=== PATIENT | female | born 1940 | race Caucasian/White ===

== ENCOUNTER 2017-03-11 16:06 | Inpatient (IN) | payer MEDICAID ==
[~2017-03-11] VITALS: Ht 165.1 cm; Wt 68.0 kg
[2017-03-11 16:33] VITALS: BP 96/55
[2017-03-11] MEDS ORDERED: POTASSIUM 25 M25 ME1 PO (16:59)
[2017-03-11] MEDS ORDERED: JANUVIA25 MG ORAL (16:59)
[2017-03-11] MEDS ORDERED: FUROSEMIDE40 MG ORAL (16:59)
[2017-03-11] MEDS ORDERED: COUMADIN4 MG ORAL (16:59)
[2017-03-11] MEDS ORDERED: METFORMIN HCL1000 M1 ORAL (16:59)
[2017-03-11] MEDS ORDERED: TYLENOL650 MG/20. ORAL (16:59)
[2017-03-11] MEDS ORDERED: DIGOXIN0.125 MG/2 ORAL (16:59)
[2017-03-11] MEDS ORDERED: ZYPREXA5 MG ORAL (16:59)
[2017-03-11] MEDS ORDERED: ARICEPT5 MG ORAL (16:59)
[2017-03-11] MEDS ORDERED: METOPROLOL SUCC50 MG ORAL (16:59)
[2017-03-11] MEDS ORDERED: ASPIR 8181 MG ORAL (16:59)
--- NOTE | 2017-03-11 17:09 | Emergency Room Report ---
History of Present Illness General Chief Complaint: Altered Level of Consciousness Source: Patient, Medical Record, PMD Present Illness HPI 76YOF BIBEMS for "AMS". "not eating last 3 [address] PM[address] Fuentes states history of incontinence, concern for UTI vs CVA Patient with MR, dementia, not providing additional HPI at this time Allergies: Coded Allergies: No Known Allergies (Unverified , 03/11/17) Patient History Past Medical History: see triage record, old chart reviewed, other - mentally delayed Past Surgical History: none Pertinent Family History: none Last Menstrual Period: post Now: No Immunizations: UTD Reviewed Nursing Documentation: PMH: Agreed, PSxH: Agreed Nursing Documentation-PMH Past Medical History: No History, Except For Hx Cardiac Problems: Yes - A fib, on [place], CHF EF 40% Hx Hypertension: Yes - Hypercholesterolemia Hx Diabetes: Yes - type II Review of Systems All Other Systems: negative except mentioned in HPI - dementia, aphasic Physical Exam Vital Signs Date Time Temp Pulse Resp B/P Pulse Ox O2 Delivery O2 Flow Rate FiO2 03/11/17 16:09 98.8 80 20 94/57 99 Room Air Sp02 EP Interpretation: reviewed, normal, other - BP is 101/54 General Appearance: normal inspection, well appearing, no apparent distress, alert, GCS 15, non-toxic Head: normocephalic, atraumatic Eyes: bilateral eye EOMI, bilateral eye PERRL ENT: normal ENT inspection, hearing grossly normal, normal voice Neck: normal inspection, full range of motion, supple, no bony tend Respiratory: normal inspection, lungs clear, normal breath sounds, no respiratory distress, no retraction, no wheezing Cardiovascular #1: regular rate, rhythm, no edema Gastrointestinal: normal inspection, normal bowel sounds, non tender, soft, no guarding, no hernia Medical Decision Making Medicare Attestation I Adwoa Dodson MD hereby attest that the medical record entry for date of service, 07/21/16 accurately reflects signatures/notations that I made in my capacity as MD when I treated/diagnosed the above listed Medicare beneficiary. I attest that this information is true, accurate and complete to the best of my knowledge. I understand that any falsification, omission, or concealment of material fact may subject me to administrative, civil, or criminal liability. This patient warrants hospital admission for extreme of age and has a condition that cannot be treated as outpatient. Diagnostic Impression: Primary Impression: Weakness Additional Impression: Failure to thrive Qualified Codes: R62.7 - Adult failure to thrive ER Course 76YOF with ?AMS - VSS. Afebrile - No leuks. H&h stable. - UA c/w UTI. Rocephin given - CT head negative for acute CVA Endorsed to Dr Fuentes for med/surg admit at 726pm EKG Diagnostic Results Rate: normal Rhythm: other - Atrial fib ST Segments: other - TWI in 1, 2, V2, v4-6 Other Impression No previous ECG Rhythm Strip Diag. Results EP Interpretation: yes Rate: 70 Rhythm: no PVC's, no ectopy Last Vital Signs Date Time Temp Pulse Resp B/P Pulse Ox O2 Delivery O2 Flow Rate FiO2 03/11/17 16:33 98.8 66 15 96/55 100 Room Air Status: improved Disposition: ADMITTED INPATIENT Condition: Serious ADWOA DODSON M.D. Mar 11, 2017 17:09
[2017-03-11 17:24] LABS: EOSINOPHILS % (AUTO) 1.1 % (0.0-3.0); LYMPHOCYTES % (AUTO) 34.2 % (20.0-45.0); MEAN CORPUSCULAR HEMOGLOBIN 26.6 PG (27.0-31.0); MEAN CORPUSCULAR VOLUME 83 FL (80-99); MEAN PLATELET VOLUME 7.4 FL (6.5-10.1); MONOCYTES % (AUTO) 5.1 % (1.0-10.0); NEUTROPHILS % (AUTO) 58.6 % (45.0-75.0); PLATELET COUNT 250 K/UL (150-450); RED BLOOD COUNT 4.93 M/UL (4.20-5.40); RED CELL DISTRIBUTION WIDTH 12.7 % (11.6-14.8); WHITE BLOOD COUNT 9.7 K/UL (4.8-10.8)
[2017-03-11 17:30] VITALS: BP 111/63
[2017-03-11 17:59] LABS: TROPONIN I < 0.30 ng/mL (<=0.30)
[2017-03-11 18:00] LABS: ALANINE AMINOTRANSFERASE 17 U/L (3-33); ANION GAP 13 (5-15); ASPARTATE AMINO TRANSFERASE 20 U/L (5-40); CARBON DIOXIDE 21 mEQ/L (20-30); CHLORIDE 100 mEQ/L (98-107); HEMOLYSIS 2; POTASSIUM 4.4 mEQ/L (3.4-4.9); SODIUM 134 mEQ/L (135-145); TOTAL PROTEIN 6.5 g/dL (6.6-8.7)
[2017-03-11 18:10] LABS: CKMB 1.6 ng/mL (< 3.8)
[2017-03-11 18:30] VITALS: BP 104/59
[2017-03-11 19:04] LABS: KETONES,URINE NEGATIVE (NEGATIVE); LEUKOCYTE ESTERASE ,URINE 3+ (NEGATIVE); NITRITE,URINE NEGATIVE (NEGATIVE); PH,URINE 6 (4.5-8.0); PROTEIN,URINE 1+ (NEGATIVE); UROBILINOGEN,URINE NORMAL MG/DL (0.0-1.0)
[2017-03-11 19:05] LABS: APPEARANCE,URINE SLIGHTLY CLOUDY
[2017-03-11 19:07] LABS: BACTERIA,URINE MODERATE /HPF; SQUAMOUS EPITHELIAL CELL,UR FEW /LPF (NONE/OCC)
[2017-03-11 20:08] VITALS: BP 105/55
[2017-03-11] MEDS ORDERED: cefTRIAXone 1 GM in NS 55 ML IVPB ONE (20:15)
[2017-03-11] MEDS ORDERED: Cefepime HCl 1 GM in D5W 55 ML IVPB SCH (23:00)
[2017-03-11] MEDS ORDERED: Cefepime 1gm vial ONE (23:02)
[2017-03-12 04:00] VITALS: BP 136/89
[2017-03-12 06:17] LABS: BASOPHILS % (AUTO) 0.9 % (0.0-2.0); EOSINOPHILS % (AUTO) 0.9 % (0.0-3.0); MEAN CORPUSCULAR HEMOGLOBIN 26.8 PG (27.0-31.0); MEAN CORPUSCULAR HGB CONC 31.7 G/DL (32.0-36.0); MEAN CORPUSCULAR VOLUME 84 FL (80-99); MEAN PLATELET VOLUME 7.9 FL (6.5-10.1); MONOCYTES % (AUTO) 7.1 % (1.0-10.0); PLATELET COUNT 240 K/UL (150-450); RED CELL DISTRIBUTION WIDTH 13.2 % (11.6-14.8); WHITE BLOOD COUNT 9.9 K/UL (4.8-10.8)
[2017-03-12 06:39] LABS: INR 1.5 (0.9-1.1); PROTHROMBIN TIME 15.3 SEC (9.30-11.50)
[2017-03-12 06:48] LABS: ALANINE AMINOTRANSFERASE 17 U/L (3-33); ALBUMIN/GLOBULIN RATIO 1.2 (1.0-2.7); ANION GAP 14 (5-15); ASPARTATE AMINO TRANSFERASE 25 U/L (5-40); CALCIUM 9.1 mg/dL (8.6-10.2); CARBON DIOXIDE 19 mEQ/L (20-30); CHLORIDE 105 mEQ/L (98-107); CREATININE 0.9 mg/dL (0.5-0.9); HEMOLYSIS 65; POTASSIUM 5.2 mEQ/L (3.4-4.9); SODIUM 138 mEQ/L (135-145); TOTAL PROTEIN 6.4 g/dL (6.6-8.7)
[2017-03-12 09:00] VITALS: BP 125/74
[2017-03-12] MEDS ORDERED: Aspirin EC 81mg tab ORAL SCH (09:00)
[2017-03-12] MEDS ORDERED: Furosemide 40mg tab ORAL SCH (09:00)
[2017-03-12] MEDS ORDERED: metFORMIN 500mg tab ORAL SCH (09:00)
[2017-03-12] MEDS ORDERED: Digoxin 0.125mg tab ORAL SCH (09:00)
[2017-03-12] MEDS ORDERED: sitaGLIPtin 25mg tab ORAL SCH (09:00)
[2017-03-12] MEDS ORDERED: Donepezil 5mg Tab ORAL SCH (09:00)
--- NOTE | 2017-03-12 11:21 | Diagnostic Imaging Report ---
Indications: Altered mental status Technique: Continuous helical CT imaging of the brain was performed with automatic exposure control on a Siemens sensation [address] scanner. Axial and coronal images were reconstructed at 5 mm slice thickness and interval. CTDI volume(s): 70 mGy Total DLP: 1323 mGy-cm Findings: Comparison: None Confluent low attenuation is present doubt the bilateral periventricular and deep cerebral white matter. Ventricles, cisterns, and sulci are diffusely prominent. No evidence of mass or hemorrhage, mass effect, midline shift, hydrocephalus, or increased intracranial pressure. Bone window images are unremarkable. Visualized paranasal sinuses and mastoid air cells are clear. IMPRESSION: No evidence of acute intracranial pathology . Bilateral cerebral periventricular and deepwhite matter low attenuation, nonspecific, likely chronic microvascular ischemic in nature. Atrophy The CT scanner at [facility] is accredited by the [employer] [employer] and the scans are performed using protocols designed to limit radiation exposure to as low as reasonably achievable to attain images of sufficient resolution adequate for diagnostic evaluation.
[2017-03-12 12:00] VITALS: BP 150/70
--- NOTE | 2017-03-12 14:24 | Diagnostic Imaging Report ---
Indication: Shortness of breath Technique: Single portable AP view of the chest. Findings: Comparison: None. Aortic arch calcified and mildly elongated. Osteophytes and mild scoliosis thoracic, lumbar spine. Extra pulmonary soft tissues, remainder of the cardiomediastinal silhouette, pulmonary vasculature and parenchyma, and pleural surfaces are unremarkable. IMPRESSION: No evidence of acute cardiopulmonary disease Degenerative spondylosis, scoliosis Aortosclerosis.
[2017-03-12 16:11] VITALS: BP 108/70
[2017-03-12] MEDS ORDERED: Warfarin Sodium 4mg ORAL SCH (17:00)
[2017-03-12] MEDS ORDERED: NS 275ml ONE (17:36)
[2017-03-12] MEDS ORDERED: Tubing IV Secondary IV ONE (17:36)
--- NOTE | 2017-03-12 20:16 | History and Physical Report ---
DATE OF ADMISSION: 03/11/2017 CHIEF COMPLAINT AND REASON FOR HOSPITALIZATION: The patient is admitted for evaluation of altered mental status and possible urinary tract infection. HISTORY OF PRESENT ILLNESS: The patient is a 76-year-old, lady resident of an [facility]. She has a history of atrial fibrillation, dementia, Coumadin management, incontinence, hepatitis C, and diabetes. She was apparently sent for altered mental status, but it is not clear what happened. She has generalized weakness and poor oral intake. The patient is a poor historian and likely has some component of mental illness and or mental retardation. SURGERIES: None. HABITS: She is a nondrinker and nonsmoker. No use of illicit drugs. ALLERGIES: None known. MEDICATIONS: Include Tylenol, Altace, Aricept, aspirin, Coumadin, digoxin, Januvia, Lasix, metformin and metoprolol. Doses are for the transfer I think she also takes potassium, Prostat and olanzapine. SYSTEM REVIEW: HEAD, EYES, EARS, NOSE, AND THROAT: She states her vision and hearing is good. ENDOCRINE: History of adult onset diabetes controlled. No thyroid problems. PULMONARY: No asthma, TB, or chronic cough. CARDIAC: History of atrial fibrillation and diastolic congestive heart failure manifested by leg edema. No history of tachyarrhythmias and atrial fibrillation is controlled. GASTROINTESTINAL: No gastrointestinal bleeding, ulcer, or abdominal pain. She has hepatitis C. GENITOURINARY: She is incontinent of urine. NEUROLOGIC: No CVA or seizures. She has a history of cognitive impairment either dementia possibly Alzheimer's type versus underlying mental retardation. PHYSICAL EXAMINATION: GENERAL: The patient is alert lady, in no acute distress. VITAL SIGNS: Temperature 97.7, pulse 97, respirations 20, and blood pressure 150/70. HEAD, EYES, EARS, NOSE, AND THROAT: Sclerae are nonicteric. Ocular motions intact in all directions. Oral mucosa moist. NECK: No adenopathy. LUNGS: Clear. HEART: Rhythm atrial fibrillation. No murmur. ABDOMEN: Soft. No organomegaly or masses. EXTREMITIES: No edema, cyanosis, or clubbing. There is arthritic changes in the knees. NEUROLOGIC: The patient is alert and responsive. She is unable to give the month and year. Ask where she lives she says here. Her recall is poor. She moves all extremities. PERTINENT LABORATORY AND DIAGNOSTIC DATA: The head CT shows no acute intracranial pathology and microvascular disease. White count 9.9, hemoglobin 13.9, electrolytes sodium 134, potassium 4.4, BUN 27, and creatinine 1. Urinalysis shows 5 to 10 white cells per high-power field, moderate bacteria and the urine culture shows greater than 100,000 E. coli. IMPRESSION: 1. Urinary tract infection. 2. Altered mental status likely progressive dementia. 3. Anorexia. 4. Hepatitis C. 5. Atrial fibrillation. 6. Chronic diastolic congestive heart failure. PLAN: The patient was given empiric antibiotics. Pending culture. If she remains stable on this regimen we will arrange outpatient care. Colten Fuentes M.D. DR: ABRAHAM JOB#: [id number] CC:
--- NOTE | 2017-03-13 02:02 | Discharge Summary ---
DATE OF ADMISSION: 03/11/2017 DATE OF DISCHARGE: 03/12/2017 PERTINENT HISTORY: See the History and Physical. The patient was brought into the hospital with altered mental status and eating poorly. PERTINENT PHYSICAL FINDINGS: LUNGS: Clear. HEART: Atrial fibrillation. ABDOMEN: Soft. EXTREMITIES: No edema. COURSE IN THE HOSPITAL: The patient was alert and responsive. Tolerated diet. She was started on empiric antibiotics. Urine culture had greater than 100,000 gram-negatives. Final sensitivity is pending. Laboratories remained stable. There is no leukocytosis, fever, or chills and she was discharged back to the [facility] in stable condition. FINAL DIAGNOSES: 1. 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 2. Urinary tract infection, Escherichia coli. 3. Atrial fibrillation, chronic. 4. Chronic diastolic congestive heart failure. 5. Adult onset diabetes. 6. Dementia likely Alzheimer's. 7. Possible mental retardation. DISCHARGE DISPOSITION: She is to return back to her half-way facility on her prior diet and medications and I will give her a short course of empiric antibiotics pending cultures. Colten Fuentes M.D. DR: JAIDEN JOB#: [id number] CC:
== END 2017-03-12 21:10 | DRG 463 ==
LOC: EDBD 16:06 → EMR 17:27 → EDBEDREQ 17:43 → 4E 17:44 → EDBEDREQ 19:59 → 4E 22:04
DX: N39.0 Urinary tract infection, site not specified (principal); I50.32 Chronic diastolic (congestive) heart failure; G30.9 Alzheimer's disease, unspecified; I48.2 Chronic atrial fibrillation; F02.80 Dementia in other diseases classified elsewhere, unspecified severity, without behavioral disturbance, psychotic disturbance, mood disturbance, and anxiety; B96.20 Unspecified Escherichia coli [E. coli] as the cause of diseases classified elsewhere; E11.9 Type 2 diabetes mellitus without complications; F79 Unspecified intellectual disabilities; B19.20 Unspecified viral hepatitis C without hepatic coma; R63.0 Anorexia; Z79.01 Long term (current) use of anticoagulants; F99 Mental disorder, not otherwise specified; R41.82 Altered mental status, unspecified
CPT/HCPCS: 36415; 70450; 71010; 80053; 81003; 82550; 82553; 82962; 84443; 84484; 85025; 85610; 87081; 87086; 87181; 93005

== ENCOUNTER 2017-03-17 13:03 | Inpatient (IN) | payer MEDICAID ==
[~2017-03-17] VITALS: Ht 160 cm; Wt 71.2 kg
[2017-03-17] VITALS (12 sets, daily range): BP systolic 104–158; BP diastolic 55–93
[~2017-03-17 13:03] MED LIST: ARICEPT5 MG ORAL; ASPIR 8181 MG ORAL; COUMADIN4 MG ORAL; DIGOXIN0.125 MG/2 ORAL; FUROSEMIDE40 MG ORAL; JANUVIA25 MG ORAL; METFORMIN HCL1000 M1 ORAL; METOPROLOL SUCC50 MG ORAL; POTASSIUM 25 M25 ME1 PO; TYLENOL650 MG/20. ORAL; ZYPREXA5 MG ORAL
[2017-03-17] MEDS ORDERED: NS 1000ml 1,900 ML IVLG ONE ×2 (13:30→14:15)
[2017-03-17 13:33] LABS: MEAN CORPUSCULAR HEMOGLOBIN 27.1 PG (27.0-31.0); MEAN CORPUSCULAR HGB CONC 31.6 G/DL (32.0-36.0); MEAN CORPUSCULAR VOLUME 86 FL (80-99); MEAN PLATELET VOLUME 7.9 FL (6.5-10.1); PLATELET COUNT 311 K/UL (150-450); RED BLOOD COUNT 5.78 M/UL (4.20-5.40); RED CELL DISTRIBUTION WIDTH 13.5 % (11.6-14.8)
[2017-03-17] MEDS ORDERED: Vancomycin 1gm inj IVPB ONE (13:45)
[2017-03-17] MEDS ORDERED: Vancomycin 1 GM in D5W 275 ML IVPB ONE (13:45)
[2017-03-17 13:48] LABS: WHITE BLOOD COUNT 29.8 K/UL (4.8-10.8)
[2017-03-17 13:49] LABS: TROPONIN I < 0.30 ng/mL (<=0.30)
[2017-03-17 13:51] LABS: ALANINE AMINOTRANSFERASE 20 U/L (3-33); ALBUMIN/GLOBULIN RATIO 0.9 (1.0-2.7); ANION GAP 17 (5-15); ASPARTATE AMINO TRANSFERASE 21 U/L (5-40); CALCIUM 9.8 mg/dL (8.6-10.2); CARBON DIOXIDE 22 mEQ/L (20-30); CHLORIDE 101 mEQ/L (98-107); CREATININE 1.2 mg/dL (0.5-0.9); HEMOLYSIS 4; POTASSIUM 4.8 mEQ/L (3.4-4.9); SODIUM 140 mEQ/L (135-145); TOTAL PROTEIN 8.1 g/dL (6.6-8.7)
[2017-03-17] MEDS ORDERED: COUMADIN3 MG ORAL (13:58)
[2017-03-17] MEDS ORDERED: ALTACE2.5 MG ORAL (13:58)
[2017-03-17] MEDS ORDERED: COUMADIN4 MG ORAL (13:58)
[2017-03-17] MEDS ORDERED: ARICEPT10 MG ORAL (13:58)
[2017-03-17 14:00] LABS: REFLEX LACTIC ACID YES OR NO YES
[2017-03-17] MEDS ORDERED: DOCUSATE SODIU100 MG ORAL (14:01)
[2017-03-17] MEDS ORDERED: dulcolax supp RC (14:01)
[2017-03-17 14:28] LABS: BAND NEUTROPHILS % (MANUAL) 0 % (0-8); BASOPHILS % (MANUAL) 0 % (0-2); EOSINOPHILS % (MANUAL) 0 % (0-3); LYMPHOCYTES % (MANUAL) 32 % (20-45); NEUTROPHILS % (MANUAL) 65 % (45-75); PLATELET ESTIMATE ADEQUATE; PLATELET MORPHOLOGY NORMAL; TOTAL CELLS COUNTED 100
[2017-03-17 14:32] LABS: REACTIVE LYMPHOCYTES 3+
[2017-03-17 14:34] LABS: HYPOCHROMASIA 1+
--- NOTE | 2017-03-17 14:37 | Emergency Room Report ---
History of Present Illness General Chief Complaint: Dyspnea/Respdistress Source: Medical Record Present Illness HPI [facility]. Patient is full code. At baseline patient's apparently is able to the as patient does not have a G-tube in place. History is fairly limited as patient is nonverbal. History was obtained from medical records and EMS. Patient is from [facility]. Patient's primary care physician is Dr. Danny Mayen. Patient was noted to have congestion increasing shortness of breath which is why patient's was sent here for further evaluation. Apparently patient does not have advanced directives in place at the penitentiary and patient was noted to be full code according to the penitentiary. No other history is available symptoms are noted to be highly severe to critical.No other modifying factors. No other associated signs and symptoms. No other complaints were noted. Allergies: Coded Allergies: No Known Allergies (Unverified , 03/11/17) Patient History Past Medical History: DM, HTN, AFib, dementia, other - hep c Past Surgical History: none Pertinent Family History: none Social History Narrative stays at a penitentiary Nursing Documentation-PMH Hx Cardiac Problems: Yes - A-fib; Hep C; High cholesterol Hx Hypertension: Yes - Hypercholesterolemia Hx Diabetes: Yes History Of Psychiatric Problem: Yes - Dementia; Schizophrenia Review of Systems All Other Systems: limited - poor mental status Physical Exam Vital Signs Date Time Temp Pulse Resp B/P Pulse Ox O2 Delivery O2 Flow Rate FiO2 03/17/17 13:02 144 28 158/90 88 Nasal Cannula 4.0 03/17/17 13:17 100 Sp02 EP Interpretation: reviewed, abnormal - noted to be low by me General Appearance: alert, severe distress, cachetic, lethargic, Chronically Ill Head: normocephalic, atraumatic ENT: dry mucus membranes Neck: normal inspection, no bony tend Respiratory: respiratory distress, decreased breath sounds, accessory muscle use, expiration - crackles Cardiovascular #1: no edema, tachycardia - irregularly irregular Gastrointestinal: normal inspection, normal bowel sounds, soft, no guarding, no hernia, other - G-tube in place Genitourinary: ext genitalia/vag normal Musculoskeletal: normal inspection, back normal Neurologic: other - unable to fully assess as patient is toxic. Psychiatric: other - unable to assess due to poor mental status Skin: warm/dry Procedures Critical Care Time Critical Care Time Patient had a critical medical condition which untreated could potentially result in life or limb threatening injury. Total critical care time excluding procedures was approximately 45 minutes. Central Line Central Line : Consent: Verbal Central Line Lumen: triple Maximal Sterile Barrier Tech: yes cap, yes mask, yes sterile gown, yes sterile gloves, yes large sterile sheet, yes hand hygiene, yes chlorhexidine prep Central Line Postion: femoral (R) Complications: none Central Line Post Position: sutured, good blood return Attempts: One Patient Tolerated: Well Complications: None Intubation Intubation : Consent: Emergent Time of Intubation: 14:30 Intubation Method: orotracheal Tube Size (cm): 7.5 Medications: Etomidate, Succinylcholine Breath Sounds after Intubation: equal Intubation Complications: no complications Post Intubation Xray: Yes Attempts: One Patient Tolerated: Well Complications: None Medical Decision Making Diagnostic Impression: Primary Impression: Altered level of consciousness Additional Impressions: Respiratory distress Sepsis Respiratory failure ER Course Patient presents emergency department today with acute shortness of breath. Differential diagnoses include pneumonia, CHF, sepsis, electrolyte abnormality just name a few.Given the severity of the patient's presentation I felt this is a highly complex patient. This patient required extensive workup. Patient laboratory workup shows severely elevated white blood cell count. Patient's chest x-ray however was clear per radiology. Patient presents in respiratory distress and require control the airway. Patient was intubated. Patient was also tachycardic with evidence atrial fibrillation. However patient appeared dehydrated. Central line was placed and patient was given 30 mL per kilogram fluid bolus. Patient also had elevated lactic acid level after receiving fluid bolus patient's lactic acid level still appear elevated. Case was discussed in detail with patient's hospitalist an advertising sales representative. Patient was reevaluated in her perfusion was improving with good cap refill and stable blood pressure. However given severe patient presentation patient was also started on IV antibiotics after blood culture was obtained. Patient will be admitted to intensive period of for further treatment.Patient's heart rate did improve with fluid boluses. Because patient's blood pressure is stable patient did not require pressors. Labs Test 03/17/17 13:19 03/17/17 14:30 03/17/17 15:00 03/17/17 15:15 White Blood Count 29.8 K/UL (4.8-10.8) Red Blood Count 5.78 M/UL (4.20-5.40) Hemoglobin 15.7 G/DL (12.0-16.0) Hematocrit 49.6 % (37.0-47.0) Mean Corpuscular Volume 86 FL (80-99) Mean Corpuscular Hemoglobin 27.1 PG (27.0-31.0) Mean Corpuscular Hemoglobin Concent 31.6 G/DL (32.0-36.0) Red Cell Distribution Width 13.5 % (11.6-14.8) Platelet Count 311 K/UL (150-450) Mean Platelet Volume 7.9 FL (6.5-10.1) Neutrophils (%) (Auto) % (45.0-75.0) Lymphocytes (%) (Auto) % (20.0-45.0) Monocytes (%) (Auto) % (1.0-10.0) Eosinophils (%) (Auto) % (0.0-3.0) Basophils (%) (Auto) % (0.0-2.0) Differential Total Cells Counted 100 Neutrophils % (Manual) 65 % (45-75) Lymphocytes % (Manual) 32 % (20-45) Monocytes % (Manual) 3 % (1-10) Eosinophils % (Manual) 0 % (0-3) Basophils % (Manual) 0 % (0-2) Band Neutrophils 0 % (0-8) Reactive Lymphocytes 3+ Other Cell Type Platelet Estimate Adequate Platelet Morphology Normal Red Blood Cell Morphology Hypochromasia 1+ Sodium Level 140 mEQ/L (135-145) Potassium Level 4.8 mEQ/L (3.4-4.9) Chloride Level 101 mEQ/L (98-107) Carbon Dioxide Level 22 mEQ/L (20-30) Anion Gap 17 (5-15) Blood Urea Nitrogen 34 mg/dL (7-23) Creatinine 1.2 mg/dL (0.5-0.9) Estimat Glomerular Filtration Rate mL/min (>60) Glucose Level 235 mg/dL (74-106) Lactic Acid Level 4.70 mmol/L (0.66-2.22) 4.20 mmol/L (0.66-2.22) Calcium Level 9.8 mg/dL (8.6-10.2) Total Bilirubin 0.9 mg/dL (0.0-1.2) Aspartate Amino Transf (AST/SGOT) 21 U/L (5-40) Alanine Aminotransferase (ALT/SGPT) 20 U/L (3-33) Alkaline Phosphatase 73 U/L (35-104) Total Creatine Kinase 23 U/L (26-140) Creatine Kinase MB 2.0 ng/mL (< 3.8) Creatine Kinase MB Relative Index 8.6 Troponin I < 0.30 ng/mL (<=0.30) Total Protein 8.1 g/dL (6.6-8.7) Albumin 4.0 g/dL (3.5-5.2) Globulin 4.1 g/dL Albumin/Globulin Ratio 0.9 (1.0-2.7) Urine Color Yellow Urine Appearance Clear Urine pH 5 (4.5-8.0) Urine Specific [place] 1.020 (1.005-1.035) Urine Protein 3+ (NEGATIVE) Urine Glucose (UA) Negative (NEGATIVE) Urine Ketones 1+ (NEGATIVE) Urine Occult Blood Negative (NEGATIVE) Urine Nitrite Negative (NEGATIVE) Urine Bilirubin Negative (NEGATIVE) Urine Urobilinogen 1 MG/DL (0.0-1.0) Urine Leukocyte Esterase 1+ (NEGATIVE) Urine RBC 0-2 /HPF (0 - 2) Urine WBC 2-4 /HPF (0 - 2) Urine Squamous Epithelial Cells Few /LPF (NONE/OCC) Urine Amorphous Sediment Few /LPF (NONE) Urine Bacteria Few /HPF (NONE) Arterial Blood pH 7.340 (7.350-7.450) Arterial Blood Partial Pressure CO2 30.7 mmHg (35.0-45.0) Arterial Blood Partial Pressure O2 93.5 mmHg (75.0-100.0) Arterial Blood HCO3 16.2 mmol/L (22.0-26.0) Arterial Blood Oxygen Saturation 96.8 % (92.0-98.0) Arterial Blood Base Excess -8.2 Sander Test Positive EKG Diagnostic Results Rate: tachycardiac Rhythm: other - atrial fibrillation ST Segments: no acute changes Rhythm Strip Diag. Results EP Interpretation: yes Rate: 140 Rhythm: no PVC's, no ectopy, other - atrial fibrillation Chest X-Ray Diagnostic Results Chest X-Ray Diagnostic Results #1: Chest X-Ray Ordered: Yes # of Views/Limited/Complete: 1 View Indication: Shortness of Breath EP Interpretation: No Interpretation: no acute cardiopulmonary disease Impression: No acute disease Chest X-Ray Diagnostic Results #2: Chest X-Ray Ordered: Yes # of Views/Limited/Complete: 1 View Indication: Shortness of Breath EP Interpretation: Yes Interpretation: no consolidation, no effusion, no pneumothorax Impression: Other - intubationET tube near the rogerio Interpreting ER Provider: Electronically signed by Angélica Judge MD Last Vital Signs Date Time Temp Pulse Resp B/P Pulse Ox O2 Delivery O2 Flow Rate FiO2 03/17/17 13:17 144 28 158/90 92 Non-Rebreather 15.0 100 Status: improved Disposition: ADMITTED INPATIENT Condition: Critical Referrals: DANNY MAYEN (PCP) ANGÉLICA JUDGE M.D. Mar 17, 2017 14:37
[2017-03-17] MEDS: Cefepime HCl 1 GM in NS 55 ML IV SCH ×2 (14:48→16:42)
--- NOTE | 2017-03-17 14:48 | Diagnostic Imaging Report ---
Indications: Cough, intubation Technique: Portable AP chest at 1418 Findings: Comparison: 1327 Endotracheal tube has been placed, tip within 1 cm of the origin of the right mainstem bronchus. Cardio mediastinal silhouette stable. Lungs and pleura remain clear. Mild gaseous distention of stomach as well. IMPRESSION: Endotracheal tube placed, somewhat deep in position, recommend withdrawal 1-2 cm Interval gaseous distention of stomach, mild No evidence of acute cardiopulmonary disease, unchanged
[2017-03-17] MEDS ORDERED: JANUVIA25 MG ORAL (15:10)
[2017-03-17] MEDS ORDERED: CEPHALEXIN500 MG ORAL (15:10)
[2017-03-17] MEDS ORDERED: METFORMIN HCL1000 M1 ORAL (15:10)
[2017-03-17 15:23] LABS: ABG BASE EXCESS -8.2; ABG PCO2 30.7 mmHg (35.0-45.0)
[2017-03-17 15:24] LABS: ABG ALLEN TEST POSITIVE
[2017-03-17 15:35] LABS: APPEARANCE,URINE CLEAR; KETONES,URINE 1+ (NEGATIVE); LEUKOCYTE ESTERASE ,URINE 1+ (NEGATIVE); NITRITE,URINE NEGATIVE (NEGATIVE); PH,URINE 5 (4.5-8.0); PROTEIN,URINE 3+ (NEGATIVE); UROBILINOGEN,URINE 1 MG/DL (0.0-1.0)
[2017-03-17 15:48] LABS: REFLEX LACTIC ACID YES OR NO YES
[2017-03-17 15:58] LABS: BACTERIA,URINE FEW /HPF; RBC,URINE 0-2 /HPF (0 - 2); SQUAMOUS EPITHELIAL CELL,UR FEW /LPF (NONE/OCC)
[2017-03-17 15:59] LABS: AMORPHOUS SEDIMENT,UR FEW /LPF
--- NOTE | 2017-03-17 16:21 | Consultation ---
Consult Note Assessment/Plan dict resp failure sepsis possible early pneumonia dehydration rapid AF DM lactic acidosis IVF Abx vent ADWOA GARCIA Mar 17, 2017 16:21
[2017-03-17] MEDS: DuoNeb 0.5-3(2.5)mg/3ml neb IN-LINE SCH ×2 (16:30→23:47)
[2017-03-17] MEDS ORDERED: Piperacillin/Tazobactam 3.375 GM in NS 110 ML IVPB ONE (17:30)
[2017-03-17] MEDS: Zoysn 3.37gm in D5W 110ml IVPB SCH (18:00)
[2017-03-17] MEDS ORDERED: Morphine Sulfate 2mg/ml Inj IVP PRN (18:00)
[2017-03-17] MEDS: LORazepam Inj 2mg/ml 1ml IV PRN ×2 (18:59→23:17)
[2017-03-17] MEDS ORDERED: Diltiazem 25mg/5ml IV ONE (19:00)
[2017-03-17] MEDS: Pantoprazole Inj IVP SCH (20:58)
[2017-03-17] MEDS: Heparin 5000 units/ml inj SUBQ SCH (21:00)
[2017-03-18] VITALS (33 sets, daily range): BP systolic 90–120; BP diastolic 44–67
--- NOTE | 2017-03-18 02:01 | Consultation ---
DATE OF CONSULTATION: 03/17/2017 PULMONARY CONSULTATION ATTENDING PHYSICIAN: Colten Fuentes M.D. CHIEF COMPLAINT: Respiratory failure. HISTORY OF PRESENT ILLNESS: This elderly woman came from custodial with shortness of breath. She was evaluated and found to have respiratory failure and was intubated in the emergency department. She had a high temperature up to 101 degrees and had a heart rate of 144 in atrial fibrillation. I was called to see her for consultation. I saw her in the emergency department before she was taken to the intensive care. PAST MEDICAL HISTORY: Information is limited. She came from a custodial. There is a history of atrial fibrillation, hypertension, diabetes, dementia, hepatitis C, as well as hypercholesterolemia, and schizophrenia. ALLERGIES: None. MEDICATIONS: The list of medications from the nursing facility was reviewed. Of note, she is on Lasix, digoxin, metformin, Zyprexa, and Coumadin among other medications. REVIEW OF SYSTEMS: Cannot be obtained. PHYSICAL EXAMINATION: GENERAL: The patient is awake and makes eye contact. She is intubated with an orotracheal tube. VITAL SIGNS: Show heart rate is 126 in atrial fibrillation, respirations 20, blood pressure 158/90, and saturation is 100%. The temperature is down, but earlier was 101 degrees. She appears chronically ill. There is a tremor of the hands. HEENT: The head is normocephalic. NECK: No jugular venous distention. CHEST: Has rhonchi. CARDIAC: Rhythm is irregular and rapid. ABDOMEN: Soft and nontender. No feeding tube is in place. EXTREMITIES: No clubbing, cyanosis, or edema. LABORATORY AND DIAGNOSTIC STUDIES: The chest x-ray shows the tube is in good position. There are no infiltrates seen. The white blood count is markedly elevated at 29,800 and hemoglobin is 15.7, reflecting dehydration. Blood gas shows metabolic acidosis with a base excess of -8, pH 7.34, pCO2 31, and pO2 93. Chemistry shows BUN 34 and creatinine 1.2. Lactic acid is elevated at 4.7, repeat was 4.2. Blood sugar is 235. The urine appears fairly clear and shows a few white cells. There is some protein noted. IMPRESSIONS: 1. Acute respiratory failure. 2. Sepsis. 3. Possible early pneumonia with negative x-ray at this time, but purulent sputum is noted. Aspiration is considered. 4. Diabetes. 5. Lactic acidosis. 6. Dementia and schizophrenia. 7. Hyperlipidemia. 8. Rapid atrial fibrillation. PLAN: The patient will be sent to the intensive care. Ventilator support will be continued. We will give fluids and antibiotics. Cardiology consultation will be requested. Followup x-rays will be obtained. Her prognosis is guarded. Shai Lott M.D. DR: Liza JOB#: [id number] CC: Colten Fuentes M.D.; Fax#: [phone] Lott M.D. ; Fax#: [phone]
[2017-03-18] MEDS: DuoNeb 0.5-3(2.5)mg/3ml neb IN-LINE SCH ×4 (04:30→19:00)
[2017-03-18 05:32] LABS: MEAN CORPUSCULAR HGB CONC 32.8 G/DL (32.0-36.0); MEAN CORPUSCULAR VOLUME 85 FL (80-99); MEAN PLATELET VOLUME 7.9 FL (6.5-10.1); PLATELET COUNT 211 K/UL (150-450); RED CELL DISTRIBUTION WIDTH 13.7 % (11.6-14.8)
[2017-03-18 05:42] LABS: WHITE BLOOD COUNT 25.3 K/UL (4.8-10.8)
[2017-03-18] MEDS: Vancomycin 1250mg/D5W 250ml IVPB SCH (05:46)
[2017-03-18 06:42] LABS: HEMOGLOBIN A1C 6.7 % (< 6.0)
[2017-03-18 07:29] LABS: BAND NEUTROPHILS % (MANUAL) 0 % (0-8); BASOPHILS % (MANUAL) 0 % (0-2); EOSINOPHILS % (MANUAL) 0 % (0-3); LYMPHOCYTES % (MANUAL) 16 % (20-45); NEUTROPHILS % (MANUAL) 79 % (45-75); PLATELET ESTIMATE ADEQUATE; PLATELET MORPHOLOGY NORMAL; TOTAL CELLS COUNTED 100
[2017-03-18 07:33] LABS: MAGNESIUM 1.6 mg/dL (1.7-2.5); PHOSPHORUS 1.8 mg/dL (2.5-4.8)
[2017-03-18 07:39] LABS: ALANINE AMINOTRANSFERASE 11 U/L (3-33); ALBUMIN/GLOBULIN RATIO 0.9 (1.0-2.7); ANION GAP 11 (5-15); ASPARTATE AMINO TRANSFERASE 15 U/L (5-40); CALCIUM 7.8 mg/dL (8.6-10.2); CARBON DIOXIDE 19 mEQ/L (20-30); CHLORIDE 109 mEQ/L (98-107); CREATININE 0.8 mg/dL (0.5-0.9); HEMOLYSIS 3; SODIUM 139 mEQ/L (135-145); TOTAL PROTEIN 5.6 g/dL (6.6-8.7)
[2017-03-18 07:45] LABS: THYROID STIMULATING HORMONE 0.873 uIU/mL (0.300-4.500)
--- NOTE | 2017-03-18 08:42 | Diagnostic Imaging Report ---
Indications: Shortness of breath Technique: Portable AP chest Findings: Comparison: 03/11/17 Cardiac silhouette remains normal in size. Pulmonary vasculature remains within normal limits. Inspiratory effort has improved. Lungs and pleura remain clear. Mild calcification of the aortic arch, thoracolumbar vertebral osteophytes again noted. IMPRESSION: No evidence of acute disease, unchanged Stable chronic changes as described
[2017-03-18] MEDS ORDERED: Morphine Sulfate 2mg/ml Inj IVP PRN (09:15)
[2017-03-18] MEDS ORDERED: LORazepam Inj 2mg/ml 1ml IV PRN (09:15)
[2017-03-18] MEDS: Pantoprazole Inj IVP SCH ×2 (09:21→21:22)
[2017-03-18] MEDS: Acetaminophen 650mg/20.3ml NG PRN ×2 (09:21→18:50)
[2017-03-18] MEDS: Zoysn 3.37gm in D5W 110ml IVPB SCH ×2 (09:22→18:17)
[2017-03-18] MEDS: Heparin 5000 units/ml inj SUBQ SCH ×2 (09:22→21:23)
--- NOTE | 2017-03-18 11:11 | Diagnostic Imaging Report ---
Indication: TUBE PLCMT Technique: Supine view of the abdomen Comparison: none Findings: There is a nasogastric tube in place, tip which projects at the level of the gastric body, proximal port beyond the gastroesophageal junction. Bowel gas pattern is unremarkable. There are degenerative changes of the lumbar spine Impression: Satisfactory nasogastric tube position No acute process
[2017-03-18] MEDS ORDERED: NS 275ml ONE (11:29)
[2017-03-18] MEDS ORDERED: Tubing IV Secondary IV ONE (11:29)
--- NOTE | 2017-03-18 12:53 | Critical Care Progress Note ---
Assessment/Plan Assessment/Plan 1. Acute respiratory failure. 2. Sepsis. 3. Possible early pneumonia. 4. Diabetes. 5. Lactic acidosis, improved 6. Dementia and schizophrenia. 7. Hyperlipidemia. 8. Rapid atrial fibrillation, controlled sedated good weaning parameters temps lower BP ok WBC still high cont IVF, abx ? heparin Critical Care - Subjective ROS Limited/Unobtainable: Yes Condition: critical IV Access: central EKG Rhythm: Atrial Fibrillation I&O: Intake and Output 03/17/17 03/18/17 19:00 07:00 Intake Total 4532.5 ml 1758.2 ml Output Total 340 ml 1085 ml Balance 4192.5 ml 673.2 ml Intake Oral 0 ml IV Total 4532.5 ml 1758.2 ml Output Urine Total 340 ml 1085 ml # Bowel Movements 2 Critical Care - Objective ET-Tube: 8.0 ET Position: 20 Last 24 Hour Vital Signs Date Time Temp Pulse Resp B/P Pulse Ox O2 Delivery O2 Flow Rate FiO2 03/18/17 12:35 93 20 100 Mechanical Ventilator 40 03/18/17 12:32 92 20 40 03/18/17 12:30 84 26 100 Mechanical Ventilator 40 03/18/17 12:00 87 03/18/17 12:00 40 03/18/17 12:00 99.5 93 19 112/67 100 Mechanical Ventilator 40.0 03/18/17 11:00 87 19 110/59 100 Mechanical Ventilator 40.0 03/18/17 10:33 86 22 40 03/18/17 10:30 85 22 101/50 100 Mechanical Ventilator 40.0 03/18/17 10:29 86 22 40 03/18/17 10:21 93 90/50 03/18/17 10:00 89 20 90/50 100 Mechanical Ventilator 40.0 03/18/17 09:51 99.9 03/18/17 09:30 96 22 108/56 100 Mechanical Ventilator 40.0 03/18/17 09:00 99.9 96 21 107/54 100 Mechanical Ventilator 40.0 03/18/17 08:33 98 23 40 03/18/17 08:30 96 21 109/55 100 Mechanical Ventilator 40.0 03/18/17 08:00 100.5 98 21 107/51 100 Mechanical Ventilator 40.0 03/18/17 08:00 40 03/18/17 08:00 81 03/18/17 07:40 98 20 100 Mechanical Ventilator 40 03/18/17 07:37 93 20 100 Mechanical Ventilator 40 03/18/17 07:30 99 21 113/50 100 Mechanical Ventilator 40.0 03/18/17 07:00 101 25 118/55 100 Mechanical Ventilator 40.0 03/18/17 06:39 104 22 40 03/18/17 06:00 94 17 105/63 100 Mechanical Ventilator 40.0 03/18/17 05:34 90 22 40 03/18/17 05:30 94 17 102/62 100 Mechanical Ventilator 40.0 03/18/17 05:00 92 17 102/62 100 Mechanical Ventilator 40.0 03/18/17 04:30 94 17 104/62 100 Mechanical Ventilator 40.0 03/18/17 04:00 96 03/18/17 04:00 99.8 96 17 105/62 100 Mechanical Ventilator 40.0 03/18/17 04:00 40 03/18/17 03:00 97 17 100/63 100 Mechanical Ventilator 40.0 03/18/17 02:40 99 21 40 03/18/17 02:30 98 18 100/61 99 Mechanical Ventilator 40.0 03/18/17 02:00 98 17 100/63 99 Mechanical Ventilator 40.0 03/18/17 02:00 40 03/18/17 01:30 98 17 100/63 99 Mechanical Ventilator 40.0 03/18/17 01:30 99 18 104/61 99 Mechanical Ventilator 40.0 03/18/17 01:00 98 17 100/63 99 Mechanical Ventilator 40.0 03/18/17 00:48 97 21 40 03/18/17 00:30 97.5 98 18 103/64 98 Mechanical Ventilator 40.0 03/18/17 00:00 99 17 114/63 99 Mechanical Ventilator 40.0 03/18/17 00:00 99 03/17/17 23:48 104 20 100 Mechanical Ventilator 40 03/17/17 23:45 100 20 40 03/17/17 23:30 94 20 100 Mechanical Ventilator 40 03/17/17 23:00 100 22 104/55 99 Mechanical Ventilator 40.0 03/17/17 22:30 100 21 114/62 99 Mechanical Ventilator 40.0 03/17/17 22:00 100 21 116/65 99 Mechanical Ventilator 40.0 03/17/17 21:00 106 20 40 03/17/17 21:00 124 20 112/65 99 Mechanical Ventilator 40.0 03/17/17 20:30 117 21 109/93 99 Mechanical Ventilator 40.0 03/17/17 20:21 120 108/47 03/17/17 20:00 99.2 124 22 142/65 99 Mechanical Ventilator 40.0 03/17/17 20:00 116 03/17/17 19:39 116 12 40 03/17/17 19:30 132 21 132/93 99 Mechanical Ventilator 40.0 03/17/17 19:00 117 21 131/61 99 Mechanical Ventilator 40.0 03/17/17 18:59 145 132/93 03/17/17 18:00 132 21 132/93 99 Mechanical Ventilator 40.0 03/17/17 17:00 99.3 120 20 118/74 88 Mechanical Ventilator 40.0 03/17/17 17:00 120 03/17/17 17:00 40 03/17/17 16:33 118 18 40 03/17/17 15:02 127 18 40 03/17/17 14:36 101.0 131 144/67 03/17/17 13:55 133 18 40 03/17/17 13:17 144 28 158/90 92 Non-Rebreather 15.0 100 03/17/17 13:17 144 28 Non-Rebreather 15.0 100 03/17/17 13:02 144 28 158/90 88 Nasal Cannula 4.0 Status: sedated Condition: critical Lungs: clear Heart: normal rate, irregularly irregular Abdomen: soft, non-tender Extremities: no C/C/E Micro: Microbiology Date/Time Source Procedure Growth Status 03/17/17 14:15 Sputum Gram Stain - Final Resulted 03/17/17 14:15 Sputum Sputum Culture Pending Resulted ADWOA GARCIA Mar 18, 2017 12:53
--- NOTE | 2017-03-18 16:10 | Diagnostic Imaging Report ---
Indication: SOB Technique: One view of the chest Comparison: 03/17/2017 Findings: Interim improvement of position of endotracheal tube, tip now approximately 3 cm above the rogerio. Interim placement of a nasogastric tube, tip projecting at the level gastric body, in good position. Mild airspace opacity is now present in the left perihilar and infrahilar region. Linear opacities are present at the right lung base, probably due to less optimal inspiration on the current exam. Impression: Endotracheal tube position, now satisfactory Satisfactory nasogastric intubation Developing left perihilar infiltrate
--- NOTE | 2017-03-18 21:18 | History & Physical ---
History and Physical History & Physicial Full H&P dictated #[id number] JB SONG Mar 18, 2017 21:18
[2017-03-18] MEDS: Digoxin 0.125mg tab ORAL SCH (21:29)
[2017-03-18] MEDS: Metoprolol Succinate XL 50mg tab ORAL SCH (21:46)
[2017-03-18] MEDS: NovoLOG Insulin Flexpen SUBQ SCH (22:36)
--- NOTE | 2017-03-18 23:00 | History and Physical Report ---
DATE OF ADMISSION: 03/17/2017 REASON FOR ADMISSION: Shortness of breath. HISTORY OF PRESENT ILLNESS: This is a very pleasant 76-year-old white female, a patient of Dr. Colten Fuentes, who is the resident of a shelter has underlying schizophrenia and dementia, was found to have some increasing shortness of breath at the shelter. She had a high temperature of 101 degree Fahrenheit and heart rate in the range of 144, was brought to the emergency room of [facility]. She has been in respiratory distress, had to be intubated and has been sent to the intensive care unit. Her white count was in the range of 29,000, received some intravenous antibiotics and has been decided to be admitted in the intensive care unit. She is not able to give much history at this point, she is lethargic. PAST MEDICAL HISTORY: Significant for chronic atrial fibrillation for which she is on Coumadin, hypertension, type 2 diabetes mellitus, dementia, hepatitis C, and hypercholesterolemia as well as schizophrenia. ALLERGIES: NKDA. MEDICATIONS: At the shelter includes Lasix, digoxin, metformin, Zyprexa, Coumadin, and Januvia. REVIEW OF SYSTEMS: Impossible since she is not able to give much history. PHYSICAL EXAMINATION: GENERAL: This is an obese lady, lying in the bed of the intensive care unit. VITAL SIGNS: Blood pressure in the range of 120/56, pulse 104, respiration 19, and temperature 100.5. HEENT: Head is atraumatic. Eyes, pupils are reactive to light. No evidence of papilledema. Ears canals are clear. Tympanic membranes are intact. She has an ET tube in place. NECK: Supple. Jugular venous distention is mildly increased. No cervical adenopathy. No thyromegaly. HEART: Irregularly irregular. LUNGS: Very few rhonchi in both bases. ABDOMEN: Supple. Bowel sounds positive. No hepatosplenomegaly. EXTREMITIES: Lower extremity shows no cyanosis or clubbing. 1+ pedal edema. NEUROLOGICAL: Difficult to answer. Moving all four extremities. LABORATORY DATA: WBC 25.3, hemoglobin 12, hematocrit 36.6, and platelets 211,000. Sodium 139, potassium 4.0, chloride 109, carbon dioxide 19, BUN 18, and creatinine 0.8. Hemoglobin A1c 6.7. Glucose 221. Calcium 7.8. Albumin 2.7. Urinalysis showed 2 to 4 wbc's, 1+ ketones, and 3+ protein. Chest x-ray is showing some early perihilar left-sided infiltrate. IMPRESSION: 1. Respiratory failure, most likely due to pneumonia. I am suspecting possibility of aspiration pneumonia. 2. Schizophrenia. 3. Type 2 diabetes mellitus. 4. Atrial fibrillation with rapid ventricular response. PLAN: She is admitted to the intensive care unit. Broad spectrum intravenous antibiotics with vancomycin and Zosyn has been ordered. We will get a pulmonary consult for vent management. We are going to check pro time and INR. Possibly will need to be on heparin drip, as INR is not therapeutic. To control her atrial fibrillation, she was started on the Cardizem drip, which has been stopped now and we are going to start back on her metoprolol and digoxin at this point. Dr. Colten Fuentes is going to take over the case on 03/19/2017. Armando Keen M.D. DR: BRYAN JOB#: [id number] CC:
[2017-03-19] VITALS (24 sets, daily range): BP systolic 93–125; BP diastolic 49–69
[2017-03-19] MEDS: DuoNeb 0.5-3(2.5)mg/3ml neb IN-LINE SCH ×4 (00:49→19:19)
[2017-03-19] MEDS: Zoysn 3.37gm in D5W 110ml IVPB SCH ×3 (02:22→17:50)
[2017-03-19 05:24] LABS: MEAN CORPUSCULAR HEMOGLOBIN 28.6 PG (27.0-31.0); MEAN CORPUSCULAR HGB CONC 33.5 G/DL (32.0-36.0); MEAN CORPUSCULAR VOLUME 85 FL (80-99); MEAN PLATELET VOLUME 8.2 FL (6.5-10.1); PLATELET COUNT 168 K/UL (150-450); RED BLOOD COUNT 3.76 M/UL (4.20-5.40); RED CELL DISTRIBUTION WIDTH 13.7 % (11.6-14.8); WHITE BLOOD COUNT 19.5 K/UL (4.8-10.8)
[2017-03-19] MEDS: Vancomycin 1250mg/D5W 250ml IVPB SCH (05:39)
[2017-03-19 05:55] LABS: ALANINE AMINOTRANSFERASE 8 U/L (3-33); ALBUMIN/GLOBULIN RATIO 0.7 (1.0-2.7); ANION GAP 14 (5-15); ASPARTATE AMINO TRANSFERASE 17 U/L (5-40); CALCIUM 7.8 mg/dL (8.6-10.2); CARBON DIOXIDE 18 mEQ/L (20-30); CHLORIDE 107 mEQ/L (98-107); CREATININE 0.5 mg/dL (0.5-0.9); HEMOLYSIS 31; POTASSIUM 3.4 mEQ/L (3.4-4.9); SODIUM 139 mEQ/L (135-145); TOTAL PROTEIN 5.4 g/dL (6.6-8.7)
[2017-03-19] MEDS: NovoLOG Insulin Flexpen SUBQ SCH ×4 (06:22→23:43)
[2017-03-19 07:37] LABS: BAND NEUTROPHILS % (MANUAL) 0 % (0-8); BASOPHILS % (MANUAL) 0 % (0-2); EOSINOPHILS % (MANUAL) 0 % (0-3); HYPOCHROMASIA 1+; LYMPHOCYTES % (MANUAL) 12 % (20-45); NEUTROPHILS % (MANUAL) 83 % (45-75); PLATELET ESTIMATE ADEQUATE; PLATELET MORPHOLOGY NORMAL; TOTAL CELLS COUNTED 100
[2017-03-19] MEDS: Metoprolol Succinate XL 50mg tab ORAL SCH (09:12)
[2017-03-19] MEDS: Pantoprazole Inj IVP SCH ×2 (09:12→20:45)
[2017-03-19] MEDS: Digoxin 0.125mg tab ORAL SCH (09:13)
[2017-03-19 09:14] LABS: INR 3.5 (0.9-1.1); PROTHROMBIN TIME 36.7 SEC (9.30-11.50)
[2017-03-19] MEDS: Heparin 5000 units/ml inj SUBQ SCH ×2 (09:15→20:45)
--- NOTE | 2017-03-19 14:46 | Diagnostic Imaging Report ---
Indication: Dyspnea Comparison: 03/18/2017 A single view chest radiograph was obtained. Findings: Acute infiltrate versus atelectasis in the perihilar regions noted bilaterally. Endotracheal tube position is stable and unchanged as is nasogastric tube position. Impression: Involvement of atelectasis versus pneumonia involving the perihilar regions bilaterally. Followup recommended.
--- NOTE | 2017-03-19 17:03 | Critical Care Progress Note ---
Assessment/Plan Assessment/Plan 1. Acute respiratory failure. 2. Sepsis. 3. Pneumonia, perihilar 4. Diabetes. 5. Lactic acidosis, improved 6. Dementia and schizophrenia. 7. Hyperlipidemia. 8. Rapid atrial fibrillation, controlled sedation slowly resolving; superimposed toxic encephalopathy good weaning parameters temps 100 BP ok WBC still high cont IVF, abx, NGT feeds heparin try to wean tomorrow dc sedation PICC line needed; no family to consent Critical Care - Subjective ROS Limited/Unobtainable: Yes IV Access: central EKG Rhythm: Atrial Fibrillation Tube Feeding Tolerated: yes I&O: Intake and Output 03/18/17 03/19/17 19:00 07:00 Intake Total 1736.8 ml 2235 ml Output Total 660 ml 480 ml Balance 1076.8 ml 1755 ml Free Water 60 ml IV Total 1736.8 ml 1875 ml Tube Feeding 300 ml Output Urine Total 660 ml 480 ml # Bowel Movements 1 Critical Care - Objective ET-Tube: 8.0 ET Position: 21 Last 24 Hour Vital Signs Date Time Temp Pulse Resp B/P Pulse Ox O2 Delivery O2 Flow Rate FiO2 03/19/17 16:00 40 03/19/17 16:00 99.2 94 25 122/66 100 Mechanical Ventilator 40 03/19/17 16:00 107 03/19/17 15:00 107 20 110/59 100 Mechanical Ventilator 40 03/19/17 14:45 97 22 40 03/19/17 14:00 106 25 121/62 100 Mechanical Ventilator 40 03/19/17 13:15 98 22 100 Mechanical Ventilator 40 03/19/17 13:05 98 21 100 Mechanical Ventilator 40 03/19/17 13:03 99 24 40 03/19/17 13:00 102 22 116/61 100 Mechanical Ventilator 40 03/19/17 12:00 93 03/19/17 12:00 98.6 93 23 116/63 100 Mechanical Ventilator 40 03/19/17 12:00 40 03/19/17 11:12 90 23 40 03/19/17 11:00 96 24 125/60 100 Mechanical Ventilator 40 03/19/17 10:00 91 20 109/52 100 Mechanical Ventilator 40 03/19/17 09:13 103 03/19/17 09:12 104 112/58 03/19/17 09:00 100 21 103/49 100 Mechanical Ventilator 40 03/19/17 08:43 96 22 40 03/19/17 08:00 101 03/19/17 08:00 99.1 104 24 120/58 100 Mechanical Ventilator 40 03/19/17 08:00 40 03/19/17 07:25 103 24 100 Mechanical Ventilator 40 03/19/17 07:18 107 26 100 Mechanical Ventilator 40 03/19/17 07:15 107 26 40 03/19/17 07:00 105 20 114/54 100 Mechanical Ventilator 40.0 03/19/17 06:00 100 20 118/63 100 Mechanical Ventilator 40.0 03/19/17 05:17 118 23 40 03/19/17 05:00 112 20 124/63 100 Mechanical Ventilator 40.0 03/19/17 04:00 101 03/19/17 04:00 40 03/19/17 04:00 99.2 101 20 114/62 100 Mechanical Ventilator 40.0 03/19/17 03:28 99 22 40 03/19/17 03:00 101 20 117/60 100 Mechanical Ventilator 40.0 03/19/17 02:00 104 21 114/60 100 Mechanical Ventilator 40.0 03/19/17 01:00 104 23 120/60 100 Mechanical Ventilator 40.0 03/19/17 01:00 92 22 100 Mechanical Ventilator 40 03/19/17 00:49 97 24 100 Mechanical Ventilator 40 03/19/17 00:48 97 24 40 03/19/17 00:00 99.0 97 21 93/49 100 Mechanical Ventilator 40.0 03/19/17 00:00 97 03/19/17 00:00 40 03/18/17 23:00 85 18 106/55 100 Mechanical Ventilator 40.0 03/18/17 22:54 81 19 40 03/18/17 22:00 88 18 113/61 100 Mechanical Ventilator 40.0 03/18/17 21:46 94 110/44 03/18/17 21:29 101 03/18/17 21:00 105 20 95/44 100 Mechanical Ventilator 40.0 03/18/17 20:35 121 26 40 03/18/17 20:00 99.1 112 22 111/52 100 Mechanical Ventilator 40.0 03/18/17 20:00 40 03/18/17 20:00 112 03/18/17 19:30 99.1 03/18/17 19:11 126 25 100 Mechanical Ventilator 40 03/18/17 19:11 Mechanical Ventilator 03/18/17 19:08 126 25 40 03/18/17 19:00 104 19 120/56 100 Mechanical Ventilator 40.0 03/18/17 18:00 112 19 110/51 100 Mechanical Ventilator 40.0 03/18/17 17:00 111 19 120/52 100 Mechanical Ventilator 40.0 Status: sedated, somnolent Condition: critical Lungs: rhonchi Heart: tachycardia, irregularly irregular Abdomen: soft, non-tender Micro: Microbiology Date/Time Source Procedure Growth Status 03/17/17 14:25 Blood Blood Culture - Preliminary NO GROWTH AFTER 24 HOURS Resulted 03/17/17 14:15 Blood Blood Culture - Preliminary NO GROWTH AFTER 24 HOURS Resulted 03/17/17 14:15 Sputum Gram Stain - Final Resulted 03/17/17 14:15 Sputum Culture - Preliminary Staphylococcus Aureus Resulted 03/17/17 14:00 Nasal Nares MRSA Culture - Final Staphylococcus Aureus - Mrsa Complete 03/17/17 17:10 Rectum VRE Culture - Final Enterococcus Faecium - Vre Complete Accucheck: 134 ADWOA GARCIA Mar 19, 2017 17:03
--- NOTE | 2017-03-19 19:31 | General Progress Note ---
Assessment/Plan Problem List: (1) Hepatitis C ICD Codes: B19.20 - Unspecified viral hepatitis C without hepatic coma SNOMED: 92138935 (2) CHF (congestive heart failure), NYHA class II ICD Codes: I50.9 - Heart failure, unspecified SNOMED: 859852007, 754698324 (3) Atrial fibrillation with rapid ventricular response ICD Codes: I48.91 - Unspecified atrial fibrillation SNOMED: 506895423768889 (4) Healthcare-associated pneumonia ICD Codes: J18.9 - Pneumonia, unspecified organism SNOMED: 547164994 (5) Respiratory failure ICD Codes: J96.90 - Respiratory failure, unspecified, unspecified whether with hypoxia or hypercapnia SNOMED: 399041753 (6) Altered level of consciousness ICD Codes: R40.4 - Transient alteration of awareness SNOMED: 1360417 Assessment/Plan holding sedatives, hope to wean, iv adjusted, all orders reviewed, icu time 35 min Subjective ROS Limited/Unobtainable: Yes Allergies: Coded Allergies: No Known Allergies (Unverified , 03/11/17) Objective Last 24 Hour Vital Signs Date Time Temp Pulse Resp B/P Pulse Ox O2 Delivery O2 Flow Rate FiO2 03/19/17 19:19 91 25 100 Mechanical Ventilator 40 03/19/17 19:19 91 25 40 03/19/17 19:00 95 20 108/57 100 Mechanical Ventilator 40 03/19/17 18:00 100 26 102/60 100 Mechanical Ventilator 40 03/19/17 17:16 97 25 40 03/19/17 17:00 92 24 123/67 100 Mechanical Ventilator 40 03/19/17 16:00 40 03/19/17 16:00 99.2 94 25 122/66 100 Mechanical Ventilator 40 03/19/17 16:00 107 03/19/17 15:00 107 20 110/59 100 Mechanical Ventilator 40 03/19/17 14:45 97 22 40 03/19/17 14:00 106 25 121/62 100 Mechanical Ventilator 40 03/19/17 13:15 98 22 100 Mechanical Ventilator 40 03/19/17 13:05 98 21 100 Mechanical Ventilator 40 03/19/17 13:03 99 24 40 03/19/17 13:00 102 22 116/61 100 Mechanical Ventilator 40 03/19/17 12:00 93 03/19/17 12:00 98.6 93 23 116/63 100 Mechanical Ventilator 40 03/19/17 12:00 40 03/19/17 11:12 90 23 40 03/19/17 11:00 96 24 125/60 100 Mechanical Ventilator 40 03/19/17 10:00 91 20 109/52 100 Mechanical Ventilator 40 03/19/17 09:13 103 03/19/17 09:12 104 112/58 03/19/17 09:00 100 21 103/49 100 Mechanical Ventilator 40 03/19/17 08:43 96 22 40 03/19/17 08:00 101 03/19/17 08:00 99.1 104 24 120/58 100 Mechanical Ventilator 40 03/19/17 08:00 40 03/19/17 07:25 103 24 100 Mechanical Ventilator 40 03/19/17 07:18 107 26 100 Mechanical Ventilator 40 03/19/17 07:15 107 26 40 03/19/17 07:00 105 20 114/54 100 Mechanical Ventilator 40.0 03/19/17 06:00 100 20 118/63 100 Mechanical Ventilator 40.0 03/19/17 05:17 118 23 40 03/19/17 05:00 112 20 124/63 100 Mechanical Ventilator 40.0 03/19/17 04:00 101 03/19/17 04:00 40 03/19/17 04:00 99.2 101 20 114/62 100 Mechanical Ventilator 40.0 03/19/17 03:28 99 22 40 03/19/17 03:00 101 20 117/60 100 Mechanical Ventilator 40.0 03/19/17 02:00 104 21 114/60 100 Mechanical Ventilator 40.0 03/19/17 01:00 104 23 120/60 100 Mechanical Ventilator 40.0 03/19/17 01:00 92 22 100 Mechanical Ventilator 40 03/19/17 00:49 97 24 100 Mechanical Ventilator 40 03/19/17 00:48 97 24 40 03/19/17 00:00 99.0 97 21 93/49 100 Mechanical Ventilator 40.0 03/19/17 00:00 97 03/19/17 00:00 40 03/18/17 23:00 85 18 106/55 100 Mechanical Ventilator 40.0 03/18/17 22:54 81 19 40 03/18/17 22:00 88 18 113/61 100 Mechanical Ventilator 40.0 03/18/17 21:46 94 110/44 03/18/17 21:29 101 03/18/17 21:00 105 20 95/44 100 Mechanical Ventilator 40.0 03/18/17 20:35 121 26 40 03/18/17 20:00 99.1 112 22 111/52 100 Mechanical Ventilator 40.0 03/18/17 20:00 40 03/18/17 20:00 112 03/18/17 19:30 99.1 Intake and Output 03/18/17 03/19/17 19:00 07:00 Intake Total 1736.8 ml 2235 ml Output Total 660 ml 480 ml Balance 1076.8 ml 1755 ml Free Water 60 ml IV Total 1736.8 ml 1875 ml Tube Feeding 300 ml Output Urine Total 660 ml 480 ml # Bowel Movements 1 Laboratory Tests 03/19/17 04:30: White Blood Count 19.5H, Red Blood Count 3.76L, Hemoglobin 10.8L, Hematocrit 32.2L, Mean Corpuscular Volume 85, Mean Corpuscular Hemoglobin 28.6, Mean Corpuscular Hemoglobin Concent 33.5, Red Cell Distribution Width 13.7, Platelet Count 168, Mean Platelet Volume 8.2, Neutrophils (%) (Auto) , Lymphocytes (%) ( Auto) , Monocytes (%) (Auto) , Eosinophils (%) (Auto) , Basophils (%) (Auto) , Differential Total Cells Counted 100, Neutrophils % (Manual) 83H, Lymphocytes % (Manual) 12L, Monocytes % (Manual) 5, Eosinophils % (Manual) 0, Basophils % ( Manual) 0, Band Neutrophils 0, Platelet Estimate Adequate, Platelet Morphology Normal, Hypochromasia 1+, Sodium Level 139, Potassium Level 3.4, Chloride Level 107, Carbon Dioxide Level 18L, Anion Gap 14, Blood Urea Nitrogen 10, Creatinine 0.5, Estimat Glomerular Filtration Rate , Glucose Level 193H, Calcium Level 7.8L , Total Bilirubin 0.5, Aspartate Amino Transf (AST/SGOT) 17, Alanine Aminotransferase (ALT/SGPT) 8, Alkaline Phosphatase 101, Total Protein 5.4L, Albumin 2.3L, Globulin 3.1, Albumin/Globulin Ratio 0.7L 03/19/17 08:15: Prothrombin Time 36.7H, Prothromb Time International Ratio 3.5H, Hemoglobin A1c 6.7H Height (Feet): 5 Height (Inches): 3.00 Weight (Pounds): 140 General Appearance: no apparent distress, lethargic EENT: other - intubated Neck: normal alignment Cardiovascular: regularly irregular Respiratory/Chest: rhonchi - bilaterally Abdomen: non tender, soft Edema: no edema noted Arm (L), no edema noted Arm (R), no edema noted Leg (L), no edema noted Leg (R), no edema noted Pedal (L), no edema noted Pedal (R), no edema noted Generalized Neurologic: no motor/sensory deficits, disoriented Skin: warm/dry DANNY MAYEN Mar 19, 2017 19:31
[2017-03-19] MEDS ORDERED: Potassium Chloride 40 MEQ in 1/2 NS 1000ml 1,000 ML IV SCH (20:30)
[2017-03-20] VITALS (24 sets, daily range): BP systolic 93–133; BP diastolic 47–75
[2017-03-20] MEDS: DuoNeb 0.5-3(2.5)mg/3ml neb IN-LINE SCH ×4 (01:06→19:21)
[2017-03-20] MEDS: Zoysn 3.37gm in D5W 110ml IVPB SCH ×3 (01:32→18:24)
[2017-03-20] MEDS: Dyna-Hex 2% Top Sol 8oz TOPIC SCH (04:27)
[2017-03-20 05:25] LABS: BASOPHILS % (AUTO) 0.4 % (0.0-2.0); EOSINOPHILS % (AUTO) 0.9 % (0.0-3.0); LYMPHOCYTES % (AUTO) 15.8 % (20.0-45.0); MEAN CORPUSCULAR HEMOGLOBIN 26.9 PG (27.0-31.0); MEAN CORPUSCULAR HGB CONC 31.7 G/DL (32.0-36.0); MEAN CORPUSCULAR VOLUME 85 FL (80-99); MONOCYTES % (AUTO) 6.9 % (1.0-10.0); PLATELET COUNT 217 K/UL (150-450); RED BLOOD COUNT 4.15 M/UL (4.20-5.40); RED CELL DISTRIBUTION WIDTH 13.9 % (11.6-14.8); WHITE BLOOD COUNT 16.1 K/UL (4.8-10.8)
[2017-03-20] MEDS: NovoLOG Insulin Flexpen SUBQ SCH ×3 (05:49→18:24)
[2017-03-20 06:01] LABS: ANION GAP 10 (5-15); CARBON DIOXIDE 21 mEQ/L (20-30); CHLORIDE 110 mEQ/L (98-107); CREATININE 0.6 mg/dL (0.5-0.9); HEMOLYSIS 0; POTASSIUM 3.5 mEQ/L (3.4-4.9); SODIUM 141 mEQ/L (135-145)
[2017-03-20] MEDS: Vancomycin 1250mg/D5W 250ml IVPB SCH (06:18)
[2017-03-20] MEDS ORDERED: Heparin 2000 units/Ns 1000ml INJ ONE (09:00)
[2017-03-20] MEDS ORDERED: Lidocaine 1% Plain 30 ml INJ ONE (09:00)
[2017-03-20] MEDS: Heparin 5000 units/ml inj SUBQ SCH ×2 (09:00→20:45)
[2017-03-20] MEDS: Metoprolol Succinate XL 50mg tab ORAL SCH (09:14)
[2017-03-20] MEDS: Pantoprazole Inj IVP SCH ×2 (09:15→20:44)
[2017-03-20] MEDS: Digoxin 0.125mg tab ORAL SCH (09:15)
--- NOTE | 2017-03-20 13:21 | Critical Care Progress Note ---
Assessment/Plan Assessment/Plan 1. Acute respiratory failure. 2. Sepsis. 3. Pneumonia, perihilar 4. Diabetes. 5. Lactic acidosis, improved 6. Dementia and schizophrenia. 7. Hyperlipidemia. 8. Rapid atrial fibrillation, controlled sedation slowly resolving; superimposed toxic encephalopathy good weaning parameters but excess secretions and too lethargic to extubate WBC still high, slowly improving cont IVF, abx, NGT feeds heparin try to wean as tolerated no sedation Critical Care - Subjective ROS Limited/Unobtainable: Yes Condition: improving EKG Rhythm: Atrial Fibrillation Tube Feeding Tolerated: yes I&O: Intake and Output 03/19/17 03/20/17 19:00 07:00 Intake Total 1847.5 ml 1032.5 ml Output Total 855 ml 605 ml Balance 992.5 ml 427.5 ml Free Water 50 ml 30 ml IV Total 1387.5 ml 642.5 ml Tube Feeding 360 ml 360 ml Other 50 ml Output Urine Total 855 ml 605 ml # Bowel Movements 2 Critical Care - Objective ET-Tube: 8.0 ET Position: 20 Last 24 Hour Vital Signs Date Time Temp Pulse Resp B/P Pulse Ox O2 Delivery O2 Flow Rate FiO2 03/20/17 13:14 89 16 100 Mechanical Ventilator 40 03/20/17 13:05 91 21 40 03/20/17 13:03 84 18 100 Mechanical Ventilator 40 03/20/17 12:00 99.0 98 15 112/54 100 Mechanical Ventilator 40 03/20/17 12:00 92 03/20/17 11:00 86 23 110/48 100 Mechanical Ventilator 40 03/20/17 10:49 40 03/20/17 10:44 86 21 40 03/20/17 10:00 86 18 119/59 100 Mechanical Ventilator 40 03/20/17 09:39 40 03/20/17 09:20 100 03/20/17 09:19 100 20 40 03/20/17 09:15 105 03/20/17 09:14 105 108/63 03/20/17 09:00 99.0 105 16 108/63 100 Mechanical Ventilator 40 03/20/17 08:00 99 03/20/17 08:00 40 03/20/17 08:00 99 20 93/52 100 Mechanical Ventilator 40 03/20/17 07:30 92 12 100 Mechanical Ventilator 40 03/20/17 07:20 99 20 100 Mechanical Ventilator 40 03/20/17 07:11 94 23 40 8 07:00 93 22 118/64 100 Mechanical Ventilator 40 03/20/17 06:00 98.9 94 22 108/55 100 Mechanical Ventilator 40 03/20/17 05:10 93 23 40 03/20/17 05:00 90 22 115/58 100 Mechanical Ventilator 40 03/20/17 04:00 40 03/20/17 04:00 99.5 100 22 101/49 100 Mechanical Ventilator 40 03/20/17 04:00 95 03/20/17 03:13 95 23 40 03/20/17 03:00 100 22 100/54 100 Mechanical Ventilator 40 03/20/17 02:00 101 22 98/51 100 Mechanical Ventilator 40 03/20/17 01:16 95 23 100 Mechanical Ventilator 40 03/20/17 01:06 104 26 100 Mechanical Ventilator 40 03/20/17 01:06 104 26 40 03/20/17 01:00 100 22 133/75 100 Mechanical Ventilator 40 03/20/17 00:00 99.6 24 112/65 100 Mechanical Ventilator 40 03/20/17 00:00 40 03/20/17 00:00 92 03/19/17 23:22 101 20 40 03/19/17 23:00 106 22 112/69 100 Mechanical Ventilator 40 03/19/17 22:00 94 22 115/63 100 Mechanical Ventilator 40 03/19/17 21:00 102 22 113/56 100 Mechanical Ventilator 40 03/19/17 20:57 94 25 40 03/19/17 20:00 93 03/19/17 20:00 40 03/19/17 20:00 99.5 101 22 106/49 100 Mechanical Ventilator 40 03/19/17 19:29 103 24 100 Mechanical Ventilator 40 03/19/17 19:19 91 25 100 Mechanical Ventilator 40 03/19/17 19:19 91 25 40 03/19/17 19:00 95 20 108/57 100 Mechanical Ventilator 40 03/19/17 18:00 100 26 102/60 100 Mechanical Ventilator 40 03/19/17 17:16 97 25 40 03/19/17 17:00 92 24 123/67 100 Mechanical Ventilator 40 03/19/17 16:00 40 03/19/17 16:00 99.2 94 25 122/66 100 Mechanical Ventilator 40 03/19/17 16:00 107 03/19/17 15:00 107 20 110/59 100 Mechanical Ventilator 40 03/19/17 14:45 97 22 40 03/19/17 14:00 106 25 121/62 100 Mechanical Ventilator 40 Status: awake, somnolent HEENT: atraumatic Neck: no JVD Lungs: rhonchi Heart: normal rate, irregularly irregular Abdomen: soft, non-tender Extremities: no C/C/E Objective: oral ETT Micro: Microbiology Date/Time Source Procedure Growth Status 03/17/17 14:25 Blood Blood Culture - Preliminary NO GROWTH AFTER 48 HOURS Resulted 03/17/17 14:15 Blood Blood Culture - Preliminary NO GROWTH AFTER 48 HOURS Resulted 03/17/17 14:15 Sputum Gram Stain - Final Complete 03/17/17 14:15 Sputum Culture - Final Staphylococcus Aureus - Mrsa Saige Albicans Complete 03/17/17 14:00 Nasal Nares MRSA Culture - Final Staphylococcus Aureus - Mrsa Complete 03/17/17 17:10 Rectum VRE Culture - Final Enterococcus Faecium - Vre Complete Accucheck: 138 ADWOA GARCIA Mar 20, 2017 13:21
--- NOTE | 2017-03-20 13:36 | General Progress Note ---
Assessment/Plan Problem List: (1) Hepatitis C ICD Codes: B19.20 - Unspecified viral hepatitis C without hepatic coma SNOMED: 73481251 (2) CHF (congestive heart failure), NYHA class II ICD Codes: I50.9 - Heart failure, unspecified SNOMED: 829089344, 097161716 (3) Atrial fibrillation with rapid ventricular response ICD Codes: I48.91 - Unspecified atrial fibrillation SNOMED: 973020494527831 (4) Healthcare-associated pneumonia ICD Codes: J18.9 - Pneumonia, unspecified organism SNOMED: 322541741 (5) Respiratory failure ICD Codes: J96.90 - Respiratory failure, unspecified, unspecified whether with hypoxia or hypercapnia SNOMED: 886394613 (6) Altered level of consciousness ICD Codes: R40.4 - Transient alteration of awareness SNOMED: 6295295 (7) MRSA (methicillin resistant staph aureus) culture positive ICD Codes: Z22.322 - Carrier or suspected carrier of Methicillin resistant Staphylococcus aureus SNOMED: 965420154 Assessment/Plan holding sedatives, hope to wean, on simbv4 but no extubation today iv adjusted, all orders reviewed, icu time 35 min Subjective ROS Limited/Unobtainable: Yes Allergies: Coded Allergies: No Known Allergies (Unverified , 03/11/17) Objective Last 24 Hour Vital Signs Date Time Temp Pulse Resp B/P Pulse Ox O2 Delivery O2 Flow Rate FiO2 03/20/17 13:14 89 16 100 Mechanical Ventilator 40 03/20/17 13:05 91 21 40 03/20/17 13:03 84 18 100 Mechanical Ventilator 40 03/20/17 13:00 95 16 93/47 100 Mechanical Ventilator 40 03/20/17 12:00 99.0 98 15 112/54 100 Mechanical Ventilator 40 03/20/17 12:00 92 03/20/17 11:00 86 23 110/48 100 Mechanical Ventilator 40 03/20/17 10:49 40 03/20/17 10:44 86 21 40 03/20/17 10:00 86 18 119/59 100 Mechanical Ventilator 40 03/20/17 09:39 40 03/20/17 09:20 100 03/20/17 09:19 100 20 40 03/20/17 09:15 105 03/20/17 09:14 105 108/63 03/20/17 09:00 99.0 105 16 108/63 100 Mechanical Ventilator 40 03/20/17 08:00 99 03/20/17 08:00 40 03/20/17 08:00 99 20 93/52 100 Mechanical Ventilator 40 03/20/17 07:30 92 12 100 Mechanical Ventilator 40 03/20/17 07:20 99 20 100 Mechanical Ventilator 40 03/20/17 07:11 94 23 40 03/20/17 07:00 93 22 118/64 100 Mechanical Ventilator 40 03/20/17 06:00 98.9 94 22 108/55 100 Mechanical Ventilator 40 03/20/17 05:10 93 23 40 03/20/17 05:00 90 22 115/58 100 Mechanical Ventilator 40 03/20/17 04:00 40 03/20/17 04:00 99.5 100 22 101/49 100 Mechanical Ventilator 40 03/20/17 04:00 95 03/20/17 03:13 95 23 40 03/20/17 03:00 100 22 100/54 100 Mechanical Ventilator 40 03/20/17 02:00 101 22 98/51 100 Mechanical Ventilator 40 03/20/17 01:16 95 23 100 Mechanical Ventilator 40 03/20/17 01:06 104 26 100 Mechanical Ventilator 40 03/20/17 01:06 104 26 40 03/20/17 01:00 100 22 133/75 100 Mechanical Ventilator 40 03/20/17 00:00 99.6 24 112/65 100 Mechanical Ventilator 40 03/20/17 00:00 40 03/20/17 00:00 92 03/19/17 23:22 101 20 40 03/19/17 23:00 106 22 112/69 100 Mechanical Ventilator 40 03/19/17 22:00 94 22 115/63 100 Mechanical Ventilator 40 03/19/17 21:00 102 22 113/56 100 Mechanical Ventilator 40 03/19/17 20:57 94 25 40 03/19/17 20:00 93 03/19/17 20:00 40 03/19/17 20:00 99.5 101 22 106/49 100 Mechanical Ventilator 40 03/19/17 19:29 103 24 100 Mechanical Ventilator 40 03/19/17 19:19 91 25 100 Mechanical Ventilator 40 03/19/17 19:19 91 25 40 03/19/17 19:00 95 20 108/57 100 Mechanical Ventilator 40 8/3/17 18:00 100 26 102/60 100 Mechanical Ventilator 40 03/19/17 17:16 97 25 40 03/19/17 17:00 92 24 123/67 100 Mechanical Ventilator 40 03/19/17 16:00 40 03/19/17 16:00 99.2 94 25 122/66 100 Mechanical Ventilator 40 03/19/17 16:00 107 03/19/17 15:00 107 20 110/59 100 Mechanical Ventilator 40 03/19/17 14:45 97 22 40 03/19/17 14:00 106 25 121/62 100 Mechanical Ventilator 40 Intake and Output 03/19/17 03/20/17 19:00 07:00 Intake Total 1847.5 ml 1032.5 ml Output Total 855 ml 605 ml Balance 992.5 ml 427.5 ml Free Water 50 ml 30 ml IV Total 1387.5 ml 642.5 ml Tube Feeding 360 ml 360 ml Other 50 ml Output Urine Total 855 ml 605 ml # Bowel Movements 2 Laboratory Tests 03/20/17 05:00: White Blood Count 16.1H, Red Blood Count 4.15L, Hemoglobin 11.2L, Hematocrit 35.3L, Mean Corpuscular Volume 85, Mean Corpuscular Hemoglobin 26.9L, Mean Corpuscular Hemoglobin Concent 31.7L, Red Cell Distribution Width 13.9, Platelet Count 217, Mean Platelet Volume 8.0, Neutrophils (%) (Auto) 76.0H, Lymphocytes (%) (Auto) 15.8L, Monocytes (%) (Auto) 6.9, Eosinophils (%) (Auto) 0.9, Basophils (%) (Auto) 0.4, Sodium Level 141, Potassium Level 3.5, Chloride Level 110H, Carbon Dioxide Level 21, Anion Gap 10, Blood Urea Nitrogen 7, Creatinine 0.6, Estimat Glomerular Filtration Rate , Glucose Level 150H, Calcium Level 8.0L, Vancomycin Level Trough 5.4 Height (Feet): 5 Height (Inches): 3.00 Weight (Pounds): 158 General Appearance: no apparent distress, obese EENT: normal ENT inspection, other - intubated Neck: normal alignment Cardiovascular: regularly irregular Respiratory/Chest: lungs clear Abdomen: non tender, soft Edema: 2+ Leg (L), 2+ Leg (R) 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
--- NOTE | 2017-03-20 13:38 | General Progress Note ---
Assessment/Plan Problem List: (1) Hepatitis C ICD Codes: B19.20 - Unspecified viral hepatitis C without hepatic coma SNOMED: 85536936 (2) CHF (congestive heart failure), NYHA class II ICD Codes: I50.9 - Heart failure, unspecified SNOMED: 378009914, 574735379 (3) Atrial fibrillation with rapid ventricular response ICD Codes: I48.91 - Unspecified atrial fibrillation SNOMED: 278481481753414 (4) Healthcare-associated pneumonia ICD Codes: J18.9 - Pneumonia, unspecified organism SNOMED: 335928650 (5) Respiratory failure ICD Codes: J96.90 - Respiratory failure, unspecified, unspecified whether with hypoxia or hypercapnia SNOMED: 087585618 (6) Altered level of consciousness ICD Codes: R40.4 - Transient alteration of awareness SNOMED: 7403404 (7) MRSA (methicillin resistant staph aureus) culture positive ICD Codes: Z22.322 - Carrier or suspected carrier of Methicillin resistant Staphylococcus aureus SNOMED: 802619003 Assessment/Plan holding sedatives, hope to wean, on simbv4 but no extubation today iv adjusted, all orders reviewed, icu time 35 min patient has poor iv access, needs piccf, confused and unable to sign consent Subjective Allergies: Coded Allergies: No Known Allergies (Unverified , 03/11/17) Objective Last 24 Hour Vital Signs Date Time Temp Pulse Resp B/P Pulse Ox O2 Delivery O2 Flow Rate FiO2 03/20/17 13:14 89 16 100 Mechanical Ventilator 40 03/20/17 13:05 91 21 40 03/20/17 13:03 84 18 100 Mechanical Ventilator 40 03/20/17 13:00 95 16 93/47 100 Mechanical Ventilator 40 03/20/17 12:00 99.0 98 15 112/54 100 Mechanical Ventilator 40 03/20/17 12:00 92 03/20/17 11:00 86 23 110/48 100 Mechanical Ventilator 40 03/20/17 10:49 40 03/20/17 10:44 86 21 40 03/20/17 10:00 86 18 119/59 100 Mechanical Ventilator 40 03/20/17 09:39 40 03/20/17 09:20 100 03/20/17 09:19 100 20 40 03/20/17 09:15 105 03/20/17 09:14 105 108/63 03/20/17 09:00 99.0 105 16 108/63 100 Mechanical Ventilator 40 03/20/17 08:00 99 03/20/17 08:00 40 03/20/17 08:00 99 20 93/52 100 Mechanical Ventilator 40 03/20/17 07:30 92 12 100 Mechanical Ventilator 40 03/20/17 07:20 99 20 100 Mechanical Ventilator 40 03/20/17 07:11 94 23 40 03/20/17 07:00 93 22 118/64 100 Mechanical Ventilator 40 03/20/17 06:00 98.9 94 22 108/55 100 Mechanical Ventilator 40 03/20/17 05:10 93 23 40 03/20/17 05:00 90 22 115/58 100 Mechanical Ventilator 40 03/20/17 04:00 40 03/20/17 04:00 99.5 100 22 101/49 100 Mechanical Ventilator 40 03/20/17 04:00 95 03/20/17 03:13 95 23 40 03/20/17 03:00 100 22 100/54 100 Mechanical Ventilator 40 03/20/17 02:00 101 22 98/51 100 Mechanical Ventilator 40 03/20/17 01:16 95 23 100 Mechanical Ventilator 40 03/20/17 01:06 104 26 100 Mechanical Ventilator 40 03/20/17 01:06 104 26 40 03/20/17 01:00 100 22 133/75 100 Mechanical Ventilator 40 03/20/17 00:00 99.6 24 112/65 100 Mechanical Ventilator 40 03/20/17 00:00 40 03/20/17 00:00 92 03/19/17 23:22 101 20 40 03/19/17 23:00 106 22 112/69 100 Mechanical Ventilator 40 03/19/17 22:00 94 22 115/63 100 Mechanical Ventilator 40 03/19/17 21:00 102 22 113/56 100 Mechanical Ventilator 40 03/19/17 20:57 94 25 40 03/19/17 20:00 93 03/19/17 20:00 40 03/19/17 20:00 99.5 101 22 106/49 100 Mechanical Ventilator 40 03/19/17 19:29 103 24 100 Mechanical Ventilator 40 03/19/17 19:19 91 25 100 Mechanical Ventilator 40 03/19/17 19:19 91 25 40 03/19/17 19:00 95 20 108/57 100 Mechanical Ventilator 40 03/19/17 18:00 100 26 102/60 100 Mechanical Ventilator 40 03/19/17 17:16 97 25 40 03/19/17 17:00 92 24 123/67 100 Mechanical Ventilator 40 03/19/17 16:00 40 03/19/17 16:00 99.2 94 25 122/66 100 Mechanical Ventilator 40 03/19/17 16:00 107 03/19/17 15:00 107 20 110/59 100 Mechanical Ventilator 40 03/19/17 14:45 97 22 40 03/19/17 14:00 106 25 121/62 100 Mechanical Ventilator 40 Intake and Output 03/19/17 03/20/17 19:00 07:00 Intake Total 1847.5 ml 1032.5 ml Output Total 855 ml 605 ml Balance 992.5 ml 427.5 ml Free Water 50 ml 30 ml IV Total 1387.5 ml 642.5 ml Tube Feeding 360 ml 360 ml Other 50 ml Output Urine Total 855 ml 605 ml # Bowel Movements 2 Laboratory Tests 03/20/17 05:00: White Blood Count 16.1H, Red Blood Count 4.15L, Hemoglobin 11.2L, Hematocrit 35.3L, Mean Corpuscular Volume 85, Mean Corpuscular Hemoglobin 26.9L, Mean Corpuscular Hemoglobin Concent 31.7L, Red Cell Distribution Width 13.9, Platelet Count 217, Mean Platelet Volume 8.0, Neutrophils (%) (Auto) 76.0H, Lymphocytes (%) (Auto) 15.8L, Monocytes (%) (Auto) 6.9, Eosinophils (%) (Auto) 0.9, Basophils (%) (Auto) 0.4, Sodium Level 141, Potassium Level 3.5, Chloride Level 110H, Carbon Dioxide Level 21, Anion Gap 10, Blood Urea Nitrogen 7, Creatinine 0.6, Estimat Glomerular Filtration Rate , Glucose Level 150H, Calcium Level 8.0L, Vancomycin Level Trough 5.4 Height (Feet): 5 Height (Inches): 3.00 Weight (Pounds): 158 DANNY MAYEN Mar 20, 2017 13:38
--- NOTE | 2017-03-20 15:24 | Diagnostic Imaging Report ---
Indications: Needs long-term IV access Technique: Procedure performed at bedside. Procedural timeout performed. Ultrasound confirms patent compressible left basilic vein. Total sterile technique, including sterile probe cover and sterile gel, sterile gloves, hand hygiene, hat, mask,, sterile gown, large sterile drape, and preparation with 2% chlorhexidine utilized. Local anesthesia with 1% lidocaine. Under real-time ultrasound guidance, puncture basilic vein using 21-gauge needle, passage 0.018 guidewire, exchange for 5 Persian peel-away sheath. 5 Persian Bard dual-lumen power PICC cut to 45 cm. It was inserted through the peel-away sheath. Peel-away sheath and guidewire removed. Catheter fixed to the skin. Both catheter ports aspirated and flushed. Patient tolerated procedure well, without immediate complication. Followup chest x-ray obtained, documents catheter tip position at the deep right atrium Impression: Successful bedside placement of of the PICC under sonographic guidance, as described above Note catheter is positioned somewhat deep, will be adjusted
[2017-03-20] MEDS: Potassium Chloride 40 MEQ in 1/2 NS 1000ml 1,000 ML IV SCH (15:30)
[2017-03-20] MEDS ORDERED: NS 275ml ONE (15:31)
[2017-03-20] MEDS ORDERED: D5W 275ml ONE (15:40)
--- NOTE | 2017-03-20 16:03 | Diagnostic Imaging Report ---
Indication: Status post line repositioning Technique: One view of the chest Comparison: One hour earlier Findings: Interim repositioning of left arm PICC, tip now at the cavoatrial junction, in good position. Right pleural effusion persists. There is decreased right perihilar infiltrate Other tube positions are stable Impression: Improved and now satisfactory position of left arm PICC Improved but persistent right perihilar infiltrate. Stable right pleural effusion
[2017-03-20] MEDS ORDERED: Vancomycin 1250mg/D5W 250ml IVPB SCH (18:00)
[2017-03-20] MEDS: Vancomycin 750mg/D5W 275ml IVPB SCH ×2 (18:23)
[2017-03-21] VITALS (24 sets, daily range): BP systolic 100–137; BP diastolic 47–86
[2017-03-21] MEDS: NovoLOG Insulin Flexpen SUBQ SCH ×5 (00:19→23:57)
[2017-03-21] MEDS: DuoNeb 0.5-3(2.5)mg/3ml neb IN-LINE SCH ×4 (00:42→19:23)
[2017-03-21] MEDS: Zoysn 3.37gm in D5W 110ml IVPB SCH ×3 (02:08→18:08)
[2017-03-21] MEDS: Vancomycin 750mg/D5W 275ml IVPB SCH ×4 (05:38→18:08)
[2017-03-21] MEDS: Dyna-Hex 2% Top Sol 8oz TOPIC SCH (09:00)
[2017-03-21] MEDS: Digoxin 0.125mg tab ORAL SCH (09:39)
[2017-03-21] MEDS: Heparin 5000 units/ml inj SUBQ SCH ×2 (09:40→21:00)
[2017-03-21] MEDS: Pantoprazole Inj IVP SCH ×2 (09:40→20:57)
[2017-03-21] MEDS: Metoprolol Succinate XL 50mg tab ORAL SCH (09:40)
--- NOTE | 2017-03-21 11:02 | Pulmonolgy Critical Care Note ---
Critical Care - Asmt/Plan Assessment/Plan: 1. Acute respiratory failure. 2. Sepsis. 3. Pneumonia, perihilar 4. Diabetes. 5. Lactic acidosis, improved 6. Dementia and schizophrenia. 7. Hyperlipidemia. 8. 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 Discussed with: nurses Critical Care - Objective Last 24 Hour Vital Signs Date Time Temp Pulse Resp B/P Pulse Ox O2 Delivery O2 Flow Rate FiO2 03/21/17 10:00 102 18 120/53 100 Mechanical Ventilator 30 03/21/17 09:40 102 130/67 03/21/17 09:39 103 03/21/17 09:33 30 03/21/17 09:26 100 03/21/17 09:18 100 21 30 03/21/17 09:00 104 19 130/67 100 Mechanical Ventilator 30 03/21/17 09:00 104 03/21/17 08:00 99.6 104 20 123/61 100 Mechanical Ventilator 35 03/21/17 08:00 30 03/21/17 07:27 101 16 100 Mechanical Ventilator 30 03/21/17 07:19 99 13 30 03/21/17 07:17 98 13 100 Mechanical Ventilator 30 03/21/17 07:00 115 20 120/66 100 Mechanical Ventilator 30 03/21/17 06:00 94 21 111/58 100 Mechanical Ventilator 30 03/21/17 05:00 100 20 119/58 100 Mechanical Ventilator 30 03/21/17 04:54 97 22 30 03/21/17 04:00 30 03/21/17 04:00 103 20 124/50 100 Mechanical Ventilator 30 03/21/17 04:00 103 03/21/17 03:27 109 20 35 03/21/17 03:00 99 23 116/59 100 Mechanical Ventilator 35 03/21/17 02:00 99 16 115/58 100 Mechanical Ventilator 35 03/21/17 01:00 108 17 124/69 100 Mechanical Ventilator 35 03/21/17 00:43 101 23 100 Mechanical Ventilator 35 03/21/17 00:43 103 22 35 03/21/17 00:31 97 21 100 Mechanical Ventilator 35 03/21/17 00:00 99.3 110 21 124/72 100 Mechanical Ventilator 35 03/21/17 00:00 110 03/21/17 00:00 35 03/20/17 23:00 104 21 111/60 99 Mechanical Ventilator 40 03/20/17 22:51 108 22 40 03/20/17 22:00 109 23 117/69 100 Mechanical Ventilator 40 03/20/17 21:00 108 23 117/61 99 Mechanical Ventilator 40 03/20/17 20:38 108 20 40 03/20/17 20:00 100 03/20/17 20:00 99.2 100 20 125/72 100 Mechanical Ventilator 40 03/20/17 20:00 40 03/20/17 19:00 95 21 129/64 100 Mechanical Ventilator 40 03/20/17 18:51 100 26 100 Mechanical Ventilator 40 03/20/17 18:51 105 24 40 03/20/17 18:41 106 24 100 Mechanical Ventilator 40 03/20/17 18:00 99 20 113/63 100 Mechanical Ventilator 40 03/20/17 17:00 102 16 118/51 18 Mechanical Ventilator 40 03/20/17 16:53 98 23 40 03/20/17 16:50 40 03/20/17 16:00 98.6 98 20 116/58 100 Mechanical Ventilator 40 03/20/17 16:00 94 03/20/17 15:00 100 16 133/62 100 Mechanical Ventilator 40 03/20/17 15:00 40 03/20/17 14:53 100 21 03/20/17 14:00 99 16 120/60 100 Mechanical Ventilator 40 03/20/17 13:14 89 16 100 Mechanical Ventilator 40 03/20/17 13:05 91 21 40 03/20/17 13:03 84 18 100 Mechanical Ventilator 40 03/20/17 13:00 95 16 93/47 100 Mechanical Ventilator 40 03/20/17 12:00 99.0 98 15 112/54 100 Mechanical Ventilator 40 03/20/17 12:00 92 Status: obtunded Condition: critical Heart: HR/BP stable Abdomen: soft, non-tender Extremities: edema Decubiti: location Accucheck: 133 Blood Sugars: BS controlled Critical Care - Subjective ROS Limited/Unobtainable: Yes Condition: critical FI02: 30 Vent Support Breath Rate: 8 Vent Support Mode: IMV/SIMV Vent Tidal Volume: 400 Sputum Amount: Small PEEP: 0.0 PIP: 14 Tube Feeding Amount: 30 I&O: Intake and Output 03/20/17 03/21/17 19:00 07:00 Intake Total 827.5 ml 1352.5 ml Output Total 1010 ml 650 ml Balance -182.5 ml 702.5 ml Free Water 30 ml IV Total 467.5 ml 962.5 ml Tube Feeding 360 ml 360 ml Output Urine Total 1010 ml 650 ml # Bowel Movements 1 Subjective: on the vent no distress npo tf bp stable this am no reprots of cp nv or bleeding positive uop ET-Tube: 8.0 ET Position: 21 KEVINDRAKE LANGE Mar 21, 2017 11:02
--- NOTE | 2017-03-21 12:37 | General Progress Note ---
Assessment/Plan Problem List: (1) Hepatitis C ICD Codes: B19.20 - Unspecified viral hepatitis C without hepatic coma SNOMED: 66114695 (2) CHF (congestive heart failure), NYHA class II ICD Codes: I50.9 - Heart failure, unspecified SNOMED: 663162949, 189217195 (3) Atrial fibrillation with rapid ventricular response ICD Codes: I48.91 - Unspecified atrial fibrillation SNOMED: 375629027414048 (4) Healthcare-associated pneumonia ICD Codes: J18.9 - Pneumonia, unspecified organism SNOMED: 783828358 (5) Respiratory failure ICD Codes: J96.90 - Respiratory failure, unspecified, unspecified whether with hypoxia or hypercapnia SNOMED: 133026665 (6) Altered level of consciousness ICD Codes: R40.4 - Transient alteration of awareness SNOMED: 7460843 (7) MRSA (methicillin resistant staph aureus) culture positive ICD Codes: Z22.322 - Carrier or suspected carrier of Methicillin resistant Staphylococcus aureus SNOMED: 119420753 Assessment/Plan holding sedatives, hope to wean, on simbv4 but no extubation so far today iv adjusted, all orders reviewed, icu time 40 min Subjective ROS Limited/Unobtainable: Yes Allergies: Coded Allergies: No Known Allergies (Unverified , 03/11/17) Objective Last 24 Hour Vital Signs Date Time Temp Pulse Resp B/P Pulse Ox O2 Delivery O2 Flow Rate FiO2 03/21/17 12:00 99.0 92 15 117/64 100 Mechanical Ventilator 30 03/21/17 12:00 92 03/21/17 11:30 30 03/21/17 11:14 94 28 30 03/21/17 11:00 92 21 111/49 100 Mechanical Ventilator 30 03/21/17 10:00 102 18 120/53 100 Mechanical Ventilator 30 03/21/17 09:40 102 130/67 03/21/17 09:39 103 03/21/17 09:33 30 03/21/17 09:26 100 03/21/17 09:18 100 21 30 03/21/17 09:00 104 19 130/67 100 Mechanical Ventilator 30 03/21/17 09:00 104 03/21/17 08:00 99.6 104 20 123/61 100 Mechanical Ventilator 35 03/21/17 08:00 30 03/21/17 07:27 101 16 100 Mechanical Ventilator 30 8// 07:19 99 13 30 8/5/17 07:17 98 13 100 Mechanical Ventilator 30 8/17 07:00 115 20 120/66 100 Mechanical Ventilator 30 817 06:00 94 21 111/58 100 Mechanical Ventilator 30 8/5/17 05:00 100 20 119/58 100 Mechanical Ventilator 30 8/5/ 04:54 97 22 30 8 04:00 30 8 04:00 103 20 124/50 100 Mechanical Ventilator 30 8 04:00 103 8// 03:27 109 20 35 8// 03:00 99 23 116/59 100 Mechanical Ventilator 35 8/12/31 02:00 99 16 115/58 100 Mechanical Ventilator 35 8 01:00 108 17 124/69 100 Mechanical Ventilator 35 8/ 00:43 101 23 100 Mechanical Ventilator 35 8/ 00:43 103 22 35 8 00:31 97 21 100 Mechanical Ventilator 35 03/21/17 00:00 99.3 110 21 124/72 100 Mechanical Ventilator 35 03/21/17 00:00 110 /5 00:00 35 8 23:00 104 21 111/60 99 Mechanical Ventilator 40 03/20/17 22:51 108 22 40 8// 22:00 109 23 117/69 100 Mechanical Ventilator 40 03/20/ 21:00 108 23 117/61 99 Mechanical Ventilator 40 03/20/ 20:38 108 20 40 8// 20:00 100 8/17 20:00 99.2 100 20 125/72 100 Mechanical Ventilator 40 8/4/17 20:00 40 8/4/17 19:00 95 21 129/64 100 Mechanical Ventilator 40 8/4/17 18:51 100 26 100 Mechanical Ventilator 40 8/4/17 18:51 105 24 40 8/4/17 18:41 106 24 100 Mechanical Ventilator 40 8/4/17 18:00 99 20 113/63 100 Mechanical Ventilator 40 8/4/17 17:00 102 16 118/51 18 Mechanical Ventilator 40 8/4/17 16:53 98 23 40 8/4/17 16:50 40 8/4/17 16:00 98.6 98 20 116/58 100 Mechanical Ventilator 40 03/20/17 16:00 94 03/20/17 15:00 100 16 133/62 100 Mechanical Ventilator 40 03/20/17 15:00 40 03/20/17 14:53 100 21 03/20/17 14:00 99 16 120/60 100 Mechanical Ventilator 40 03/20/17 13:14 89 16 100 Mechanical Ventilator 40 03/20/17 13:05 91 21 40 03/20/17 13:03 84 18 100 Mechanical Ventilator 40 03/20/17 13:00 95 16 93/47 100 Mechanical Ventilator 40 Intake and Output 03/20/17 03/21/17 19:00 07:00 Intake Total 827.5 ml 1352.5 ml Output Total 1010 ml 650 ml Balance -182.5 ml 702.5 ml Free Water 30 ml IV Total 467.5 ml 962.5 ml Tube Feeding 360 ml 360 ml Output Urine Total 1010 ml 650 ml # Bowel Movements 1 Height (Feet): 5 Height (Inches): 3.00 Weight (Pounds): 157 General Appearance: other - sleepy, arousable on vent EENT: normal ENT inspection Neck: normal alignment Cardiovascular: regularly irregular Respiratory/Chest: rhonchi - bilaterally Abdomen: non tender, soft Edema: 1+ Leg (L), 1+ Leg (R) 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
[2017-03-21] MEDS: Potassium Chloride 40 MEQ in 1/2 NS 1000ml 1,000 ML IV SCH (14:44)
[2017-03-21] MEDS ORDERED: Tubing IV Secondary IV ONE (21:05)
[2017-03-21] MEDS ORDERED: NS 275ml ONE (21:05)
[2017-03-22] VITALS (24 sets, daily range): BP systolic 96–137; BP diastolic 54–78
[2017-03-22] MEDS: Zoysn 3.37gm in D5W 110ml IVPB SCH ×3 (01:41→18:11)
[2017-03-22] MEDS: DuoNeb 0.5-3(2.5)mg/3ml neb IN-LINE SCH ×3 (01:47→12:41)
[2017-03-22] MEDS: Potassium Chloride 40 MEQ in 1/2 NS 1000ml 1,000 ML IV SCH (05:09)
[2017-03-22] MEDS: NovoLOG Insulin Flexpen SUBQ SCH ×4 (05:48→23:16)
[2017-03-22] MEDS: Vancomycin 750mg/D5W 275ml IVPB SCH ×4 (06:00→18:12)
[2017-03-22] MEDS: Dyna-Hex 2% Top Sol 8oz TOPIC SCH (09:00)
[2017-03-22] MEDS: Pantoprazole Inj IVP SCH ×2 (09:32→20:33)
[2017-03-22] MEDS: Heparin 5000 units/ml inj SUBQ SCH ×2 (09:33→20:35)
[2017-03-22] MEDS: Metoprolol Succinate XL 50mg tab ORAL SCH (09:34)
[2017-03-22] MEDS: Digoxin 0.125mg tab ORAL SCH (09:34)
[2017-03-22] MEDS ORDERED: NS 275ml ONE (09:59)
--- NOTE | 2017-03-22 10:18 | Pulmonolgy Critical Care Note ---
Critical Care - Asmt/Plan Assessment/Plan: 1. Acute respiratory failure. 2. Sepsis. 3. Pneumonia, perihilar 4. Diabetes. 5. Lactic acidosis, improved 6. Dementia and schizophrenia. 7. Hyperlipidemia. 8. 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 Discussed with: nurses Critical Care - Objective Last 24 Hour Vital Signs Date Time Temp Pulse Resp B/P Pulse Ox O2 Delivery O2 Flow Rate FiO2 03/22/17 09:34 108 03/22/17 09:34 101 125/61 03/22/17 09:18 30 03/22/17 09:00 99.0 106 23 125/61 100 Mechanical Ventilator 30 03/22/17 08:54 100 03/22/17 08:51 100 22 30 03/22/17 08:00 102 03/22/17 08:00 30 03/22/17 08:00 99 15 131/70 100 Mechanical Ventilator 30 03/22/17 07:00 102 22 128/73 99 Mechanical Ventilator 30 03/22/17 06:55 100 25 30 03/22/17 06:55 101 20 100 Mechanical Ventilator 30 03/22/17 06:45 105 24 100 Mechanical Ventilator 30 03/22/17 06:00 99 22 126/59 99 Mechanical Ventilator 30 03/22/17 05:20 96 26 30 03/22/17 05:00 105 21 124/65 100 Mechanical Ventilator 30 03/22/17 04:00 30 03/22/17 04:00 124 03/22/17 04:00 98.8 121 22 116/66 100 Mechanical Ventilator 30 03/22/17 03:06 109 25 30 03/22/17 03:00 113 27 118/67 100 Mechanical Ventilator 30 03/22/17 02:00 109 14 122/70 100 Mechanical Ventilator 30 03/22/17 01:57 104 16 100 Mechanical Ventilator 30 03/22/17 01:47 108 25 99 Mechanical Ventilator 30 03/22/17 01:30 101 26 30 03/22/17 01:00 105 16 101/63 99 Mechanical Ventilator 30 03/22/17 00:00 98.9 109 26 102/72 99 Mechanical Ventilator 30 03/22/17 00:00 109 03/22/17 00:00 30 03/21/17 23:13 116 26 30 03/21/17 23:00 111 23 107/59 100 Mechanical Ventilator 30 03/21/17 22:00 111 27 108/68 99 Mechanical Ventilator 30 03/21/17 21:15 109 27 30 03/21/17 21:00 111 24 117/68 100 Mechanical Ventilator 30 03/21/17 20:00 107 16 137/63 100 Mechanical Ventilator 30 03/21/17 20:00 107 03/21/17 20:00 30 03/21/17 19:34 106 17 100 Mechanical Ventilator 30 03/21/17 19:23 102 20 99 Mechanical Ventilator 30 03/21/17 19:16 100 27 30 03/21/17 19:00 102 18 100/86 100 Mechanical Ventilator 30 03/21/17 18:00 107 20 122/68 100 Mechanical Ventilator 30 03/21/17 17:19 30 03/21/17 17:07 115 26 30 03/21/17 17:00 120 26 116/47 100 Mechanical Ventilator 30 03/21/17 16:00 30 03/21/17 16:00 98.8 97 20 117/67 100 Mechanical Ventilator 30 03/21/17 16:00 98 03/21/17 15:25 106 26 30 03/21/17 15:00 97 22 123/65 100 Mechanical Ventilator 30 03/21/17 14:00 96 20 133/63 100 Mechanical Ventilator 30 03/21/17 13:13 93 18 100 Mechanical Ventilator 30 03/21/17 13:05 91 15 30 03/21/17 13:04 93 16 100 Mechanical Ventilator 30 03/21/17 13:00 92 18 126/62 100 Mechanical Ventilator 30 03/21/17 12:00 30 03/21/17 12:00 99.0 92 15 117/64 100 Mechanical Ventilator 30 03/21/17 12:00 92 03/21/17 11:30 30 03/21/17 11:14 94 28 30 03/21/17 11:00 92 21 111/49 100 Mechanical Ventilator 30 Status: obtunded Condition: critical Lungs: rhonchi Heart: HR/BP stable Abdomen: soft, non-tender Extremities: edema Decubiti: location Accucheck: 156 Blood Sugars: BS controlled Critical Care - Subjective Condition: critical FI02: 30 Vent Support Breath Rate: 10 Vent Support Mode: IMV/SIMV Vent Tidal Volume: 400 Sputum Amount: Small PEEP: 0.0 PIP: 11 Tube Feeding Amount: 50 I&O: Intake and Output 03/21/17 03/22/17 19:00 07:00 Intake Total 889.5 ml 1521.208 ml Output Total 1695 ml 920 ml Balance -805.5 ml 601.208 ml Free Water 30 ml IV Total 359.5 ml 891.208 ml Tube Feeding 470 ml 600 ml Other 60 ml Output Urine Total 1695 ml 920 ml # Bowel Movements 1 Subjective: on the vent remains obtunded miimal secretions no distress npo tf bp stable this am no reprots of cp nv or bleeding positive uop ET-Tube: 8.0 ET Position: 21 Labs: Current Medications Medications (Trade) Dose Ordered Sig/Carol Route PRN Reason Start Time Stop Time Status Last Admin Dose Admin Acetaminophen (Tylenol) 650 mg Q4H PRN NG Mild Pain/Temp > 100.5 03/18/17 08:30 04/17/17 08:29 03/18/17 18:50 Albuterol/ Ipratropium (DuoNeb 0.5-3(2.5)mg/3ml) 3 ml Q6HRT IN-LINE 03/18/17 07:30 03/22/17 16:29 03/22/17 07:20 Chlorhexidine Gluconate 1 applic 1 applic DAILY TOPIC 03/20/17 09:00 04/19/17 08:59 03/20/17 04:27 Dextrose (Dextrose 50%) STAT PRN IV Hypoglycemia 03/18/17 21:00 04/17/17 20:59 Digoxin (Lanoxin) 0.125 mg DAILY ORAL 03/18/17 21:30 04/17/17 21:29 03/22/17 09:34 Heparin Sodium (Porcine) (Heparin 5000 units/ml) 5,000 units EVERY 12 HOURS SUBQ 03/17/17 21:00 04/16/17 20:59 03/22/17 09:33 Insulin Aspart (NovoLOG) EVERY 6 HOURS SUBQ 03/19/17 18:00 04/18/17 17:59 03/22/17 05:48 Metoprolol Succinate (Toprol XL) 50 mg DAILY ORAL 03/18/17 21:30 04/17/17 21:29 03/22/17 09:34 Pantoprazole (Protonix) 40 mg EVERY 12 HOURS IVP 03/17/17 21:00 04/16/17 20:59 03/22/17 09:32 Piperacillin Sod/ Tazobactam Sod/ Dextrose (Zosyn/D5W) 110 ml @ 27.5 mls/hr Q8H IVPB 03/18/17 02:00 03/25/17 01:59 03/22/17 09:32 Potassium Chloride 40 meq/ Sodium Chloride 1,020 ml @ 20 mls/hr Q24H IV 03/20/17 15:00 04/19/17 14:59 03/22/17 05:09 Vancomycin HCl 1 ea 1 ea DAILY PRN MISC Per rx protocol 03/17/17 16:30 04/16/17 16:29 Vancomycin HCl/ Dextrose (Vancomycin/D5W) 275 ml @ 183.708 mls/hr Q12H IVPB 03/20/17 18:00 03/25/17 17:59 03/22/17 06:00 Laboratory Tests Test 03/22/17 05:30 Vancomycin Level Trough 14.9 ug/mL (5.0-12.0) DRAKE LUX DO Mar 22, 2017 10:18
--- NOTE | 2017-03-22 12:20 | General Progress Note ---
Assessment/Plan Problem List: (1) Hepatitis C ICD Codes: B19.20 - Unspecified viral hepatitis C without hepatic coma SNOMED: 96929900 (2) CHF (congestive heart failure), NYHA class II ICD Codes: I50.9 - Heart failure, unspecified SNOMED: 222265763, 590518645 (3) Atrial fibrillation with rapid ventricular response ICD Codes: I48.91 - Unspecified atrial fibrillation SNOMED: 541720461551818 (4) Healthcare-associated pneumonia ICD Codes: J18.9 - Pneumonia, unspecified organism SNOMED: 365038157 (5) Respiratory failure ICD Codes: J96.90 - Respiratory failure, unspecified, unspecified whether with hypoxia or hypercapnia SNOMED: 265481097 (6) Altered level of consciousness ICD Codes: R40.4 - Transient alteration of awareness SNOMED: 7357326 (7) MRSA (methicillin resistant staph aureus) culture positive ICD Codes: Z22.322 - Carrier or suspected carrier of Methicillin resistant Staphylococcus aureus SNOMED: 293262610 Assessment/Plan holding sedatives, hope to wean, on simbv4 but no extubation so far today iv adjusted, all orders reviewed,ammonia ordered, lactulose ordered icu time 40 min Subjective ROS Limited/Unobtainable: Yes Allergies: Coded Allergies: No Known Allergies (Unverified , 03/11/17) Objective Last 24 Hour Vital Signs Date Time Temp Pulse Resp B/P Pulse Ox O2 Delivery O2 Flow Rate FiO2 03/22/17 12:00 75 03/22/17 12:00 98.8 97 24 126/64 100 Mechanical Ventilator 30 03/22/17 11:00 96 23 121/65 100 Mechanical Ventilator 30 03/22/17 10:43 100 22 30 03/22/17 10:00 93 18 129/78 100 Mechanical Ventilator 30 03/22/17 09:34 108 03/22/17 09:34 101 125/61 03/22/17 09:18 30 03/22/17 09:00 99.0 106 23 125/61 100 Mechanical Ventilator 30 03/22/17 08:54 100 03/22/17 08:51 100 22 30 03/22/17 08:00 102 03/22/17 08:00 30 03/22/17 08:00 99 15 131/70 100 Mechanical Ventilator 30 03/22/17 07:00 102 22 128/73 99 Mechanical Ventilator 30 03/22/17 06:55 100 25 30 03/22/17 06:55 101 20 100 Mechanical Ventilator 30 03/22/17 06:45 105 24 100 Mechanical Ventilator 30 03/22/17 06:00 99 22 126/59 99 Mechanical Ventilator 30 03/22/17 05:20 96 26 30 03/22/17 05:00 105 21 124/65 100 Mechanical Ventilator 30 03/22/17 04:00 30 03/22/17 04:00 124 03/22/17 04:00 98.8 121 22 116/66 100 Mechanical Ventilator 30 03/22/17 03:06 109 25 30 03/22/17 03:00 113 27 118/67 100 Mechanical Ventilator 30 03/22/17 02:00 109 14 122/70 100 Mechanical Ventilator 30 03/22/17 01:57 104 16 100 Mechanical Ventilator 30 03/22/17 01:47 108 25 99 Mechanical Ventilator 30 03/22/17 01:30 101 26 30 03/22/17 01:00 105 16 101/63 99 Mechanical Ventilator 30 03/22/17 00:00 98.9 109 26 102/72 99 Mechanical Ventilator 30 03/22/17 00:00 109 03/22/17 00:00 30 03/21/17 23:13 116 26 30 03/21/17 23:00 111 23 107/59 100 Mechanical Ventilator 30 03/21/17 22:00 111 27 108/68 99 Mechanical Ventilator 30 03/21/17 21:15 109 27 30 03/21/17 21:00 111 24 117/68 100 Mechanical Ventilator 30 03/21/17 20:00 107 16 137/63 100 Mechanical Ventilator 30 03/21/17 20:00 107 03/21/17 20:00 30 03/21/17 19:34 106 17 100 Mechanical Ventilator 30 03/21/17 19:23 102 20 99 Mechanical Ventilator 30 03/21/17 19:16 100 27 30 03/21/17 19:00 102 18 100/86 100 Mechanical Ventilator 30 03/21/17 18:00 107 20 122/68 100 Mechanical Ventilator 30 03/21/17 17:19 30 03/21/17 17:07 115 26 30 03/21/17 17:00 120 26 116/47 100 Mechanical Ventilator 30 03/21/17 16:00 30 03/21/17 16:00 98.8 97 20 117/67 100 Mechanical Ventilator 30 03/21/17 16:00 98 03/21/17 15:25 106 26 30 03/21/17 15:00 97 22 123/65 100 Mechanical Ventilator 30 03/21/17 14:00 96 20 133/63 100 Mechanical Ventilator 30 03/21/17 13:13 93 18 100 Mechanical Ventilator 30 03/21/17 13:05 91 15 30 03/21/17 13:04 93 16 100 Mechanical Ventilator 30 03/21/17 13:00 92 18 126/62 100 Mechanical Ventilator 30 Intake and Output 03/21/17 03/22/17 19:00 07:00 Intake Total 889.5 ml 1521.208 ml Output Total 1695 ml 920 ml Balance -805.5 ml 601.208 ml Free Water 30 ml IV Total 359.5 ml 891.208 ml Tube Feeding 470 ml 600 ml Other 60 ml Output Urine Total 1695 ml 920 ml # Bowel Movements 1 Laboratory Tests 03/22/17 05:30: Vancomycin Level Trough 14.9H Height (Feet): 5 Height (Inches): 3.00 Weight (Pounds): 158 General Appearance: no apparent distress, lethargic EENT: normal ENT inspection Neck: normal alignment Cardiovascular: regularly irregular Respiratory/Chest: rhonchi - bilaterally Abdomen: non tender, soft Edema: 1+ Leg (L), 1+ Leg (R) Neurologic: monitoring manager II-XII grossly normal DANNY MAYEN Mar 22, 2017 12:20
[2017-03-22] MEDS: Lactulose 20gm/30ml UDC ORAL SCH ×2 (13:16→18:00)
[2017-03-22 13:35] LABS: BASOPHILS % (AUTO) 0.7 % (0.0-2.0); EOSINOPHILS % (AUTO) 2.2 % (0.0-3.0); LYMPHOCYTES % (AUTO) 20.2 % (20.0-45.0); MEAN CORPUSCULAR HEMOGLOBIN 27.4 PG (27.0-31.0); MEAN CORPUSCULAR HGB CONC 32.2 G/DL (32.0-36.0); MEAN CORPUSCULAR VOLUME 85 FL (80-99); MEAN PLATELET VOLUME 7.5 FL (6.5-10.1); MONOCYTES % (AUTO) 8.5 % (1.0-10.0); NEUTROPHILS % (AUTO) 68.5 % (45.0-75.0); PLATELET COUNT 228 K/UL (150-450); RED BLOOD COUNT 3.88 M/UL (4.20-5.40); RED CELL DISTRIBUTION WIDTH 13.9 % (11.6-14.8); WHITE BLOOD COUNT 11.2 K/UL (4.8-10.8)
[2017-03-22 13:41] LABS: AMMONIA 29 umol/L (11-51)
[2017-03-22 13:42] LABS: CALCIUM 7.7 mg/dL (8.6-10.2); CARBON DIOXIDE 28 mEQ/L (20-30); CREATININE 0.7 mg/dL (0.5-0.9); HEMOLYSIS 1
[2017-03-22 13:54] LABS: CHLORIDE 99 mEQ/L (98-107); POTASSIUM 3.5 mEQ/L (3.4-4.9); SODIUM 139 mEQ/L (135-145)
[2017-03-23] VITALS (24 sets, daily range): BP systolic 13–144; BP diastolic 40–102
[2017-03-23] MEDS: Zoysn 3.37gm in D5W 110ml IVPB SCH ×3 (02:22→18:26)
[2017-03-23] MEDS: Vancomycin 750mg/D5W 275ml IVPB SCH ×4 (05:37→18:26)
[2017-03-23] MEDS: NovoLOG Insulin Flexpen SUBQ SCH ×3 (05:38→18:25)
[2017-03-23] MEDS ORDERED: NS 275ml ONE (08:34)
[2017-03-23] MEDS: Heparin 5000 units/ml inj SUBQ SCH ×2 (09:00→21:02)
[2017-03-23] MEDS: Dyna-Hex 2% Top Sol 8oz TOPIC SCH (09:00)
[2017-03-23] MEDS: Lactulose 20gm/30ml UDC ORAL SCH ×3 (09:00→18:26)
[2017-03-23] MEDS: Pantoprazole Inj IVP SCH ×2 (09:52→21:01)
[2017-03-23] MEDS: Metoprolol Succinate XL 50mg tab ORAL SCH (09:53)
[2017-03-23] MEDS: Digoxin 0.125mg tab ORAL SCH (09:53)
[2017-03-23 11:08] LABS: ABG BASE EXCESS 4.5; ABG PCO2 37.1 mmHg (35.0-45.0)
--- NOTE | 2017-03-23 11:48 | Pulmonolgy Critical Care Note ---
Critical Care - Asmt/Plan Assessment/Plan: 1. Acute respiratory failure, improving 2. Sepsis. 3. Pneumonia, perihilar 4. Diabetes. 5. Lactic acidosis, improved 6. Dementia and schizophrenia. 7. Hyperlipidemia. 8. Rapid atrial fibrillation, controlled good weaning parameters by me at bedside hope to extubate this AM cont IVF, abx, NGT feeds heparin no sedation Respiratory: weaning trial - extubate if does well Infectious Disease: continue antibiotics Critical Care - Objective Last 24 Hour Vital Signs Date Time Temp Pulse Resp B/P Pulse Ox O2 Delivery O2 Flow Rate FiO2 03/23/17 11:39 100 03/23/17 11:38 100 25 30 03/23/17 11:00 97 22 131/64 100 Mechanical Ventilator 30 03/23/17 10:20 102 25 30 03/23/17 10:00 109 25 134/74 100 Mechanical Ventilator 03/23/17 09:53 115 03/23/17 09:53 122 129/89 03/23/17 09:12 30 03/23/17 09:00 109 22 141/79 100 Mechanical Ventilator 03/23/17 08:00 107 03/23/17 08:00 30 03/23/17 08:00 99.1 107 23 136/82 100 Mechanical Ventilator 03/23/17 07:09 98 25 30 03/23/17 07:00 97 24 125/62 100 Mechanical Ventilator 03/23/17 06:00 96 18 135/65 100 Mechanical Ventilator 03/23/17 05:08 98 25 30 03/23/17 05:00 102 24 123/40 100 Mechanical Ventilator 03/23/17 04:00 82 03/23/17 04:00 30 03/23/17 04:00 98.8 83 23 105/51 100 Mechanical Ventilator 30 03/23/17 03:00 95 23 102/55 100 Mechanical Ventilator 30 03/23/17 02:29 94 27 30 03/23/17 02:00 97 26 130/66 100 Mechanical Ventilator 03/23/17 01:15 93 23 30 03/23/17 01:00 94 22 97/55 100 Mechanical Ventilator 03/23/17 00:00 30 03/23/17 00:00 97 03/23/17 00:00 98.5 97 19 101/57 100 Mechanical Ventilator 03/22/17 23:08 96 20 30 03/22/17 23:00 97 23 104/61 100 Mechanical Ventilator 30 03/22/17 22:00 103 23 112/62 100 Mechanical Ventilator 30 03/22/17 21:00 99 21 96/55 100 Mechanical Ventilator 30 03/22/17 20:42 106 25 30 03/22/17 20:00 30 03/22/17 20:00 107 03/22/17 20:00 107 26 112/54 100 Mechanical Ventilator 30 03/22/17 19:05 104 28 100 Mechanical Ventilator 30 03/22/17 19:03 104 28 30 03/22/17 19:00 114 21 121/68 100 Mechanical Ventilator 30 03/22/17 18:00 92 23 100/65 100 Mechanical Ventilator 30 03/22/17 17:11 107 27 30 03/22/17 17:00 108 25 104/68 100 Mechanical Ventilator 30 03/22/17 16:00 98 03/22/17 16:00 98.8 93 25 123/63 100 Mechanical Ventilator 30 03/22/17 16:00 30 03/22/17 15:16 94 24 30 03/22/17 15:00 103 22 131/62 100 Mechanical Ventilator 30 03/22/17 14:00 97 14 128/66 100 Mechanical Ventilator 30 03/22/17 13:00 110 15 137/64 100 Mechanical Ventilator 30 03/22/17 12:52 30 03/22/17 12:42 114 18 30 03/22/17 12:41 112 20 100 Mechanical Ventilator 30 03/22/17 12:30 113 21 100 Mechanical Ventilator 30 03/22/17 12:00 75 03/22/17 12:00 98.8 97 24 126/64 100 Mechanical Ventilator 30 Status: awake Condition: improving Lungs: clear Heart: irregular Abdomen: soft, non-tender Accucheck: 169 Critical Care - Subjective ROS Limited/Unobtainable: Yes Condition: improving EKG Rhythm: Atrial Fibrillation FI02: 30 Vent Support Breath Rate: 10 Vent Support Mode: AC Vent Tidal Volume: 400 Sputum Amount: Moderate PEEP: 0.0 PIP: 11 Tube Feeding Amount: 50 I&O: Intake and Output 03/22/17 03/23/17 19:00 07:00 Intake Total 1303.8 ml 1307.5 ml Output Total 545 ml 515 ml Balance 758.8 ml 792.5 ml IV Total 703.8 ml 707.5 ml Tube Feeding 600 ml 600 ml Output Urine Total 545 ml 515 ml # Bowel Movements 1 ET-Tube: 8.0 ET Position: 21 ADWOA GARCIA Mar 23, 2017 11:48
--- NOTE | 2017-03-23 12:24 | Diagnostic Imaging Report ---
Indication: Dyspnea Comparison: 03/20/17 A single view chest radiograph was obtained. Findings: Hazy right basilar opacity is present consistent with pleural effusion. Heart size is relatively normal and appears stable. Tubes and lines stable. Impression: No change. Right pleural effusion
[2017-03-23] MEDS: DuoNeb 0.5-3(2.5)mg/3ml neb HHN SCH ×3 (13:20→23:19)
--- NOTE | 2017-03-23 14:21 | General Progress Note ---
Assessment/Plan Problem List: (1) Hepatitis C ICD Codes: B19.20 - Unspecified viral hepatitis C without hepatic coma SNOMED: 95480281 (2) CHF (congestive heart failure), NYHA class II ICD Codes: I50.9 - Heart failure, unspecified SNOMED: 316520117, 947326037 (3) Atrial fibrillation with rapid ventricular response ICD Codes: I48.91 - Unspecified atrial fibrillation SNOMED: 583795357716553 (4) Healthcare-associated pneumonia ICD Codes: J18.9 - Pneumonia, unspecified organism SNOMED: 046616272 (5) Respiratory failure ICD Codes: J96.90 - Respiratory failure, unspecified, unspecified whether with hypoxia or hypercapnia SNOMED: 737492956 (6) Altered level of consciousness ICD Codes: R40.4 - Transient alteration of awareness SNOMED: 2108506 (7) MRSA (methicillin resistant staph aureus) culture positive ICD Codes: Z22.322 - Carrier or suspected carrier of Methicillin resistant Staphylococcus aureus SNOMED: 476455490 Assessment/Plan holding sedatives, s/p extubation all orders reviewed,ammonia ordered, lactulose ordered icu time 40 min Subjective ROS Limited/Unobtainable: Yes Allergies: Coded Allergies: No Known Allergies (Unverified , 03/11/17) Objective Last 24 Hour Vital Signs Date Time Temp Pulse Resp B/P Pulse Ox O2 Delivery O2 Flow Rate FiO2 03/23/17 13:00 108 25 138/102 100 Mechanical Ventilator 30 03/23/17 12:20 Nasal Cannula 4.0 36 03/23/17 12:00 110 03/23/17 12:00 99.9 100 22 13/74 100 Mechanical Ventilator 30 03/23/17 11:39 100 03/23/17 11:38 100 25 30 03/23/17 11:00 97 22 131/64 100 Mechanical Ventilator 30 03/23/17 10:20 102 25 30 03/23/17 10:00 109 25 134/74 100 Mechanical Ventilator 30 03/23/17 09:53 115 03/23/17 09:53 122 129/89 03/23/17 09:12 30 03/23/17 09:00 109 22 141/79 100 Mechanical Ventilator 30 03/23/17 08:00 107 03/23/17 08:00 30 03/23/17 08:00 99.1 107 23 136/82 100 Mechanical Ventilator 30 03/23/17 07:09 98 25 30 03/23/17 07:00 97 24 125/62 100 Mechanical Ventilator 30 03/23/17 06:00 96 18 135/65 100 Mechanical Ventilator 30 03/23/17 05:08 98 25 30 03/23/17 05:00 102 24 123/40 100 Mechanical Ventilator 30 03/23/17 04:00 82 03/23/17 04:00 30 03/23/17 04:00 98.8 83 23 105/51 100 Mechanical Ventilator 30 03/23/17 03:00 95 23 102/55 100 Mechanical Ventilator 30 03/23/17 02:29 94 27 30 03/23/17 02:00 97 26 130/66 100 Mechanical Ventilator 30 03/23/17 01:15 93 23 30 03/23/17 01:00 94 22 97/55 100 Mechanical Ventilator 30 03/23/17 00:00 30 03/23/17 00:00 97 03/23/17 00:00 98.5 97 19 101/57 100 Mechanical Ventilator 30 03/22/17 23:08 96 20 30 03/22/17 23:00 97 23 104/61 100 Mechanical Ventilator 30 03/22/17 22:00 103 23 112/62 100 Mechanical Ventilator 30 03/22/17 21:00 99 21 96/55 100 Mechanical Ventilator 30 03/22/17 20:42 106 25 30 03/22/17 20:00 30 03/22/17 20:00 107 03/22/17 20:00 107 26 112/54 100 Mechanical Ventilator 30 03/22/17 19:05 104 28 100 Mechanical Ventilator 30 03/22/17 19:03 104 28 30 03/22/17 19:00 114 21 121/68 100 Mechanical Ventilator 30 03/22/17 18:00 92 23 100/65 100 Mechanical Ventilator 30 03/22/17 17:11 107 27 30 03/22/17 17:00 108 25 104/68 100 Mechanical Ventilator 30 03/22/17 16:00 98 03/22/17 16:00 98.8 93 25 123/63 100 Mechanical Ventilator 30 03/22/17 16:00 30 03/22/17 15:16 94 24 30 03/22/17 15:00 103 22 131/62 100 Mechanical Ventilator 30 Intake and Output 03/22/17 03/23/17 19:00 07:00 Intake Total 1303.8 ml 1307.5 ml Output Total 545 ml 515 ml Balance 758.8 ml 792.5 ml IV Total 703.8 ml 707.5 ml Tube Feeding 600 ml 600 ml Output Urine Total 545 ml 515 ml # Bowel Movements 1 Laboratory Tests 03/23/17 10:15: Arterial Blood pH 7.490H, Arterial Blood Partial Pressure CO2 37.1, Arterial Blood Partial Pressure O2 97.6, Arterial Blood HCO3 27.9H, Arterial Blood Oxygen Saturation 97.7, Arterial Blood Base Excess 4.5, Sander Test N/a Height (Feet): 5 Height (Inches): 3.00 Weight (Pounds): 161 General Appearance: lethargic, overweight EENT: normal ENT inspection Neck: normal alignment Cardiovascular: regularly irregular Respiratory/Chest: rhonchi - bilaterally Abdomen: non tender, soft Edema: mild edema Neurologic: production zone leader II-XII grossly normal, disoriented DANNY MAYEN Mar 23, 2017 14:21
[2017-03-23] MEDS: Potassium Chloride 40 MEQ in 1/2 NS 1000ml 1,000 ML IV SCH (15:12)
[2017-03-24] VITALS (24 sets, daily range): BP systolic 120–148; BP diastolic 50–94
[2017-03-24] MEDS: NovoLOG Insulin Flexpen SUBQ SCH ×5 (00:08→23:47)
[2017-03-24] MEDS: Zoysn 3.37gm in D5W 110ml IVPB SCH ×2 (02:55→08:56)
[2017-03-24] MEDS: DuoNeb 0.5-3(2.5)mg/3ml neb HHN SCH ×6 (04:38→22:55)
[2017-03-24] MEDS: Vancomycin 750mg/D5W 275ml IVPB SCH ×4 (05:55→17:47)
[2017-03-24 06:00] LABS: BASOPHILS % (AUTO) 0.6 % (0.0-2.0); EOSINOPHILS % (AUTO) 1.6 % (0.0-3.0); LYMPHOCYTES % (AUTO) 15.8 % (20.0-45.0); MEAN CORPUSCULAR HEMOGLOBIN 28.2 PG (27.0-31.0); MEAN CORPUSCULAR HGB CONC 33.2 G/DL (32.0-36.0); MEAN CORPUSCULAR VOLUME 85 FL (80-99); MEAN PLATELET VOLUME 7.1 FL (6.5-10.1); MONOCYTES % (AUTO) 7.3 % (1.0-10.0); NEUTROPHILS % (AUTO) 74.7 % (45.0-75.0); PLATELET COUNT 255 K/UL (150-450); RED BLOOD COUNT 3.86 M/UL (4.20-5.40); RED CELL DISTRIBUTION WIDTH 13.9 % (11.6-14.8)
[2017-03-24 06:13] LABS: ALANINE AMINOTRANSFERASE 7 U/L (3-33); ALBUMIN/GLOBULIN RATIO 0.8 (1.0-2.7); ANION GAP 7 (5-15); ASPARTATE AMINO TRANSFERASE 14 U/L (5-40); CALCIUM 8.4 mg/dL (8.6-10.2); CARBON DIOXIDE 30 mEQ/L (20-30); CHLORIDE 100 mEQ/L (98-107); CREATININE 0.8 mg/dL (0.5-0.9); HEMOLYSIS 5; PHOSPHORUS 2.9 mg/dL (2.5-4.8); POTASSIUM 3.9 mEQ/L (3.4-4.9); SODIUM 137 mEQ/L (135-145); TOTAL PROTEIN 5.6 g/dL (6.6-8.7)
[2017-03-24 06:16] LABS: AMMONIA 19 umol/L (11-51)
[2017-03-24] MEDS: Pantoprazole Inj IVP SCH ×2 (08:53→20:37)
[2017-03-24] MEDS: Dyna-Hex 2% Top Sol 8oz TOPIC SCH (08:53)
[2017-03-24] MEDS: Lactulose 20gm/30ml UDC ORAL SCH ×3 (08:53→17:47)
[2017-03-24] MEDS: Metoprolol Succinate XL 50mg tab ORAL SCH (08:54)
[2017-03-24] MEDS: Digoxin 0.125mg tab ORAL SCH (08:55)
[2017-03-24] MEDS: Heparin 5000 units/ml inj SUBQ SCH ×2 (08:56→20:38)
--- NOTE | 2017-03-24 13:41 | Pulmonolgy Critical Care Note ---
Critical Care - Asmt/Plan Assessment/Plan: 1. Acute respiratory failure, improving 2. Sepsis. 3. Pneumonia, perihilar 4. Diabetes. 5. Lactic acidosis, improved 6. Dementia and schizophrenia. 7. Hyperlipidemia. 8. Rapid atrial fibrillation, controlled tolerated extubation lots of secretions frequent suctioning cont IVF, abx, NGT feeds heparin no sedation keep in ICU Critical Care - Objective Last 24 Hour Vital Signs Date Time Temp Pulse Resp B/P Pulse Ox O2 Delivery O2 Flow Rate FiO2 03/24/17 13:00 96 19 136/69 96 Nasal Cannula 2.0 03/24/17 12:00 98.0 104 18 133/69 95 Nasal Cannula 2.0 03/24/17 12:00 97 03/24/17 11:00 94 20 140/71 96 Nasal Cannula 2.0 03/24/17 10:59 97 21 98 Nasal Cannula 2.0 28 03/24/17 10:49 95 20 97 Nasal Cannula 2.0 28 03/24/17 10:00 92 20 121/71 94 Nasal Cannula 2.0 03/24/17 09:00 102 21 138/69 94 Nasal Cannula 2.0 03/24/17 08:55 103 03/24/17 08:54 108 127/69 03/24/17 08:00 97.8 94 17 127/69 94 Nasal Cannula 2.0 03/24/17 08:00 99 03/24/17 07:14 108 20 100 Nasal Cannula 2.0 03/24/17 07:10 99 Nasal Cannula 2.0 28 03/24/17 07:10 Nasal Cannula 2.0 28 03/24/17 07:09 107 18 99 Nasal Cannula 2.0 03/24/17 07:00 98 21 138/67 95 Nasal Cannula 2.0 03/24/17 06:00 90 21 120/65 94 Nasal Cannula 2.0 03/24/17 05:00 99 22 127/71 94 Nasal Cannula 2.0 03/24/17 04:00 110 03/24/17 04:00 98.7 100 22 126/50 94 Nasal Cannula 2.0 03/24/17 03:45 116 20 100 Nasal Cannula 2.0 28 03/24/17 03:30 107 20 100 Nasal Cannula 2.0 28 03/24/17 03:00 98 22 130/69 94 Nasal Cannula 2.0 03/24/17 02:00 100 20 133/68 100 Nasal Cannula 2.0 03/24/17 01:00 101 25 137/58 99 Nasal Cannula 2.0 03/24/17 00:00 100 03/24/17 00:00 98.2 111 20 127/58 98 Nasal Cannula 2.0 03/23/17 23:19 104 20 100 Nasal Cannula 2.0 28 03/23/17 23:19 108 20 100 Nasal Cannula 2.0 03/23/17 23:00 104 21 138/69 99 Nasal Cannula 2.0 03/23/17 22:00 96 25 130/69 98 Nasal Cannula 2.0 03/23/17 21:00 98 22 132/69 96 Nasal Cannula 2.0 03/23/17 20:00 95 03/23/17 20:00 98.8 97 19 137/76 99 Nasal Cannula 2.0 03/23/17 19:45 104 20 100 Nasal Cannula 2.0 03/23/17 19:30 98 Nasal Cannula 2.0 03/23/17 19:30 Nasal Cannula 2.0 03/23/17 19:30 99 20 100 Nasal Cannula 2.0 03/23/17 19:00 97 22 139/72 99 Nasal Cannula 2.0 03/23/17 18:00 93 25 144/91 100 Nasal Cannula 2.0 03/23/17 17:00 99.0 105 18 139/74 100 Nasal Cannula 2.0 03/23/17 16:00 106 22 136/80 99 Nasal Cannula 2.0 03/23/17 16:00 102 03/23/17 15:30 Nasal Cannula 3.0 32 03/23/17 15:00 114 23 136/73 96 Nasal Cannula 2.0 03/23/17 14:00 107 23 130/65 96 Nasal Cannula 2.0 Status: awake Condition: improving Lungs: rhonchi Heart: HR/BP stable Accucheck: 184 Critical Care - Subjective ROS Limited/Unobtainable: Yes Condition: improving EKG Rhythm: Atrial Fibrillation FI02: 28 Vent Support Breath Rate: 10 Vent Tidal Volume: 400 Sputum Amount: Moderate PEEP: 0.0 PIP: 11 Tube Feeding Amount: 50 I&O: Intake and Output 03/23/17 03/24/17 19:00 07:00 Intake Total 870.0 ml 920 ml Output Total 470 ml 435 ml Balance 400.0 ml 485 ml Free Water 80 ml IV Total 270.0 ml 240 ml Tube Feeding 600 ml 600 ml Output Urine Total 470 ml 435 ml ET-Tube: 8.0 ET Position: 21 ADWOA GARCIA Mar 24, 2017 13:41
[2017-03-24] MEDS: Potassium Chloride 40 MEQ in 1/2 NS 1000ml 1,000 ML IV SCH (15:36)
--- NOTE | 2017-03-24 18:25 | General Progress Note ---
Assessment/Plan Problem List: (1) Hepatitis C ICD Codes: B19.20 - Unspecified viral hepatitis C without hepatic coma SNOMED: 49242986 (2) CHF (congestive heart failure), NYHA class II ICD Codes: I50.9 - Heart failure, unspecified SNOMED: 073100753, 474066361 (3) Atrial fibrillation with rapid ventricular response ICD Codes: I48.91 - Unspecified atrial fibrillation SNOMED: 225958022908562 (4) Healthcare-associated pneumonia ICD Codes: J18.9 - Pneumonia, unspecified organism SNOMED: 847363898 (5) Respiratory failure ICD Codes: J96.90 - Respiratory failure, unspecified, unspecified whether with hypoxia or hypercapnia SNOMED: 194879881 (6) Altered level of consciousness ICD Codes: R40.4 - Transient alteration of awareness SNOMED: 3311747 (7) MRSA (methicillin resistant staph aureus) culture positive ICD Codes: Z22.322 - Carrier or suspected carrier of Methicillin resistant Staphylococcus aureus SNOMED: 731191357 Assessment/Plan holding sedatives, s/p extubation all orders reviewed,ammonia ordered, lactulose dc as nh3 normal, needs frequent suctioning, failed swallow eval, ngt feed ongoing icu time 40 min Subjective ROS Limited/Unobtainable: Yes Allergies: Coded Allergies: No Known Allergies (Unverified , 03/11/17) Objective Last 24 Hour Vital Signs Date Time Temp Pulse Resp B/P Pulse Ox O2 Delivery O2 Flow Rate FiO2 03/24/17 17:00 103 20 148/70 96 Nasal Cannula 2.0 03/24/17 16:00 94 03/24/17 16:00 98.0 109 18 145/92 95 Nasal Cannula 2.0 03/24/17 15:33 95 16 100 Nasal Cannula 2.0 28 03/24/17 15:23 106 22 97 Nasal Cannula 2.0 28 03/24/17 15:00 94 20 139/79 96 Nasal Cannula 2.0 03/24/17 14:00 90 19 134/77 96 Nasal Cannula 2.0 03/24/17 13:00 96 19 136/69 96 Nasal Cannula 2.0 03/24/17 12:00 98.0 104 18 133/69 95 Nasal Cannula 2.0 03/24/17 12:00 97 03/24/17 11:00 94 20 140/71 96 Nasal Cannula 2.0 03/24/17 10:59 97 21 98 Nasal Cannula 2.0 28 03/24/17 10:49 95 20 97 Nasal Cannula 2.0 03/24/17 10:00 92 20 121/71 94 Nasal Cannula 2.0 03/24/17 09:00 102 21 138/69 94 Nasal Cannula 2.0 03/24/17 08:55 103 03/24/17 08:54 108 127/69 03/24/17 08:00 97.8 94 17 127/69 94 Nasal Cannula 2.0 03/24/17 08:00 99 03/24/17 07:14 108 20 100 Nasal Cannula 2.0 28 03/24/17 07:10 99 Nasal Cannula 2.0 28 03/24/17 07:10 Nasal Cannula 2.0 03/24/17 07:09 107 18 99 Nasal Cannula 2.0 28 03/24/17 07:00 98 21 138/67 95 Nasal Cannula 2.0 03/24/17 06:00 90 21 120/65 94 Nasal Cannula 2.0 03/24/17 05:00 99 22 127/71 94 Nasal Cannula 2.0 03/24/17 04:00 110 03/24/17 04:00 98.7 100 22 126/50 94 Nasal Cannula 2.0 03/24/17 03:45 116 20 100 Nasal Cannula 2.0 03/24/17 03:30 107 20 100 Nasal Cannula 2.0 03/24/17 03:00 98 22 130/69 94 Nasal Cannula 2.0 03/24/17 02:00 100 20 133/68 100 Nasal Cannula 2.0 03/24/17 01:00 101 25 137/58 99 Nasal Cannula 2.0 03/24/17 00:00 100 03/24/17 00:00 98.2 111 20 127/58 98 Nasal Cannula 2.0 03/23/17 23:19 104 20 100 Nasal Cannula 2.0 03/23/17 23:19 108 20 100 Nasal Cannula 2.0 03/23/17 23:00 104 21 138/69 99 Nasal Cannula 2.0 03/23/17 22:00 96 25 130/69 98 Nasal Cannula 2.0 03/23/17 21:00 98 22 132/69 96 Nasal Cannula 2.0 03/23/17 20:00 95 03/23/17 20:00 98.8 97 19 137/76 99 Nasal Cannula 2.0 03/23/17 19:45 104 20 100 Nasal Cannula 2.0 28 03/23/17 19:30 98 Nasal Cannula 2.0 28 03/23/17 19:30 Nasal Cannula 2.0 28 03/23/17 19:30 99 20 100 Nasal Cannula 2.0 28 03/23/17 19:00 97 22 139/72 99 Nasal Cannula 2.0 Intake and Output 03/23/17 03/24/17 19:00 07:00 Intake Total 870.0 ml 920 ml Output Total 470 ml 435 ml Balance 400.0 ml 485 ml Free Water 80 ml IV Total 270.0 ml 240 ml Tube Feeding 600 ml 600 ml Output Urine Total 470 ml 435 ml Laboratory Tests 03/24/17 05:00: White Blood Count 13.0H, Red Blood Count 3.86L, Hemoglobin 10.9L, Hematocrit 32.8L, Mean Corpuscular Volume 85, Mean Corpuscular Hemoglobin 28.2, Mean Corpuscular Hemoglobin Concent 33.2, Red Cell Distribution Width 13.9, Platelet Count 255, Mean Platelet Volume 7.1, Neutrophils (%) (Auto) 74.7, Lymphocytes (% ) (Auto) 15.8L, Monocytes (%) (Auto) 7.3, Eosinophils (%) (Auto) 1.6, Basophils (%) (Auto) 0.6, Sodium Level 137, Potassium Level 3.9, Chloride Level 100, Carbon Dioxide Level 30, Anion Gap 7, Blood Urea Nitrogen 13, Creatinine 0.8, Estimat Glomerular Filtration Rate , Glucose Level 163H, Calcium Level 8.4L, Phosphorus Level 2.9, Total Bilirubin 0.3, Aspartate Amino Transf (AST/SGOT) 14 , Alanine Aminotransferase (ALT/SGPT) 7, Alkaline Phosphatase 48, Ammonia 19, Total Protein 5.6L, Albumin 2.6L, Globulin 3.0, Albumin/Globulin Ratio 0.8L Height (Feet): 5 Height (Inches): 3.00 Weight (Pounds): 162 General Appearance: no apparent distress, lethargic EENT: PERRL/EOMI Neck: normal alignment Cardiovascular: regularly irregular Respiratory/Chest: decreased breath sounds, rhonchi - bilaterally Abdomen: soft Edema: mild edema 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
[2017-03-24] MEDS: Acetaminophen 650mg/20.3ml NG PRN (19:57)
[2017-03-25] VITALS (11 sets, daily range): BP systolic 101–140; BP diastolic 51–72
[2017-03-25] MEDS: DuoNeb 0.5-3(2.5)mg/3ml neb HHN SCH ×6 (04:14→23:44)
[2017-03-25] MEDS: Vancomycin 750mg/D5W 275ml IVPB SCH ×2 (05:31)
[2017-03-25] MEDS: NovoLOG Insulin Flexpen SUBQ SCH ×3 (05:33→17:33)
[2017-03-25 05:40] LABS: BASOPHILS % (AUTO) 0.9 % (0.0-2.0); EOSINOPHILS % (AUTO) 3.1 % (0.0-3.0); MEAN CORPUSCULAR HEMOGLOBIN 28.2 PG (27.0-31.0); MEAN CORPUSCULAR HGB CONC 33.1 G/DL (32.0-36.0); MEAN CORPUSCULAR VOLUME 85 FL (80-99); MEAN PLATELET VOLUME 6.6 FL (6.5-10.1); MONOCYTES % (AUTO) 9.1 % (1.0-10.0); NEUTROPHILS % (AUTO) 66.9 % (45.0-75.0); PLATELET COUNT 247 K/UL (150-450); RED BLOOD COUNT 3.81 M/UL (4.20-5.40); RED CELL DISTRIBUTION WIDTH 13.6 % (11.6-14.8); WHITE BLOOD COUNT 10.4 K/UL (4.8-10.8)
[2017-03-25 05:59] LABS: ALANINE AMINOTRANSFERASE 7 U/L (3-33); ALBUMIN/GLOBULIN RATIO 0.7 (1.0-2.7); ANION GAP 8 (5-15); ASPARTATE AMINO TRANSFERASE 15 U/L (5-40); CALCIUM 8.5 mg/dL (8.6-10.2); CARBON DIOXIDE 29 mEQ/L (20-30); CHLORIDE 102 mEQ/L (98-107); CREATININE 0.6 mg/dL (0.5-0.9); HEMOLYSIS 2; POTASSIUM 4.1 mEQ/L (3.4-4.9); SODIUM 139 mEQ/L (135-145); TOTAL PROTEIN 5.6 g/dL (6.6-8.7)
[2017-03-25] MEDS: Potassium Chloride 40 MEQ in 1/2 NS 1000ml 1,000 ML IV SCH ×2 (08:00→09:50)
[2017-03-25] MEDS ORDERED: Acetaminophen 650mg/20.3ml NG PRN (08:00)
[2017-03-25] MEDS: Digoxin 0.125mg tab ORAL SCH (08:42)
[2017-03-25] MEDS: Metoprolol Succinate XL 50mg tab ORAL SCH (08:42)
[2017-03-25] MEDS: Pantoprazole Inj IVP SCH ×2 (08:43→21:33)
[2017-03-25] MEDS: Heparin 5000 units/ml inj SUBQ SCH ×2 (08:44→21:32)
--- NOTE | 2017-03-25 08:51 | Pulmonology Progress Note ---
Assessment/Plan Assessment/Plan 1. Acute respiratory failure, resolved 2. Sepsis. 3. Pneumonia, perihilar 4. Diabetes. 5. Lactic acidosis, improved 6. Dementia and schizophrenia. 7. Hyperlipidemia. 8. Rapid atrial fibrillation, controlled out of ICU mod secretions frequent suctioning cont IVF, abx, NGT feeds heparin no sedation failed swallow eval; may need PEG Subjective Allergies: Coded Allergies: No Known Allergies (Unverified , 03/11/17) Objective Last 24 Hour Vital Signs Date Time Temp Pulse Resp B/P Pulse Ox O2 Delivery O2 Flow Rate FiO2 03/25/17 08:42 108 125/58 03/25/17 08:42 108 03/25/17 08:00 99.5 108 19 125/58 99 Nasal Cannula 2.0 03/25/17 07:43 100 20 100 Nasal Cannula 2.0 03/25/17 07:42 Nasal Cannula 2.0 03/25/17 07:32 94 20 100 Nasal Cannula 2.0 03/25/17 07:30 100 Nasal Cannula 2.0 03/25/17 06:00 99 19 119/59 100 Nasal Cannula 2.0 03/25/17 05:00 97 16 140/58 100 Nasal Cannula 2.0 03/25/17 04:00 98.9 87 20 107/54 100 Nasal Cannula 2.0 03/25/17 04:00 98 03/25/17 03:45 102 20 100 Nasal Cannula 2.0 03/25/17 03:30 98 20 100 Nasal Cannula 2.0 03/25/17 03:00 90 18 101/58 99 Nasal Cannula 2.0 03/25/17 02:00 92 16 119/61 99 Nasal Cannula 2.0 03/25/17 01:00 93 17 128/64 99 Nasal Cannula 2.0 03/25/17 00:00 99.0 96 19 114/51 99 Nasal Cannula 2.0 03/25/17 00:00 97 03/24/17 23:00 98 18 133/53 98 Nasal Cannula 2.0 03/24/17 22:59 110 20 100 Nasal Cannula 2.0 03/24/17 22:58 102 20 100 Nasal Cannula 2.0 03/24/17 22:00 95 20 122/94 99 Nasal Cannula 2.0 03/24/17 21:00 98.7 91 19 130/67 100 Nasal Cannula 2.0 03/24/17 20:27 98.7 03/24/17 20:00 99.8 99 13 145/73 100 Nasal Cannula 2.0 03/24/17 20:00 93 03/24/17 19:45 112 20 100 Nasal Cannula 2.0 28 03/24/17 19:30 100 Nasal Cannula 2.0 28 03/24/17 19:30 106 20 100 Nasal Cannula 2.0 28 03/24/17 19:30 Nasal Cannula 2.0 28 03/24/17 19:00 95 20 147/64 99 Nasal Cannula 2.0 03/24/17 18:00 98 19 143/77 96 Nasal Cannula 2.0 03/24/17 17:00 103 20 148/70 96 Nasal Cannula 2.0 03/24/17 16:00 94 03/24/17 16:00 98.0 109 18 145/92 95 Nasal Cannula 2.0 03/24/17 15:33 95 16 100 Nasal Cannula 2.0 28 03/24/17 15:23 106 22 97 Nasal Cannula 2.0 03/24/17 15:00 94 20 139/79 96 Nasal Cannula 2.0 03/24/17 14:00 90 19 134/77 96 Nasal Cannula 2.0 03/24/17 13:00 96 19 136/69 96 Nasal Cannula 2.0 03/24/17 12:00 98.0 104 18 133/69 95 Nasal Cannula 2.0 03/24/17 12:00 97 03/24/17 11:00 94 20 140/71 96 Nasal Cannula 2.0 03/24/17 10:59 97 21 98 Nasal Cannula 2.0 03/24/17 10:49 95 20 97 Nasal Cannula 2.0 03/24/17 10:00 92 20 121/71 94 Nasal Cannula 2.0 03/24/17 09:00 102 21 138/69 94 Nasal Cannula 2.0 03/24/17 08:55 103 03/24/17 08:54 108 127/69 Intake and Output 03/24/17 03/25/17 19:00 07:00 Intake Total 1740.0 ml 961.854 ml Output Total 745 ml 870 ml Balance 995.0 ml 91.854 ml IV Total 900.0 ml 311.854 ml Tube Feeding 600 ml 550 ml Other 240 ml 100 ml Output Urine Total 745 ml 870 ml Laboratory Tests 03/25/17 04:00: White Blood Count 10.4, Red Blood Count 3.81L, Hemoglobin 10.7L, Hematocrit 32.4L, Mean Corpuscular Volume 85, Mean Corpuscular Hemoglobin 28.2, Mean Corpuscular Hemoglobin Concent 33.1, Red Cell Distribution Width 13.6, Platelet Count 247, Mean Platelet Volume 6.6, Neutrophils (%) (Auto) 66.9, Lymphocytes (% ) (Auto) 20.0, Monocytes (%) (Auto) 9.1, Eosinophils (%) (Auto) 3.1H, Basophils (%) (Auto) 0.9, Sodium Level 139, Potassium Level 4.1, Chloride Level 102, Carbon Dioxide Level 29, Anion Gap 8, Blood Urea Nitrogen 12, Creatinine 0.6, Estimat Glomerular Filtration Rate , Glucose Level 160H, Calcium Level 8.5L, Total Bilirubin 0.3, Aspartate Amino Transf (AST/SGOT) 15, Alanine Aminotransferase (ALT/SGPT) 7, Alkaline Phosphatase 53, Total Protein 5.6L, Albumin 2.4L, Globulin 3.2, Albumin/Globulin Ratio 0.7L Current Medications Medications (Trade) Dose Ordered Sig/Carol Route PRN Reason Start Time Stop Time Status Last Admin Dose Admin Acetaminophen (Tylenol) 650 mg Q4H PRN NG Mild Pain/Temp > 100.5 03/25/17 08:00 04/24/17 07:59 Albuterol/ Ipratropium (DuoNeb 0.5-3(2.5)mg/3ml) 3 ml Q4HRT HHN 03/25/17 08:45 03/30/17 08:44 03/25/17 07:44 Chlorhexidine Gluconate (Erin-Hex 2%) 1 applic BEDTIME TOPIC 03/25/17 21:00 04/24/17 20:59 Dextrose (Dextrose 50%) STAT PRN IV Hypoglycemia 03/25/17 08:00 04/24/17 07:59 Digoxin (Lanoxin) 0.125 mg DAILY ORAL 03/25/17 09:00 04/24/17 08:59 03/25/17 08:42 Heparin Sodium (Porcine) (Heparin 5000 units/ml) 5,000 units EVERY 12 HOURS SUBQ 03/25/17 09:00 04/24/17 08:59 03/25/17 08:44 Insulin Aspart (NovoLOG) EVERY 6 HOURS SUBQ 03/25/17 12:00 04/24/17 11:59 Metoprolol Succinate (Toprol XL) 50 mg DAILY ORAL 03/25/17 09:00 04/24/17 08:59 03/25/17 08:42 Pantoprazole (Protonix) 40 mg EVERY 12 HOURS IVP 03/25/17 09:00 04/24/17 08:59 03/25/17 08:43 Potassium Chloride 40 meq/ Sodium Chloride 1,020 ml @ 20 mls/hr Q24H IV 03/25/17 08:00 04/24/17 07:59 Vancomycin HCl (Vanco rx to dose) 1 ea DAILY PRN MISC Per rx protocol 03/25/17 09:00 04/24/17 08:59 Vancomycin HCl/ Dextrose (Vancomycin/D5W) 275 ml @ 183.708 mls/hr Q12H IVPB 03/25/17 18:00 03/30/17 17:59 ADWOA GARCIA Mar 25, 2017 08:51
[2017-03-25] MEDS ORDERED: Dyna-Hex 2% Top Sol 8oz TOPIC SCH (09:00)
--- NOTE | 2017-03-25 14:41 | General Progress Note ---
Assessment/Plan Problem List: (1) Hepatitis C ICD Codes: B19.20 - Unspecified viral hepatitis C without hepatic coma SNOMED: 74430835 (2) CHF (congestive heart failure), NYHA class II ICD Codes: I50.9 - Heart failure, unspecified SNOMED: 715525531, 246696300 (3) Atrial fibrillation with rapid ventricular response ICD Codes: I48.91 - Unspecified atrial fibrillation SNOMED: 599511804509583 (4) Healthcare-associated pneumonia ICD Codes: J18.9 - Pneumonia, unspecified organism SNOMED: 960815857 (5) Respiratory failure ICD Codes: J96.90 - Respiratory failure, unspecified, unspecified whether with hypoxia or hypercapnia SNOMED: 750024633 (6) Altered level of consciousness ICD Codes: R40.4 - Transient alteration of awareness SNOMED: 3929563 (7) MRSA (methicillin resistant staph aureus) culture positive ICD Codes: Z22.322 - Carrier or suspected carrier of Methicillin resistant Staphylococcus aureus SNOMED: 480798706 Assessment/Plan holding sedatives, s/p extubation all orders reviewed,ammonia ordered, lactulose dc as nh3 normal, needs frequent suctioning, failed swallow eval, ngt feed ongoing , remains high risk Subjective ROS Limited/Unobtainable: Yes Allergies: Coded Allergies: No Known Allergies (Unverified , 03/11/17) Objective Last 24 Hour Vital Signs Date Time Temp Pulse Resp B/P Pulse Ox O2 Delivery O2 Flow Rate FiO2 03/25/17 12:00 106 03/25/17 12:00 99.6 104 20 127/69 96 Nasal Cannula 2.0 03/25/17 11:31 98 20 100 Nasal Cannula 2.0 03/25/17 11:15 90 20 100 Nasal Cannula 2.0 03/25/17 08:42 108 125/58 03/25/17 08:42 108 03/25/17 08:00 99.5 108 19 125/58 99 Nasal Cannula 2.0 03/25/17 08:00 104 03/25/17 07:43 100 20 100 Nasal Cannula 2.0 03/25/17 07:42 Nasal Cannula 2.0 03/25/17 07:32 94 20 100 Nasal Cannula 2.0 03/25/17 07:30 100 Nasal Cannula 2.0 03/25/17 06:00 99 19 119/59 100 Nasal Cannula 2.0 03/25/17 05:00 97 16 140/58 100 Nasal Cannula 2.0 03/25/17 04:00 98.9 87 20 107/54 100 Nasal Cannula 2.0 03/25/17 04:00 98 03/25/17 03:45 102 20 100 Nasal Cannula 2.0 03/25/17 03:30 98 20 100 Nasal Cannula 2.0 28 03/25/17 03:00 90 18 101/58 99 Nasal Cannula 2.0 03/25/17 02:00 92 16 119/61 99 Nasal Cannula 2.0 03/25/17 01:00 93 17 128/64 99 Nasal Cannula 2.0 03/25/17 00:00 99.0 96 19 114/51 99 Nasal Cannula 2.0 03/25/17 00:00 97 03/24/17 23:00 98 18 133/53 98 Nasal Cannula 2.0 03/24/17 22:59 110 20 100 Nasal Cannula 2.0 03/24/17 22:58 102 20 100 Nasal Cannula 2.0 03/24/17 22:00 95 20 122/94 99 Nasal Cannula 2.0 03/24/17 21:00 98.7 91 19 130/67 100 Nasal Cannula 2.0 03/24/17 20:27 98.7 03/24/17 20:00 99.8 99 13 145/73 100 Nasal Cannula 2.0 03/24/17 20:00 93 03/24/17 19:45 112 20 100 Nasal Cannula 2.0 03/24/17 19:30 100 Nasal Cannula 2.0 03/24/17 19:30 106 20 100 Nasal Cannula 2.0 03/24/17 19:30 Nasal Cannula 2.0 28 03/24/17 19:00 95 20 147/64 99 Nasal Cannula 2.0 03/24/17 18:00 98 19 143/77 96 Nasal Cannula 2.0 03/24/17 17:00 103 20 148/70 96 Nasal Cannula 2.0 03/24/17 16:00 94 03/24/17 16:00 98.0 109 18 145/92 95 Nasal Cannula 2.0 03/24/17 15:33 95 16 100 Nasal Cannula 2.0 28 03/24/17 15:23 106 22 97 Nasal Cannula 2.0 03/24/17 15:00 94 20 139/79 96 Nasal Cannula 2.0 Intake and Output 03/24/17 03/25/17 19:00 07:00 Intake Total 1740.0 ml 1011.854 ml Output Total 745 ml 870 ml Balance 995.0 ml 141.854 ml IV Total 900.0 ml 311.854 ml Tube Feeding 600 ml 600 ml Other 240 ml 100 ml Output Urine Total 745 ml 870 ml Laboratory Tests 03/25/17 04:00: White Blood Count 10.4, Red Blood Count 3.81L, Hemoglobin 10.7L, Hematocrit 32.4L, Mean Corpuscular Volume 85, Mean Corpuscular Hemoglobin 28.2, Mean Corpuscular Hemoglobin Concent 33.1, Red Cell Distribution Width 13.6, Platelet Count 247, Mean Platelet Volume 6.6, Neutrophils (%) (Auto) 66.9, Lymphocytes (% ) (Auto) 20.0, Monocytes (%) (Auto) 9.1, Eosinophils (%) (Auto) 3.1H, Basophils (%) (Auto) 0.9, Sodium Level 139, Potassium Level 4.1, Chloride Level 102, Carbon Dioxide Level 29, Anion Gap 8, Blood Urea Nitrogen 12, Creatinine 0.6, Estimat Glomerular Filtration Rate , Glucose Level 160H, Calcium Level 8.5L, Total Bilirubin 0.3, Aspartate Amino Transf (AST/SGOT) 15, Alanine Aminotransferase (ALT/SGPT) 7, Alkaline Phosphatase 53, Total Protein 5.6L, Albumin 2.4L, Globulin 3.2, Albumin/Globulin Ratio 0.7L Height (Feet): 5 Height (Inches): 3.00 Weight (Pounds): 158 General Appearance: lethargic EENT: normal ENT inspection Neck: normal alignment Cardiovascular: regularly irregular Respiratory/Chest: rhonchi - bilaterally Abdomen: non tender, soft Edema: 1+ Arm (L), 1+ Arm (R), 1+ Leg (L), 1+ Leg (R), 1+ Pedal (L), 1+ Pedal ( R), 1+ 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
[2017-03-25 16:32] LABS: APPEARANCE,URINE CLEAR; KETONES,URINE NEGATIVE (NEGATIVE); LEUKOCYTE ESTERASE ,URINE NEGATIVE (NEGATIVE); NITRITE,URINE NEGATIVE (NEGATIVE); PH,URINE 8 (4.5-8.0); PROTEIN,URINE 2+ (NEGATIVE); UROBILINOGEN,URINE NORMAL MG/DL (0.0-1.0)
[2017-03-25 17:08] LABS: BACTERIA,URINE FEW /HPF; RBC,URINE 0-2 /HPF (0 - 2); SQUAMOUS EPITHELIAL CELL,UR FEW /LPF (NONE/OCC); WBC,URINE 0-2 /HPF (0 - 2)
[2017-03-25] MEDS: Vancomycin 750 MG in D5W 275 ML IVPB SCH (17:32)
[2017-03-25] MEDS: Dyna-Hex 2% Top Sol 8oz TOPIC SCH (21:32)
[2017-03-26] VITALS: BP 141/80
[2017-03-26] MEDS: NovoLOG Insulin Flexpen SUBQ SCH ×5 (00:18→23:42)
[2017-03-26] MEDS: DuoNeb 0.5-3(2.5)mg/3ml neb HHN SCH ×6 (03:12→23:34)
[2017-03-26 04:00] VITALS: BP 135/79
[2017-03-26] MEDS: Vancomycin 750 MG in D5W 275 ML IVPB SCH ×2 (05:35→17:36)
[2017-03-26 08:00] VITALS: BP 142/99
[2017-03-26] MEDS: Digoxin 0.125mg tab ORAL SCH (08:45)
[2017-03-26] MEDS: Pantoprazole Inj IVP SCH (08:45)
[2017-03-26] MEDS: Metoprolol Succinate XL 50mg tab ORAL SCH (08:45)
[2017-03-26] MEDS: Heparin 5000 units/ml inj SUBQ SCH ×2 (08:50→20:22)
[2017-03-26 12:00] VITALS: BP 156/89
[2017-03-26] MEDS: Potassium Chloride 40 MEQ in 1/2 NS 1000ml 1,000 ML IV SCH (12:36)
[2017-03-26 16:00] VITALS: BP 143/79
--- NOTE | 2017-03-26 18:15 | Pulmonology Progress Note ---
Assessment/Plan Assessment/Plan 1. Acute respiratory failure, resolved 2. Sepsis. 3. Pneumonia, perihilar 4. Diabetes. 5. Lactic acidosis, improved 6. Dementia and schizophrenia. 7. Hyperlipidemia. 8. Rapid atrial fibrillation, controlled excess secretions frequent suctioning cont IVF, abx, NGT feeds heparin HHN failed swallow eval; may need PEG Subjective ROS Limited/Unobtainable: Yes Allergies: Coded Allergies: No Known Allergies (Unverified , 03/11/17) Objective Last 24 Hour Vital Signs Date Time Temp Pulse Resp B/P Pulse Ox O2 Delivery O2 Flow Rate FiO2 03/26/17 16:00 97.9 113 21 143/79 95 Nasal Cannula 2.0 03/26/17 16:00 109 03/26/17 15:12 91 20 99 Nasal Cannula 2.0 28 03/26/17 15:10 84 20 96 Nasal Cannula 2.0 28 03/26/17 12:00 98.6 106 18 156/89 97 Nasal Cannula 2.0 03/26/17 12:00 115 03/26/17 11:10 88 20 99 Nasal Cannula 2.0 28 03/26/17 11:06 80 20 97 Nasal Cannula 2.0 28 03/26/17 08:45 85 142/99 03/26/17 08:45 85 03/26/17 08:09 85 20 99 Nasal Cannula 2.0 28 03/26/17 08:05 Nasal Cannula 2.0 28 03/26/17 08:05 78 20 97 Nasal Cannula 2.0 28 03/26/17 08:05 78 20 97 Nasal Cannula 2.0 28 03/26/17 08:05 100 Nasal Cannula 2.0 28 03/26/17 08:00 106 03/26/17 08:00 98.4 114 18 142/99 99 Nasal Cannula 2.0 03/26/17 04:00 118 03/26/17 04:00 99.0 99 24 135/79 100 Nasal Cannula 2.0 03/26/17 03:29 87 20 99 Nasal Cannula 2.0 28 03/26/17 03:13 84 22 97 Nasal Cannula 2.0 28 03/26/17 00:00 99.3 97 24 141/80 99 Mechanical Ventilator 03/26/17 00:00 97 03/25/17 23:51 105 18 100 Nasal Cannula 2.0 28 03/25/17 23:44 95 21 98 Nasal Cannula 2.0 28 03/25/17 20:29 99.8 98 20 137/72 98 Nasal Cannula 2.0 03/25/17 20:00 96 03/25/17 19:28 102 20 100 Nasal Cannula 2.0 28 03/25/17 19:23 Nasal Cannula 2.0 28 03/25/17 19:23 100 Nasal Cannula 2.0 28 03/25/17 19:22 100 20 100 Nasal Cannula 2.0 28 Intake and Output 03/25/17 03/26/17 19:00 07:00 Intake Total 1155.000 ml 1073.708 ml Output Total 945 ml 790 ml Balance 210.000 ml 283.708 ml Free Water 150 ml IV Total 455.000 ml 423.708 ml Tube Feeding 550 ml 600 ml Other 50 ml Output Urine Total 945 ml 790 ml # Voids 2 # Bowel Movements 2 Objective lethargic General Appearance: no acute distress HEENT: atraumatic Respiratory/Chest: rhonchi Cardiovascular: normal rate Microbiology Date/Time Source Procedure Growth Status 03/25/17 15:40 Indwelling Cath Urine Culture - Preliminary NO GROWTH Resulted Current Medications Medications (Trade) Dose Ordered Sig/Carol Route PRN Reason Start Time Stop Time Status Last Admin Dose Admin Acetaminophen (Tylenol) 650 mg Q4H PRN NG Mild Pain/Temp > 100.5 03/25/17 08:00 04/24/17 07:59 Albuterol/ Ipratropium (DuoNeb 0.5-3(2.5)mg/3ml) 3 ml Q4HRT HHN 03/25/17 08:45 03/30/17 08:44 03/26/17 15:10 Chlorhexidine Gluconate (Erin-Hex 2%) 1 applic BEDTIME TOPIC 03/25/17 21:00 04/24/17 20:59 03/25/17 21:32 Dextrose (Dextrose 50%) STAT PRN IV Hypoglycemia 03/25/17 08:00 04/24/17 07:59 Digoxin (Lanoxin) 0.125 mg DAILY ORAL 03/25/17 09:00 04/24/17 08:59 03/26/17 08:45 Heparin Sodium (Porcine) (Heparin 5000 units/ml) 5,000 units EVERY 12 HOURS SUBQ 03/25/17 09:00 04/24/17 08:59 03/26/17 08:50 Insulin Aspart (NovoLOG) EVERY 6 HOURS SUBQ 03/25/17 12:00 04/24/17 11:59 03/26/17 17:37 Lansoprazole (Prevacid) 30 mg QHS NG 03/26/17 21:00 04/25/17 20:59 Metoprolol Succinate (Toprol XL) 50 mg DAILY ORAL 03/25/17 09:00 04/24/17 08:59 03/26/17 08:45 Potassium Chloride 40 meq/ Sodium Chloride 1,020 ml @ 20 mls/hr Q24H IV 03/25/17 08:00 04/24/17 07:59 03/26/17 12:36 Vancomycin HCl (Vanco rx to dose) 1 ea DAILY PRN MISC Per rx protocol 03/25/17 09:00 04/24/17 08:59 Vancomycin HCl/ Dextrose (Vancomycin/D5W) 275 ml @ 183.708 mls/hr Q12H IVPB 03/25/17 18:00 03/30/17 17:59 03/26/17 17:36 ADWOA GARCIA Mar 26, 2017 18:15
[2017-03-26 19:51] VITALS: BP 136/90
[2017-03-26] MEDS: Dyna-Hex 2% Top Sol 8oz TOPIC SCH (20:20)
--- NOTE | 2017-03-26 21:00 | General Progress Note ---
Assessment/Plan Problem List: (1) Hepatitis C ICD Codes: B19.20 - Unspecified viral hepatitis C without hepatic coma SNOMED: 55998526 (2) CHF (congestive heart failure), NYHA class II ICD Codes: I50.9 - Heart failure, unspecified SNOMED: 237439382, 207501112 (3) Atrial fibrillation with rapid ventricular response ICD Codes: I48.91 - Unspecified atrial fibrillation SNOMED: 268246872166726 (4) Healthcare-associated pneumonia ICD Codes: J18.9 - Pneumonia, unspecified organism SNOMED: 115457398 (5) Respiratory failure ICD Codes: J96.90 - Respiratory failure, unspecified, unspecified whether with hypoxia or hypercapnia SNOMED: 173236201 (6) Altered level of consciousness ICD Codes: R40.4 - Transient alteration of awareness SNOMED: 0366528 (7) MRSA (methicillin resistant staph aureus) culture positive ICD Codes: Z22.322 - Carrier or suspected carrier of Methicillin resistant Staphylococcus aureus SNOMED: 200913660 Assessment/Plan holding sedatives, s/p extubation all orders reviewed,ammonia ordered, lactulose dc as nh3 normal, needs frequent suctioning, failed swallow eval, ngt feed ongoing , remains high risk Subjective ROS Limited/Unobtainable: Yes Allergies: Coded Allergies: No Known Allergies (Unverified , 03/11/17) Objective Last 24 Hour Vital Signs Date Time Temp Pulse Resp B/P Pulse Ox O2 Delivery O2 Flow Rate FiO2 03/26/17 19:51 98.2 115 20 136/90 100 Nasal Cannula 2.0 03/26/17 19:32 99 20 99 Nasal Cannula 2.0 03/26/17 19:23 94 Nasal Cannula 2.0 28 03/26/17 19:23 Nasal Cannula 2.0 28 03/26/17 19:23 87 20 94 Nasal Cannula 2.0 28 03/26/17 16:00 97.9 113 21 143/79 95 Nasal Cannula 2.0 03/26/17 16:00 109 03/26/17 15:12 91 20 99 Nasal Cannula 2.0 28 03/26/17 15:10 84 20 96 Nasal Cannula 2.0 28 03/26/17 12:00 98.6 106 18 156/89 97 Nasal Cannula 2.0 03/26/17 12:00 115 03/26/17 11:10 88 20 99 Nasal Cannula 2.0 28 03/26/17 11:06 80 20 97 Nasal Cannula 2.0 28 03/26/17 08:45 85 142/99 03/26/17 08:45 85 03/26/17 08:09 85 20 99 Nasal Cannula 2.0 28 03/26/17 08:05 Nasal Cannula 2.0 28 03/26/17 08:05 78 20 97 Nasal Cannula 2.0 28 03/26/17 08:05 78 20 97 Nasal Cannula 2.0 28 03/26/17 08:05 100 Nasal Cannula 2.0 28 03/26/17 08:00 106 03/26/17 08:00 98.4 114 18 142/99 99 Nasal Cannula 2.0 03/26/17 04:00 118 03/26/17 04:00 99.0 99 24 135/79 100 Nasal Cannula 2.0 03/26/17 03:29 87 20 99 Nasal Cannula 2.0 28 03/26/17 03:13 84 22 97 Nasal Cannula 2.0 28 03/26/17 00:00 99.3 97 24 141/80 99 Mechanical Ventilator 03/26/17 00:00 97 03/25/17 23:51 105 18 100 Nasal Cannula 2.0 28 03/25/17 23:44 95 21 98 Nasal Cannula 2.0 28 Intake and Output 03/25/17 03/26/17 19:00 07:00 Intake Total 1155.000 ml 1073.708 ml Output Total 945 ml 790 ml Balance 210.000 ml 283.708 ml Free Water 150 ml IV Total 455.000 ml 423.708 ml Tube Feeding 550 ml 600 ml Other 50 ml Output Urine Total 945 ml 790 ml # Voids 2 # Bowel Movements 2 Height (Feet): 5 Height (Inches): 3.00 Weight (Pounds): 158 General Appearance: lethargic EENT: normal ENT inspection Neck: normal alignment Cardiovascular: regularly irregular Respiratory/Chest: rhonchi - bilaterally Abdomen: non tender, soft Edema: 1+ Arm (L), 1+ Arm (R), 1+ Leg (L), 1+ Leg (R), 1+ Pedal (L), 1+ Pedal ( R), 1+ Generalized Neurologic: motor weakness DANNY MAYEN Mar 26, 2017 21:00
[2017-03-27] VITALS: BP 140/90
[2017-03-27] MEDS: DuoNeb 0.5-3(2.5)mg/3ml neb HHN SCH ×6 (03:29→23:40)
[2017-03-27 04:00] VITALS: BP 120/62
[2017-03-27] MEDS: Potassium Chloride 40 MEQ in 1/2 NS 1000ml 1,000 ML IV SCH (05:03)
[2017-03-27] MEDS: Vancomycin 750 MG in D5W 275 ML IVPB SCH ×2 (05:03→17:47)
[2017-03-27 05:44] LABS: BASOPHILS % (AUTO) 0.6 % (0.0-2.0); EOSINOPHILS % (AUTO) 1.1 % (0.0-3.0); LYMPHOCYTES % (AUTO) 10.2 % (20.0-45.0); MEAN CORPUSCULAR HEMOGLOBIN 27.6 PG (27.0-31.0); MEAN CORPUSCULAR HGB CONC 31.9 G/DL (32.0-36.0); MEAN CORPUSCULAR VOLUME 87 FL (80-99); MEAN PLATELET VOLUME 6.6 FL (6.5-10.1); MONOCYTES % (AUTO) 7.2 % (1.0-10.0); NEUTROPHILS % (AUTO) 80.9 % (45.0-75.0); PLATELET COUNT 191 K/UL (150-450); RED BLOOD COUNT 3.89 M/UL (4.20-5.40); RED CELL DISTRIBUTION WIDTH 13.7 % (11.6-14.8); WHITE BLOOD COUNT 13.6 K/UL (4.8-10.8)
[2017-03-27 05:53] LABS: ALANINE AMINOTRANSFERASE 8 U/L (3-33); ANION GAP 9 (5-15); ASPARTATE AMINO TRANSFERASE 15 U/L (5-40); CALCIUM 8.5 mg/dL (8.6-10.2); CARBON DIOXIDE 27 mEQ/L (20-30); CHLORIDE 99 mEQ/L (98-107); CREATININE 0.7 mg/dL (0.5-0.9); HEMOLYSIS 8; POTASSIUM 4.7 mEQ/L (3.4-4.9); SODIUM 135 mEQ/L (135-145); TOTAL PROTEIN 5.7 g/dL (6.6-8.7)
[2017-03-27] MEDS: NovoLOG Insulin Flexpen SUBQ SCH ×3 (06:10→16:57)
[2017-03-27 07:31] VITALS: BP 125/62
[2017-03-27] MEDS: Metoprolol Succinate XL 50mg tab ORAL SCH (08:26)
[2017-03-27] MEDS: Digoxin 0.125mg tab ORAL SCH (08:26)
[2017-03-27] MEDS: Heparin 5000 units/ml inj SUBQ SCH ×2 (08:33→20:48)
--- NOTE | 2017-03-27 09:36 | Pulmonology Progress Note ---
Assessment/Plan Assessment/Plan 1. Acute respiratory failure, resolved 2. Sepsis. 3. Pneumonia, perihilar 4. Diabetes. 5. Lactic acidosis, improved 6. Dementia and schizophrenia. 7. Hyperlipidemia. 8. Rapid atrial fibrillation, controlled excess secretions frequent suctioning cont IVF, abx, NGT feeds heparin HHN Recommend PEG Subjective ROS Limited/Unobtainable: Yes Constitutional: Denies: fever Allergies: Coded Allergies: No Known Allergies (Unverified , 03/11/17) Objective Last 24 Hour Vital Signs Date Time Temp Pulse Resp B/P Pulse Ox O2 Delivery O2 Flow Rate FiO2 03/27/17 08:26 118 125/62 03/27/17 08:26 118 03/27/17 08:00 122 03/27/17 07:31 98.3 118 20 125/62 97 Nasal Cannula 2.0 03/27/17 07:10 97 20 98 Nasal Cannula 2.0 03/27/17 07:00 102 20 96 Nasal Cannula 2.0 03/27/17 06:59 Nasal Cannula 2.0 03/27/17 06:58 96 Nasal Cannula 2.0 03/27/17 04:00 93 03/27/17 04:00 97.2 100 18 120/62 99 Nasal Cannula 2.0 03/27/17 03:36 99 20 100 Nasal Cannula 2.0 03/27/17 03:28 101 22 98 Nasal Cannula 2.0 03/27/17 00:11 95 20 95 Nasal Cannula 2.0 03/27/17 00:00 99.9 130 20 140/90 98 Nasal Cannula 2.0 03/27/17 00:00 114 03/26/17 23:43 97 20 100 Nasal Cannula 2.0 03/26/17 23:34 81 20 94 Nasal Cannula 2.0 03/26/17 20:00 107 03/26/17 19:51 98.2 115 20 136/90 100 Nasal Cannula 2.0 03/26/17 19:32 99 20 99 Nasal Cannula 2.0 03/26/17 19:23 94 Nasal Cannula 2.0 03/26/17 19:23 Nasal Cannula 2.0 03/26/17 19:23 87 20 94 Nasal Cannula 2.0 03/26/17 16:00 97.9 113 21 143/79 95 Nasal Cannula 2.0 03/26/17 16:00 109 03/26/17 15:12 91 20 99 Nasal Cannula 2.0 28 03/26/17 15:10 84 20 96 Nasal Cannula 2.0 28 03/26/17 12:00 98.6 106 18 156/89 97 Nasal Cannula 2.0 03/26/17 12:00 115 03/26/17 11:10 88 20 99 Nasal Cannula 2.0 28 03/26/17 11:06 80 20 97 Nasal Cannula 2.0 28 Intake and Output 03/26/17 03/27/17 19:00 07:00 Intake Total 1295.000 ml 1187.208 ml Output Total 1730 ml 1149 ml Balance -435.000 ml 38.208 ml Free Water 180 ml IV Total 515.000 ml 577.208 ml Tube Feeding 600 ml 550 ml Other 60 ml Output Urine Total 1730 ml 1149 ml # Bowel Movements 2 Objective lethargic, NGT HEENT: atraumatic Respiratory/Chest: rhonchi Cardiovascular: normal rate Microbiology Date/Time Source Procedure Growth Status 03/25/17 15:40 Indwelling Cath Urine Culture - Preliminary NO GROWTH AFTER 24 HOURS Resulted Laboratory Tests 03/27/17 03:40: White Blood Count 13.6H, Red Blood Count 3.89L, Hemoglobin 10.7L, Hematocrit 33.7L, Mean Corpuscular Volume 87, Mean Corpuscular Hemoglobin 27.6, Mean Corpuscular Hemoglobin Concent 31.9L, Red Cell Distribution Width 13.7, Platelet Count 191, Mean Platelet Volume 6.6, Neutrophils (%) (Auto) 80.9H, Lymphocytes (%) (Auto) 10.2L, Monocytes (%) (Auto) 7.2, Eosinophils (%) (Auto) 1.1, Basophils (%) (Auto) 0.6, Sodium Level 135, Potassium Level 4.7, Chloride Level 99, Carbon Dioxide Level 27, Anion Gap 9, Blood Urea Nitrogen 11, Creatinine 0.7, Estimat Glomerular Filtration Rate , Glucose Level 194H, Calcium Level 8.5L, Total Bilirubin 0.3, Aspartate Amino Transf (AST/SGOT) 15, Alanine Aminotransferase (ALT/SGPT) 8, Alkaline Phosphatase 50, Pro-B-Type Natriuretic Peptide 5055H, Total Protein 5.7L, Albumin 2.9L, Globulin 2.8, Albumin/Globulin Ratio 1.0 Current Medications Medications (Trade) Dose Ordered Sig/Carol Route PRN Reason Start Time Stop Time Status Last Admin Dose Admin Acetaminophen (Tylenol) 650 mg Q4H PRN NG Mild Pain/Temp > 100.5 03/25/17 08:00 04/24/17 07:59 03/27/17 00:34 Albuterol/ Ipratropium (DuoNeb 0.5-3(2.5)mg/3ml) 3 ml Q4HRT HHN 03/25/17 08:45 03/30/17 08:44 03/27/17 07:06 Chlorhexidine Gluconate (Erin-Hex 2%) 1 applic BEDTIME TOPIC 03/25/17 21:00 04/24/17 20:59 03/26/17 20:20 Dextrose (Dextrose 50%) STAT PRN IV Hypoglycemia 03/25/17 08:00 04/24/17 07:59 Digoxin (Lanoxin) 0.125 mg DAILY ORAL 03/25/17 09:00 04/24/17 08:59 03/27/17 08:26 Heparin Sodium (Porcine) (Heparin 5000 units/ml) 5,000 units EVERY 12 HOURS SUBQ 03/25/17 09:00 04/24/17 08:59 03/27/17 08:33 Insulin Aspart (NovoLOG) EVERY 6 HOURS SUBQ 03/25/17 12:00 04/24/17 11:59 03/27/17 06:10 Lansoprazole (Prevacid) 30 mg QHS NG 03/26/17 21:00 04/25/17 20:59 03/26/17 20:20 Metoprolol Succinate (Toprol XL) 50 mg DAILY ORAL 03/25/17 09:00 04/24/17 08:59 03/27/17 08:26 Potassium Chloride 40 meq/ Sodium Chloride 1,020 ml @ 20 mls/hr Q24H IV 03/25/17 08:00 04/24/17 07:59 03/27/17 05:03 Vancomycin HCl (Vanco rx to dose) 1 ea DAILY PRN MISC Per rx protocol 03/25/17 09:00 04/24/17 08:59 Vancomycin HCl/ Dextrose (Vancomycin/D5W) 275 ml @ 183.708 mls/hr Q12H IVPB 03/25/17 18:00 03/30/17 17:59 03/27/17 05:03 ADWOA GARCIA Mar 27, 2017 09:36
[2017-03-27] MEDS ORDERED: NS 275ml ONE (10:44)
[2017-03-27] MEDS ORDERED: NS Irrig 2000ml IRRIG ONE (10:44)
[2017-03-27] MEDS ORDERED: Tubing IV Secondary IV ONE (10:48)
--- NOTE | 2017-03-27 11:44 | Diagnostic Imaging Report ---
Indication: Dyspnea Comparison: 03/23/17 A single view chest radiograph was obtained. Findings: There is evidence of mild interstitial edema. There maybe a small right pleural effusion. Heart size is stable. Tubes and lines are stable. Patient has been extubated. Impression: Extubation. Evidence of mild interstitial edema. Suspected right pleural effusion
[2017-03-27 12:00] VITALS: BP 107/53
[2017-03-27 16:58] VITALS: BP 121/75
--- NOTE | 2017-03-27 17:04 | General Progress Note ---
Assessment/Plan Problem List: (1) Hepatitis C ICD Codes: B19.20 - Unspecified viral hepatitis C without hepatic coma SNOMED: 46664562 (2) CHF (congestive heart failure), NYHA class II ICD Codes: I50.9 - Heart failure, unspecified SNOMED: 655506464, 683764126 (3) Atrial fibrillation with rapid ventricular response ICD Codes: I48.91 - Unspecified atrial fibrillation SNOMED: 788156827363326 (4) Healthcare-associated pneumonia ICD Codes: J18.9 - Pneumonia, unspecified organism SNOMED: 486368798 (5) Respiratory failure ICD Codes: J96.90 - Respiratory failure, unspecified, unspecified whether with hypoxia or hypercapnia SNOMED: 877814889 (6) Altered level of consciousness ICD Codes: R40.4 - Transient alteration of awareness SNOMED: 8538769 (7) MRSA (methicillin resistant staph aureus) culture positive ICD Codes: Z22.322 - Carrier or suspected carrier of Methicillin resistant Staphylococcus aureus SNOMED: 817161085 Assessment/Plan holding sedatives, s/p extubation all orders reviewed,ammonia ordered, lactulose dc as nh3 normal, needs frequent suctioning, failed swallow eval, ngt feed ongoing , remains high risk lasix on 03/27 Subjective ROS Limited/Unobtainable: Yes Allergies: Coded Allergies: No Known Allergies (Unverified , 03/11/17) Objective Last 24 Hour Vital Signs Date Time Temp Pulse Resp B/P Pulse Ox O2 Delivery O2 Flow Rate FiO2 03/27/17 16:58 98.8 101 20 121/75 97 Nasal Cannula 2.0 03/27/17 16:04 108 22 98 Nasal Cannula 2.0 03/27/17 16:00 110 03/27/17 15:48 102 20 99 Nasal Cannula 2.0 03/27/17 12:00 99.3 99 20 107/53 96 Nasal Cannula 2.0 03/27/17 11:05 98 20 99 Nasal Cannula 2.0 28 03/27/17 10:55 101 20 98 Nasal Cannula 2.0 28 03/27/17 08:26 118 125/62 03/27/17 08:26 118 03/27/17 08:00 122 03/27/17 07:31 98.3 118 20 125/62 97 Nasal Cannula 2.0 03/27/17 07:10 97 20 98 Nasal Cannula 2.0 03/27/17 07:00 102 20 96 Nasal Cannula 2.0 03/27/17 06:59 Nasal Cannula 2.0 03/27/17 06:58 96 Nasal Cannula 2.0 03/27/17 04:00 93 03/27/17 04:00 97.2 100 18 120/62 99 Nasal Cannula 2.0 03/27/17 03:36 99 20 100 Nasal Cannula 2.0 03/27/17 03:28 101 22 98 Nasal Cannula 2.0 03/27/17 00:11 95 20 95 Nasal Cannula 2.0 28 03/27/17 00:00 99.9 130 20 140/90 98 Nasal Cannula 2.0 03/27/17 00:00 114 03/26/17 23:43 97 20 100 Nasal Cannula 2.0 03/26/17 23:34 81 20 94 Nasal Cannula 2.0 03/26/17 20:00 107 03/26/17 19:51 98.2 115 20 136/90 100 Nasal Cannula 2.0 03/26/17 19:32 99 20 99 Nasal Cannula 2.0 28 03/26/17 19:23 94 Nasal Cannula 2.0 28 03/26/17 19:23 Nasal Cannula 2.0 03/26/17 19:23 87 20 94 Nasal Cannula 2.0 28 Intake and Output 03/26/17 03/27/17 19:00 07:00 Intake Total 1295.000 ml 1237.208 ml Output Total 1730 ml 1149 ml Balance -435.000 ml 88.208 ml Free Water 180 ml IV Total 515.000 ml 577.208 ml Tube Feeding 600 ml 600 ml Other 60 ml Output Urine Total 1730 ml 1149 ml # Bowel Movements 2 Laboratory Tests 03/27/17 03:40: White Blood Count 13.6H, Red Blood Count 3.89L, Hemoglobin 10.7L, Hematocrit 33.7L, Mean Corpuscular Volume 87, Mean Corpuscular Hemoglobin 27.6, Mean Corpuscular Hemoglobin Concent 31.9L, Red Cell Distribution Width 13.7, Platelet Count 191, Mean Platelet Volume 6.6, Neutrophils (%) (Auto) 80.9H, Lymphocytes (%) (Auto) 10.2L, Monocytes (%) (Auto) 7.2, Eosinophils (%) (Auto) 1.1, Basophils (%) (Auto) 0.6, Sodium Level 135, Potassium Level 4.7, Chloride Level 99, Carbon Dioxide Level 27, Anion Gap 9, Blood Urea Nitrogen 11, Creatinine 0.7, Estimat Glomerular Filtration Rate , Glucose Level 194H, Calcium Level 8.5L, Total Bilirubin 0.3, Aspartate Amino Transf (AST/SGOT) 15, Alanine Aminotransferase (ALT/SGPT) 8, Alkaline Phosphatase 50, Pro-B-Type Natriuretic Peptide 5055H, Total Protein 5.7L, Albumin 2.9L, Globulin 2.8, Albumin/Globulin Ratio 1.0 03/27/17 16:52: Vancomycin Level Trough [Pending] Height (Feet): 5 Height (Inches): 3.00 Weight (Pounds): 157 General Appearance: lethargic, mild distress EENT: PERRL/EOMI Neck: normal alignment Cardiovascular: regularly irregular Respiratory/Chest: decreased breath sounds, accessory muscle use Abdomen: soft, no organomegaly Edema: 1+ Arm (L), 1+ Arm (R), 1+ Leg (L), 1+ Leg (R), 1+ Pedal (L), 1+ Pedal ( R), 1+ Generalized Neurologic: disoriented DANNY MAYEN Mar 27, 2017 17:04
[2017-03-27 20:00] VITALS: BP 121/64
[2017-03-27] MEDS: Dyna-Hex 2% Top Sol 8oz TOPIC SCH (21:00)
[2017-03-28] VITALS: BP 145/69
[2017-03-28] MEDS: NovoLOG Insulin Flexpen SUBQ SCH ×5 (00:18→23:53)
[2017-03-28] MEDS: DuoNeb 0.5-3(2.5)mg/3ml neb HHN SCH ×6 (03:01→22:42)
[2017-03-28 04:00] VITALS: BP 136/79
[2017-03-28] MEDS: Vancomycin 750 MG in D5W 275 ML IVPB SCH ×2 (05:53→17:29)
[2017-03-28 08:00] VITALS: BP 138/74
[2017-03-28] MEDS: Digoxin 0.125mg tab ORAL SCH (09:27)
[2017-03-28] MEDS: Metoprolol Succinate XL 50mg tab ORAL SCH (09:28)
[2017-03-28] MEDS: Heparin 5000 units/ml inj SUBQ SCH ×2 (09:33→20:26)
[2017-03-28] MEDS ORDERED: NS 275ml ONE (10:46)
[2017-03-28] MEDS ORDERED: Tubing IV Secondary IV ONE (10:46)
[2017-03-28 12:06] VITALS: BP 126/69
--- NOTE | 2017-03-28 12:22 | General Progress Note ---
Assessment/Plan Problem List: (1) Hepatitis C ICD Codes: B19.20 - Unspecified viral hepatitis C without hepatic coma SNOMED: 87507538 (2) CHF (congestive heart failure), NYHA class II ICD Codes: I50.9 - Heart failure, unspecified SNOMED: 602316227, 661931290 (3) Atrial fibrillation with rapid ventricular response ICD Codes: I48.91 - Unspecified atrial fibrillation SNOMED: 428744926873784 (4) Healthcare-associated pneumonia ICD Codes: J18.9 - Pneumonia, unspecified organism SNOMED: 700576793 (5) Respiratory failure ICD Codes: J96.90 - Respiratory failure, unspecified, unspecified whether with hypoxia or hypercapnia SNOMED: 062934193 (6) Altered level of consciousness ICD Codes: R40.4 - Transient alteration of awareness SNOMED: 4841109 (7) MRSA (methicillin resistant staph aureus) culture positive ICD Codes: Z22.322 - Carrier or suspected carrier of Methicillin resistant Staphylococcus aureus SNOMED: 821915567 Assessment/Plan holding sedatives, s/p extubation all orders reviewed,ammonia ordered, lactulose dc as nh3 normal, needs frequent suctioning, failed swallow eval, ngt feed ongoing , remains high risk lasix on 03/27+03/28 Subjective ROS Limited/Unobtainable: Yes Allergies: Coded Allergies: No Known Allergies (Unverified , 03/11/17) Objective Last 24 Hour Vital Signs Date Time Temp Pulse Resp B/P Pulse Ox O2 Delivery O2 Flow Rate FiO2 03/28/17 12:06 98.1 103 18 126/69 96 Nasal Cannula 2.0 03/28/17 10:54 95 20 96 Nasal Cannula 2.0 03/28/17 10:04 110 20 96 Nasal Cannula 2.0 03/28/17 09:28 97 138/74 03/28/17 09:27 97 03/28/17 08:00 103 03/28/17 08:00 97.9 103 18 138/74 95 Nasal Cannula 2.0 03/28/17 07:23 115 18 97 Nasal Cannula 2.0 03/28/17 07:13 74 20 96 Nasal Cannula 2.0 03/28/17 07:11 Nasal Cannula 2.0 28 03/28/17 07:10 96 Nasal Cannula 2.0 28 03/28/17 04:15 114 03/28/17 04:00 98.2 113 20 136/79 99 Nasal Cannula 2.0 03/28/17 03:07 91 20 99 Nasal Cannula 2.0 03/28/17 03:01 88 20 99 Nasal Cannula 2.0 03/28/17 00:00 97.0 95 20 145/69 97 Nasal Cannula 2.0 03/27/17 23:48 101 21 99 Nasal Cannula 2.0 03/27/17 23:40 90 20 98 Nasal Cannula 2.0 03/27/17 23:36 102 03/27/17 20:00 98.8 97 20 121/64 95 Nasal Cannula 2.0 03/27/17 20:00 104 03/27/17 19:24 94 20 98 Nasal Cannula 2.0 03/27/17 19:17 Nasal Cannula 2.0 28 03/27/17 19:17 97 Nasal Cannula 2.0 28 03/27/17 19:15 89 20 97 Nasal Cannula 2.0 03/27/17 16:58 98.8 101 20 121/75 97 Nasal Cannula 2.0 03/27/17 16:04 108 22 98 Nasal Cannula 2.0 03/27/17 16:00 110 03/27/17 15:48 102 20 99 Nasal Cannula 2.0 Intake and Output 03/27/17 03/28/17 19:00 07:00 Intake Total 1063.708 ml 975.000 ml Output Total 625 ml 800 ml Balance 438.708 ml 175.000 ml Free Water 100 ml 100 ml IV Total 363.708 ml 275.000 ml Tube Feeding 600 ml 600 ml Output Urine Total 625 ml 800 ml # Voids 3 # Bowel Movements 2 3 Laboratory Tests 03/27/17 16:52: Vancomycin Level Trough 17.2H Height (Feet): 5 Height (Inches): 3.00 Weight (Pounds): 159 General Appearance: mild distress EENT: PERRL/EOMI Neck: normal alignment Cardiovascular: regularly irregular Respiratory/Chest: decreased breath sounds, rhonchi - bilaterally Abdomen: non tender, soft Edema: 1+ Arm (L), 1+ Arm (R), 1+ Leg (L), 1+ Leg (R), 1+ Pedal (L), 1+ Pedal ( R), 1+ Generalized Neurologic: disoriented DANNY MAYEN Mar 28, 2017 12:22
--- NOTE | 2017-03-28 12:34 | Pulmonology Progress Note ---
Assessment/Plan Assessment/Plan Assessment/Plan 1. Acute respiratory failure, resolved 2. Sepsis. 3. Pneumonia, perihilar 4. Diabetes. 5. Lactic acidosis, improved 6. Dementia and schizophrenia. 7. Hyperlipidemia. 8. Rapid atrial fibrillation, controlled excess secretions frequent suctioning cont IVF, abx, NGT feeds heparin HHN Recommend PEG, GI consult will be needed Subjective ROS Limited/Unobtainable: Yes Allergies: Coded Allergies: No Known Allergies (Unverified , 03/11/17) Subjective lethargic no distress tolerating tf on fm ow no fever noted no bleeding does not communicate Objective Last 24 Hour Vital Signs Date Time Temp Pulse Resp B/P Pulse Ox O2 Delivery O2 Flow Rate FiO2 03/28/17 12:06 98.1 103 18 126/69 96 Nasal Cannula 2.0 03/28/17 10:54 95 20 96 Nasal Cannula 2.0 03/28/17 10:04 110 20 96 Nasal Cannula 2.0 03/28/17 09:28 97 138/74 03/28/17 09:27 97 03/28/17 08:00 103 03/28/17 08:00 97.9 103 18 138/74 95 Nasal Cannula 2.0 03/28/17 07:23 115 18 97 Nasal Cannula 2.0 03/28/17 07:13 74 20 96 Nasal Cannula 2.0 03/28/17 07:11 Nasal Cannula 2.0 28 03/28/17 07:10 96 Nasal Cannula 2.0 28 03/28/17 04:15 114 03/28/17 04:00 98.2 113 20 136/79 99 Nasal Cannula 2.0 03/28/17 03:07 91 20 99 Nasal Cannula 2.0 03/28/17 03:01 88 20 99 Nasal Cannula 2.0 03/28/17 00:00 97.0 95 20 145/69 97 Nasal Cannula 2.0 03/27/17 23:48 101 21 99 Nasal Cannula 2.0 03/27/17 23:40 90 20 98 Nasal Cannula 2.0 03/27/17 23:36 102 03/27/17 20:00 98.8 97 20 121/64 95 Nasal Cannula 2.0 03/27/17 20:00 104 03/27/17 19:24 94 20 98 Nasal Cannula 2.0 03/27/17 19:17 Nasal Cannula 2.0 28 03/27/17 19:17 97 Nasal Cannula 2.0 28 03/27/17 19:15 89 20 97 Nasal Cannula 2.0 03/27/17 16:58 98.8 101 20 121/75 97 Nasal Cannula 2.0 03/27/17 16:04 108 22 98 Nasal Cannula 2.0 03/27/17 16:00 110 03/27/17 15:48 102 20 99 Nasal Cannula 2.0 Intake and Output 03/27/17 03/28/17 19:00 07:00 Intake Total 1063.708 ml 975.000 ml Output Total 625 ml 800 ml Balance 438.708 ml 175.000 ml Free Water 100 ml 100 ml IV Total 363.708 ml 275.000 ml Tube Feeding 600 ml 600 ml Output Urine Total 625 ml 800 ml # Voids 3 # Bowel Movements 2 3 General Appearance: cachetic HEENT: atraumatic Respiratory/Chest: crackles/rales, rhonchi Cardiovascular: normal rate, murmur diastolic Abdomen: no organomegaly, non distended Neurologic/Psychiatric: disoriented, unresponsiveness Lymphatic: no neck adenopathy Musculoskeletal: normal muscle bulk Microbiology Date/Time Source Procedure Growth Status 03/25/17 15:40 Indwelling Cath Urine Culture - Final NO GROWTH AFTER 48 HOURS Complete Laboratory Tests 03/27/17 16:52: Vancomycin Level Trough 17.2H Current Medications Medications (Trade) Dose Ordered Sig/Carol Route PRN Reason Start Time Stop Time Status Last Admin Dose Admin Acetaminophen (Tylenol) 650 mg Q4H PRN NG Mild Pain/Temp > 100.5 03/25/17 08:00 04/24/17 07:59 03/27/17 00:34 Albuterol/ Ipratropium (DuoNeb 0.5-3(2.5)mg/3ml) 3 ml Q4HRT HHN 03/25/17 08:45 03/30/17 08:44 03/28/17 10:52 Chlorhexidine Gluconate (Erin-Hex 2%) 1 applic BEDTIME TOPIC 03/25/17 21:00 04/24/17 20:59 03/27/17 21:00 Dextrose (Dextrose 50%) STAT PRN IV Hypoglycemia 03/25/17 08:00 04/24/17 07:59 Digoxin (Lanoxin) 0.125 mg DAILY ORAL 03/25/17 09:00 04/24/17 08:59 03/28/17 09:27 Furosemide (Lasix) 40 mg ONCE ONCE IV 03/28/17 13:00 03/28/17 13:01 Heparin Sodium (Porcine) (Heparin 5000 units/ml) 5,000 units EVERY 12 HOURS SUBQ 03/25/17 09:00 04/24/17 08:59 03/28/17 09:33 Insulin Aspart (NovoLOG) EVERY 6 HOURS SUBQ 03/25/17 12:00 04/24/17 11:59 03/28/17 12:04 Lansoprazole (Prevacid) 30 mg QHS NG 03/26/17 21:00 04/25/17 20:59 03/27/17 20:47 Metoprolol Succinate (Toprol XL) 50 mg DAILY ORAL 03/25/17 09:00 04/24/17 08:59 03/28/17 09:28 Potassium Chloride (KCl 10% 40mEq Oral solution) 40 meq ONCE ONCE NG 03/28/17 13:00 03/28/17 13:01 Vancomycin HCl (Vanco rx to dose) 1 ea DAILY PRN MISC Per rx protocol 03/25/17 09:00 04/24/17 08:59 Vancomycin HCl/ Dextrose (Vancomycin/D5W) 275 ml @ 183.708 mls/hr Q12H IVPB 03/25/17 18:00 03/30/17 17:59 03/28/17 05:53 DRAKE NEELY DO Mar 28, 2017 12:34
[2017-03-28] MEDS ORDERED: KCl 10% 40mEq/30ml liquid NG ONE (13:00)
[2017-03-28 15:37] VITALS: BP 131/78
[2017-03-28 20:00] VITALS: BP 132/80
[2017-03-28] MEDS: Dyna-Hex 2% Top Sol 8oz TOPIC SCH (20:26)
[2017-03-29] VITALS: BP 138/78
[2017-03-29] MEDS: DuoNeb 0.5-3(2.5)mg/3ml neb HHN SCH ×6 (03:28→23:21)
[2017-03-29 04:00] VITALS: BP 125/63
[2017-03-29] MEDS: Vancomycin 750 MG in D5W 275 ML IVPB SCH ×2 (05:15→17:40)
[2017-03-29] MEDS: NovoLOG Insulin Flexpen SUBQ SCH ×4 (06:16→23:24)
[2017-03-29 08:00] VITALS: BP 143/75
[2017-03-29 08:12] LABS: BASOPHILS % (AUTO) 0.9 % (0.0-2.0); EOSINOPHILS % (AUTO) 3.1 % (0.0-3.0); LYMPHOCYTES % (AUTO) 18.2 % (20.0-45.0); MEAN CORPUSCULAR HEMOGLOBIN 26.8 PG (27.0-31.0); MEAN CORPUSCULAR HGB CONC 31.7 G/DL (32.0-36.0); MEAN CORPUSCULAR VOLUME 85 FL (80-99); MEAN PLATELET VOLUME 6.4 FL (6.5-10.1); MONOCYTES % (AUTO) 8.8 % (1.0-10.0); PLATELET COUNT 324 K/UL (150-450); RED BLOOD COUNT 4.34 M/UL (4.20-5.40); RED CELL DISTRIBUTION WIDTH 13.6 % (11.6-14.8); WHITE BLOOD COUNT 11.1 K/UL (4.8-10.8)
[2017-03-29] MEDS: Heparin 5000 units/ml inj SUBQ SCH ×2 (08:39→20:08)
[2017-03-29] MEDS: Digoxin 0.125mg tab ORAL SCH (08:41)
[2017-03-29] MEDS: Metoprolol Succinate XL 50mg tab ORAL SCH (08:41)
[2017-03-29 08:53] LABS: ANION GAP 10 (5-15); CARBON DIOXIDE 27 mEQ/L (20-30); CHLORIDE 97 mEQ/L (98-107); CREATININE 0.7 mg/dL (0.5-0.9); HEMOLYSIS 2; POTASSIUM 4.5 mEQ/L (3.4-4.9); SODIUM 134 mEQ/L (135-145)
--- NOTE | 2017-03-29 10:27 | Nephrology Progress Note ---
Assessment/Plan Problem List: (1) Hepatitis C (2) CHF (congestive heart failure), NYHA class II (3) Atrial fibrillation with rapid ventricular response (4) Healthcare-associated pneumonia (5) Respiratory failure (6) Altered level of consciousness (7) MRSA (methicillin resistant staph aureus) culture positive Plan lasix, suctioning, continue antibiotics Subjective ROS Limited/Unobtainable: Yes Objective Objective Last 24 Hour Vital Signs Date Time Temp Pulse Resp B/P Pulse Ox O2 Delivery O2 Flow Rate FiO2 03/29/17 08:50 109 03/29/17 08:41 87 143/75 03/29/17 08:41 87 03/29/17 08:00 97.2 87 18 143/75 97 Nasal Cannula 2.0 03/29/17 07:14 64 23 100 Nasal Cannula 2.0 28 03/29/17 07:09 Nasal Cannula 2.0 28 03/29/17 07:03 91 20 98 Nasal Cannula 2.0 28 03/29/17 07:02 98 Nasal Cannula 2.0 28 03/29/17 04:00 109 03/29/17 04:00 98.2 99 18 125/63 98 Nasal Cannula 2.0 03/29/17 03:29 99 20 100 Nasal Cannula 2.0 03/29/17 03:28 97 20 97 Nasal Cannula 2.0 03/29/17 00:00 107 03/29/17 00:00 97.8 100 20 138/78 99 Nasal Cannula 2.0 03/28/17 22:48 74 18 100 Nasal Cannula 2.0 03/28/17 22:42 68 20 100 Nasal Cannula 2.0 03/28/17 20:00 112 03/28/17 20:00 98.2 101 18 132/80 99 Nasal Cannula 2.0 03/28/17 18:57 107 20 98 Nasal Cannula 2.0 03/28/17 18:50 92 20 99 Nasal Cannula 2.0 03/28/17 18:49 Nasal Cannula 2.0 28 03/28/17 18:49 99 Nasal Cannula 2.0 28 03/28/17 15:37 97.8 108 18 131/78 99 Nasal Cannula 2.0 03/28/17 15:29 93 20 96 Nasal Cannula 2.0 03/28/17 15:19 93 20 96 Nasal Cannula 2.0 03/28/17 15:12 91 03/28/17 12:06 98.1 103 18 126/69 96 Nasal Cannula 2.0 03/28/17 12:00 123 03/28/17 10:54 95 20 96 Nasal Cannula 2.0 Intake and Output 03/28/17 03/29/17 19:00 07:00 Intake Total 783.708 ml 1025.000 ml Output Total 2473 ml 858 ml Balance -1689.292 ml 167.000 ml Free Water 100 ml 150 ml IV Total 183.708 ml 275.000 ml Tube Feeding 500 ml 600 ml Output Urine Total 2473 ml 858 ml # Bowel Movements 3 Laboratory Tests 03/29/17 07:45: White Blood Count 11.1H, Red Blood Count 4.34, Hemoglobin 11.6L, Hematocrit 36.7L, Mean Corpuscular Volume 85, Mean Corpuscular Hemoglobin 26.8L, Mean Corpuscular Hemoglobin Concent 31.7L, Red Cell Distribution Width 13.6, Platelet Count 324, Mean Platelet Volume 6.4L, Neutrophils (%) (Auto) 69.0, Lymphocytes (%) (Auto) 18.2L, Monocytes (%) (Auto) 8.8, Eosinophils (%) (Auto) 3.1H, Basophils (%) (Auto) 0.9, Sodium Level 134L, Potassium Level 4.5, Chloride Level 97L, Carbon Dioxide Level 27, Anion Gap 10, Blood Urea Nitrogen 12, Creatinine 0.7, Estimat Glomerular Filtration Rate , Glucose Level 137H, Calcium Level 9.0 Height (Feet): 5 Height (Inches): 3.00 Weight (Pounds): 158 General Appearance: lethargic EENT: normal ENT inspection Neck: normal alignment Cardiovascular: regularly irregular Respiratory/Chest: decreased breath sounds, rhonchi - bilaterally Abdomen: non tender Extremities: moderate edema Neurologic: soda jerker II-XII grossly normal DANNY MAYEN Mar 29, 2017 10:27
[2017-03-29] MEDS: KCl 10% 40mEq/30ml liquid NG SCH (10:52)
[2017-03-29] MEDS: Furosemide 40mg tab NG SCH (10:52)
[2017-03-29 12:00] VITALS: BP 102/51
[2017-03-29 16:00] VITALS: BP 135/87
[2017-03-29] MEDS ORDERED: NS 275ml ONE (16:43)
--- NOTE | 2017-03-29 19:14 | Pulmonology Progress Note ---
Assessment/Plan Assessment/Plan Assessment/Plan 1. Acute respiratory failure, resolved 2. Sepsis. 3. Pneumonia, perihilar 4. Diabetes. 5. Lactic acidosis, improved 6. Dementia and schizophrenia. 7. Hyperlipidemia. 8. Rapid atrial fibrillation, controlled excess secretions and needs frequent suctioning cont IVF, abx, NGT feeds replace lytes heparin CXCR in am HHN Recommend PEG, GI consult will be needed Subjective ROS Limited/Unobtainable: Yes Allergies: Coded Allergies: No Known Allergies (Unverified , 03/11/17) Subjective a little more awake, does not communciate of follow commands tolerating tf on fm ow no fever noted no bleeding does not communicate Objective Last 24 Hour Vital Signs Date Time Temp Pulse Resp B/P Pulse Ox O2 Delivery O2 Flow Rate FiO2 03/29/17 16:09 101 03/29/17 16:00 97.9 107 18 135/87 98 Nasal Cannula 2.0 03/29/17 15:36 91 20 100 Nasal Cannula 2.0 03/29/17 15:22 86 20 98 Nasal Cannula 2.0 28 03/29/17 12:00 99 03/29/17 12:00 97.9 103 20 102/51 97 Nasal Cannula 2.0 03/29/17 11:26 94 20 100 Nasal Cannula 2.0 03/29/17 11:12 88 20 98 Nasal Cannula 2.0 03/29/17 08:50 109 03/29/17 08:41 87 143/75 03/29/17 08:41 87 03/29/17 08:00 97.2 87 18 143/75 97 Nasal Cannula 2.0 03/29/17 07:14 64 23 100 Nasal Cannula 2.0 03/29/17 07:09 Nasal Cannula 2.0 28 03/29/17 07:03 91 20 98 Nasal Cannula 2.0 28 03/29/17 07:02 98 Nasal Cannula 2.0 28 03/29/17 04:00 109 03/29/17 04:00 98.2 99 18 125/63 98 Nasal Cannula 2.0 03/29/17 03:29 99 20 100 Nasal Cannula 2.0 28 03/29/17 03:28 97 20 97 Nasal Cannula 2.0 28 03/29/17 00:00 107 03/29/17 00:00 97.8 100 20 138/78 99 Nasal Cannula 2.0 8/12/17 22:48 74 18 100 Nasal Cannula 2.0 03/28/17 22:42 68 20 100 Nasal Cannula 2.0 03/28/17 20:00 112 03/28/17 20:00 98.2 101 18 132/80 99 Nasal Cannula 2.0 Intake and Output 03/28/17 03/29/17 19:00 07:00 Intake Total 783.708 ml 1025.000 ml Output Total 2473 ml 858 ml Balance -1689.292 ml 167.000 ml Free Water 100 ml 150 ml IV Total 183.708 ml 275.000 ml Tube Feeding 500 ml 600 ml Output Urine Total 2473 ml 858 ml # Bowel Movements 3 General Appearance: cachetic Respiratory/Chest: crackles/rales, rhonchi Cardiovascular: normal rate, regular rhythm, murmur systolic Abdomen: soft, non tender, no organomegaly Extremities: no cyanosis, no clubbing Neurologic/Psychiatric: disoriented Musculoskeletal: normal muscle bulk Laboratory Tests 03/29/17 07:45: White Blood Count 11.1H, Red Blood Count 4.34, Hemoglobin 11.6L, Hematocrit 36.7L, Mean Corpuscular Volume 85, Mean Corpuscular Hemoglobin 26.8L, Mean Corpuscular Hemoglobin Concent 31.7L, Red Cell Distribution Width 13.6, Platelet Count 324, Mean Platelet Volume 6.4L, Neutrophils (%) (Auto) 69.0, Lymphocytes (%) (Auto) 18.2L, Monocytes (%) (Auto) 8.8, Eosinophils (%) (Auto) 3.1H, Basophils (%) (Auto) 0.9, Sodium Level 134L, Potassium Level 4.5, Chloride Level 97L, Carbon Dioxide Level 27, Anion Gap 10, Blood Urea Nitrogen 12, Creatinine 0.7, Estimat Glomerular Filtration Rate , Glucose Level 137H, Calcium Level 9.0 Current Medications Medications (Trade) Dose Ordered Sig/Carol Route PRN Reason Start Time Stop Time Status Last Admin Dose Admin Acetaminophen (Tylenol) 650 mg Q4H PRN NG Mild Pain/Temp > 100.5 03/25/17 08:00 04/24/17 07:59 03/27/17 00:34 Albuterol/ Ipratropium (DuoNeb 0.5-3(2.5)mg/3ml) 3 ml Q4HRT HHN 03/25/17 08:45 03/30/17 08:44 03/29/17 15:27 Chlorhexidine Gluconate (Erin-Hex 2%) 1 applic BEDTIME TOPIC 03/25/17 21:00 04/24/17 20:59 03/28/17 20:26 Dextrose (Dextrose 50%) STAT PRN IV Hypoglycemia 03/25/17 08:00 04/24/17 07:59 Digoxin (Lanoxin) 0.125 mg DAILY ORAL 03/25/17 09:00 04/24/17 08:59 03/29/17 08:41 Furosemide (Lasix) 40 mg DAILY NG 03/29/17 11:00 04/28/17 10:59 03/29/17 10:52 Heparin Sodium (Porcine) (Heparin 5000 units/ml) 5,000 units EVERY 12 HOURS SUBQ 03/25/17 09:00 04/24/17 08:59 03/29/17 08:39 Insulin Aspart (NovoLOG) EVERY 6 HOURS SUBQ 03/25/17 12:00 04/24/17 11:59 03/29/17 17:41 Lansoprazole (Prevacid) 30 mg QHS NG 03/26/17 21:00 04/25/17 20:59 03/28/17 20:26 Metoprolol Succinate (Toprol XL) 50 mg DAILY ORAL 03/25/17 09:00 04/24/17 08:59 03/29/17 08:41 Potassium Chloride (KCl 10% 40mEq Oral solution) 40 meq DAILY NG 03/29/17 11:00 04/28/17 10:59 03/29/17 10:52 Vancomycin HCl (Vanco rx to dose) 1 ea DAILY PRN MISC Per rx protocol 03/25/17 09:00 04/24/17 08:59 Vancomycin HCl/ Dextrose (Vancomycin/D5W) 275 ml @ 183.708 mls/hr Q12H IVPB 03/25/17 18:00 03/30/17 17:59 03/29/17 17:40 DRAKE NEELY DO Mar 29, 2017 19:14
[2017-03-29 20:00] VITALS: BP 137/88
[2017-03-29] MEDS: Dyna-Hex 2% Top Sol 8oz TOPIC SCH (20:00)
[2017-03-30] VITALS: BP 126/86
[2017-03-30] MEDS: DuoNeb 0.5-3(2.5)mg/3ml neb HHN SCH ×2 (03:00→06:40)
[2017-03-30 04:00] VITALS: BP 122/88
[2017-03-30] MEDS: Vancomycin 750 MG in D5W 275 ML IVPB SCH ×2 (05:25→18:03)
[2017-03-30] MEDS: NovoLOG Insulin Flexpen SUBQ SCH ×3 (05:27→18:05)
[2017-03-30 05:48] LABS: ANION GAP 11 (5-15); CALCIUM 9.1 mg/dL (8.6-10.2); CARBON DIOXIDE 27 mEQ/L (20-30); CHLORIDE 98 mEQ/L (98-107); CREATININE 0.7 mg/dL (0.5-0.9); HEMOLYSIS 3; POTASSIUM 4.6 mEQ/L (3.4-4.9); SODIUM 136 mEQ/L (135-145)
[2017-03-30 08:00] VITALS: BP 126/68
[2017-03-30] MEDS: Digoxin 0.125mg tab ORAL SCH (09:33)
[2017-03-30] MEDS: Metoprolol Succinate XL 50mg tab ORAL SCH (09:33)
[2017-03-30] MEDS: Furosemide 40mg tab NG SCH (09:33)
[2017-03-30] MEDS: KCl 10% 40mEq/30ml liquid NG SCH (09:33)
[2017-03-30] MEDS: Heparin 5000 units/ml inj SUBQ SCH ×2 (09:35→20:43)
[2017-03-30 11:31] VITALS: BP 128/77
--- NOTE | 2017-03-30 12:17 | Diagnostic Imaging Report ---
Indication: COPD shortness of breath Technique: One view of the chest Comparison: March 27, 2017 Findings: Interstitial and alveolar infiltrates in the right lung and left perihilar region persists, may be minimally improved. Previously demonstrated left infrahilar disease appears improved. Pleural spaces remain clear. Stable satisfactory positions of nasogastric tube and PICC Impression: Slightly improved but persistent infiltrates versus edema, over 3 days, as described Other stable findings as noted
--- NOTE | 2017-03-30 12:29 | Pulmonology Progress Note ---
Assessment/Plan Assessment/Plan 1. Acute respiratory failure, resolved 2. Sepsis. 3. Pneumonia, perihilar 4. Diabetes. 5. Lactic acidosis, improved 6. Dementia and schizophrenia. 7. Hyperlipidemia. 8. Rapid atrial fibrillation, controlled secretions, needs frequent suctioning cont IVF, abx, NGT feeds heparin HHN Recommend PEG vs comfort care disc w Dr Fuentes, Bioethics consult arranged no family Subjective ROS Limited/Unobtainable: Yes Constitutional: Denies: fever Allergies: Coded Allergies: No Known Allergies (Unverified , 03/11/17) Objective Last 24 Hour Vital Signs Date Time Temp Pulse Resp B/P Pulse Ox O2 Delivery O2 Flow Rate FiO2 03/30/17 12:00 87 03/30/17 11:31 98.1 89 18 128/77 95 Nasal Cannula 2.0 03/30/17 09:33 105 126/68 03/30/17 09:33 105 03/30/17 08:10 98 Nasal Cannula 2.0 28 03/30/17 08:10 Nasal Cannula 2.0 28 03/30/17 08:00 109 03/30/17 08:00 98.1 105 18 126/68 96 Nasal Cannula 2.0 03/30/17 06:30 78 20 100 Nasal Cannula 2.0 28 03/30/17 06:25 75 20 98 Nasal Cannula 2.0 28 03/30/17 04:11 Nasal Cannula 03/30/17 04:10 121 Nasal Cannula 03/30/17 04:00 109 03/30/17 04:00 97.8 114 18 122/88 99 Nasal Cannula 2.0 03/30/17 00:00 97.6 110 18 126/86 99 Nasal Cannula 2.0 03/30/17 00:00 119 03/29/17 23:31 101 20 100 Nasal Cannula 2.0 28 03/29/17 23:21 116 20 98 Nasal Cannula 2.0 28 03/29/17 20:00 107 03/29/17 20:00 88 20 100 Nasal Cannula 2.0 28 03/29/17 20:00 97.2 116 20 137/88 99 Nasal Cannula 2.0 03/29/17 19:54 98 Nasal Cannula 2.0 28 03/29/17 19:54 Nasal Cannula 2.0 28 03/29/17 19:54 106 20 98 Nasal Cannula 2.0 28 03/29/17 16:09 101 03/29/17 16:00 97.9 107 18 135/87 98 Nasal Cannula 2.0 03/29/17 15:36 91 20 100 Nasal Cannula 2.0 28 03/29/17 15:22 86 20 98 Nasal Cannula 2.0 28 Intake and Output 03/29/17 03/30/17 19:00 07:00 Intake Total 983.708 ml 650 ml Output Total 1681 ml 985 ml Balance -697.292 ml -335 ml Free Water 150 ml 50 ml IV Total 183.708 ml Tube Feeding 600 ml 600 ml Other 50 ml Output Urine Total 1681 ml 985 ml # Bowel Movements 2 Objective lethargic, NGT General Appearance: no acute distress Respiratory/Chest: rhonchi Laboratory Tests 03/30/17 03:45: Sodium Level 136, Potassium Level 4.6, Chloride Level 98, Carbon Dioxide Level 27, Anion Gap 11, Blood Urea Nitrogen 15, Creatinine 0.7, Estimat Glomerular Filtration Rate , Glucose Level 176H, Calcium Level 9.1 Current Medications Medications (Trade) Dose Ordered Sig/Carol Route PRN Reason Start Time Stop Time Status Last Admin Dose Admin Acetaminophen (Tylenol) 650 mg Q4H PRN NG Mild Pain/Temp > 100.5 03/25/17 08:00 04/24/17 07:59 03/27/17 00:34 Chlorhexidine Gluconate (Erin-Hex 2%) 1 applic BEDTIME TOPIC 03/25/17 21:00 04/24/17 20:59 03/29/17 20:00 Dextrose (Dextrose 50%) STAT PRN IV Hypoglycemia 03/25/17 08:00 04/24/17 07:59 Digoxin (Lanoxin) 0.125 mg DAILY ORAL 03/25/17 09:00 04/24/17 08:59 03/30/17 09:33 Furosemide (Lasix) 40 mg DAILY NG 03/29/17 11:00 04/28/17 10:59 03/30/17 09:33 Heparin Sodium (Porcine) (Heparin 5000 units/ml) 5,000 units EVERY 12 HOURS SUBQ 03/25/17 09:00 04/24/17 08:59 03/30/17 09:35 Insulin Aspart (NovoLOG) EVERY 6 HOURS SUBQ 03/25/17 12:00 04/24/17 11:59 03/30/17 11:30 Lansoprazole (Prevacid) 30 mg QHS NG 03/26/17 21:00 04/25/17 20:59 03/30/17 09:33 Metoprolol Succinate (Toprol XL) 50 mg DAILY ORAL 03/25/17 09:00 04/24/17 08:59 03/30/17 09:33 Potassium Chloride (KCl 10% 40mEq Oral solution) 40 meq DAILY NG 03/29/17 11:00 04/28/17 10:59 03/30/17 09:33 Vancomycin HCl (Vanco rx to dose) 1 ea DAILY PRN MISC Per rx protocol 03/25/17 09:00 04/24/17 08:59 Vancomycin HCl/ Dextrose (Vancomycin/D5W) 275 ml @ 183.708 mls/hr Q12H IVPB 03/25/17 18:00 03/30/17 17:59 03/30/17 05:25 ADWOA GARCIA Mar 30, 2017 12:29
--- NOTE | 2017-03-30 14:21 | General Progress Note ---
Assessment/Plan Problem List: (1) Hepatitis C ICD Codes: B19.20 - Unspecified viral hepatitis C without hepatic coma SNOMED: 90070886 (2) CHF (congestive heart failure), NYHA class II ICD Codes: I50.9 - Heart failure, unspecified SNOMED: 642632720, 901372724 (3) Atrial fibrillation with rapid ventricular response ICD Codes: I48.91 - Unspecified atrial fibrillation SNOMED: 368579658705609 (4) Healthcare-associated pneumonia ICD Codes: J18.9 - Pneumonia, unspecified organism SNOMED: 888820512 (5) Respiratory failure ICD Codes: J96.90 - Respiratory failure, unspecified, unspecified whether with hypoxia or hypercapnia SNOMED: 350092907 (6) Altered level of consciousness ICD Codes: R40.4 - Transient alteration of awareness SNOMED: 4525648 (7) MRSA (methicillin resistant staph aureus) culture positive ICD Codes: Z22.322 - Carrier or suspected carrier of Methicillin resistant Staphylococcus aureus SNOMED: 594342499 Assessment/Plan holding sedatives, s/p extubation all orders reviewed,ammonia ordered, lactulose dc as nh3 normal, needs frequent suctioning, failed swallow eval, ngt feed ongoing , remains high risk lasix on 03/27+03/28 to continue via ngt Subjective ROS Limited/Unobtainable: Yes Allergies: Coded Allergies: No Known Allergies (Unverified , 03/11/17) Objective Last 24 Hour Vital Signs Date Time Temp Pulse Resp B/P Pulse Ox O2 Delivery O2 Flow Rate FiO2 03/30/17 12:00 87 03/30/17 11:31 98.1 89 18 128/77 95 Nasal Cannula 2.0 03/30/17 09:33 105 126/68 03/30/17 09:33 105 03/30/17 08:10 98 Nasal Cannula 2.0 28 03/30/17 08:10 Nasal Cannula 2.0 28 03/30/17 08:00 109 03/30/17 08:00 98.1 105 18 126/68 96 Nasal Cannula 2.0 03/30/17 06:30 78 20 100 Nasal Cannula 2.0 28 03/30/17 06:25 75 20 98 Nasal Cannula 2.0 28 03/30/17 04:11 Nasal Cannula 03/30/17 04:10 121 Nasal Cannula 03/30/17 04:00 109 03/30/17 04:00 97.8 114 18 122/88 99 Nasal Cannula 2.0 03/30/17 00:00 97.6 110 18 126/86 99 Nasal Cannula 2.0 03/30/17 00:00 119 03/29/17 23:31 101 20 100 Nasal Cannula 2.0 28 03/29/17 23:21 116 20 98 Nasal Cannula 2.0 28 03/29/17 20:00 107 03/29/17 20:00 88 20 100 Nasal Cannula 2.0 28 03/29/17 20:00 97.2 116 20 137/88 99 Nasal Cannula 2.0 03/29/17 19:54 98 Nasal Cannula 2.0 28 03/29/17 19:54 Nasal Cannula 2.0 28 03/29/17 19:54 106 20 98 Nasal Cannula 2.0 28 03/29/17 16:09 101 03/29/17 16:00 97.9 107 18 135/87 98 Nasal Cannula 2.0 03/29/17 15:36 91 20 100 Nasal Cannula 2.0 28 03/29/17 15:22 86 20 98 Nasal Cannula 2.0 28 Intake and Output 03/29/17 03/30/17 19:00 07:00 Intake Total 983.708 ml 650 ml Output Total 1681 ml 985 ml Balance -697.292 ml -335 ml Free Water 150 ml 50 ml IV Total 183.708 ml Tube Feeding 600 ml 600 ml Other 50 ml Output Urine Total 1681 ml 985 ml # Bowel Movements 2 Laboratory Tests 03/30/17 03:45: Sodium Level 136, Potassium Level 4.6, Chloride Level 98, Carbon Dioxide Level 27, Anion Gap 11, Blood Urea Nitrogen 15, Creatinine 0.7, Estimat Glomerular Filtration Rate , Glucose Level 176H, Calcium Level 9.1 Height (Feet): 5 Height (Inches): 3.00 Weight (Pounds): 149 General Appearance: lethargic, mild distress EENT: normal ENT inspection Neck: non-tender Cardiovascular: regularly irregular Respiratory/Chest: rhonchi - bilaterally Abdomen: no organomegaly Edema: 1+ Arm (L), 1+ Arm (R), 1+ Leg (L), 1+ Leg (R), 1+ Pedal (L), 1+ Pedal ( R), 1+ 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
[2017-03-30 16:00] VITALS: BP 155/65
[2017-03-30] MEDS ORDERED: NS 275ml ONE (16:23)
[2017-03-30 19:54] VITALS: BP 125/71
[2017-03-30] MEDS: Dyna-Hex 2% Top Sol 8oz TOPIC SCH (20:46)
[2017-03-31] VITALS (12 sets, daily range): BP systolic 69–161; BP diastolic 43–91
[2017-03-31 04:48] LABS: MEAN CORPUSCULAR HEMOGLOBIN 27.3 PG (27.0-31.0); MEAN CORPUSCULAR HGB CONC 32.2 G/DL (32.0-36.0); MEAN CORPUSCULAR VOLUME 85 FL (80-99); MEAN PLATELET VOLUME 6.4 FL (6.5-10.1); PLATELET COUNT 407 K/UL (150-450); RED BLOOD COUNT 4.74 M/UL (4.20-5.40); RED CELL DISTRIBUTION WIDTH 13.5 % (11.6-14.8); WHITE BLOOD COUNT 19.9 K/UL (4.8-10.8)
[2017-03-31 04:55] LABS: PROTHROMBIN TIME 10.2 SEC (9.30-11.50)
[2017-03-31 05:14] LABS: ANION GAP 14 (5-15); CALCIUM 9.6 mg/dL (8.6-10.2); CARBON DIOXIDE 25 mEQ/L (20-30); CHLORIDE 96 mEQ/L (98-107); CREATININE 0.6 mg/dL (0.5-0.9); HEMOLYSIS 1; POTASSIUM 4.6 mEQ/L (3.4-4.9); SODIUM 135 mEQ/L (135-145)
[2017-03-31] MEDS: NovoLOG Insulin Flexpen SUBQ SCH ×4 (06:00→18:08)
[2017-03-31] MEDS ORDERED: Vancomycin 750mg Inj IVPB ONE (06:28)
[2017-03-31] MEDS: Vancomycin 750 MG in D5W 275 ML IVPB SCH (06:59)
[2017-03-31 07:35] LABS: BAND NEUTROPHILS % (MANUAL) 0 % (0-8); BASOPHILS % (MANUAL) 0 % (0-2); EOSINOPHILS % (MANUAL) 2 % (0-3); LYMPHOCYTES % (MANUAL) 14 % (20-45); NEUTROPHILS % (MANUAL) 79 % (45-75); PLATELET ESTIMATE ADEQUATE; PLATELET MORPHOLOGY NORMAL; TOTAL CELLS COUNTED 100
[2017-03-31] MEDS ORDERED: Digoxin 0.125mg tab GT SCH (09:00)
[2017-03-31] MEDS: Heparin 5000 units/ml inj SUBQ SCH ×2 (09:05→20:55)
[2017-03-31] MEDS: KCl 10% 40mEq/30ml liquid NG SCH (09:06)
[2017-03-31] MEDS: Furosemide 40mg tab NG SCH (09:07)
[2017-03-31] MEDS: Metoprolol Succinate XL 50mg tab ORAL SCH (09:07)
--- NOTE | 2017-03-31 11:28 | General Progress Note ---
Progress Note Progress Note Bioethics Asked to evaluate this 76 year old with multiple medical problems now weaning off ventilator s/p pneumonia and chf with AF. [facility] and has no representation however had signed a POLST indicating that she wanted full treatment and full code. Attending is requesting do not resusscitate do not inubate. In my opinion we need to respect her POLST directive despite the fact that resuscitation and intubation would likely lead to futile medical care and an unfavorable outcome. Will present to the full committe at out next meeting. ADWOA HINKLE Mar 31, 2017 11:27
--- NOTE | 2017-03-31 11:31 | General Progress Note ---
Progress Note Progress Note This 76 year old has multple medical problems and is unrepresented however has signed a POLST indicating full care and code. Attendings is asking for dni/dnr. I feel that we need to honor her POLST despite the likdely unsuccessfull outcomes of these measures. Will present to [email or web address] at next meeting. Adwoa Burleson MD Bioethics Chair ADWOA BURLESON Mar 31, 2017 11:31
--- NOTE | 2017-03-31 12:57 | Pulmonology Progress Note ---
Assessment/Plan Assessment/Plan 1. Acute respiratory failure, resolved 2. Sepsis. 3. Pneumonia, perihilar 4. Diabetes. 5. Lactic acidosis, improved 6. Dementia and schizophrenia. 7. Hyperlipidemia. 8. Rapid atrial fibrillation, controlled secretions, needs frequent suctioning cont abx, NGT feeds renew HHN Recommend PEG vs comfort care disc w Dr Fuentes, Bioethics rec full code WBC up to 19k repeat CXR UA c/s Subjective ROS Limited/Unobtainable: Yes Constitutional: Denies: fever Respiratory: Reports: productive cough, Denies: shortness of breath Allergies: Coded Allergies: No Known Allergies (Unverified , 03/11/17) Objective Last 24 Hour Vital Signs Date Time Temp Pulse Resp B/P Pulse Ox O2 Delivery O2 Flow Rate FiO2 03/31/17 12:00 98 03/31/17 09:07 105 03/31/17 09:07 105 117/67 03/31/17 08:00 98 03/31/17 08:00 98.4 105 19 117/67 98 Nasal Cannula 4.0 03/31/17 04:00 110 03/31/17 04:00 98.5 107 18 135/78 98 Nasal Cannula 2.0 03/31/17 00:00 107 03/31/17 00:00 98.0 107 18 130/71 93 Nasal Cannula 2.0 03/30/17 20:00 107 03/30/17 19:54 98.6 110 18 125/71 93 Nasal Cannula 2.0 03/30/17 19:20 Nasal Cannula 2.0 28 03/30/17 19:20 98 Nasal Cannula 2.0 28 03/30/17 16:00 99.0 116 21 155/65 94 Nasal Cannula 2.0 03/30/17 16:00 120 Intake and Output 03/30/17 03/31/17 19:00 07:00 Intake Total 1101.124 ml 841.3 ml Output Total 1 ml 1000 ml Balance 1100.124 ml -158.7 ml Free Water 150 ml 150 ml IV Total 551.124 ml 91.3 ml Tube Feeding 400 ml 600 ml Output Urine Total 1000 ml Stool Total 1 ml # Voids 3 # Bowel Movements 3 Objective lethargic, NGT General Appearance: no acute distress Respiratory/Chest: rhonchi Cardiovascular: normal rate Laboratory Tests 03/31/17 03:00: White Blood Count 19.9H, Red Blood Count 4.74, Hemoglobin 13.0, Hematocrit 40.3 , Mean Corpuscular Volume 85, Mean Corpuscular Hemoglobin 27.3, Mean Corpuscular Hemoglobin Concent 32.2, Red Cell Distribution Width 13.5, Platelet Count 407, Mean Platelet Volume 6.4L, Neutrophils (%) (Auto) , Lymphocytes (%) ( Auto) , Monocytes (%) (Auto) , Eosinophils (%) (Auto) , Basophils (%) (Auto) , Differential Total Cells Counted 100, Neutrophils % (Manual) 79H, Lymphocytes % (Manual) 14L, Monocytes % (Manual) 5, Eosinophils % (Manual) 2, Basophils % ( Manual) 0, Band Neutrophils 0, Platelet Estimate Adequate, Platelet Morphology Normal, Red Blood Cell Morphology Normal, Prothrombin Time 10.2, Prothromb Time International Ratio 1.0, Sodium Level 135, Potassium Level 4.6, Chloride Level 96L, Carbon Dioxide Level 25, Anion Gap 14, Blood Urea Nitrogen 15, Creatinine 0.6, Estimat Glomerular Filtration Rate , Glucose Level 181H, Calcium Level 9.6 Current Medications Medications (Trade) Dose Ordered Sig/Carol Route PRN Reason Start Time Stop Time Status Last Admin Dose Admin Acetaminophen (Tylenol) 650 mg Q4H PRN NG Mild Pain/Temp > 100.5 03/25/17 08:00 04/24/17 07:59 03/27/17 00:34 Chlorhexidine Gluconate (Erin-Hex 2%) 1 applic BEDTIME TOPIC 03/25/17 21:00 04/24/17 20:59 03/30/17 20:46 Dextrose (Dextrose 50%) STAT PRN IV Hypoglycemia 03/25/17 08:00 04/24/17 07:59 Digoxin (Lanoxin) 0.125 mg DAILY GT 03/31/17 09:00 04/24/17 08:59 03/31/17 09:07 Furosemide (Lasix) 40 mg DAILY NG 03/29/17 11:00 04/28/17 10:59 03/31/17 09:07 Heparin Sodium (Porcine) (Heparin 5000 units/ml) 5,000 units EVERY 12 HOURS SUBQ 03/25/17 09:00 04/24/17 08:59 03/31/17 09:05 Insulin Aspart (NovoLOG) EVERY 6 HOURS SUBQ 03/25/17 12:00 04/24/17 11:59 03/31/17 12:14 Lansoprazole (Prevacid) 30 mg QHS NG 03/26/17 21:00 04/25/17 20:59 03/30/17 09:33 Metoprolol Succinate (Toprol XL) 50 mg DAILY ORAL 03/25/17 09:00 04/24/17 08:59 03/31/17 09:07 Potassium Chloride (KCl 10% 40mEq Oral solution) 40 meq DAILY NG 03/29/17 11:00 04/28/17 10:59 03/31/17 09:06 Vancomycin HCl (Vanco rx to dose) 1 ea DAILY PRN MISC Per rx protocol 03/25/17 09:00 04/24/17 08:59 Vancomycin HCl/ Dextrose (Vancomycin/D5W) 275 ml @ 183.708 mls/hr Q12H IVPB 03/25/17 18:00 04/06/17 17:59 03/31/17 06:59 ADWOA GARCIA Mar 31, 2017 12:57
[2017-03-31] MEDS: DuoNeb 0.5-3(2.5)mg/3ml neb HHN SCH ×2 (13:15→19:00)
[2017-03-31 16:41] LABS: APPEARANCE,URINE CLEAR; KETONES,URINE NEGATIVE (NEGATIVE); LEUKOCYTE ESTERASE ,URINE NEGATIVE (NEGATIVE); NITRITE,URINE NEGATIVE (NEGATIVE); PH,URINE 7 (4.5-8.0); PROTEIN,URINE NEGATIVE (NEGATIVE); UROBILINOGEN,URINE NORMAL MG/DL (0.0-1.0)
[2017-03-31 17:00] LABS: RBC,URINE 0-2 /HPF (0 - 2); SQUAMOUS EPITHELIAL CELL,UR MODERATE /LPF (NONE/OCC); WBC,URINE 0-2 /HPF (0 - 2)
[2017-03-31] MEDS ORDERED: Levophed 4mg/4mL Inj IV ONE (19:27)
[2017-03-31] MEDS ORDERED: D5NS 1,000 ML IV SCH (20:00)
[2017-03-31 20:34] LABS: MEAN CORPUSCULAR HEMOGLOBIN 28.4 PG (27.0-31.0); MEAN CORPUSCULAR VOLUME 86 FL (80-99); MEAN PLATELET VOLUME 6.2 FL (6.5-10.1); PLATELET COUNT 377 K/UL (150-450); RED BLOOD COUNT 4.22 M/UL (4.20-5.40); RED CELL DISTRIBUTION WIDTH 13.7 % (11.6-14.8)
[2017-03-31 20:37] LABS: WHITE BLOOD COUNT 22.1 K/UL (4.8-10.8)
[2017-03-31 20:50] LABS: ANION GAP 17 (5-15); CALCIUM 9.1 mg/dL (8.6-10.2); CARBON DIOXIDE 25 mEQ/L (20-30); CHLORIDE 97 mEQ/L (98-107); CREATININE 0.9 mg/dL (0.5-0.9); HEMOLYSIS 1; POTASSIUM 4.6 mEQ/L (3.4-4.9); SODIUM 139 mEQ/L (135-145)
[2017-03-31] MEDS: Dyna-Hex 2% Top Sol 8oz TOPIC SCH (20:52)
--- NOTE | 2017-03-31 20:57 | General Progress Note ---
Assessment/Plan Problem List: (1) Hepatitis C ICD Codes: B19.20 - Unspecified viral hepatitis C without hepatic coma SNOMED: 21427404 (2) CHF (congestive heart failure), NYHA class II ICD Codes: I50.9 - Heart failure, unspecified SNOMED: 870876664, 374952008 (3) Atrial fibrillation with rapid ventricular response ICD Codes: I48.91 - Unspecified atrial fibrillation SNOMED: 773801525380863 (4) Healthcare-associated pneumonia ICD Codes: J18.9 - Pneumonia, unspecified organism SNOMED: 805319811 (5) Respiratory failure ICD Codes: J96.90 - Respiratory failure, unspecified, unspecified whether with hypoxia or hypercapnia SNOMED: 088315927 (6) Altered level of consciousness ICD Codes: R40.4 - Transient alteration of awareness SNOMED: 5954529 (7) MRSA (methicillin resistant staph aureus) culture positive ICD Codes: Z22.322 - Carrier or suspected carrier of Methicillin resistant Staphylococcus aureus SNOMED: 170863221 Assessment/Plan holding sedatives, s/p re intubation all orders reviewed,, needs frequent suctioning, failed swallow eval, ngt feed ongoing , remains high risk lasix reculture sputum, add zosynt Subjective ROS Limited/Unobtainable: Yes Allergies: Coded Allergies: No Known Allergies (Unverified , 03/11/17) Objective Last 24 Hour Vital Signs Date Time Temp Pulse Resp B/P Pulse Ox O2 Delivery O2 Flow Rate FiO2 03/31/17 20:35 98 16 100 03/31/17 19:29 Mechanical Ventilator 100 03/31/17 19:28 Mechanical Ventilator 100 03/31/17 19:25 124 16 100 03/31/17 16:00 100 03/31/17 16:00 99.1 100 24 124/76 96 Nasal Cannula 2.0 03/31/17 13:23 82 18 99 Nasal Cannula 2.0 28 03/31/17 13:15 97 Nasal Cannula 2.0 28 03/31/17 13:15 85 16 Nasal Cannula 2.0 28 03/31/17 13:15 85 16 98 Nasal Cannula 2.0 28 03/31/17 13:15 28 03/31/17 13:15 Nasal Cannula 2.0 28 03/31/17 12:00 98 03/31/17 12:00 99.8 107 18 132/69 98 Nasal Cannula 2.0 03/31/17 09:07 105 03/31/17 09:07 105 117/67 03/31/17 08:00 98 03/31/17 08:00 98.4 105 19 117/67 98 Nasal Cannula 4.0 03/31/17 04:00 110 03/31/17 04:00 98.5 107 18 135/78 98 Nasal Cannula 2.0 03/31/17 00:00 107 03/31/17 00:00 98.0 107 18 130/71 93 Nasal Cannula 2.0 Intake and Output 03/30/17 03/31/17 19:00 07:00 Intake Total 1101.124 ml 841.3 ml Output Total 1 ml 1000 ml Balance 1100.124 ml -158.7 ml Free Water 150 ml 150 ml IV Total 551.124 ml 91.3 ml Tube Feeding 400 ml 600 ml Output Urine Total 1000 ml Stool Total 1 ml # Voids 3 # Bowel Movements 3 Laboratory Tests 03/31/17 03:00: White Blood Count 19.9H, Red Blood Count 4.74, Hemoglobin 13.0, Hematocrit 40.3 , Mean Corpuscular Volume 85, Mean Corpuscular Hemoglobin 27.3, Mean Corpuscular Hemoglobin Concent 32.2, Red Cell Distribution Width 13.5, Platelet Count 407, Mean Platelet Volume 6.4L, Neutrophils (%) (Auto) , Lymphocytes (%) ( Auto) , Monocytes (%) (Auto) , Eosinophils (%) (Auto) , Basophils (%) (Auto) , Differential Total Cells Counted 100, Neutrophils % (Manual) 79H, Lymphocytes % (Manual) 14L, Monocytes % (Manual) 5, Eosinophils % (Manual) 2, Basophils % ( Manual) 0, Band Neutrophils 0, Platelet Estimate Adequate, Platelet Morphology Normal, Red Blood Cell Morphology Normal, Prothrombin Time 10.2, Prothromb Time International Ratio 1.0, Sodium Level 135, Potassium Level 4.6, Chloride Level 96L, Carbon Dioxide Level 25, Anion Gap 14, Blood Urea Nitrogen 15, Creatinine 0.6, Estimat Glomerular Filtration Rate , Glucose Level 181H, Calcium Level 9.6 03/31/17 15:20: Urine Color Pale yellow, Urine Appearance Clear, Urine pH 7, Urine Specific [place] 1.005, Urine Protein Negative, Urine Glucose (UA) Negative, Urine Ketones Negative, Urine Occult Blood Negative, Urine Nitrite Negative, Urine Bilirubin Negative, Urine Urobilinogen Normal, Urine Leukocyte Esterase Negative , Urine RBC 0-2, Urine WBC 0-2, Urine Squamous Epithelial Cells ModerateH, Urine Bacteria None 03/31/17 17:30: Vancomycin Level Trough 22.0H 03/31/17 20:17: White Blood Count 22.1*H, Red Blood Count 4.22, Hemoglobin 12.0, Hematocrit 36.2L, Mean Corpuscular Volume 86, Mean Corpuscular Hemoglobin 28.4, Mean Corpuscular Hemoglobin Concent 33.0, Red Cell Distribution Width 13.7, Platelet Count 377, Mean Platelet Volume 6.2L, Neutrophils (%) (Auto) , Lymphocytes (%) ( Auto) , Monocytes (%) (Auto) , Eosinophils (%) (Auto) , Basophils (%) (Auto) , Neutrophils % (Manual) [Pending], Lymphocytes % (Manual) [Pending], Platelet Estimate [Pending], Platelet Morphology [Pending], Sodium Level 139, Potassium Level 4.6, Chloride Level 97L, Carbon Dioxide Level 25, Anion Gap 17H, Blood Urea Nitrogen 19, Creatinine 0.9, Estimat Glomerular Filtration Rate , Glucose Level 255H, Calcium Level 9.1 Height (Feet): 5 Height (Inches): 3.00 Weight (Pounds): 152 General Appearance: lethargic, mild distress EENT: PERRL/EOMI Neck: normal alignment Cardiovascular: regular rhythm Respiratory/Chest: decreased breath sounds, rhonchi - bilaterally Abdomen: non tender, soft Edema: trace edema, mild edema 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
[2017-03-31] MEDS: D5NS 1,000 ML IV SCH (21:00)
[2017-03-31 21:15] LABS: ABG PCO2 44.5 mmHg (35.0-45.0)
[2017-03-31 21:16] LABS: ABG ALLEN TEST POSITIVE; ABG BASE EXCESS 2.5
--- NOTE | 2017-03-31 21:24 | Emergency Room Report ---
History of Present Illness General Chief Complaint: Dyspnea/Respdistress Source: Medical Record Present Illness Allergies: Coded Allergies: No Known Allergies (Unverified , 03/11/17) Nursing Documentation-[facility] Past Medical History Deferred: Patient Unconscious Past Medical History: Deferred Hx Cardiac Problems: Yes Hx Hypertension: Yes - Hypercholesterolemia Hx Diabetes: Yes Hx Cancer: No Hx Gastrointestinal Problems: Yes History Of Psychiatric Problem: Yes - Dementia; Schizophrenia Hx Neurological Problems: Yes Hx Dementia: Yes Physical Exam Vital Signs Date Time Temp Pulse Resp B/P Pulse Ox O2 Delivery O2 Flow Rate FiO2 03/17/17 13:02 144 28 158/90 88 Nasal Cannula 4.0 03/17/17 13:17 100 03/17/17 14:36 101.0 Procedures CPR/Code Blue CPR/Code Blue Narrative The patient was noted to have asystolic. The patient was noted to have. Recently been extubated. See code sheet for full medication list.Patient given epi with a return spontaneous circulation. Intubation Intubation : Consent: Emergent Intubation Method: orotracheal Tube Size (cm): 6.0 Medications: Etomidate Breath Sounds after Intubation: equal Intubation Complications: no complications Post Intubation Xray: Yes Attempts: Other - two, bagged between attempts Patient Tolerated: Well Complications: None Medical Decision Making Diagnostic Impression: Primary Impression: Altered level of consciousness Additional Impressions: Respiratory distress Respiratory failure Sepsis Last Vital Signs Date Time Temp Pulse Resp B/P Pulse Ox O2 Delivery O2 Flow Rate FiO2 03/31/17 20:35 98 16 100 03/31/17 19:29 Mechanical Ventilator 03/31/17 16:00 99.1 124/76 96 2.0 Disposition: ADMITTED INPATIENT Condition: Critical Referrals: DANNY MAYEN (PCP) Raghav Adair Mar 31, 2017 21:24
[2017-03-31 22:07] LABS: BAND NEUTROPHILS % (MANUAL) 7 % (0-8); BASOPHILS % (MANUAL) 1 % (0-2); EOSINOPHILS % (MANUAL) 1 % (0-3); LYMPHOCYTES % (MANUAL) 17 % (20-45); NEUTROPHILS % (MANUAL) 73 % (45-75); TOTAL CELLS COUNTED 100
[2017-03-31 22:08] LABS: PLATELET ESTIMATE ADEQUATE; PLATELET MORPHOLOGY NORMAL
[2017-03-31] MEDS: Piperacillin/Tazobactam 3.375 GM in D5W 110 ML IVPB SCH (22:43)
[2017-03-31] MEDS ORDERED: Albuterol ud Inhalation HHN SCH (23:00)
[2017-03-31] MEDS ORDERED: Phenytoin 250mg/5ml vial ONE (23:38)
[2017-03-31] MEDS ORDERED: PHENYTOIN IVPB ONE (23:45)
[2017-03-31] MEDS ORDERED: NS IVPB ONE (23:45)
[2017-04-01] VITALS (25 sets, daily range): BP systolic 99–145; BP diastolic 38–75
[2017-04-01] MEDS ORDERED: Vancomycin 500mg/D5W 110ml IVPB SCH ×2
[2017-04-01] MEDS: NovoLOG Insulin Flexpen SUBQ SCH ×4 (00:07→18:09)
[2017-04-01] MEDS: LORazepam Inj 2mg/ml 1ml IV PRN ×2 (00:20→08:50)
[2017-04-01] MEDS: Vancomycin 500 MG in D5W 110 ML IVPB SCH ×2 (00:24→11:24)
[2017-04-01] MEDS ORDERED: DuoNeb 0.5-3(2.5)mg/3ml neb HHN SCH (01:00)
[2017-04-01] MEDS: DuoNeb 0.5-3(2.5)mg/3ml neb HHN SCH ×6 (03:16→23:13)
[2017-04-01 05:36] LABS: ANION GAP 13 (5-15); CALCIUM 8.8 mg/dL (8.6-10.2); CARBON DIOXIDE 27 mEQ/L (20-30); CHLORIDE 100 mEQ/L (98-107); CREATININE 0.9 mg/dL (0.5-0.9); HEMOLYSIS 2; POTASSIUM 4.2 mEQ/L (3.4-4.9); SODIUM 140 mEQ/L (135-145)
[2017-04-01 05:49] LABS: MEAN CORPUSCULAR HEMOGLOBIN 27.9 PG (27.0-31.0); MEAN CORPUSCULAR HGB CONC 32.7 G/DL (32.0-36.0); MEAN CORPUSCULAR VOLUME 85 FL (80-99); MEAN PLATELET VOLUME 6.2 FL (6.5-10.1); PLATELET COUNT 383 K/UL (150-450); RED BLOOD COUNT 4.05 M/UL (4.20-5.40); RED CELL DISTRIBUTION WIDTH 13.4 % (11.6-14.8)
[2017-04-01] MEDS: Piperacillin/Tazobactam 3.375 GM in D5W 110 ML IVPB SCH ×3 (05:50→23:00)
[2017-04-01 06:15] LABS: WHITE BLOOD COUNT 24.6 K/UL (4.8-10.8)
[2017-04-01] MEDS: Digoxin 0.125mg tab GT SCH (08:50)
[2017-04-01] MEDS: Metoprolol Succinate XL 50mg tab ORAL SCH (08:51)
[2017-04-01] MEDS: Heparin 5000 units/ml inj SUBQ SCH ×2 (08:56→22:00)
[2017-04-01] MEDS ORDERED: KCl 10% 40mEq/30ml liquid NG SCH (09:00)
[2017-04-01] MEDS ORDERED: Furosemide 40mg tab NG SCH (09:00)
[2017-04-01 09:43] LABS: BAND NEUTROPHILS % (MANUAL) 2 % (0-8); BASOPHILS % (MANUAL) 0 % (0-2); EOSINOPHILS % (MANUAL) 0 % (0-3); LYMPHOCYTES % (MANUAL) 3 % (20-45); NEUTROPHILS % (MANUAL) 92 % (45-75); PLATELET ESTIMATE ADEQUATE; PLATELET MORPHOLOGY NORMAL; TOTAL CELLS COUNTED 100
--- NOTE | 2017-04-01 09:51 | Diagnostic Imaging Report ---
Indication: Post intubation Technique: One view of the chest Comparison: 03/30/2017 Findings: There is an endotracheal tube in place, tip projecting just above the rogerio. Nasogastric tube is in good position, tip projecting at the level gastric antrum. Left arm PICC is again demonstrated. There is increasing retrocardiac opacification and left basilar atelectasis Impression: Satisfactory position of endotracheal tube, just above rogerio Satisfactory position of nasogastric tube Increasing retrocardiac consolidation and left basilar atelectasis, over one day Other stable findings as described This agrees with the preliminary interpretation provided overnight by Dr. Tidwell
[2017-04-01] MEDS ORDERED: Tubing IV Secondary IV ONE (10:02)
[2017-04-01] MEDS ORDERED: NS 275ml ONE (10:02)
--- NOTE | 2017-04-01 17:04 | Pulmonology Progress Note ---
Assessment/Plan Assessment/Plan 1. Acute respiratory failure, resolved 2. Sepsis. 3. Pneumonia, perihilar 4. Diabetes. 5. Lactic acidosis, improved 6. Dementia and schizophrenia. 7. Hyperlipidemia. 8. Rapid atrial fibrillation, controlled s/p arrest, intubated seizures, started dilantin cont abx, NGT feeds renew HHN repeat CXR UA c/s prognosis very poor Subjective ROS Limited/Unobtainable: Yes Allergies: Coded Allergies: No Known Allergies (Unverified , 03/11/17) Objective Last 24 Hour Vital Signs Date Time Temp Pulse Resp B/P Pulse Ox O2 Delivery O2 Flow Rate FiO2 04/01/17 16:00 103 04/01/17 16:00 98.9 112 19 110/50 98 Mechanical Ventilator 40 04/01/17 16:00 40 04/01/17 15:46 103 16 100 Mechanical Ventilator 40 04/01/17 15:33 109 16 99 Mechanical Ventilator 40 04/01/17 15:33 40 04/01/17 15:28 108 16 40 04/01/17 15:00 103 17 106/52 96 Mechanical Ventilator 40 04/01/17 14:00 106 17 114/61 100 Mechanical Ventilator 40 04/01/17 13:00 101 17 116/46 100 Mechanical Ventilator 40 04/01/17 12:47 106 18 40 04/01/17 12:00 99.0 108 18 114/58 100 Mechanical Ventilator 40 04/01/17 12:00 40 04/01/17 12:00 113 04/01/17 11:52 107 21 100 Mechanical Ventilator 40 04/01/17 11:40 108 22 99 Mechanical Ventilator 40 04/01/17 11:40 40 04/01/17 11:25 119 23 40 04/01/17 11:00 107 17 117/57 100 Mechanical Ventilator 40 04/01/17 10:00 102 16 109/57 100 Mechanical Ventilator 40 04/01/17 09:05 115 16 40 04/01/17 09:00 105 16 115/55 100 Mechanical Ventilator 40 04/01/17 08:51 107 124/55 04/01/17 08:50 119 04/01/17 08:00 108 04/01/17 08:00 40 04/01/17 08:00 98.8 111 18 120/75 95 Mechanical Ventilator 40 04/01/17 07:38 104 16 100 Mechanical Ventilator 40 8/16/17 07:28 108 16 40 16/17 07:25 110 16 99 Mechanical Ventilator 40 16/17 07:25 40 16/17 07:00 101 17 124/54 100 Mechanical Ventilator 40 16/17 06:00 99.8 105 22 123/62 100 Mechanical Ventilator 40 16/17 05:20 109 16 40 16/17 05:00 105 17 122/53 100 Mechanical Ventilator 40 16/17 04:00 107 1617 04:00 99.2 95 22 102/54 100 Mechanical Ventilator 40 16/17 04:00 40 16/17 03:35 99 16 99 Mechanical Ventilator 40 16/17 03:15 40 16/17 03:15 97 16 99 Mechanical Ventilator 40 16/17 03:13 104 16 40 16/17 03:00 98 16 110/54 100 Mechanical Ventilator 50 04/01/17 02:00 86 16 110/60 100 Mechanical Ventilator 50 04/01/17 01:24 103 17 99 Mechanical Ventilator 50 04/01/ 01:13 50 16/17 01:12 100 16 97 Mechanical Ventilator 50 16/17 01:06 100 16 50 04/01/ 01:00 98 16 110/38 100 Mechanical Ventilator 50 04/01/17 00:00 98.6 103 16 128/58 97 Mechanical Ventilator 50 17 00:00 100 04/01/17 00:00 50 03/31/17 23:10 111 16 50 03/31/17 21:28 50 03/31/17 21:00 101 16 129/63 100 Mechanical Ventilator 50 03/31/17 20:35 98 16 100 03/31/17 20:30 101 16 134/62 100 Mechanical Ventilator 100 03/31/17 20:15 104 17 123/71 100 Mechanical Ventilator 100 03/31/17 20:00 50 03/31/17 20:00 104 03/31/17 20:00 98.6 104 16 106/65 100 Mechanical Ventilator 100 03/31/17 19:45 110 18 137/62 100 Mechanical Ventilator 100 03/31/17 19:30 123 16 161/91 100 Mechanical Ventilator 100 03/31/17 19:29 Mechanical Ventilator 100 03/31/17 19:28 Mechanical Ventilator 100 03/31/17 19:25 124 16 100 03/31/17 19:15 98.6 124 24 69/43 96 Mechanical Ventilator 100 Intake and Output 03/31/17 04/01/17 19:00 07:00 Intake Total 700 ml 527.5 ml Output Total 500 ml 930 ml Balance 200 ml -402.5 ml Free Water 150 ml IV Total 527.5 ml Tube Feeding 550 ml Output Urine Total 500 ml 930 ml # Bowel Movements 2 2 Objective lethargic, NGT, intubated, seizures General Appearance: no acute distress HEENT: normocephalic Respiratory/Chest: lungs clear Cardiovascular: normal rate Microbiology Date/Time Source Procedure Growth Status 03/31/17 20:00 Sputum Gram Stain - Final Resulted 03/31/17 20:00 Sputum Sputum Culture Pending Resulted 03/31/17 16:30 Indwelling Cath Urine Culture - Preliminary NO GROWTH Resulted Laboratory Tests 03/31/17 17:30: Vancomycin Level Trough 22.0H 03/31/17 20:17: White Blood Count 22.1*H, Red Blood Count 4.22, Hemoglobin 12.0, Hematocrit 36.2L, Mean Corpuscular Volume 86, Mean Corpuscular Hemoglobin 28.4, Mean Corpuscular Hemoglobin Concent 33.0, Red Cell Distribution Width 13.7, Platelet Count 377, Mean Platelet Volume 6.2L, Neutrophils (%) (Auto) , Lymphocytes (%) ( Auto) , Monocytes (%) (Auto) , Eosinophils (%) (Auto) , Basophils (%) (Auto) , Differential Total Cells Counted 100, Neutrophils % (Manual) 73, Lymphocytes % ( Manual) 17L, Monocytes % (Manual) 1, Eosinophils % (Manual) 1, Basophils % ( Manual) 1, Band Neutrophils 7, Platelet Estimate Adequate, Platelet Morphology Normal, Red Blood Cell Morphology Normal, Sodium Level 139, Potassium Level 4.6 , Chloride Level 97L, Carbon Dioxide Level 25, Anion Gap 17H, Blood Urea Nitrogen 19, Creatinine 0.9, Estimat Glomerular Filtration Rate , Glucose Level 255H, Calcium Level 9.1 03/31/17 21:05: Arterial Blood pH 7.410, Arterial Blood Partial Pressure CO2 44.5, Arterial Blood Partial Pressure O2 393.8H, Arterial Blood HCO3 27.6H, Arterial Blood Oxygen Saturation 99.5H, Arterial Blood Base Excess 2.5, Sander Test Positive 8/16/17 04:05: White Blood Count 24.6*H, Red Blood Count 4.05L, Hemoglobin 11.3L, Hematocrit 34.5L, Mean Corpuscular Volume 85, Mean Corpuscular Hemoglobin 27.9, Mean Corpuscular Hemoglobin Concent 32.7, Red Cell Distribution Width 13.4, Platelet Count 383, Mean Platelet Volume 6.2L, Neutrophils (%) (Auto) , Lymphocytes (%) ( Auto) , Monocytes (%) (Auto) , Eosinophils (%) (Auto) , Basophils (%) (Auto) , Differential Total Cells Counted 100, Neutrophils % (Manual) 92H, Lymphocytes % (Manual) 3L, Monocytes % (Manual) 3, Eosinophils % (Manual) 0, Basophils % ( Manual) 0, Band Neutrophils 2, Platelet Estimate Adequate, Platelet Morphology Normal, Sodium Level 140, Potassium Level 4.2, Chloride Level 100, Carbon Dioxide Level 27, Anion Gap 13, Blood Urea Nitrogen 22, Creatinine 0.9, Estimat Glomerular Filtration Rate , Glucose Level 303H, Calcium Level 8.8 Current Medications Medications (Trade) Dose Ordered Sig/Carol Route PRN Reason Start Time Stop Time Status Last Admin Dose Admin Acetaminophen (Tylenol) 650 mg Q4H PRN NG Mild Pain/Temp > 100.5 03/31/17 20:00 04/30/17 19:59 Albuterol/ Ipratropium 3 ml 3 ml Q4HRT HHN 04/01/17 03:00 04/06/17 02:59 04/01/17 15:43 Chlorhexidine Gluconate (Erin-Hex 2%) 1 applic BEDTIME TOPIC 03/31/17 21:00 04/30/17 20:59 03/31/17 20:52 Dextrose (Dextrose 50%) STAT PRN IV Hypoglycemia 04/01/17 08:00 05/01/17 07:59 Dextrose/Sodium Chloride 1,000 ml @ 35 mls/hr Q24H IV 04/01/17 20:00 05/01/17 19:59 03/31/17 21:00 Digoxin (Lanoxin) 0.125 mg DAILY GT 04/01/17 09:00 05/01/17 08:59 04/01/17 08:50 Heparin Sodium (Porcine) (Heparin 5000 units/ml) 5,000 units EVERY 12 HOURS SUBQ 03/31/17 21:00 04/30/17 20:59 04/01/17 08:56 Insulin Aspart (NovoLOG) EVERY 6 HOURS SUBQ 04/01/17 00:00 05/01/17 00:00 04/01/17 11:58 Lansoprazole (Prevacid) 30 mg QHS NG 03/31/17 21:00 04/30/17 20:59 03/31/17 20:52 Lorazepam (Ativan 2mg/ml 1ml) 0.5 mg Q3H PRN IV For Anxiety 03/31/17 23:15 04/07/17 23:14 04/01/17 08:50 Metoprolol Succinate (Toprol XL) 50 mg DAILY ORAL 04/01/17 09:00 05/01/17 08:59 04/01/17 08:51 Norepinephrine Bitartrate 4 mg/ Dextrose 250 ml @ 0 mls/hr Q24H PRN IV For hypotension 03/31/17 20:45 04/30/17 20:44 Phenytoin (Dilantin) 300 mg DAILY NG 04/02/17 09:00 05/02/17 08:59 UNV Phenytoin/Sodium Chloride (Dilantin/Sodium Chloride) 120 ml @ 240 mls/hr ONCE ONCE IVPB 04/01/17 17:00 04/01/17 17:29 UNV Piperacillin Sod/ Tazobactam Sod/ Dextrose (Zosyn/D5W) 110 ml @ 27.5 mls/hr EVERY 8 HOURS IVPB 03/31/17 22:00 04/05/17 21:59 04/01/17 13:15 Vancomycin HCl 1 ea 1 ea DAILY PRN MISC Per rx protocol 04/01/17 09:00 05/01/17 08:59 Vancomycin HCl/ Dextrose (Vancomycin/D5W) 110 ml @ 110 mls/hr Q12HR@0000,1200 IVPB 04/01/17 00:00 04/06/17 00:00 04/01/17 11:24 ADWOA GARCIA Apr 01, 2017 17:04
[2017-04-01] MEDS: D5NS 1,000 ML IV SCH (17:54)
--- NOTE | 2017-04-01 17:54 | General Progress Note ---
Assessment/Plan Problem List: (1) Hepatitis C ICD Codes: B19.20 - Unspecified viral hepatitis C without hepatic coma SNOMED: 78785100 (2) CHF (congestive heart failure), NYHA class II ICD Codes: I50.9 - Heart failure, unspecified SNOMED: 869012451, 255336589 (3) Atrial fibrillation with rapid ventricular response ICD Codes: I48.91 - Unspecified atrial fibrillation SNOMED: 961835052874198 (4) Healthcare-associated pneumonia ICD Codes: J18.9 - Pneumonia, unspecified organism SNOMED: 611684471 (5) Respiratory failure ICD Codes: J96.90 - Respiratory failure, unspecified, unspecified whether with hypoxia or hypercapnia SNOMED: 090142548 (6) Altered level of consciousness ICD Codes: R40.4 - Transient alteration of awareness SNOMED: 8783412 (7) MRSA (methicillin resistant staph aureus) culture positive ICD Codes: Z22.322 - Carrier or suspected carrier of Methicillin resistant Staphylococcus aureus SNOMED: 428239811 (8) Anoxic brain damage ICD Codes: G93.1 - Anoxic brain damage, not elsewhere classified SNOMED: 779728764 (9) Seizure disorder ICD Codes: G40.909 - Epilepsy, unspecified, not intractable, without status epilepticus SNOMED: 375916357 Assessment/Plan s/p re intubation all orders reviewed,, needs frequent suctioning, failed swallow eval, ngt feed ongoing , remains high risk lasix reculture sputum, add zosyn, dilantin for seizures, gravely ill with poor prognosis, icu time 35 min Subjective ROS Limited/Unobtainable: Yes Allergies: Coded Allergies: No Known Allergies (Unverified , 03/11/17) Subjective unresponsive post arrest, had seizures Objective Last 24 Hour Vital Signs Date Time Temp Pulse Resp B/P Pulse Ox O2 Delivery O2 Flow Rate FiO2 04/01/17 17:27 116 17 40 04/01/17 17:00 110 18 101/53 99 Mechanical Ventilator 40 04/01/17 16:00 103 04/01/17 16:00 98.9 112 19 110/50 98 Mechanical Ventilator 40 04/01/17 16:00 40 04/01/17 15:46 103 16 100 Mechanical Ventilator 40 04/01/17 15:33 109 16 99 Mechanical Ventilator 40 8/16/17 15:33 40 04/01/17 15:28 108 16 40 04/01/17 15:00 103 17 106/52 96 Mechanical Ventilator 40 04/01/17 14:00 106 17 114/61 100 Mechanical Ventilator 40 04/01/17 13:00 101 17 116/46 100 Mechanical Ventilator 40 04/01/17 12:47 106 18 40 04/01/17 12:00 99.0 108 18 114/58 100 Mechanical Ventilator 40 04/01/17 12:00 40 04/01/17 12:00 113 04/01/17 11:52 107 21 100 Mechanical Ventilator 40 04/01/17 11:40 108 22 99 Mechanical Ventilator 40 04/01/17 11:40 40 04/01/17 11:25 119 23 40 04/01/17 11:00 107 17 117/57 100 Mechanical Ventilator 40 04/01/17 10:00 102 16 109/57 100 Mechanical Ventilator 40 04/01/17 09:05 115 16 40 04/01/17 09:00 105 16 115/55 100 Mechanical Ventilator 40 04/01/17 08:51 107 124/55 04/01/17 08:50 119 04/01/17 08:00 108 04/01/17 08:00 40 04/01/17 08:00 98.8 111 18 120/75 95 Mechanical Ventilator 40 04/01/17 07:38 104 16 100 Mechanical Ventilator 40 04/01/17 07:28 108 16 40 04/01/17 07:25 110 16 99 Mechanical Ventilator 40 04/01/17 07:25 40 04/01/17 07:00 101 17 124/54 100 Mechanical Ventilator 40 04/01/17 06:00 99.8 105 22 123/62 100 Mechanical Ventilator 40 04/01/17 05:20 109 16 40 04/01/17 05:00 105 17 122/53 100 Mechanical Ventilator 40 04/01/17 04:00 107 04/01/17 04:00 99.2 95 22 102/54 100 Mechanical Ventilator 40 04/01/17 04:00 40 04/01/17 03:35 99 16 99 Mechanical Ventilator 40 04/01/17 03:15 40 04/01/17 03:15 97 16 99 Mechanical Ventilator 40 04/01/17 03:13 104 16 40 04/01/17 03:00 98 16 110/54 100 Mechanical Ventilator 50 04/01/17 02:00 86 16 110/60 100 Mechanical Ventilator 50 04/01/17 01:24 103 17 99 Mechanical Ventilator 50 04/01/17 01:13 50 04/01/17 01:12 100 16 97 Mechanical Ventilator 50 04/01/17 01:06 100 16 50 04/01/17 01:00 98 16 110/38 100 Mechanical Ventilator 50 04/01/17 00:00 98.6 103 16 128/58 97 Mechanical Ventilator 50 04/01/17 00:00 100 04/01/17 00:00 50 03/31/17 23:10 111 16 50 03/31/17 21:28 50 03/31/17 21:00 101 16 129/63 100 Mechanical Ventilator 50 03/31/17 20:35 98 16 100 03/31/17 20:30 101 16 134/62 100 Mechanical Ventilator 100 03/31/17 20:15 104 17 123/71 100 Mechanical Ventilator 100 03/31/17 20:00 50 03/31/17 20:00 104 03/31/17 20:00 98.6 104 16 106/65 100 Mechanical Ventilator 100 03/31/17 19:45 110 18 137/62 100 Mechanical Ventilator 100 03/31/17 19:30 123 16 161/91 100 Mechanical Ventilator 100 03/31/17 19:29 Mechanical Ventilator 100 03/31/17 19:28 Mechanical Ventilator 100 03/31/17 19:25 124 16 100 03/31/17 19:15 98.6 124 24 69/43 96 Mechanical Ventilator 100 Intake and Output 03/31/17 04/01/17 19:00 07:00 Intake Total 700 ml 527.5 ml Output Total 500 ml 930 ml Balance 200 ml -402.5 ml Free Water 150 ml IV Total 527.5 ml Tube Feeding 550 ml Output Urine Total 500 ml 930 ml # Bowel Movements 2 2 Laboratory Tests 03/31/17 20:17: White Blood Count 22.1*H, Red Blood Count 4.22, Hemoglobin 12.0, Hematocrit 36.2L, Mean Corpuscular Volume 86, Mean Corpuscular Hemoglobin 28.4, Mean Corpuscular Hemoglobin Concent 33.0, Red Cell Distribution Width 13.7, Platelet Count 377, Mean Platelet Volume 6.2L, Neutrophils (%) (Auto) , Lymphocytes (%) ( Auto) , Monocytes (%) (Auto) , Eosinophils (%) (Auto) , Basophils (%) (Auto) , Differential Total Cells Counted 100, Neutrophils % (Manual) 73, Lymphocytes % ( Manual) 17L, Monocytes % (Manual) 1, Eosinophils % (Manual) 1, Basophils % ( Manual) 1, Band Neutrophils 7, Platelet Estimate Adequate, Platelet Morphology Normal, Red Blood Cell Morphology Normal, Sodium Level 139, Potassium Level 4.6 , Chloride Level 97L, Carbon Dioxide Level 25, Anion Gap 17H, Blood Urea Nitrogen 19, Creatinine 0.9, Estimat Glomerular Filtration Rate , Glucose Level 255H, Calcium Level 9.1 03/31/17 21:05: Arterial Blood pH 7.410, Arterial Blood Partial Pressure CO2 44.5, Arterial Blood Partial Pressure O2 393.8H, Arterial Blood HCO3 27.6H, Arterial Blood Oxygen Saturation 99.5H, Arterial Blood Base Excess 2.5, Sander Test Positive 04/01/17 04:05: White Blood Count 24.6*H, Red Blood Count 4.05L, Hemoglobin 11.3L, Hematocrit 34.5L, Mean Corpuscular Volume 85, Mean Corpuscular Hemoglobin 27.9, Mean Corpuscular Hemoglobin Concent 32.7, Red Cell Distribution Width 13.4, Platelet Count 383, Mean Platelet Volume 6.2L, Neutrophils (%) (Auto) , Lymphocytes (%) ( Auto) , Monocytes (%) (Auto) , Eosinophils (%) (Auto) , Basophils (%) (Auto) , Differential Total Cells Counted 100, Neutrophils % (Manual) 92H, Lymphocytes % (Manual) 3L, Monocytes % (Manual) 3, Eosinophils % (Manual) 0, Basophils % ( Manual) 0, Band Neutrophils 2, Platelet Estimate Adequate, Platelet Morphology Normal, Sodium Level 140, Potassium Level 4.2, Chloride Level 100, Carbon Dioxide Level 27, Anion Gap 13, Blood Urea Nitrogen 22, Creatinine 0.9, Estimat Glomerular Filtration Rate , Glucose Level 303H, Calcium Level 8.8 Height (Feet): 5 Height (Inches): 3.00 Weight (Pounds): 144 EENT: other - intubated Neck: normal alignment Cardiovascular: regularly irregular Respiratory/Chest: decreased breath sounds, rhonchi - bilaterally Abdomen: non tender, soft, no organomegaly Extremities: no calf tenderness Edema: trace edema Neurologic: other - comatose, eyes deviate to left, flaccid x4 ext DANNY MAYEN Apr 01, 2017 17:54
[2017-04-01] MEDS ORDERED: Phenytoin 500 MG in NS 110 ML IVPB ONE (18:30)
[2017-04-01] MEDS: Dyna-Hex 2% Top Sol 8oz TOPIC SCH (22:00)
[2017-04-02] VITALS (24 sets, daily range): BP systolic 72–156; BP diastolic 48–81
[2017-04-02] MEDS: NovoLOG Insulin Flexpen SUBQ SCH ×4 (01:23→17:47)
[2017-04-02] MEDS: DuoNeb 0.5-3(2.5)mg/3ml neb HHN SCH ×6 (03:03→23:25)
[2017-04-02] MEDS: Piperacillin/Tazobactam 3.375 GM in D5W 110 ML IVPB SCH ×3 (06:00→21:49)
[2017-04-02] MEDS: Digoxin 0.125mg tab GT SCH (08:45)
[2017-04-02] MEDS: Metoprolol Succinate XL 50mg tab ORAL SCH (08:45)
[2017-04-02] MEDS: Phenytoin Susp 100mg/4ml NG SCH (08:46)
[2017-04-02] MEDS: Heparin 5000 units/ml inj SUBQ SCH ×2 (08:47→20:47)
[2017-04-02 10:43] LABS: EOSINOPHILS % (AUTO) 0.6 % (0.0-3.0); LYMPHOCYTES % (AUTO) 12.9 % (20.0-45.0); MEAN CORPUSCULAR HEMOGLOBIN 27.1 PG (27.0-31.0); MEAN CORPUSCULAR VOLUME 85 FL (80-99); MEAN PLATELET VOLUME 6.3 FL (6.5-10.1); MONOCYTES % (AUTO) 9.7 % (1.0-10.0); NEUTROPHILS % (AUTO) 75.9 % (45.0-75.0); PLATELET COUNT 388 K/UL (150-450); RED BLOOD COUNT 4.41 M/UL (4.20-5.40); RED CELL DISTRIBUTION WIDTH 13.3 % (11.6-14.8); WHITE BLOOD COUNT 15.6 K/UL (4.8-10.8)
[2017-04-02 11:06] LABS: ANION GAP 15 (5-15); CALCIUM 8.6 mg/dL (8.6-10.2); CARBON DIOXIDE 26 mEQ/L (20-30); CHLORIDE 98 mEQ/L (98-107); CREATININE 1.1 mg/dL (0.5-0.9); HEMOLYSIS 9; POTASSIUM 3.7 mEQ/L (3.4-4.9); SODIUM 139 mEQ/L (135-145)
[2017-04-02] MEDS: Vancomycin 500 MG in D5W 110 ML IVPB SCH ×3 (11:32)
[2017-04-02] MEDS: Acetaminophen 650mg/20.3ml NG PRN (11:36)
--- NOTE | 2017-04-02 15:03 | General Progress Note ---
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 3) Aspiration PNA 4) Sepsis 5) A.Fib with RVR Plan: Will continue IV ATB's Digoxin 0.5 mg IV x1 Continue IV fluid Subjective Allergies: Coded Allergies: No Known Allergies (Unverified , 03/11/17) Subjective She is s/p cardiac arrest, also spiking 102 fever, tachycardic with HR at 112 Objective Last 24 Hour Vital Signs Date Time Temp Pulse Resp B/P Pulse Ox O2 Delivery O2 Flow Rate FiO2 04/02/17 14:00 113 16 134/58 100 Mechanical Ventilator 40 04/02/17 13:00 120 16 135/60 99 Mechanical Ventilator 40 04/02/17 12:57 133 22 40 04/02/17 12:06 101.0 04/02/17 12:00 40 04/02/17 12:00 129 04/02/17 12:00 101.0 126 17 142/58 99 Mechanical Ventilator 40 04/02/17 11:35 134 16 99 Mechanical Ventilator 40 04/02/17 11:12 120 16 100 Mechanical Ventilator 60 04/02/17 11:12 40 04/02/17 11:10 119 19 40 04/02/17 11:00 115 16 146/67 100 Mechanical Ventilator 40 04/02/17 10:00 116 16 156/76 99 Mechanical Ventilator 40 04/02/17 09:25 113 17 40 04/02/17 09:20 95 21 40 04/02/17 09:20 100 04/02/17 09:00 100.9 119 16 133/55 99 Mechanical Ventilator 40 04/02/17 08:45 118 140/52 04/02/17 08:45 118 04/02/17 08:00 110 04/02/17 08:00 60 04/02/17 08:00 101.0 113 16 145/63 97 Mechanical Ventilator 60 04/02/17 07:15 114 16 100 Mechanical Ventilator 40 04/02/17 07:02 60 04/02/17 07:02 113 23 97 Mechanical Ventilator 60 04/02/17 07:00 113 16 120/48 97 Mechanical Ventilator 40 04/02/17 07:00 112 21 40 04/02/17 06:00 99.5 112 16 129/53 98 04/02/17 05:20 115 16 40 04/02/17 05:00 99.5 112 16 124/74 99 04/02/17 04:00 99.5 108 16 114/62 98 04/02/17 04:00 40 04/02/17 03:15 40 04/02/17 03:15 119 16 100 Mechanical Ventilator 40 04/02/17 03:05 115 18 99 Mechanical Ventilator 40 04/02/17 03:01 101 18 40 04/02/17 03:00 99.0 16 102/48 98 Mechanical Ventilator 04/02/17 02:20 102/58 04/02/17 02:00 98.8 16 72/54 98 Mechanical Ventilator 04/02/17 01:11 98 17 40 04/02/17 01:00 98.4 04/02/17 00:00 98.4 108 16 97/52 99 Mechanical Ventilator 40 04/02/17 00:00 40 04/01/17 23:32 102 16 100 Mechanical Ventilator 40 04/01/17 23:32 40 04/01/17 23:13 106 16 99 Mechanical Ventilator 40 04/01/17 23:05 99 16 40 04/01/17 23:00 98.6 110 16 104/58 100 Mechanical Ventilator 40 04/01/17 22:00 98.4 113 16 114/56 100 Mechanical Ventilator 40 04/01/17 21:10 98 17 40 04/01/17 21:00 99.0 105 16 113/58 100 Mechanical Ventilator 40 04/01/17 20:30 103 04/01/17 20:30 40 04/01/17 20:30 99.0 16 99/51 100 Mechanical Ventilator 40 04/01/17 20:00 99.0 16 99/51 100 Mechanical Ventilator 40 04/01/17 19:19 109 16 100 Mechanical Ventilator 40 04/01/17 19:19 40 04/01/17 19:13 108 17 99 Mechanical Ventilator 40 04/01/17 19:13 108 18 40 04/01/17 19:00 104 16 108/59 100 Mechanical Ventilator 40 04/01/17 18:00 116 16 123/75 99 Mechanical Ventilator 40 04/01/17 17:27 116 17 40 04/01/17 17:00 110 18 101/53 99 Mechanical Ventilator 40 04/01/17 16:00 103 04/01/17 16:00 98.9 112 19 110/50 98 Mechanical Ventilator 40 04/01/17 16:00 40 04/01/17 15:46 103 16 100 Mechanical Ventilator 40 04/01/17 15:33 109 16 99 Mechanical Ventilator 40 04/01/17 15:33 40 04/01/17 15:28 108 16 40 04/01/17 15:00 103 17 106/52 96 Mechanical Ventilator 40 Intake and Output 04/01/17 04/02/17 19:00 07:00 Intake Total 885.0 ml 972.5 ml Output Total 430 ml 400 ml Balance 455.0 ml 572.5 ml Free Water 50 ml IV Total 695.0 ml 752.5 ml Tube Feeding 140 ml 220 ml Output Urine Total 430 ml 400 ml Laboratory Tests 04/02/17 10:00: White Blood Count 15.6H, Red Blood Count 4.41, Hemoglobin 12.0, Hematocrit 37.4 , Mean Corpuscular Volume 85, Mean Corpuscular Hemoglobin 27.1, Mean Corpuscular Hemoglobin Concent 32.0, Red Cell Distribution Width 13.3, Platelet Count 388, Mean Platelet Volume 6.3L, Neutrophils (%) (Auto) 75.9H, Lymphocytes (%) (Auto) 12.9L, Monocytes (%) (Auto) 9.7, Eosinophils (%) (Auto) 0.6, Basophils (%) (Auto) 1.0, Sodium Level 139, Potassium Level 3.7, Chloride Level 98, Carbon Dioxide Level 26, Anion Gap 15, Blood Urea Nitrogen 20, Creatinine 1.1H, Estimat Glomerular Filtration Rate , Glucose Level 180#H, Calcium Level 8.6, Phenytoin (Dilantin) Level 5.1L Height (Feet): 5 Height (Inches): 3.00 Weight (Pounds): 151 General Appearance: WD/WN, other - on the vent EENT: PERRL/EOMI Neck: non-tender, normal alignment, supple Cardiovascular: no JVD, tachycardia, irregularly irregular Respiratory/Chest: rhonchi - bilaterally Abdomen: non tender, soft Neurologic: unresponsive Skin: normal pigmentation JB SONG Apr 02, 2017 15:03
[2017-04-02] MEDS ORDERED: Digoxin 0.5mg/2ml Inj IVP ONE (15:15)
[2017-04-02] MEDS ORDERED: D5 1/2NS 1000ml IV ONE (16:10)
[2017-04-02] MEDS ORDERED: NS 275ml ONE (16:10)
[2017-04-02] MEDS ORDERED: Tubing IV Secondary IV ONE (16:10)
--- NOTE | 2017-04-02 17:24 | Critical Care Progress Note ---
Assessment/Plan Assessment/Plan 1. Acute respiratory failure, recurrent 2. Sepsis. 3. Pneumonia, perihilar 4. Diabetes. 5. Lactic acidosis, improved 6. Dementia and schizophrenia. 7. Hyperlipidemia. 8. Rapid atrial fibrillation 9. S/P arrest doing poorly MS not recovering cont IVF, abx, NGT feeds cannot wean Critical Care - Subjective ROS Limited/Unobtainable: Yes Condition: critical EKG Rhythm: Atrial Fibrillation I&O: Intake and Output 04/01/17 04/02/17 19:00 07:00 Intake Total 885.0 ml 972.5 ml Output Total 430 ml 400 ml Balance 455.0 ml 572.5 ml Free Water 50 ml IV Total 695.0 ml 752.5 ml Tube Feeding 140 ml 220 ml Output Urine Total 430 ml 400 ml Critical Care - Objective ET-Tube: 6.0 ET Position: 22 Last 24 Hour Vital Signs Date Time Temp Pulse Resp B/P Pulse Ox O2 Delivery O2 Flow Rate FiO2 04/02/17 16:57 106 25 40 04/02/17 16:00 100.5 115 22 142/51 98 Mechanical Ventilator 30 04/02/17 16:00 30 04/02/17 16:00 102 04/02/17 15:18 108 16 100 Mechanical Ventilator 40 04/02/17 15:10 124 04/02/17 15:04 129 20 40 04/02/17 15:04 113 22 100 Mechanical Ventilator 60 04/02/17 15:04 40 04/02/17 15:00 117 16 143/77 100 Mechanical Ventilator 30 04/02/17 14:00 113 16 134/58 100 Mechanical Ventilator 40 04/02/17 13:00 120 16 135/60 99 Mechanical Ventilator 40 04/02/17 12:57 133 22 40 04/02/17 12:06 101.0 04/02/17 12:00 40 04/02/17 12:00 129 04/02/17 12:00 101.0 126 17 142/58 99 Mechanical Ventilator 40 04/02/17 11:35 134 16 99 Mechanical Ventilator 40 04/02/17 11:12 120 16 100 Mechanical Ventilator 60 04/02/17 11:12 40 04/02/17 11:10 119 19 40 04/02/17 11:00 115 16 146/67 100 Mechanical Ventilator 40 04/02/17 10:00 116 16 156/76 99 Mechanical Ventilator 40 04/02/17 09:25 113 17 40 04/02/17 09:20 95 21 40 04/02/17 09:20 100 04/02/17 09:00 100.9 119 16 133/55 99 Mechanical Ventilator 40 04/02/17 08:45 118 140/52 04/02/17 08:45 118 04/02/17 08:00 110 04/02/17 08:00 60 04/02/17 08:00 101.0 113 16 145/63 97 Mechanical Ventilator 60 04/02/17 07:15 114 16 100 Mechanical Ventilator 40 04/02/17 07:02 60 04/02/17 07:02 113 23 97 Mechanical Ventilator 60 04/02/17 07:00 113 16 120/48 97 Mechanical Ventilator 40 04/02/17 07:00 112 21 40 04/02/17 06:00 99.5 112 16 129/53 98 04/02/17 05:20 115 16 40 04/02/17 05:00 99.5 112 16 124/74 99 04/02/17 04:00 99.5 108 16 114/62 98 04/02/17 04:00 40 04/02/17 03:15 40 04/02/17 03:15 119 16 100 Mechanical Ventilator 40 04/02/17 03:05 115 18 99 Mechanical Ventilator 40 04/02/17 03:01 101 18 40 04/02/17 03:00 99.0 16 102/48 98 Mechanical Ventilator 04/02/17 02:20 102/58 04/02/17 02:00 98.8 16 72/54 98 Mechanical Ventilator 04/02/17 01:11 98 17 40 04/02/17 01:00 98.4 04/02/17 00:00 98.4 108 16 97/52 99 Mechanical Ventilator 40 04/02/17 00:00 40 04/01/17 23:32 102 16 100 Mechanical Ventilator 40 04/01/17 23:32 40 04/01/17 23:13 106 16 99 Mechanical Ventilator 40 04/01/17 23:05 99 16 40 04/01/17 23:00 98.6 110 16 104/58 100 Mechanical Ventilator 40 04/01/17 22:00 98.4 113 16 114/56 100 Mechanical Ventilator 40 04/01/17 21:10 98 17 40 04/01/17 21:00 99.0 105 16 113/58 100 Mechanical Ventilator 40 04/01/17 20:30 103 04/01/17 20:30 40 04/01/17 20:30 99.0 16 99/51 100 Mechanical Ventilator 40 04/01/17 20:00 99.0 16 99/51 100 Mechanical Ventilator 40 04/01/17 19:19 109 16 100 Mechanical Ventilator 40 04/01/17 19:19 40 04/01/17 19:13 108 17 99 Mechanical Ventilator 40 04/01/17 19:13 108 18 40 04/01/17 19:00 104 16 108/59 100 Mechanical Ventilator 40 04/01/17 18:00 116 16 123/75 99 Mechanical Ventilator 40 04/01/17 17:27 116 17 40 Status: obtunded Condition: critical Lungs: rhonchi Heart: tachycardia, irregularly irregular Abdomen: soft, non-tender Objective: oral ETT flaccid unresponsive Micro: Microbiology Date/Time Source Procedure Growth Status 03/31/17 20:00 Sputum Gram Stain - Final Resulted 03/31/17 20:00 Sputum Culture - Preliminary Gram Negative Bacillus 1 Resulted 03/31/17 16:30 Indwelling Cath Urine Culture - Preliminary NO GROWTH AFTER 24 HOURS Resulted Accucheck: ADWOA HENSON Apr 02, 2017 17:24
[2017-04-02] MEDS: Dyna-Hex 2% Top Sol 8oz TOPIC SCH (20:36)
[2017-04-02] MEDS: D5NS 1,000 ML IV SCH (21:50)
[2017-04-03] VITALS (24 sets, daily range): BP systolic 115–169; BP diastolic 54–94
[2017-04-03] MEDS: NovoLOG Insulin Flexpen SUBQ SCH ×4 (00:03→17:57)
[2017-04-03] MEDS: DuoNeb 0.5-3(2.5)mg/3ml neb HHN SCH ×6 (03:19→23:06)
[2017-04-03] MEDS: Acetaminophen 650mg/20.3ml NG PRN ×2 (04:53→12:17)
[2017-04-03] MEDS: Piperacillin/Tazobactam 3.375 GM in D5W 110 ML IVPB SCH ×3 (05:56→21:48)
[2017-04-03] MEDS: Digoxin 0.125mg tab GT SCH (08:38)
[2017-04-03] MEDS: Metoprolol Succinate XL 50mg tab ORAL SCH (08:39)
[2017-04-03] MEDS: Phenytoin Susp 100mg/4ml NG SCH (08:39)
[2017-04-03] MEDS: Heparin 5000 units/ml inj SUBQ SCH ×2 (08:40→21:49)
--- NOTE | 2017-04-03 09:04 | Pulmonology Progress Note ---
Assessment/Plan Assessment/Plan 1. Acute respiratory failure, resolved 2. Sepsis. 3. Pneumonia, perihilar 4. Diabetes. 5. Lactic acidosis, improved 6. Dementia and schizophrenia. 7. Hyperlipidemia. 8. Rapid atrial fibrillation, controlled s/p arrest, intubated no more seizures on dilantin T 101 cont abx, NGT feeds cont HHN prognosis very poor suggest Bioethics re-eval situation Subjective ROS Limited/Unobtainable: Yes Allergies: Coded Allergies: No Known Allergies (Unverified , 03/11/17) Objective Last 24 Hour Vital Signs Date Time Temp Pulse Resp B/P Pulse Ox O2 Delivery O2 Flow Rate FiO2 04/03/17 08:39 113 155/72 04/03/17 08:38 117 04/03/17 08:00 99.4 111 19 155/72 97 Mechanical Ventilator 30 04/03/17 07:05 Mechanical Ventilator 30 04/03/17 07:05 120 24 98 Mechanical Ventilator 30 04/03/17 07:05 120 24 30 04/03/17 07:00 101.5 121 21 153/63 96 Mechanical Ventilator 30 04/03/17 06:00 100.0 121 21 164/64 96 Mechanical Ventilator 30 04/03/17 05:56 100.0 04/03/17 05:00 100.0 122 22 161/71 98 Mechanical Ventilator 30 04/03/17 04:42 110 32 30 04/03/17 04:00 117 04/03/17 04:00 101.0 120 19 140/59 96 Mechanical Ventilator 30 04/03/17 04:00 30 04/03/17 03:37 118 16 100 Mechanical Ventilator 30 04/03/17 03:19 30 04/03/17 03:18 117 21 99 Mechanical Ventilator 30 04/03/17 03:17 117 21 30 04/03/17 03:00 119 19 135/59 98 Mechanical Ventilator 30 04/03/17 02:00 120 19 147/54 98 Mechanical Ventilator 30 04/03/17 01:04 125 25 30 04/03/17 01:00 120 19 115/68 98 Mechanical Ventilator 30 04/03/17 00:00 100.0 120 19 140/59 96 Mechanical Ventilator 30 04/03/17 00:00 121 04/03/17 00:00 30 04/02/17 23:38 121 16 100 Mechanical Ventilator 30 04/02/17 23:25 30 04/02/17 23:24 117 22 30 04/02/17 23:24 117 22 98 Mechanical Ventilator 30 04/02/17 23:00 120 18 120/81 97 Mechanical Ventilator 30 04/02/17 22:00 115 23 147/74 98 Mechanical Ventilator 30 04/02/17 21:00 112 24 138/58 100 Mechanical Ventilator 30 04/02/17 20:55 112 25 30 04/02/17 20:00 99.8 111 24 138/52 97 Mechanical Ventilator 30 04/02/17 20:00 107 04/02/17 20:00 30 04/02/17 19:34 108 25 100 Mechanical Ventilator 30 04/02/17 19:13 30 04/02/17 19:12 103 26 100 Mechanical Ventilator 30 04/02/17 19:10 105 31 30 04/02/17 19:00 115 16 140/68 99 Mechanical Ventilator 30 04/02/17 18:00 110 16 148/66 98 Mechanical Ventilator 30 04/02/17 17:00 110 16 146/63 98 Mechanical Ventilator 30 04/02/17 16:57 106 25 40 04/02/17 16:00 100.5 115 22 142/51 98 Mechanical Ventilator 30 04/02/17 16:00 30 04/02/17 16:00 102 04/02/17 15:18 108 16 100 Mechanical Ventilator 40 04/02/17 15:10 124 04/02/17 15:04 129 20 40 04/02/17 15:04 113 22 100 Mechanical Ventilator 60 04/02/17 15:04 40 04/02/17 15:00 117 16 143/77 100 Mechanical Ventilator 30 04/02/17 14:00 113 16 134/58 100 Mechanical Ventilator 40 04/02/17 13:00 120 16 135/60 99 Mechanical Ventilator 40 04/02/17 12:57 133 22 40 04/02/17 12:00 40 04/02/17 12:00 129 04/02/17 12:00 101.0 126 17 142/58 99 Mechanical Ventilator 40 04/02/17 11:35 134 16 99 Mechanical Ventilator 40 04/02/17 11:12 120 16 100 Mechanical Ventilator 60 04/02/17 11:12 40 04/02/17 11:10 119 19 40 04/02/17 11:00 115 16 146/67 100 Mechanical Ventilator 40 04/02/17 10:00 116 16 156/76 99 Mechanical Ventilator 40 04/02/17 09:25 113 17 40 04/02/17 09:20 95 21 40 04/02/17 09:20 100 Intake and Output 04/02/17 04/03/17 19:00 07:00 Intake Total 1137.5 ml 1255.0 ml Output Total 600 ml 541 ml Balance 537.5 ml 714.0 ml Free Water 30 ml IV Total 687.5 ml 605.0 ml Tube Feeding 340 ml 530 ml Other 80 ml 120 ml Output Urine Total 600 ml 540 ml Stool Total 1 ml # Bowel Movements 1 Objective unresponsive, NGT, intubated, no seizures HEENT: atraumatic Respiratory/Chest: rhonchi Cardiovascular: normal rate Microbiology Date/Time Source Procedure Growth Status 03/31/17 20:00 Sputum Gram Stain - Final Complete 03/31/17 20:00 Sputum Culture - Final Pseudomonas Aeruginosa Complete 03/31/17 16:30 Indwelling Cath Urine Culture - Final NO GROWTH AFTER 48 HOURS Complete Laboratory Tests 04/02/17 10:00: White Blood Count 15.6H, Red Blood Count 4.41, Hemoglobin 12.0, Hematocrit 37.4 , Mean Corpuscular Volume 85, Mean Corpuscular Hemoglobin 27.1, Mean Corpuscular Hemoglobin Concent 32.0, Red Cell Distribution Width 13.3, Platelet Count 388, Mean Platelet Volume 6.3L, Neutrophils (%) (Auto) 75.9H, Lymphocytes (%) (Auto) 12.9L, Monocytes (%) (Auto) 9.7, Eosinophils (%) (Auto) 0.6, Basophils (%) (Auto) 1.0, Sodium Level 139, Potassium Level 3.7, Chloride Level 98, Carbon Dioxide Level 26, Anion Gap 15, Blood Urea Nitrogen 20, Creatinine 1.1H, Estimat Glomerular Filtration Rate , Glucose Level 180#H, Calcium Level 8.6, Phenytoin (Dilantin) Level 5.1L 04/02/17 23:00: Vancomycin Level Trough 18.5H Current Medications Medications (Trade) Dose Ordered Sig/Carol Route PRN Reason Start Time Stop Time Status Last Admin Dose Admin Acetaminophen (Tylenol) 650 mg Q4H PRN NG Mild Pain/Temp > 100.5 03/31/17 20:00 04/30/17 19:59 04/03/17 04:53 Albuterol/ Ipratropium (DuoNeb 0.5-3(2.5)mg/3ml) 3 ml Q4HRT HHN 04/01/17 03:00 04/06/17 02:59 04/03/17 03:19 Chlorhexidine Gluconate (Erin-Hex 2%) 1 applic BEDTIME TOPIC 03/31/17 21:00 04/30/17 20:59 04/02/17 20:36 Dextrose (Dextrose 50%) STAT PRN IV Hypoglycemia 04/01/17 08:00 05/01/17 07:59 Dextrose/Sodium Chloride 1,000 ml @ 35 mls/hr Q24H IV 04/01/17 20:00 05/01/17 19:59 04/02/17 21:50 Digoxin (Lanoxin) 0.125 mg DAILY GT 04/01/17 09:00 05/01/17 08:59 04/03/17 08:38 Heparin Sodium (Porcine) (Heparin 5000 units/ml) 5,000 units EVERY 12 HOURS SUBQ 03/31/17 21:00 04/30/17 20:59 04/03/17 08:40 Insulin Aspart (NovoLOG) EVERY 6 HOURS SUBQ 04/01/17 00:00 05/01/17 00:00 04/03/17 05:58 Lansoprazole (Prevacid) 30 mg QHS NG 03/31/17 21:00 04/30/17 20:59 04/02/17 20:36 Lorazepam (Ativan 2mg/ml 1ml) 0.5 mg Q3H PRN IV For Anxiety 03/31/17 23:15 04/07/17 23:14 04/01/17 08:50 Metoprolol Succinate (Toprol XL) 50 mg DAILY ORAL 04/01/17 09:00 05/01/17 08:59 04/03/17 08:39 Phenytoin (Dilantin) 300 mg DAILY NG 04/02/17 09:00 05/02/17 08:59 04/03/17 08:39 Piperacillin Sod/ Tazobactam Sod/ Dextrose (Zosyn/D5W) 110 ml @ 27.5 mls/hr EVERY 8 HOURS IVPB 03/31/17 22:00 04/05/17 21:59 04/03/17 05:56 Vancomycin HCl 1 ea 1 ea DAILY PRN MISC Per rx protocol 04/01/17 09:00 05/01/17 08:59 Vancomycin HCl/ Dextrose (Vancomycin/D5W) 110 ml @ 110 mls/hr Q12HR@0000,1200 IVPB 04/01/17 00:00 04/06/17 00:00 04/03/17 00:00 ADWOA GARCIA Apr 03, 2017 09:04
[2017-04-03 11:22] LABS: MEAN CORPUSCULAR HEMOGLOBIN 27.5 PG (27.0-31.0); MEAN CORPUSCULAR HGB CONC 32.4 G/DL (32.0-36.0); MEAN CORPUSCULAR VOLUME 85 FL (80-99); MEAN PLATELET VOLUME 6.4 FL (6.5-10.1); PLATELET COUNT 351 K/UL (150-450); RED BLOOD COUNT 3.73 M/UL (4.20-5.40); RED CELL DISTRIBUTION WIDTH 13.1 % (11.6-14.8); WHITE BLOOD COUNT 19.2 K/UL (4.8-10.8)
[2017-04-03 11:39] LABS: ALANINE AMINOTRANSFERASE 14 U/L (3-33); ALBUMIN/GLOBULIN RATIO 0.7 (1.0-2.7); ANION GAP 12 (5-15); ASPARTATE AMINO TRANSFERASE 44 U/L (5-40); CALCIUM 8.1 mg/dL (8.6-10.2); CARBON DIOXIDE 23 mEQ/L (20-30); CHLORIDE 101 mEQ/L (98-107); HEMOLYSIS 8; MAGNESIUM 1.7 mg/dL (1.7-2.5); PHOSPHORUS 2.3 mg/dL (2.5-4.8); POTASSIUM 3.5 mEQ/L (3.4-4.9); SODIUM 136 mEQ/L (135-145)
[2017-04-03 11:41] LABS: BAND NEUTROPHILS % (MANUAL) 5 % (0-8); BASOPHILS % (MANUAL) 0 % (0-2); EOSINOPHILS % (MANUAL) 1 % (0-3); LYMPHOCYTES % (MANUAL) 7 % (20-45); NEUTROPHILS % (MANUAL) 79 % (45-75); PLATELET ESTIMATE ADEQUATE; PLATELET MORPHOLOGY NORMAL; TOTAL CELLS COUNTED 100
[2017-04-03 11:42] LABS: HYPOCHROMASIA 1+
[2017-04-03 11:44] LABS: ACANTHOCYTES 1+; OVALOCYTES 1+
[2017-04-03] MEDS: Vancomycin 500 MG in D5W 110 ML IVPB SCH ×3 (12:06)
--- NOTE | 2017-04-03 13:54 | General Progress Note ---
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 3) Aspiration PNA 4) Sepsis 5) A.Fib with RVR Plan: Will continue IV ATB's Stop IV fluid Will check CXR Lasix 40 mg IV x1 Subjective Allergies: Coded Allergies: No Known Allergies (Unverified , 03/11/17) Subjective She is unresponsive on the vent, no distress Objective Last 24 Hour Vital Signs Date Time Temp Pulse Resp B/P Pulse Ox O2 Delivery O2 Flow Rate FiO2 04/03/17 13:00 99.6 04/03/17 13:00 100.2 111 28 148/66 96 Mechanical Ventilator 30 04/03/17 12:59 125 23 30 04/03/17 12:00 30 04/03/17 12:00 125 04/03/17 12:00 100.2 126 25 150/67 97 Mechanical Ventilator 30 04/03/17 11:10 107 18 100 Mechanical Ventilator 30 04/03/17 11:05 102 19 97 Mechanical Ventilator 30 04/03/17 11:05 102 18 30 04/03/17 11:05 30 04/03/17 11:00 96 19 151/69 97 Mechanical Ventilator 30 04/03/17 10:00 112 18 144/70 98 Mechanical Ventilator 30 04/03/17 09:10 117 20 30 04/03/17 09:00 108 19 150/72 96 Mechanical Ventilator 30 04/03/17 08:39 113 155/72 04/03/17 08:38 117 04/03/17 08:00 30 04/03/17 08:00 103 04/03/17 08:00 99.4 111 19 155/72 97 Mechanical Ventilator 30 04/03/17 07:05 Mechanical Ventilator 30 04/03/17 07:05 120 24 98 Mechanical Ventilator 30 04/03/17 07:05 120 24 30 04/03/17 07:00 101.5 121 21 153/63 96 Mechanical Ventilator 30 04/03/17 06:00 100.0 121 21 164/64 96 Mechanical Ventilator 30 04/03/17 05:00 100.0 122 22 161/71 98 Mechanical Ventilator 30 04/03/17 04:42 110 32 30 04/03/17 04:00 117 04/03/17 04:00 101.0 120 19 140/59 96 Mechanical Ventilator 30 04/03/17 04:00 30 04/03/17 03:37 118 16 100 Mechanical Ventilator 30 04/03/17 03:19 30 17 03:18 117 21 99 Mechanical Ventilator 30 04/03/17 03:17 117 21 30 04/03/17 03:00 119 19 135/59 98 Mechanical Ventilator 30 04/03/17 02:00 120 19 147/54 98 Mechanical Ventilator 30 04/03/17 01:04 125 25 30 04/03/17 01:00 120 19 115/68 98 Mechanical Ventilator 30 04/03/17 00:00 100.0 120 19 140/59 96 Mechanical Ventilator 30 04/03/17 00:00 121 04/03/17 00:00 30 04/02/17 23:38 121 16 100 Mechanical Ventilator 30 04/02/17 23:25 30 04/02/17 23:24 117 22 30 04/02/17 23:24 117 22 98 Mechanical Ventilator 30 04/02/17 23:00 120 18 120/81 97 Mechanical Ventilator 30 04/02/17 22:00 115 23 147/74 98 Mechanical Ventilator 30 04/02/17 21:00 112 24 138/58 100 Mechanical Ventilator 30 04/02/17 20:55 112 25 30 04/02/17 20:00 99.8 111 24 138/52 97 Mechanical Ventilator 30 04/02/17 20:00 107 04/02/17 20:00 30 04/02/17 19:34 108 25 100 Mechanical Ventilator 30 04/02/17 19:13 30 04/02/17 19:12 103 26 100 Mechanical Ventilator 30 04/02/17 19:10 105 31 30 04/02/17 19:00 115 16 140/68 99 Mechanical Ventilator 30 04/02/17 18:00 110 16 148/66 98 Mechanical Ventilator 30 04/02/17 17:00 110 16 146/63 98 Mechanical Ventilator 30 04/02/17 16:57 106 25 40 04/02/17 16:00 100.5 115 22 142/51 98 Mechanical Ventilator 30 04/02/17 16:00 30 04/02/17 16:00 102 04/02/17 15:18 108 16 100 Mechanical Ventilator 40 04/02/17 15:10 124 04/02/17 15:04 129 20 40 04/02/17 15:04 113 22 100 Mechanical Ventilator 60 04/02/17 15:04 40 04/02/17 15:00 117 16 143/77 100 Mechanical Ventilator 30 04/02/17 14:00 113 16 134/58 100 Mechanical Ventilator 40 Intake and Output 04/02/17 04/03/17 19:00 07:00 Intake Total 1137.5 ml 1290.0 ml Output Total 600 ml 541 ml Balance 537.5 ml 749.0 ml Free Water 30 ml IV Total 687.5 ml 640.0 ml Tube Feeding 340 ml 530 ml Other 80 ml 120 ml Output Urine Total 600 ml 540 ml Stool Total 1 ml # Bowel Movements 1 Laboratory Tests 04/02/17 23:00: Vancomycin Level Trough 18.5H 04/03/17 10:50: White Blood Count 19.2H, Red Blood Count 3.73L, Hemoglobin 10.2L, Hematocrit 31.6L, Mean Corpuscular Volume 85, Mean Corpuscular Hemoglobin 27.5, Mean Corpuscular Hemoglobin Concent 32.4, Red Cell Distribution Width 13.1, Platelet Count 351, Mean Platelet Volume 6.4L, Neutrophils (%) (Auto) , Lymphocytes (%) ( Auto) , Monocytes (%) (Auto) , Eosinophils (%) (Auto) , Basophils (%) (Auto) , Differential Total Cells Counted 100, Neutrophils % (Manual) 79H, Lymphocytes % (Manual) 7L, Monocytes % (Manual) 8, Eosinophils % (Manual) 1, Basophils % ( Manual) 0, Band Neutrophils 5, Platelet Estimate Adequate, Platelet Morphology Normal, Hypochromasia 1+, Ovalocytes 1+, Acanthocytes 1+, Sodium Level 136, Potassium Level 3.5, Chloride Level 101, Carbon Dioxide Level 23, Anion Gap 12, Blood Urea Nitrogen 20, Creatinine 1.0H, Estimat Glomerular Filtration Rate , Glucose Level 232H, Calcium Level 8.1L, Phosphorus Level 2.3L, Magnesium Level 1.7, Total Bilirubin 0.6, Aspartate Amino Transf (AST/SGOT) 44H, Alanine Aminotransferase (ALT/SGPT) 14, Alkaline Phosphatase 59, Total Protein 6.0L, Albumin 2.5L, Globulin 3.5, Albumin/Globulin Ratio 0.7L Height (Feet): 5 Height (Inches): 3.00 Weight (Pounds): 158 General Appearance: WD/WN, no apparent distress EENT: PERRL/EOMI Neck: non-tender, normal alignment, supple Cardiovascular: JVD - nl high, tachycardia, irregularly irregular Respiratory/Chest: chest wall non-tender, rhonchi - bilaterally Abdomen: normal bowel sounds, non tender, soft Neurologic: unresponsive JB SONG Apr 03, 2017 13:54
[2017-04-03] MEDS ORDERED: KCl 10% 40mEq/30ml liquid NG ONE (14:15)
--- NOTE | 2017-04-03 14:46 | Diagnostic Imaging Report ---
Indication: SOB Technique: One view of the chest Comparison: 03/31/2017 Findings: There is persistent left-sided pleural effusion and retrocardiac atelectasis or consolidation. Left upper lung, right lung and pleural space remain clear. The heart size is normal. Endotracheal tube, nasogastric tube, left arm PICC again demonstrated. There are degenerative changes of the thoracic spine Impression: Unchanged, over one day, findings as above.
[2017-04-03] MEDS ORDERED: NS 275ml ONE (16:11)
[2017-04-03] MEDS ORDERED: D5NS 1000ml IV ONE (16:11)
[2017-04-03] MEDS: Dyna-Hex 2% Top Sol 8oz TOPIC SCH (21:47)
[2017-04-04] VITALS (24 sets, daily range): BP systolic 91–153; BP diastolic 40–86
[2017-04-04] MEDS: Vancomycin 500 MG in D5W 110 ML IVPB SCH ×2 (00:21→11:55)
[2017-04-04] MEDS: NovoLOG Insulin Flexpen SUBQ SCH ×4 (00:22→17:33)
[2017-04-04] MEDS: DuoNeb 0.5-3(2.5)mg/3ml neb HHN SCH ×6 (03:28→23:05)
[2017-04-04 05:19] LABS: MEAN CORPUSCULAR HEMOGLOBIN 28.2 PG (27.0-31.0); MEAN CORPUSCULAR HGB CONC 33.5 G/DL (32.0-36.0); MEAN CORPUSCULAR VOLUME 84 FL (80-99); MEAN PLATELET VOLUME 6.5 FL (6.5-10.1); PLATELET COUNT 356 K/UL (150-450); RED BLOOD COUNT 3.92 M/UL (4.20-5.40); RED CELL DISTRIBUTION WIDTH 13.2 % (11.6-14.8)
[2017-04-04] MEDS: Piperacillin/Tazobactam 3.375 GM in D5W 110 ML IVPB SCH ×3 (05:45→21:53)
[2017-04-04 05:52] LABS: ALANINE AMINOTRANSFERASE 14 U/L (3-33); ALBUMIN/GLOBULIN RATIO 0.9 (1.0-2.7); ANION GAP 11 (5-15); ASPARTATE AMINO TRANSFERASE 45 U/L (5-40); CALCIUM 8.3 mg/dL (8.6-10.2); CARBON DIOXIDE 28 mEQ/L (20-30); CHLORIDE 100 mEQ/L (98-107); CREATININE 0.9 mg/dL (0.5-0.9); HEMOLYSIS 2; POTASSIUM 3.5 mEQ/L (3.4-4.9); SODIUM 139 mEQ/L (135-145); TOTAL PROTEIN 6.2 g/dL (6.6-8.7)
[2017-04-04 07:55] LABS: BAND NEUTROPHILS % (MANUAL) 0 % (0-8); BASOPHILS % (MANUAL) 0 % (0-2); EOSINOPHILS % (MANUAL) 0 % (0-3); LYMPHOCYTES % (MANUAL) 8 % (20-45); NEUTROPHILS % (MANUAL) 79 % (45-75); PLATELET ESTIMATE ADEQUATE; PLATELET MORPHOLOGY NORMAL; TOTAL CELLS COUNTED 100
[2017-04-04] MEDS: Digoxin 0.125mg tab GT SCH (08:35)
[2017-04-04] MEDS: Heparin 5000 units/ml inj SUBQ SCH ×2 (08:35→20:59)
[2017-04-04] MEDS: Metoprolol Succinate XL 50mg tab ORAL SCH (08:36)
[2017-04-04] MEDS: Phenytoin Susp 100mg/4ml NG SCH (08:37)
--- NOTE | 2017-04-04 12:20 | Pulmonolgy Critical Care Note ---
Critical Care - Asmt/Plan Assessment/Plan: 1. Acute respiratory failure, resolved 2. Sepsis. 3. Pneumonia, perihilar 4. Diabetes. 5. Lactic acidosis, improved 6. Dementia and schizophrenia. 7. Hyperlipidemia. 8. Rapid atrial fibrillation, controlled s/p arrest, intubated no more seizures on dilantin cont abx, NGT feeds cont HHN prognosis very poor suggest Bioethics re-eval situation no weaning at this time and trach and peg not recommended greater than 35 minutes of critical care time spent with the patent, nursing, reviewing records and labs and recommendations. Critical Care - Objective Last 24 Hour Vital Signs Date Time Temp Pulse Resp B/P Pulse Ox O2 Delivery O2 Flow Rate FiO2 04/04/17 11:10 111 16 100 Mechanical Ventilator 30 04/04/17 11:05 30 04/04/17 11:05 107 16 30 04/04/17 11:05 107 16 100 Mechanical Ventilator 30 04/04/17 11:00 121 20 136/77 98 Mechanical Ventilator 30 04/04/17 10:00 113 21 133/64 96 Mechanical Ventilator 30 04/04/17 09:05 116 16 30 04/04/17 09:00 118 20 138/59 99 Mechanical Ventilator 30 04/04/17 08:36 130 137/59 04/04/17 08:35 130 04/04/17 08:00 30 04/04/17 08:00 127 04/04/17 08:00 97.3 132 22 129/75 100 Mechanical Ventilator 30 04/04/17 07:10 102 19 100 Mechanical Ventilator 30 04/04/17 07:05 104 18 100 Mechanical Ventilator 30 04/04/17 07:05 104 17 30 04/04/17 07:05 30 04/04/17 07:00 102 16 153/82 100 Mechanical Ventilator 30 04/04/17 06:00 97.5 109 16 126/85 100 Mechanical Ventilator 30 04/04/17 05:13 114 19 30 04/04/17 05:00 118 16 130/82 97 Mechanical Ventilator 30 04/04/17 04:00 109 04/04/17 04:00 98.9 109 17 144/79 96 Mechanical Ventilator 30 04/04/17 04:00 30 04/04/17 03:25 108 22 100 Mechanical Ventilator 30 04/04/17 03:12 120 16 30 04/04/17 03:12 102 17 97 Mechanical Ventilator 30 04/04/17 03:12 30 04/04/17 03:00 109 16 152/85 96 Mechanical Ventilator 30 04/04/17 02:00 98.4 106 17 150/86 99 Mechanical Ventilator 30 04/04/17 01:07 103 20 30 04/04/17 01:00 98.8 103 17 152/70 98 Mechanical Ventilator 30 04/04/17 00:00 30 04/04/17 00:00 110 04/04/17 00:00 99.4 109 16 149/67 98 Mechanical Ventilator 30 04/03/17 23:15 118 16 100 Mechanical Ventilator 30 1817 23:07 30 17 23:07 98 19 97 Mechanical Ventilator 30 04/03/17 23:07 102 17 30 04/03/17 23:00 107 16 147/63 98 Mechanical Ventilator 30 04/03/17 22:00 108 21 139/68 99 Mechanical Ventilator 30 04/03/17 21:10 107 17 30 04/03/17 21:00 108 18 158/94 97 Mechanical Ventilator 30 04/03/17 20:00 98.7 109 17 169/73 99 Mechanical Ventilator 30 17 20:00 30 18/17 20:00 127 04/03/17 19:20 112 16 98 Mechanical Ventilator 30 04/03/17 19:02 30 04/03/17 19:02 107 16 99 Mechanical Ventilator 30 04/03/17 19:00 107 16 146/71 99 Mechanical Ventilator 30 17 19:00 108 18 30 17 18:00 106 21 156/77 99 Mechanical Ventilator 30 17 17:04 113 18 30 18/17 17:00 115 20 133/69 99 Mechanical Ventilator 30 18/17 16:00 99.4 104 20 135/65 98 Mechanical Ventilator 30 18/17 16:00 115 18/17 16:00 30 18/17 15:10 121 17 30 18/17 15:10 121 17 96 Mechanical Ventilator 30 18/17 15:10 Mechanical Ventilator 30 18/17 15:00 112 20 151/68 98 Mechanical Ventilator 30 18/17 14:00 115 22 156/68 98 Mechanical Ventilator 30 18/17 13:00 99.6 8/18/17 13:00 100.2 111 28 148/66 96 Mechanical Ventilator 30 04/03/17 12:59 125 23 30 Status: obtunded Condition: critical Lungs: rhonchi Heart: HR/BP unstable Abdomen: soft, non-tender Extremities: edema Accucheck: 189 Critical Care - Subjective ROS Limited/Unobtainable: Yes Condition: critical FI02: 30 Vent Support Breath Rate: 16 Vent Support Mode: AC Vent Tidal Volume: 500 Sputum Amount: Moderate PEEP: 5.0 PIP: 25 Tube Feeding Amount: 0 I&O: Intake and Output 04/03/17 04/04/17 19:00 07:00 Intake Total 990 ml 720.0 ml Output Total 870 ml 440 ml Balance 120 ml 280.0 ml Free Water 100 ml IV Total 430 ml 110.0 ml Tube Feeding 400 ml 550 ml Other 60 ml 60 ml Output Urine Total 870 ml 440 ml Subjective: on the vent remains obtunded minimal secretions no distress npo tf bp stable this am no reprots of cp nv or bleeding positive uop ET-Tube: 6.0 ET Position: 22 DRAKE NEELY DO Apr 04, 2017 12:20
--- NOTE | 2017-04-04 15:44 | General Progress Note ---
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 3) Aspiration PNA 4) Sepsis 5) A.Fib with RVR Plan: Will continue IV ATB's Subjective Allergies: Coded Allergies: No Known Allergies (Unverified , 03/11/17) Subjective She is unresponsive on the vent, no distress, no change her situation, cxr showed no CHF Objective Last 24 Hour Vital Signs Date Time Temp Pulse Resp B/P Pulse Ox O2 Delivery O2 Flow Rate FiO2 04/04/17 15:10 112 16 100 Mechanical Ventilator 30 04/04/17 15:05 106 16 97 Mechanical Ventilator 30 04/04/17 15:05 30 04/04/17 15:05 106 16 30 04/04/17 15:00 103 16 134/62 97 Mechanical Ventilator 30 04/04/17 14:00 108 18 131/73 97 Mechanical Ventilator 30 04/04/17 13:05 121 16 30 04/04/17 13:00 113 16 138/70 98 Mechanical Ventilator 30 04/04/17 12:00 97.8 111 19 135/73 100 Mechanical Ventilator 30 04/04/17 12:00 111 04/04/17 12:00 30 04/04/17 11:10 111 16 100 Mechanical Ventilator 30 04/04/17 11:05 30 04/04/17 11:05 107 16 30 04/04/17 11:05 107 16 100 Mechanical Ventilator 30 04/04/17 11:00 121 20 136/77 98 Mechanical Ventilator 30 04/04/17 10:00 113 21 133/64 96 Mechanical Ventilator 30 04/04/17 09:05 116 16 30 04/04/17 09:00 118 20 138/59 99 Mechanical Ventilator 30 04/04/17 08:36 130 137/59 04/04/17 08:35 130 04/04/17 08:00 30 04/04/17 08:00 127 04/04/17 08:00 97.3 132 22 129/75 100 Mechanical Ventilator 30 04/04/17 07:10 102 19 100 Mechanical Ventilator 30 04/04/17 07:05 104 18 100 Mechanical Ventilator 30 04/04/17 07:05 104 17 30 04/04/17 07:05 30 04/04/17 07:00 102 16 153/82 100 Mechanical Ventilator 30 04/04/17 06:00 97.5 109 16 126/85 100 Mechanical Ventilator 30 04/04/17 05:13 114 19 30 04/04/17 05:00 118 16 130/82 97 Mechanical Ventilator 30 04/04/17 04:00 109 04/04/17 04:00 98.9 109 17 144/79 96 Mechanical Ventilator 30 04/04/17 04:00 30 04/04/17 03:25 108 22 100 Mechanical Ventilator 30 04/04/17 03:12 120 16 30 04/04/17 03:12 102 17 97 Mechanical Ventilator 30 04/04/17 03:12 30 04/04/17 03:00 109 16 152/85 96 Mechanical Ventilator 30 04/04/17 02:00 98.4 106 17 150/86 99 Mechanical Ventilator 30 04/04/17 01:07 103 20 30 04/04/17 01:00 98.8 103 17 152/70 98 Mechanical Ventilator 30 04/04/17 00:00 30 04/04/17 00:00 110 04/04/17 00:00 99.4 109 16 149/67 98 Mechanical Ventilator 30 04/03/17 23:15 118 16 100 Mechanical Ventilator 30 04/03/17 23:07 30 04/03/17 23:07 98 19 97 Mechanical Ventilator 30 04/03/17 23:07 102 17 30 04/03/17 23:00 107 16 147/63 98 Mechanical Ventilator 30 04/03/17 22:00 108 21 139/68 99 Mechanical Ventilator 30 04/03/17 21:10 107 17 30 04/03/17 21:00 108 18 158/94 97 Mechanical Ventilator 30 04/03/17 20:00 98.7 109 17 169/73 99 Mechanical Ventilator 30 04/03/17 20:00 30 17 20:00 127 04/03/17 19:20 112 16 98 Mechanical Ventilator 30 17 19:02 30 17 19:02 107 16 99 Mechanical Ventilator 30 17 19:00 107 16 146/71 99 Mechanical Ventilator 30 18/17 19:00 108 18 30 1817 18:00 106 21 156/77 99 Mechanical Ventilator 30 18/17 17:04 113 18 30 18/17 17:00 115 20 133/69 99 Mechanical Ventilator 30 17 16:00 99.4 104 20 135/65 98 Mechanical Ventilator 30 04/03/17 16:00 115 04/03/17 16:00 30 Intake and Output 04/03/17 04/04/17 19:00 07:00 Intake Total 990 ml 720.0 ml Output Total 870 ml 440 ml Balance 120 ml 280.0 ml Free Water 100 ml IV Total 430 ml 110.0 ml Tube Feeding 400 ml 550 ml Other 60 ml 60 ml Output Urine Total 870 ml 440 ml Laboratory Tests 04/04/17 03:30: White Blood Count 18.0H, Red Blood Count 3.92L, Hemoglobin 11.1L, Hematocrit 33.1L, Mean Corpuscular Volume 84, Mean Corpuscular Hemoglobin 28.2, Mean Corpuscular Hemoglobin Concent 33.5, Red Cell Distribution Width 13.2, Platelet Count 356, Mean Platelet Volume 6.5, Neutrophils (%) (Auto) , Lymphocytes (%) ( Auto) , Monocytes (%) (Auto) , Eosinophils (%) (Auto) , Basophils (%) (Auto) , Differential Total Cells Counted 100, Neutrophils % (Manual) 79H, Lymphocytes % (Manual) 8L, Monocytes % (Manual) 13H, Eosinophils % (Manual) 0, Basophils % ( Manual) 0, Band Neutrophils 0, Platelet Estimate Adequate, Platelet Morphology Normal, Red Blood Cell Morphology Normal, Sodium Level 139, Potassium Level 3.5 , Chloride Level 100, Carbon Dioxide Level 28, Anion Gap 11, Blood Urea Nitrogen 18, Creatinine 0.9, Estimat Glomerular Filtration Rate , Glucose Level 156H, Calcium Level 8.3L, Total Bilirubin 0.4, Aspartate Amino Transf (AST/SGOT ) 45H, Alanine Aminotransferase (ALT/SGPT) 14, Alkaline Phosphatase 61, Total Protein 6.2L, Albumin 3.0L, Globulin 3.2, Albumin/Globulin Ratio 0.9L Height (Feet): 5 Height (Inches): 3.00 Weight (Pounds): 160 General Appearance: WD/WN, no apparent distress EENT: PERRL/EOMI Neck: non-tender, normal alignment, supple Cardiovascular: normal rate, no JVD, irregularly irregular Abdomen: normal bowel sounds, non tender, soft Neurologic: unresponsive JB SONG Apr 04, 2017 15:44
[2017-04-04] MEDS: Lactulose 20gm/30ml UDC NG SCH ×2 (20:05→21:53)
[2017-04-04] MEDS: Dyna-Hex 2% Top Sol 8oz TOPIC SCH (20:58)
[2017-04-05] VITALS (24 sets, daily range): BP systolic 75–138; BP diastolic 29–84
[2017-04-05] MEDS: Vancomycin 500 MG in D5W 110 ML IVPB SCH ×3 (00:09→23:43)
[2017-04-05] MEDS: Lactulose 20gm/30ml UDC NG SCH ×2 (00:10→01:55)
[2017-04-05] MEDS: NovoLOG Insulin Flexpen SUBQ SCH ×5 (00:11→23:43)
[2017-04-05] MEDS: DuoNeb 0.5-3(2.5)mg/3ml neb HHN SCH ×6 (03:17→23:21)
[2017-04-05] MEDS: Piperacillin/Tazobactam 3.375 GM in D5W 110 ML IVPB SCH ×3 (05:49→22:12)
[2017-04-05] MEDS: Digoxin 0.125mg tab GT SCH (08:44)
[2017-04-05] MEDS: Metoprolol Succinate XL 50mg tab ORAL SCH (08:44)
[2017-04-05] MEDS: Phenytoin Susp 100mg/4ml NG SCH (08:45)
[2017-04-05] MEDS: Heparin 5000 units/ml inj SUBQ SCH ×2 (08:46→20:59)
--- NOTE | 2017-04-05 09:53 | Diagnostic Imaging Report ---
Indication: Nausea and vomiting Technique: XRAY ABDOMEN 1VIEW/KUB Comparison: None Findings: Nasogastric tube is within the stomach. Small bowel loops are not obviously dilated. There is gaseous distention of the transverse colon. Moderate stool is seen in the rectum. Atherosclerotic changes are noted. Degenerative changes of the spine and levoscoliosis are seen. There is osteopenia. Degenerative changes of the hips are also noted, right greater than left. Impression: Nasogastric tube within the stomach. Gaseous distention of the ascending and transverse colon. Moderate stool in the rectum. Clinical correlation recommended.
--- NOTE | 2017-04-05 11:34 | Pulmonolgy Critical Care Note ---
Critical Care - Asmt/Plan Assessment/Plan: 1. Acute respiratory failure, resolved 2. Sepsis. 3. Pneumonia, perihilar 4. Diabetes. 5. Lactic acidosis, improved 6. Dementia and schizophrenia. 7. Hyperlipidemia. 8. Rapid atrial fibrillation, controlled s/p arrest, intubated no more seizures on Dilantin cont abx, NGT feeds cont HHN prognosis very poor suggest Bioethics re-eval situation no weaning at this time and trach and peg not recommended greater than 35 minutes of critical care time spent with the patent, nursing, reviewing records and labs and recommendations. Critical Care - Objective Last 24 Hour Vital Signs Date Time Temp Pulse Resp B/P Pulse Ox O2 Delivery O2 Flow Rate FiO2 04/05/17 11:00 97 20 114/60 100 Mechanical Ventilator 30 04/05/17 10:49 35 04/05/17 10:49 103 16 100 Mechanical Ventilator 35 04/05/17 10:38 101 16 100 Mechanical Ventilator 35 04/05/17 10:34 100 16 35 04/05/17 10:00 95 24 123/54 100 Mechanical Ventilator 30 04/05/17 09:00 111 18 131/63 100 Mechanical Ventilator 30 04/05/17 08:55 103 16 35 04/05/17 08:44 99 119/62 04/05/17 08:44 99 04/05/17 08:00 105 04/05/17 08:00 98.2 105 16 119/62 99 Mechanical Ventilator 30 04/05/17 08:00 30 04/05/17 07:13 101 16 100 Mechanical Ventilator 35 04/05/17 07:13 35 04/05/17 07:03 101 16 100 Mechanical Ventilator 35 04/05/17 07:00 112 17 138/84 97 Mechanical Ventilator 30 04/05/17 06:55 99 16 35 04/05/17 06:00 113 16 115/56 98 Mechanical Ventilator 30 04/05/17 05:02 110 16 30 04/05/17 05:00 115 16 117/74 95 Mechanical Ventilator 30 04/05/17 04:00 30 04/05/17 04:00 98.0 123 18 88/46 100 Mechanical Ventilator 30 04/05/17 04:00 123 04/05/17 03:29 122 16 94 Mechanical Ventilator 30 04/05/17 03:23 115 16 30 04/05/17 03:21 122 16 90 Mechanical Ventilator 30 04/05/17 03:21 30 04/05/17 03:00 117 19 102/53 94 Mechanical Ventilator 30 04/05/17 02:00 114 16 96/56 94 Mechanical Ventilator 30 04/05/17 01:07 121 16 30 04/05/17 01:00 116 16 92/55 94 Mechanical Ventilator 30 04/05/17 00:00 30 04/05/17 00:00 97.8 120 16 92/45 97 Mechanical Ventilator 30 04/05/17 00:00 120 04/04/17 23:17 115 16 99 Mechanical Ventilator 30 04/04/17 23:07 30 04/04/17 23:07 107 16 100 Mechanical Ventilator 30 04/04/17 23:05 106 16 30 04/04/17 23:00 112 18 99/40 98 Mechanical Ventilator 30 04/04/17 22:00 113 21 91/46 97 Mechanical Ventilator 30 04/04/17 21:07 113 16 30 04/04/17 21:00 111 16 104/56 96 Mechanical Ventilator 30 04/04/17 20:00 103 04/04/17 20:00 97.7 103 16 95/51 96 Mechanical Ventilator 30 04/04/17 20:00 30 04/04/17 19:30 100 17 99 Mechanical Ventilator 30 04/04/17 19:20 30 04/04/17 19:20 93 16 99 Mechanical Ventilator 30 04/04/17 19:19 103 16 30 04/04/17 19:00 98 20 119/63 98 Mechanical Ventilator 30 04/04/17 18:00 103 18 138/70 97 Mechanical Ventilator 30 04/04/17 17:05 102 16 30 04/04/17 17:00 109 16 129/67 97 Mechanical Ventilator 30 04/04/17 16:00 30 04/04/17 16:00 99.0 109 20 141/62 98 Mechanical Ventilator 30 04/04/17 16:00 108 04/04/17 15:10 112 16 100 Mechanical Ventilator 30 04/04/17 15:05 106 16 97 Mechanical Ventilator 30 04/04/17 15:05 30 04/04/17 15:05 106 16 30 04/04/17 15:00 103 16 134/62 97 Mechanical Ventilator 30 04/04/17 14:00 108 18 131/73 97 Mechanical Ventilator 30 8/19/17 13:05 121 16 30 04/04/17 13:00 113 16 138/70 98 Mechanical Ventilator 30 04/04/17 12:00 97.8 111 19 135/73 100 Mechanical Ventilator 30 04/04/17 12:00 111 04/04/17 12:00 30 Status: obtunded Condition: critical Lungs: rhonchi Heart: HR/BP stable Abdomen: soft, non-tender Extremities: edema Decubiti: location Accucheck: 180 Blood Sugars: BS not controlled Critical Care - Subjective ROS Limited/Unobtainable: Yes Condition: critical FI02: 30 Vent Support Breath Rate: 16 Vent Support Mode: AC Vent Tidal Volume: 500 Sputum Amount: Large PEEP: 5.0 PIP: 42 Tube Feeding Amount: 0 I&O: Intake and Output 04/04/17 04/05/17 19:00 07:00 Intake Total 235.0 ml 487.5 ml Output Total 290 ml 255 ml Balance -55.0 ml 232.5 ml Free Water 240 ml IV Total 235.0 ml 247.5 ml Tube Feeding 0 ml Output Urine Total 290 ml 225 ml Emesis 30 ml Subjective: on the vent in snyc with set rate remains obtunded minimal secretions no distress npo tf bp stable this am no reprots of cp nv or bleeding positive uop ET-Tube: 6.0 ET Position: 22 DRAKE NEELY DO Apr 05, 2017 11:34
--- NOTE | 2017-04-05 14:19 | General Progress Note ---
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 3) Aspiration PNA 4) Sepsis 5) A.Fib with RVR 6) Probable fecal impaction Plan: Will continue IV ATB's TF on hold Lactulose Rectal enema Reglan 5 mg iv q8 x3 Subjective Allergies: Coded Allergies: No Known Allergies (Unverified , 03/11/17) Subjective She is unresponsive on the vent, some vomiting, KUB shows some stool in the colon, lactulose 30 gram x 4 doses were given, no BM yet Objective Last 24 Hour Vital Signs Date Time Temp Pulse Resp B/P Pulse Ox O2 Delivery O2 Flow Rate FiO2 04/05/17 13:00 95 20 113/53 100 Mechanical Ventilator 30 04/05/17 12:48 95 16 35 04/05/17 12:00 93 04/05/17 12:00 97.9 93 21 111/54 100 Mechanical Ventilator 30 04/05/17 12:00 30 04/05/17 11:00 97 20 114/60 100 Mechanical Ventilator 30 04/05/17 10:49 35 04/05/17 10:49 103 16 100 Mechanical Ventilator 35 04/05/17 10:38 101 16 100 Mechanical Ventilator 35 04/05/17 10:34 100 16 35 04/05/17 10:00 95 24 123/54 100 Mechanical Ventilator 30 04/05/17 09:00 111 18 131/63 100 Mechanical Ventilator 30 04/05/17 08:55 103 16 35 04/05/17 08:44 99 119/62 04/05/17 08:44 99 04/05/17 08:00 105 04/05/17 08:00 98.2 105 16 119/62 99 Mechanical Ventilator 30 04/05/17 08:00 30 04/05/17 07:13 101 16 100 Mechanical Ventilator 35 04/05/17 07:13 35 04/05/17 07:03 101 16 100 Mechanical Ventilator 35 04/05/17 07:00 112 17 138/84 97 Mechanical Ventilator 30 04/05/17 06:55 99 16 35 04/05/17 06:00 113 16 115/56 98 Mechanical Ventilator 30 04/05/17 05:02 110 16 30 04/05/17 05:00 115 16 117/74 95 Mechanical Ventilator 30 04/05/17 04:00 30 04/05/17 04:00 98.0 123 18 88/46 100 Mechanical Ventilator 30 04/05/17 04:00 123 04/05/17 03:29 122 16 94 Mechanical Ventilator 30 04/05/17 03:23 115 16 30 04/05/17 03:21 122 16 90 Mechanical Ventilator 30 04/05/17 03:21 30 04/05/17 03:00 117 19 102/53 94 Mechanical Ventilator 30 04/05/17 02:00 114 16 96/56 94 Mechanical Ventilator 30 04/05/17 01:07 121 16 30 04/05/17 01:00 116 16 92/55 94 Mechanical Ventilator 30 04/05/17 00:00 30 04/05/17 00:00 97.8 120 16 92/45 97 Mechanical Ventilator 30 04/05/17 00:00 120 04/04/17 23:17 115 16 99 Mechanical Ventilator 30 04/04/17 23:07 30 04/04/17 23:07 107 16 100 Mechanical Ventilator 30 04/04/17 23:05 106 16 30 04/04/17 23:00 112 18 99/40 98 Mechanical Ventilator 30 04/04/17 22:00 113 21 91/46 97 Mechanical Ventilator 30 04/04/17 21:07 113 16 30 04/04/17 21:00 111 16 104/56 96 Mechanical Ventilator 30 04/04/17 20:00 103 04/04/17 20:00 97.7 103 16 95/51 96 Mechanical Ventilator 30 04/04/17 20:00 30 04/04/17 19:30 100 17 99 Mechanical Ventilator 30 04/04/17 19:20 30 04/04/17 19:20 93 16 99 Mechanical Ventilator 30 04/04/17 19:19 103 16 30 04/04/17 19:00 98 20 119/63 98 Mechanical Ventilator 30 04/04/17 18:00 103 18 138/70 97 Mechanical Ventilator 30 04/04/17 17:05 102 16 30 04/04/17 17:00 109 16 129/67 97 Mechanical Ventilator 30 04/04/17 16:00 30 04/04/17 16:00 99.0 109 20 141/62 98 Mechanical Ventilator 30 04/04/17 16:00 108 04/04/17 15:10 112 16 100 Mechanical Ventilator 30 04/04/17 15:05 106 16 97 Mechanical Ventilator 30 8/19/17 15:05 30 04/04/17 15:05 106 16 30 04/04/17 15:00 103 16 134/62 97 Mechanical Ventilator 30 Intake and Output 04/04/17 04/05/17 19:00 07:00 Intake Total 235.0 ml 487.5 ml Output Total 290 ml 255 ml Balance -55.0 ml 232.5 ml Free Water 240 ml IV Total 235.0 ml 247.5 ml Tube Feeding 0 ml Output Urine Total 290 ml 225 ml Emesis 30 ml Height (Feet): 5 Height (Inches): 3.00 Weight (Pounds): 155 General Appearance: WD/WN, no apparent distress EENT: PERRL/EOMI Neck: non-tender, normal alignment, supple Cardiovascular: normal rate, regular rhythm, no JVD Respiratory/Chest: lungs clear Abdomen: non tender, soft, no organomegaly Neurologic: unresponsive JB SONG Apr 05, 2017 14:19
[2017-04-05] MEDS ORDERED: Fleet's Mineral Oil Enema RECTAL ONE (15:00)
[2017-04-05] MEDS ORDERED: NS 275ml ONE (15:16)
[2017-04-05] MEDS: D5 1/2NS w/KCl 20mEq 1,000 ML IV SCH (15:27)
[2017-04-05] MEDS ORDERED: Tubing IV Secondary IV ONE (15:42)
[2017-04-05] MEDS: Dyna-Hex 2% Top Sol 8oz TOPIC SCH (20:57)
[2017-04-06] VITALS (24 sets, daily range): BP systolic 87–117; BP diastolic 45–65
[2017-04-06] MEDS: D5 1/2NS w/KCl 20mEq 1,000 ML IV SCH ×2 (04:36→17:58)
[2017-04-06 05:40] LABS: MEAN CORPUSCULAR HEMOGLOBIN 28.6 PG (27.0-31.0); MEAN CORPUSCULAR HGB CONC 33.7 G/DL (32.0-36.0); MEAN CORPUSCULAR VOLUME 85 FL (80-99); PLATELET COUNT 351 K/UL (150-450); RED BLOOD COUNT 3.64 M/UL (4.20-5.40); RED CELL DISTRIBUTION WIDTH 13.4 % (11.6-14.8); WHITE BLOOD COUNT 19.5 K/UL (4.8-10.8)
[2017-04-06] MEDS: Piperacillin/Tazobactam 3.375 GM in D5W 110 ML IVPB SCH ×3 (05:47→21:31)
[2017-04-06] MEDS: NovoLOG Insulin Flexpen SUBQ SCH ×4 (05:52→23:37)
[2017-04-06 06:13] LABS: CALCIUM 8.6 mg/dL (8.6-10.2); CARBON DIOXIDE 29 mEQ/L (20-30); CHLORIDE 100 mEQ/L (98-107); CREATININE 0.9 mg/dL (0.5-0.9); HEMOLYSIS 0; SODIUM 143 mEQ/L (135-145)
[2017-04-06 06:18] LABS: ANION GAP 14 (5-15)
[2017-04-06 06:23] LABS: POTASSIUM 2.7 mEQ/L (3.4-4.9)
[2017-04-06] MEDS: KCl 10% 40mEq/30ml liquid NG SCH ×2 (07:00→14:30)
[2017-04-06 07:51] LABS: LYMPHOCYTES % (MANUAL) 6 % (20-45); NEUTROPHILS % (MANUAL) 87 % (45-75); TOTAL CELLS COUNTED 100
[2017-04-06 07:52] LABS: BAND NEUTROPHILS % (MANUAL) 0 % (0-8); BASOPHILS % (MANUAL) 0 % (0-2); EOSINOPHILS % (MANUAL) 0 % (0-3); PLATELET ESTIMATE ADEQUATE; PLATELET MORPHOLOGY NORMAL
[2017-04-06] MEDS: Heparin 5000 units/ml inj SUBQ SCH ×2 (08:59→20:55)
[2017-04-06] MEDS: Metoprolol Succinate XL 50mg tab ORAL SCH (08:59)
[2017-04-06] MEDS: Digoxin 0.125mg tab GT SCH (09:00)
[2017-04-06] MEDS: Phenytoin Susp 100mg/4ml NG SCH (09:00)
[2017-04-06] MEDS ORDERED: NS 275ml ONE (10:13)
[2017-04-06] MEDS: Vancomycin 500 MG in D5W 110 ML IVPB SCH (11:44)
--- NOTE | 2017-04-06 13:27 | General Progress Note ---
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 3) Aspiration PNA 4) Sepsis 5) A.Fib with RVR resolved 6) Probable fecal impaction 7) Hypokalemia Plan: Will continue IV ATB's Will restart TF at 20cc/hr replete K+ Subjective Allergies: Coded Allergies: No Known Allergies (Unverified , 03/11/17) Subjective She is unresponsive on the vent, K+ is 2.7, small BM Objective Last 24 Hour Vital Signs Date Time Temp Pulse Resp B/P Pulse Ox O2 Delivery O2 Flow Rate FiO2 04/06/17 12:58 76 16 30 04/06/17 11:23 82 16 30 04/06/17 10:00 88 16 111/62 100 Mechanical Ventilator 35 04/06/17 09:00 85 16 103/59 100 Mechanical Ventilator 35 04/06/17 09:00 80 04/06/17 08:59 80 99/55 04/06/17 08:44 88 16 30 04/06/17 08:00 81 04/06/17 08:00 35 04/06/17 08:00 98.4 81 16 99/55 100 Mechanical Ventilator 35 04/06/17 07:12 80 17 35 04/06/17 07:00 80 16 94/50 100 Mechanical Ventilator 35 04/06/17 06:00 85 16 87/55 100 Mechanical Ventilator 35 04/06/17 05:20 82 16 35 04/06/17 05:00 86 16 117/58 100 Mechanical Ventilator 35 04/06/17 04:00 35 04/06/17 04:00 98.7 88 23 114/54 100 Mechanical Ventilator 35 04/06/17 04:00 90 04/06/17 03:05 87 16 35 04/06/17 03:00 84 16 106/51 100 Mechanical Ventilator 35 04/06/17 02:00 85 16 103/47 100 Mechanical Ventilator 35 04/06/17 01:05 86 16 35 04/06/17 01:00 87 18 108/53 100 Mechanical Ventilator 30 04/06/17 00:00 35 04/06/17 00:00 85 04/06/17 00:00 98.4 88 23 114/56 100 Mechanical Ventilator 30 04/05/17 23:28 92 16 100 Mechanical Ventilator 35 04/05/17 23:20 87 16 100 Mechanical Ventilator 35 04/05/17 23:20 35 04/05/17 23:20 87 16 35 04/05/17 23:00 86 16 104/54 100 Mechanical Ventilator 30 04/05/17 22:00 86 16 99/48 100 Mechanical Ventilator 30 04/05/17 21:16 87 16 35 04/05/17 21:00 87 16 100/54 100 Mechanical Ventilator 30 04/05/17 20:00 98.5 88 16 105/53 99 Mechanical Ventilator 30 04/05/17 20:00 86 04/05/17 20:00 35 04/05/17 19:20 85 16 100 Mechanical Ventilator 35 04/05/17 19:10 35 04/05/17 19:10 91 16 99 Mechanical Ventilator 35 04/05/17 19:10 91 16 35 04/05/17 19:00 85 16 92/53 100 Mechanical Ventilator 30 04/05/17 18:00 90 16 75/29 100 Mechanical Ventilator 30 04/05/17 17:15 84 16 35 04/05/17 17:00 90 26 96/53 100 Mechanical Ventilator 30 04/05/17 16:00 88 04/05/17 16:00 30 04/05/17 16:00 98.4 91 23 96/51 100 Mechanical Ventilator 30 04/05/17 15:22 93 16 100 Mechanical Ventilator 35 04/05/17 15:21 35 04/05/17 15:05 90 16 100 Mechanical Ventilator 35 04/05/17 15:05 90 16 35 04/05/17 15:00 91 20 97/54 96 Mechanical Ventilator 30 04/05/17 14:00 99 22 101/48 96 Mechanical Ventilator 30 Intake and Output 04/05/17 04/06/17 19:00 07:00 Intake Total 532.50 ml 1153.5 ml Output Total 245 ml 135 ml Balance 287.50 ml 1018.5 ml IV Total 532.50 ml 1153.5 ml Output Urine Total 245 ml 135 ml # Bowel Movements 2 Laboratory Tests 04/06/17 04:00: White Blood Count 19.5H, Red Blood Count 3.64L, Hemoglobin 10.4L, Hematocrit 30.9L, Mean Corpuscular Volume 85, Mean Corpuscular Hemoglobin 28.6, Mean Corpuscular Hemoglobin Concent 33.7, Red Cell Distribution Width 13.4, Platelet Count 351, Mean Platelet Volume 7.0, Neutrophils (%) (Auto) , Lymphocytes (%) ( Auto) , Monocytes (%) (Auto) , Eosinophils (%) (Auto) , Basophils (%) (Auto) , Differential Total Cells Counted 100, Neutrophils % (Manual) 87H, Lymphocytes % (Manual) 6L, Monocytes % (Manual) 7, Eosinophils % (Manual) 0, Basophils % ( Manual) 0, Band Neutrophils 0, Platelet Estimate Adequate, Platelet Morphology Normal, Sodium Level 143, Potassium Level 2.7*L, Chloride Level 100, Carbon Dioxide Level 29, Anion Gap 14, Blood Urea Nitrogen 26H, Creatinine 0.9, Estimat Glomerular Filtration Rate , Glucose Level 186H, Calcium Level 8.6 04/06/17 11:30: Vancomycin Level Trough 20.8H Height (Feet): 5 Height (Inches): 3.00 Weight (Pounds): 143 General Appearance: WD/WN Neck: non-tender Cardiovascular: irregularly irregular Respiratory/Chest: lungs clear, normal breath sounds Abdomen: non tender, soft, decreased bowel sounds Edema: trace edema Neurologic: unresponsive JB SONG Apr 06, 2017 13:27
--- NOTE | 2017-04-06 16:10 | Pulmonology Progress Note ---
Assessment/Plan Assessment/Plan 1. Acute respiratory failure, resolved 2. Sepsis. 3. Pneumonia, perihilar 4. Diabetes. 5. Lactic acidosis, improved 6. Dementia and schizophrenia. 7. Hyperlipidemia. 8. Rapid atrial fibrillation, controlled s/p arrest, intubated no more seizures output low cont abx, NGT feeds cont HHN prognosis very poor suggest Bioethics re-eval situation Subjective ROS Limited/Unobtainable: Yes Allergies: Coded Allergies: No Known Allergies (Unverified , 03/11/17) Objective Last 24 Hour Vital Signs Date Time Temp Pulse Resp B/P Pulse Ox O2 Delivery O2 Flow Rate FiO2 04/06/17 16:07 30 04/06/17 16:00 78 04/06/17 16:00 98.7 69 25 106/59 100 Mechanical Ventilator 35 04/06/17 15:25 83 18 30 04/06/17 15:00 81 16 110/65 100 Mechanical Ventilator 35 04/06/17 14:00 79 16 110/58 100 Mechanical Ventilator 35 04/06/17 13:00 83 16 99/57 100 Mechanical Ventilator 35 04/06/17 12:58 76 16 30 04/06/17 12:00 98.6 82 16 106/56 100 Mechanical Ventilator 35 04/06/17 12:00 83 04/06/17 12:00 35 04/06/17 11:23 82 16 30 04/06/17 11:00 78 16 111/57 100 Mechanical Ventilator 35 04/06/17 10:00 88 16 111/62 100 Mechanical Ventilator 35 04/06/17 09:00 85 16 103/59 100 Mechanical Ventilator 35 04/06/17 09:00 80 04/06/17 08:59 80 99/55 04/06/17 08:44 88 16 30 04/06/17 08:00 81 04/06/17 08:00 35 04/06/17 08:00 98.4 81 16 99/55 100 Mechanical Ventilator 35 04/06/17 07:12 80 17 35 04/06/17 07:00 80 16 94/50 100 Mechanical Ventilator 35 04/06/17 06:00 85 16 87/55 100 Mechanical Ventilator 35 04/06/17 05:20 82 16 35 04/06/17 05:00 86 16 117/58 100 Mechanical Ventilator 35 04/06/17 04:00 35 04/06/17 04:00 98.7 88 23 114/54 100 Mechanical Ventilator 35 04/06/17 04:00 90 04/06/17 03:05 87 16 35 04/06/17 03:00 84 16 106/51 100 Mechanical Ventilator 35 04/06/17 02:00 85 16 103/47 100 Mechanical Ventilator 35 04/06/17 01:05 86 16 35 04/06/17 01:00 87 18 108/53 100 Mechanical Ventilator 30 04/06/17 00:00 35 04/06/17 00:00 85 04/06/17 00:00 98.4 88 23 114/56 100 Mechanical Ventilator 30 04/05/17 23:28 92 16 100 Mechanical Ventilator 35 04/05/17 23:20 87 16 100 Mechanical Ventilator 35 04/05/17 23:20 35 04/05/17 23:20 87 16 35 04/05/17 23:00 86 16 104/54 100 Mechanical Ventilator 30 04/05/17 22:00 86 16 99/48 100 Mechanical Ventilator 30 04/05/17 21:16 87 16 35 04/05/17 21:00 87 16 100/54 100 Mechanical Ventilator 30 04/05/17 20:00 98.5 88 16 105/53 99 Mechanical Ventilator 30 04/05/17 20:00 86 04/05/17 20:00 35 04/05/17 19:20 85 16 100 Mechanical Ventilator 35 04/05/17 19:10 35 04/05/17 19:10 91 16 99 Mechanical Ventilator 35 04/05/17 19:10 91 16 35 04/05/17 19:00 85 16 92/53 100 Mechanical Ventilator 30 04/05/17 18:00 90 16 75/29 100 Mechanical Ventilator 30 04/05/17 17:15 84 16 35 04/05/17 17:00 90 26 96/53 100 Mechanical Ventilator 30 Intake and Output 04/05/17 04/06/17 19:00 07:00 Intake Total 532.50 ml 1153.5 ml Output Total 245 ml 135 ml Balance 287.50 ml 1018.5 ml IV Total 532.50 ml 1153.5 ml Output Urine Total 245 ml 135 ml # Bowel Movements 2 Objective unresponsive, NGT, intubated, no seizures Respiratory/Chest: rhonchi Cardiovascular: normal rate Laboratory Tests 04/06/17 04:00: White Blood Count 19.5H, Red Blood Count 3.64L, Hemoglobin 10.4L, Hematocrit 30.9L, Mean Corpuscular Volume 85, Mean Corpuscular Hemoglobin 28.6, Mean Corpuscular Hemoglobin Concent 33.7, Red Cell Distribution Width 13.4, Platelet Count 351, Mean Platelet Volume 7.0, Neutrophils (%) (Auto) , Lymphocytes (%) ( Auto) , Monocytes (%) (Auto) , Eosinophils (%) (Auto) , Basophils (%) (Auto) , Differential Total Cells Counted 100, Neutrophils % (Manual) 87H, Lymphocytes % (Manual) 6L, Monocytes % (Manual) 7, Eosinophils % (Manual) 0, Basophils % ( Manual) 0, Band Neutrophils 0, Platelet Estimate Adequate, Platelet Morphology Normal, Sodium Level 143, Potassium Level 2.7*L, Chloride Level 100, Carbon Dioxide Level 29, Anion Gap 14, Blood Urea Nitrogen 26H, Creatinine 0.9, Estimat Glomerular Filtration Rate , Glucose Level 186H, Calcium Level 8.6 04/06/17 11:30: Vancomycin Level Trough 20.8H Current Medications Medications (Trade) Dose Ordered Sig/Carol Route PRN Reason Start Time Stop Time Status Last Admin Dose Admin Acetaminophen (Tylenol) 650 mg Q4H PRN NG Mild Pain/Temp > 100.5 03/31/17 20:00 04/30/17 19:59 04/03/17 12:17 Chlorhexidine Gluconate (Erin-Hex 2%) 1 applic BEDTIME TOPIC 03/31/17 21:00 04/30/17 20:59 04/05/17 20:57 Dextrose (Dextrose 50%) STAT PRN IV Hypoglycemia 04/01/17 08:00 05/01/17 07:59 Dextrose/ Electrolytes 1,000 ml @ 75 mls/hr [id number] IV 04/05/17 15:00 05/05/17 14:59 04/06/17 04:36 Digoxin (Lanoxin) 0.125 mg DAILY GT 04/01/17 09:00 05/01/17 08:59 04/05/17 08:44 Heparin Sodium (Porcine) (Heparin 5000 units/ml) 5,000 units EVERY 12 HOURS SUBQ 03/31/17 21:00 04/30/17 20:59 04/06/17 08:59 Insulin Aspart (NovoLOG) EVERY 6 HOURS SUBQ 04/01/17 00:00 05/01/17 00:00 04/06/17 11:45 Lansoprazole (Prevacid) 30 mg QHS NG 03/31/17 21:00 04/30/17 20:59 04/05/17 20:57 Lorazepam (Ativan 2mg/ml 1ml) 0.5 mg Q3H PRN IV For Anxiety 03/31/17 23:15 04/07/17 23:14 04/01/17 08:50 Metoprolol Succinate (Toprol XL) 50 mg DAILY ORAL 04/01/17 09:00 05/01/17 08:59 04/05/17 08:44 Phenytoin 300 mg 300 mg DAILY NG 04/02/17 09:00 05/02/17 08:59 04/05/17 08:45 Piperacillin Sod/ Tazobactam Sod/ Dextrose (Zosyn/D5W) 110 ml @ 27.5 mls/hr EVERY 8 HOURS IVPB 03/31/17 22:00 04/10/17 21:59 04/06/17 14:30 Vancomycin HCl 1 ea 1 ea DAILY PRN MISC Per rx protocol 04/01/17 09:00 05/01/17 08:59 Vancomycin HCl/ Dextrose (Vancomycin/D5W) 275 ml @ 183.708 mls/hr Q24H IVPB 04/07/17 10:00 04/12/17 09:59 ADWOA GARCIA Apr 06, 2017 16:10
[2017-04-06] MEDS: Dyna-Hex 2% Top Sol 8oz TOPIC SCH (20:54)
[2017-04-07] VITALS (24 sets, daily range): BP systolic 106–149; BP diastolic 48–84
[2017-04-07] MEDS: NovoLOG Insulin Flexpen SUBQ SCH ×4 (05:37→23:43)
[2017-04-07] MEDS: Piperacillin/Tazobactam 3.375 GM in D5W 110 ML IVPB SCH ×3 (05:38→21:31)
[2017-04-07] MEDS: D5 1/2NS w/KCl 20mEq 1,000 ML IV SCH ×2 (06:49→20:28)
[2017-04-07] MEDS: Phenytoin Susp 100mg/4ml NG SCH (09:07)
[2017-04-07] MEDS: Metoprolol Succinate XL 50mg tab ORAL SCH (09:07)
[2017-04-07] MEDS: Digoxin 0.125mg tab GT SCH (09:07)
[2017-04-07] MEDS: Heparin 5000 units/ml inj SUBQ SCH ×2 (09:13→20:31)
[2017-04-07] MEDS ORDERED: Vancomycin 1gm/D5W 275ml IVPB SCH ×2 (10:00)
--- NOTE | 2017-04-07 13:15 | Pulmonology Progress Note ---
Assessment/Plan Assessment/Plan 1. Acute respiratory failure, resolved 2. Sepsis. 3. Pneumonia, perihilar 4. Diabetes. 5. Lactic acidosis, improved 6. Dementia and schizophrenia. 7. Hyperlipidemia. 8. Rapid atrial fibrillation, controlled s/p arrest, intubated WBC 19 dc vanco CXR w retrocardiac infiltrate, reviewed film no seizures output ok cont abx, resume NGT feeds cont HHN prognosis very poor Bioethics re-eval requested Subjective ROS Limited/Unobtainable: Yes Allergies: Coded Allergies: No Known Allergies (Unverified , 03/11/17) Objective Last 24 Hour Vital Signs Date Time Temp Pulse Resp B/P Pulse Ox O2 Delivery O2 Flow Rate FiO2 04/07/17 12:53 76 16 30 04/07/17 12:00 78 04/07/17 12:00 30 04/07/17 12:00 97.6 76 16 133/82 100 Mechanical Ventilator 30 04/07/17 11:00 77 16 130/67 100 Mechanical Ventilator 30 04/07/17 10:56 78 16 30 04/07/17 10:00 80 16 132/77 100 Mechanical Ventilator 30 04/07/17 09:25 76 16 30 04/07/17 09:07 78 127/73 04/07/17 09:07 76 04/07/17 09:00 80 16 127/73 100 Mechanical Ventilator 30 04/07/17 08:00 97.8 84 17 123/71 100 Mechanical Ventilator 30 04/07/17 08:00 30 04/07/17 08:00 85 04/07/17 07:10 91 17 30 04/07/17 07:00 83 18 130/73 100 Mechanical Ventilator 30 04/07/17 06:00 78 18 137/78 100 Mechanical Ventilator 30 04/07/17 05:01 82 20 30 04/07/17 05:00 77 19 127/57 100 Mechanical Ventilator 30 04/07/17 04:00 98.7 87 18 128/60 100 Mechanical Ventilator 30 04/07/17 04:00 30 04/07/17 04:00 83 04/07/17 03:30 81 16 30 04/07/17 03:00 81 19 109/64 100 Mechanical Ventilator 30 04/07/17 02:00 83 19 108/59 100 Mechanical Ventilator 30 04/07/17 01:30 81 17 30 04/07/17 01:00 80 16 113/59 100 Mechanical Ventilator 30 04/07/17 00:00 30 04/07/17 00:00 87 04/07/17 00:00 98.0 77 16 106/51 100 Mechanical Ventilator 30 04/06/17 23:25 79 16 30 04/06/17 23:00 86 16 107/56 100 Mechanical Ventilator 30 04/06/17 22:00 86 16 91/53 100 Mechanical Ventilator 30 04/06/17 21:00 88 16 94/53 100 Mechanical Ventilator 30 04/06/17 20:47 87 17 30 04/06/17 20:00 93 04/06/17 20:00 30 04/06/17 20:00 98.7 81 16 92/51 100 Mechanical Ventilator 30 04/06/17 19:30 80 17 30 04/06/17 19:00 82 16 93/49 100 Mechanical Ventilator 35 04/06/17 18:00 81 20 98/47 100 Mechanical Ventilator 35 04/06/17 17:14 79 18 30 04/06/17 17:00 82 16 94/45 100 Mechanical Ventilator 35 04/06/17 16:07 30 04/06/17 16:00 78 04/06/17 16:00 98.7 69 25 106/59 100 Mechanical Ventilator 35 04/06/17 15:25 83 18 30 04/06/17 15:00 81 16 110/65 100 Mechanical Ventilator 35 04/06/17 14:00 79 16 110/58 100 Mechanical Ventilator 35 Intake and Output 04/06/17 04/07/17 19:00 07:00 Intake Total 1017.5 ml 967.5 ml Output Total 60 ml 215 ml Balance 957.5 ml 752.5 ml IV Total 1017.5 ml 967.5 ml Output Urine Total 60 ml 215 ml # Bowel Movements 5 Objective unresponsive, NGT, intubated, no seizures General Appearance: no acute distress Respiratory/Chest: lungs clear Cardiovascular: normal rate Abdomen: soft, non tender Current Medications Medications (Trade) Dose Ordered Sig/Carol Route PRN Reason Start Time Stop Time Status Last Admin Dose Admin Acetaminophen (Tylenol) 650 mg Q4H PRN NG Mild Pain/Temp > 100.5 03/31/17 20:00 04/30/17 19:59 04/03/17 12:17 Chlorhexidine Gluconate (Erin-Hex 2%) 1 applic BEDTIME TOPIC 03/31/17 21:00 04/30/17 20:59 04/06/17 20:54 Dextrose (Dextrose 50%) STAT PRN IV Hypoglycemia 04/01/17 08:00 05/01/17 07:59 Dextrose/ Electrolytes (D5 0.45%NS W/ KCl 20mEq) 1,000 ml @ 75 mls/hr [id number] IV 04/05/17 15:00 05/05/17 14:59 04/07/17 06:49 Digoxin (Lanoxin) 0.125 mg DAILY GT 04/01/17 09:00 05/01/17 08:59 04/07/17 09:07 Heparin Sodium (Porcine) (Heparin 5000 units/ml) 5,000 units EVERY 12 HOURS SUBQ 03/31/17 21:00 04/30/17 20:59 04/07/17 09:13 Insulin Aspart (NovoLOG) EVERY 6 HOURS SUBQ 04/01/17 00:00 05/01/17 00:00 04/07/17 11:45 Lansoprazole (Prevacid) 30 mg QHS NG 03/31/17 21:00 04/30/17 20:59 04/06/17 20:53 Lorazepam (Ativan 2mg/ml 1ml) 0.5 mg Q3H PRN IV For Anxiety 03/31/17 23:15 04/07/17 23:14 04/01/17 08:50 Metoprolol Succinate 50 mg 50 mg DAILY ORAL 04/01/17 09:00 05/01/17 08:59 04/07/17 09:07 Phenytoin 300 mg 300 mg DAILY NG 04/02/17 09:00 05/02/17 08:59 04/07/17 09:07 Piperacillin Sod/ Tazobactam Sod/ Dextrose (Zosyn/D5W) 110 ml @ 27.5 mls/hr EVERY 8 HOURS IVPB 03/31/17 22:00 04/10/17 21:59 04/07/17 05:38 ADWOA GARCIA Apr 07, 2017 13:15
--- NOTE | 2017-04-07 13:27 | General Progress Note ---
Assessment/Plan Problem List: (1) Hepatitis C ICD Codes: B19.20 - Unspecified viral hepatitis C without hepatic coma SNOMED: 95733289 (2) CHF (congestive heart failure), NYHA class II ICD Codes: I50.9 - Heart failure, unspecified SNOMED: 809978801, 689431414 (3) Atrial fibrillation with rapid ventricular response ICD Codes: I48.91 - Unspecified atrial fibrillation SNOMED: 809079751007360 (4) Healthcare-associated pneumonia ICD Codes: J18.9 - Pneumonia, unspecified organism SNOMED: 609745678 (5) Respiratory failure ICD Codes: J96.90 - Respiratory failure, unspecified, unspecified whether with hypoxia or hypercapnia SNOMED: 461111626 (6) Altered level of consciousness ICD Codes: R40.4 - Transient alteration of awareness SNOMED: 3036914 (7) MRSA (methicillin resistant staph aureus) culture positive ICD Codes: Z22.322 - Carrier or suspected carrier of Methicillin resistant Staphylococcus aureus SNOMED: 986847948 (8) Anoxic brain damage ICD Codes: G93.1 - Anoxic brain damage, not elsewhere classified SNOMED: 491406972 (9) Seizure disorder ICD Codes: G40.909 - Epilepsy, unspecified, not intractable, without status epilepticus SNOMED: 388495835 Assessment/Plan s/p re intubation all orders reviewed,, needs frequent suctioning, failed swallow eval, ngt feed to restart , remains high risk reculture sputum, pseudomonas add zosyn, dilantin for seizures, gravely ill with poor prognosis, icu time 35 min bioethics reevaluation Subjective ROS Limited/Unobtainable: Yes Allergies: Coded Allergies: No Known Allergies (Unverified , 03/11/17) Subjective unresponsive post arrest, had seizures Objective Last 24 Hour Vital Signs Date Time Temp Pulse Resp B/P Pulse Ox O2 Delivery O2 Flow Rate FiO2 04/07/17 13:00 85 16 136/60 100 Mechanical Ventilator 30 04/07/17 12:53 76 16 30 04/07/17 12:00 78 04/07/17 12:00 30 04/07/17 12:00 97.6 76 16 133/82 100 Mechanical Ventilator 30 04/07/17 11:00 77 16 130/67 100 Mechanical Ventilator 30 04/07/17 10:56 78 16 30 04/07/17 10:00 80 16 132/77 100 Mechanical Ventilator 30 04/07/17 09:25 76 16 30 04/07/17 09:07 78 127/73 04/07/17 09:07 76 04/07/17 09:00 80 16 127/73 100 Mechanical Ventilator 30 04/07/17 08:00 97.8 84 17 123/71 100 Mechanical Ventilator 30 04/07/17 08:00 30 04/07/17 08:00 85 04/07/17 07:10 91 17 30 04/07/17 07:00 83 18 130/73 100 Mechanical Ventilator 30 04/07/17 06:00 78 18 137/78 100 Mechanical Ventilator 30 04/07/17 05:01 82 20 30 04/07/17 05:00 77 19 127/57 100 Mechanical Ventilator 30 04/07/17 04:00 98.7 87 18 128/60 100 Mechanical Ventilator 30 04/07/17 04:00 30 04/07/17 04:00 83 04/07/17 03:30 81 16 30 04/07/17 03:00 81 19 109/64 100 Mechanical Ventilator 30 04/07/17 02:00 83 19 108/59 100 Mechanical Ventilator 30 04/07/17 01:30 81 17 30 04/07/17 01:00 80 16 113/59 100 Mechanical Ventilator 30 04/07/17 00:00 30 04/07/17 00:00 87 04/07/17 00:00 98.0 77 16 106/51 100 Mechanical Ventilator 30 04/06/17 23:25 79 16 30 04/06/17 23:00 86 16 107/56 100 Mechanical Ventilator 30 04/06/17 22:00 86 16 91/53 100 Mechanical Ventilator 30 04/06/17 21:00 88 16 94/53 100 Mechanical Ventilator 30 04/06/17 20:47 87 17 30 04/06/17 20:00 93 04/06/17 20:00 30 04/06/17 20:00 98.7 81 16 92/51 100 Mechanical Ventilator 30 04/06/17 19:30 80 17 30 04/06/17 19:00 82 16 93/49 100 Mechanical Ventilator 35 04/06/17 18:00 81 20 98/47 100 Mechanical Ventilator 35 04/06/17 17:14 79 18 30 04/06/17 17:00 82 16 94/45 100 Mechanical Ventilator 35 04/06/17 16:07 30 04/06/17 16:00 78 04/06/17 16:00 98.7 69 25 106/59 100 Mechanical Ventilator 35 04/06/17 15:25 83 18 30 04/06/17 15:00 81 16 110/65 100 Mechanical Ventilator 35 04/06/17 14:00 79 16 110/58 100 Mechanical Ventilator 35 Intake and Output 04/06/17 04/07/17 19:00 07:00 Intake Total 1017.5 ml 967.5 ml Output Total 60 ml 215 ml Balance 957.5 ml 752.5 ml IV Total 1017.5 ml 967.5 ml Output Urine Total 60 ml 215 ml # Bowel Movements 5 Height (Feet): 5 Height (Inches): 3.00 Weight (Pounds): 138 General Appearance: other - unresponsive EENT: other - intubated Neck: normal alignment Cardiovascular: regularly irregular Respiratory/Chest: rhonchi - bilaterally Abdomen: non tender, soft Edema: trace edema Neurologic: other - deep coma, no response to sternal rub, absent dolls DANNY Ramos Apr 07, 2017 13:27
--- NOTE | 2017-04-07 15:06 | Neurology Progress Note ---
Interim History Interim History ROS Limited/Unobtainable: Yes Objective Physical Exam Last Vital Signs Date Time Temp Pulse Resp B/P Pulse Ox O2 Delivery O2 Flow Rate FiO2 04/07/17 14:00 86 16 138/78 100 Mechanical Ventilator 30 04/07/17 12:00 97.6 03/31/17 16:00 2.0 Impression/Recommendations Recommendations #[id number] futile care. check EEG r/o sz activity GIACOMO LAMAR Apr 07, 2017 15:06
[2017-04-07] MEDS: Dyna-Hex 2% Top Sol 8oz TOPIC SCH (20:30)
--- NOTE | 2017-04-07 21:15 | Consultation ---
DATE OF CONSULTATION: 04/07/2017 NEUROLOGICAL CONSULTATION CONSULTING PHYSICIAN: Blake Barragan M.D. REQUESTING PHYSICIAN: Colten Fuentes M.D. HISTORY OF PRESENT ILLNESS: The patient is a 76-year-old female, seen in neurological consultation to evaluate persistent unresponsiveness. According to medical records, the patient was brought from a nursing facility with low-grade fevers, heart rate of 144, atrial fibrillation, acute respiratory failure, and sepsis. CBC studies with WBC 29,000. Blood gas revealed presence of metabolic acidosis and pCO2 of 31. CBC studies with BUN of 34 and creatinine 1.2. Elevated lactic acid 4.7. Blood sugar is 235. The patient was started on IV fluids and antibiotics. She was intubated at the emergency room. She continued weaning procedures, was taken off respirator on 03/27/2017, described being with excessive secretions and required frequent suctioning. NG tube was placed and a PEG was recommended. The patient developed additional full arrest, resuscitated, again reintubated, and noted to have paroxysmal seizure like activities, loaded with Dilantin. She remained nonresponsive. No further seizure activities noted. Continued with rapid atrial fibrillation, but now controlled. She continued to display signs of deterioration, becoming unresponsive, decerebrating, and not responding on suctioning. Due to progression of neurological deterioration with persistent unresponsiveness, neuro consult was requested. Her latest laboratory work included a CBC study with WBC of 19.5. Normal coagulation. Urinalysis, Dilantin level 5.1. Chemistry panel with potassium down to 2.7, BUN remained 26, blood sugar 186, albumin 3.0, and BNP 5055. Normal TSH. PAST MEDICAL HISTORY: History of dementia, history of schizophrenia, paroxysmal atrial fibrillation, hypertension, diabetes type 2, hepatitis C, and hyperlipidemia. MEDICATIONS: Current treatment remain with IV fluids, antibiotics, 300 mg of Dilantin daily, metoprolol, and Prevacid. Treatment prior to admission included also Zyprexa, Coumadin, metformin, Digoxin, and Lasix. ALLERGIES: None reported FAMILY HISTORY: Noncontributory. SOCIAL HISTORY: Resident of a nursing facility. REVIEW OF SYSTEMS: Unable to obtain due to the patient's status. PHYSICAL EXAMINATION: GENERAL: This is a well-developed, but ill-appearing elderly female, now intubated, lying motionless. VITAL SIGNS: Stable. Blood pressure 138/78 and pulse oximetry 100% on mechanical ventilator. The patient is slightly over breathing vent. MENTAL STATUS: Unresponsive to pain or voice. CRANIAL NERVE II: Pupils 3 mm, unresponsive to light with up gaze preference. Negative Doll maneuver. CRANIAL NERVE V: Absent corneal responses. CRANIAL NERVE VII: No facial movement. CRANIAL NERVE VIII: Not able to test. Not responding to loud voice. CRANIAL NERVES IX THROUGH XII: Absent gag response. MOTOR EXAMINATION: Flaccid in all extremities, but on vigorous stimulation and sternal rub, the patient responded with slight decerebration. Deep tendon reflexes absent in biceps, triceps, brachioradialis, and knee and ankle jerks. Plantar responses mute. SENSORY EXAM: No response to pin stimulation. IMPRESSION: 1. This is a 76-year-old female, status post recurrent full arrest, now presenting with a severe anoxic encephalopathy. 2. Post anoxic seizure activity, now controlled. 3. Respiratory failure. DISCUSSION: The patient sustained second episode of full arrest requiring re-intubation on 03/31/2017. The patient presents with signs of severe global brain abnormality with criteria's close to brain . In presence of severity of anoxic brain damage, in the setting of multisystem failure, the patient's prognosis is now grim and futile regarding additional medical efforts. We will obtain electroencephalogram to rule out ongoing seizure activities, which could contribute to her mental status changes. Meanwhile, the patient will continue with supportive care as per attending and maintain Dilantin 400 mg daily. The patient to be reassessed upon completion of EEG. Blake Barragan M.D. DR: [place] JOB#: [id number] CC:
[2017-04-08] VITALS (24 sets, daily range): BP systolic 113–144; BP diastolic 48–74
[2017-04-08] MEDS: NovoLOG Insulin Flexpen SUBQ SCH ×4 (05:32→23:59)
[2017-04-08] MEDS: Piperacillin/Tazobactam 3.375 GM in D5W 110 ML IVPB SCH ×3 (05:41→21:33)
--- NOTE | 2017-04-08 08:39 | Pulmonology Progress Note ---
Assessment/Plan Assessment/Plan 1. Acute respiratory failure, resolved 2. Sepsis. 3. Pneumonia, perihilar 4. Diabetes. 5. Lactic acidosis, improved 6. Dementia and schizophrenia. 7. Hyperlipidemia. 8. Rapid atrial fibrillation, controlled s/p arrest, intubated has spontaneous respirations so NOT brain no labs no seizures; reviewed neuro notes cont abx, NG feeds cont HHN prognosis very poor Bioethics re-eval pending Subjective ROS Limited/Unobtainable: Yes Allergies: Coded Allergies: No Known Allergies (Unverified , 03/11/17) Objective Last 24 Hour Vital Signs Date Time Temp Pulse Resp B/P (MAP) Pulse Ox O2 Delivery O2 Flow Rate FiO2 04/08/17 08:00 30 04/08/17 08:00 97.5 89 16 133/72 100 Mechanical Ventilator 30 04/08/17 07:27 87 19 30 04/08/17 07:00 82 16 124/65 100 Mechanical Ventilator 30 04/08/17 06:00 88 18 132/54 100 Mechanical Ventilator 30 04/08/17 05:20 80 16 30 04/08/17 05:00 85 16 131/72 100 Mechanical Ventilator 30 04/08/17 04:00 97.6 83 16 133/74 100 Mechanical Ventilator 30 04/08/17 04:00 83 04/08/17 04:00 30 04/08/17 03:00 82 17 137/67 100 Mechanical Ventilator 30 04/08/17 02:31 87 21 30 04/08/17 02:00 82 17 138/69 100 Mechanical Ventilator 30 04/08/17 01:30 81 17 30 04/08/17 01:00 77 17 123/69 100 Mechanical Ventilator 30 04/08/17 00:00 81 04/08/17 00:00 30 04/08/17 00:00 97.8 78 16 128/73 100 Mechanical Ventilator 30 04/07/17 23:30 85 17 30 04/07/17 23:00 88 18 133/66 100 Mechanical Ventilator 30 04/07/17 22:00 87 18 126/64 100 Mechanical Ventilator 30 04/07/17 21:30 86 16 30 04/07/17 21:00 95 18 129/48 100 Mechanical Ventilator 30 04/07/17 20:00 97.6 81 16 137/70 100 Mechanical Ventilator 30 04/07/17 20:00 81 04/07/17 20:00 30 04/07/17 19:30 84 19 30 04/07/17 19:00 80 16 135/74 100 Mechanical Ventilator 30 04/07/17 18:00 84 16 128/67 100 Mechanical Ventilator 30 04/07/17 17:16 90 16 30 04/07/17 17:00 88 16 149/84 100 Mechanical Ventilator 30 04/07/17 16:00 97.6 83 16 130/72 100 Mechanical Ventilator 30 04/07/17 16:00 30 04/07/17 16:00 85 04/07/17 15:27 84 16 30 04/07/17 15:00 81 16 139/72 100 Mechanical Ventilator 30 04/07/17 14:00 86 16 138/78 100 Mechanical Ventilator 30 04/07/17 13:00 85 16 136/60 100 Mechanical Ventilator 30 04/07/17 12:53 76 16 30 04/07/17 12:00 78 04/07/17 12:00 30 04/07/17 12:00 97.6 76 16 133/82 100 Mechanical Ventilator 30 04/07/17 11:00 77 16 130/67 100 Mechanical Ventilator 30 04/07/17 10:56 78 16 30 04/07/17 10:00 80 16 132/77 100 Mechanical Ventilator 30 04/07/17 09:25 76 16 30 04/07/17 09:07 78 127/73 04/07/17 09:07 76 04/07/17 09:00 80 16 127/73 100 Mechanical Ventilator 30 Intake and Output 04/08/17 04/09/17 19:00 07:00 Intake Total 152.5 ml Output Total 30 ml Balance 122.5 ml Free Water 30 ml IV Total 102.5 ml Tube Feeding 20 ml Output Urine Total 30 ml Objective unresponsive, NGT, intubated, no seizures HEENT: atraumatic Respiratory/Chest: lungs clear Cardiovascular: normal rate Current Medications Medications (Trade) Dose Ordered Sig/Carol Route PRN Reason Start Time Stop Time Status Last Admin Dose Admin Acetaminophen (Tylenol) 650 mg Q4H PRN NG Mild Pain/Temp > 100.5 03/31/17 20:00 04/30/17 19:59 04/03/17 12:17 Chlorhexidine Gluconate (Erin-Hex 2%) 1 applic BEDTIME TOPIC 03/31/17 21:00 04/30/17 20:59 04/07/17 20:30 Dextrose (Dextrose 50%) STAT PRN IV Hypoglycemia 04/01/17 08:00 05/01/17 07:59 Dextrose/ Electrolytes 1,000 ml @ 75 mls/hr [id number] IV 04/05/17 15:00 05/05/17 14:59 04/07/17 20:28 Digoxin (Lanoxin) 0.125 mg DAILY GT 04/01/17 09:00 05/01/17 08:59 04/07/17 09:07 Heparin Sodium (Porcine) (Heparin 5000 units/ml) 5,000 units EVERY 12 HOURS SUBQ 03/31/17 21:00 04/30/17 20:59 04/07/17 20:31 Insulin Aspart (NovoLOG) EVERY 6 HOURS SUBQ 04/01/17 00:00 05/01/17 00:00 04/08/17 05:32 Lansoprazole (Prevacid) 30 mg QHS NG 03/31/17 21:00 04/30/17 20:59 04/07/17 20:30 Metoprolol Succinate (Toprol XL) 50 mg DAILY ORAL 04/01/17 09:00 05/01/17 08:59 04/07/17 09:07 Phenytoin (Dilantin) 400 mg DAILY NG 04/08/17 09:00 05/08/17 08:59 Piperacillin Sod/ Tazobactam Sod 3.375 gm/Dextrose 110 ml @ 27.5 mls/hr EVERY 8 HOURS IVPB 03/31/17 22:00 04/10/17 21:59 04/08/17 05:41 ADWOA GARCIA Apr 08, 2017 08:39
--- NOTE | 2017-04-08 09:03 | General Progress Note ---
Assessment/Plan Problem List: (1) Hepatitis C ICD Codes: B19.20 - Unspecified viral hepatitis C without hepatic coma SNOMED: 22017613 (2) CHF (congestive heart failure), NYHA class II ICD Codes: I50.9 - Heart failure, unspecified SNOMED: 098852462, 231309368 (3) Atrial fibrillation with rapid ventricular response ICD Codes: I48.91 - Unspecified atrial fibrillation SNOMED: 587055971545387 (4) Healthcare-associated pneumonia ICD Codes: J18.9 - Pneumonia, unspecified organism SNOMED: 973879082 (5) Respiratory failure ICD Codes: J96.90 - Respiratory failure, unspecified, unspecified whether with hypoxia or hypercapnia SNOMED: 513319356 (6) Altered level of consciousness ICD Codes: R40.4 - Transient alteration of awareness SNOMED: 2972873 (7) MRSA (methicillin resistant staph aureus) culture positive ICD Codes: Z22.322 - Carrier or suspected carrier of Methicillin resistant Staphylococcus aureus SNOMED: 624536282 (8) Anoxic brain damage ICD Codes: G93.1 - Anoxic brain damage, not elsewhere classified SNOMED: 071407212 (9) Seizure disorder ICD Codes: G40.909 - Epilepsy, unspecified, not intractable, without status epilepticus SNOMED: 979690420 Assessment/Plan s/p re intubation all orders reviewed,, needs frequent suctioning, failed swallow eval, ngt feed to restart , remains high risk reculture sputum, pseudomonas add zosyn, dilantin for seizures, gravely ill with poor prognosis, icu time 35 min bioethics reevaluation Subjective ROS Limited/Unobtainable: Yes Allergies: Coded Allergies: No Known Allergies (Unverified , 03/11/17) Subjective unresponsive post arrest, had seizures Objective Last 24 Hour Vital Signs Date Time Temp Pulse Resp B/P (MAP) Pulse Ox O2 Delivery O2 Flow Rate FiO2 04/08/17 08:00 84 04/08/17 08:00 30 04/08/17 08:00 97.5 89 16 133/72 100 Mechanical Ventilator 30 04/08/17 07:27 87 19 30 04/08/17 07:00 82 16 124/65 100 Mechanical Ventilator 30 04/08/17 06:00 88 18 132/54 100 Mechanical Ventilator 30 04/08/17 05:20 80 16 30 04/08/17 05:00 85 16 131/72 100 Mechanical Ventilator 30 04/08/17 04:00 97.6 83 16 133/74 100 Mechanical Ventilator 30 04/08/17 04:00 83 04/08/17 04:00 30 04/08/17 03:00 82 17 137/67 100 Mechanical Ventilator 30 04/08/17 02:31 87 21 30 04/08/17 02:00 82 17 138/69 100 Mechanical Ventilator 30 04/08/17 01:30 81 17 30 04/08/17 01:00 77 17 123/69 100 Mechanical Ventilator 30 04/08/17 00:00 81 04/08/17 00:00 30 04/08/17 00:00 97.8 78 16 128/73 100 Mechanical Ventilator 30 04/07/17 23:30 85 17 30 04/07/17 23:00 88 18 133/66 100 Mechanical Ventilator 30 04/07/17 22:00 87 18 126/64 100 Mechanical Ventilator 30 04/07/17 21:30 86 16 30 04/07/17 21:00 95 18 129/48 100 Mechanical Ventilator 30 04/07/17 20:00 97.6 81 16 137/70 100 Mechanical Ventilator 30 04/07/17 20:00 81 04/07/17 20:00 30 04/07/17 19:30 84 19 30 04/07/17 19:00 80 16 135/74 100 Mechanical Ventilator 30 04/07/17 18:00 84 16 128/67 100 Mechanical Ventilator 30 04/07/17 17:16 90 16 30 04/07/17 17:00 88 16 149/84 100 Mechanical Ventilator 30 04/07/17 16:00 97.6 83 16 130/72 100 Mechanical Ventilator 30 04/07/17 16:00 30 04/07/17 16:00 85 04/07/17 15:27 84 16 30 04/07/17 15:00 81 16 139/72 100 Mechanical Ventilator 30 04/07/17 14:00 86 16 138/78 100 Mechanical Ventilator 30 04/07/17 13:00 85 16 136/60 100 Mechanical Ventilator 30 04/07/17 12:53 76 16 30 04/07/17 12:00 78 04/07/17 12:00 30 04/07/17 12:00 97.6 76 16 133/82 100 Mechanical Ventilator 30 04/07/17 11:00 77 16 130/67 100 Mechanical Ventilator 30 04/07/17 10:56 78 16 30 04/07/17 10:00 80 16 132/77 100 Mechanical Ventilator 30 04/07/17 09:25 76 16 30 04/07/17 09:07 78 127/73 04/07/17 09:07 76 Intake and Output 04/08/17 04/09/17 19:00 07:00 Intake Total 152.5 ml Output Total 30 ml Balance 122.5 ml Free Water 30 ml IV Total 102.5 ml Tube Feeding 20 ml Output Urine Total 30 ml Height (Feet): 5 Height (Inches): 3.00 Weight (Pounds): 150 General Appearance: other - intubated Neck: normal alignment Cardiovascular: regularly irregular Abdomen: non tender Edema: trace edema Neurologic: other - coma, absent dolls eyes andd corneal, no response to sternal rub DANNY MAYEN Apr 08, 2017 09:03
[2017-04-08] MEDS: D5 1/2NS w/KCl 20mEq 1,000 ML IV SCH ×2 (09:11→22:23)
[2017-04-08] MEDS: Metoprolol Succinate XL 50mg tab ORAL SCH (09:11)
[2017-04-08] MEDS: Digoxin 0.125mg tab GT SCH (09:11)
[2017-04-08] MEDS: Phenytoin Susp 100mg/4ml NG SCH (09:11)
[2017-04-08] MEDS: Heparin 5000 units/ml inj SUBQ SCH ×2 (09:18→21:34)
--- NOTE | 2017-04-08 12:27 | Consultation ---
Consult Note Assessment/Plan Pt seen in Bioethics follow/up. Chart reviewed, patient examined by me today. In brief, critically ill patient with no known family has a POLST asking aggressive care. She was seen by Dr. Burleson in bioethics consult last week. At that time it was not completely clear that care was futile, however she subsequently has had an arrest and consequent anoxic brain injury. She was seen in neurology consultation by Dr. Barragan who ordered an EEG. This showed very low voltage generalized slowing consistent with irreversible brain damage. Further care, therefore, is futile and the POLST is made moot. DNR status is reasonable at this time. Dr. Burleson will return to the office Thursday and we will be available for further consultation as needed. LILIAN DING Apr 08, 2017 12:27
[2017-04-08] MEDS ORDERED: NS 275ml ONE (16:23)
[2017-04-08] MEDS: Dyna-Hex 2% Top Sol 8oz TOPIC SCH (21:32)
[2017-04-09] VITALS (24 sets, daily range): BP systolic 111–147; BP diastolic 47–69
[2017-04-09] MEDS: Piperacillin/Tazobactam 3.375 GM in D5W 110 ML IVPB SCH (05:49)
[2017-04-09] MEDS: NovoLOG Insulin Flexpen SUBQ SCH ×2 (05:50→12:14)
--- NOTE | 2017-04-09 07:15 | Electroencephalogram ---
ELECTROENCEPHALOGRAPHY REPORT REQUESTING PHYSICIAN: Colten Fuentes M.D. HISTORY: The patient is a 76 years old female, who remained unresponsive following a full arrest, episodes of generalized seizure noted soon after the arrest. TECHNIQUE: EEG was done using 18 electrodes placed scalp to scalp, scalp to ear montages according to 10/20 International System. Current treatment includes Keppra and 00:47. Throughout the recording, background activity consisted of very low voltage 2-10 millivolt activities poorly identifiable consisting of a mixture of 2 to 3 per second slowing with a fast low voltage beta activities. Throughout the recording, significant amount of EMG artifacts were noted. There was no 01:54 asymmetry. No spike or wave activities noted. IMPRESSION: Markedly abnormal EEG, severe diffuse slowing and very low amplitude activities. COMMENT: Above abnormality indicates there is severe cerebral global dysfunction consistent with a history of anoxic encephalopathy. Finding of nonreactivity with very low voltage carries a poor prognosis. Blake Barragan M.D. DR: BOBY JOB#: [id number] CC:
[2017-04-09] MEDS: Phenytoin Susp 100mg/4ml NG SCH (09:41)
[2017-04-09] MEDS: Digoxin 0.125mg tab GT SCH (09:41)
[2017-04-09] MEDS: Heparin 5000 units/ml inj SUBQ SCH (09:42)
[2017-04-09] MEDS: D5 1/2NS w/KCl 20mEq 1,000 ML IV SCH (12:08)
[2017-04-09] MEDS: Morphine Sulfate 2mg/ml Inj IVP PRN ×4 (13:19→18:31)
[2017-04-09] MEDS ORDERED: Tubing IV Secondary IV ONE (13:49)
--- NOTE | 2017-04-09 17:17 | Pulmonology Progress Note ---
Assessment/Plan Assessment/Plan 1. Acute respiratory failure, resolved 2. Sepsis. 3. Pneumonia, perihilar 4. Diabetes. 5. Lactic acidosis, improved 6. Dementia and schizophrenia. 7. Hyperlipidemia. 8. Rapid atrial fibrillation, controlled s/p arrest, anoxic encephalopathy extubated er Dr Espinoza and Dr Benson no labs or meds comfort care only, morphine q1h prn prognosis terminal Subjective ROS Limited/Unobtainable: Yes Allergies: Coded Allergies: No Known Allergies (Unverified , 03/11/17) Objective Last 24 Hour Vital Signs Date Time Temp Pulse Resp B/P (MAP) Pulse Ox O2 Delivery O2 Flow Rate FiO2 04/09/17 16:00 98.1 101 16 120/58 98 Room Air 04/09/17 16:00 99 04/09/17 15:00 94 20 119/57 98 Room Air 04/09/17 14:00 92 26 124/57 99 Room Air 04/09/17 13:00 93 20 135/59 99 Room Air 04/09/17 12:58 Room Air 04/09/17 12:45 98 18 30 04/09/17 12:00 92 04/09/17 12:00 30 04/09/17 12:00 98.2 101 16 127/63 100 Mechanical Ventilator 30 04/09/17 11:26 97 16 30 04/09/17 11:00 90 16 120/59 100 Mechanical Ventilator 30 04/09/17 10:00 96 16 133/56 100 Mechanical Ventilator 30 04/09/17 09:41 92 04/09/17 09:08 85 16 30 04/09/17 09:00 95 16 138/64 100 Mechanical Ventilator 30 04/09/17 08:00 85 04/09/17 08:00 30 04/09/17 08:00 98.1 88 16 137/66 100 Mechanical Ventilator 30 04/09/17 07:00 90 17 117/61 100 Mechanical Ventilator 30 04/09/17 06:57 88 16 30 04/09/17 06:00 97.6 88 17 112/61 100 Mechanical Ventilator 30 04/09/17 05:25 87 16 30 04/09/17 05:00 88 17 132/59 100 Mechanical Ventilator 30 04/09/17 04:00 30 04/09/17 04:00 97.4 88 16 119/53 100 Mechanical Ventilator 30 04/09/17 04:00 88 8/24/17 03:19 87 16 30 04/09/17 03:00 88 16 113/54 100 Mechanical Ventilator 30 04/09/17 02:00 93 16 111/53 100 Mechanical Ventilator 30 04/09/17 01:00 86 17 119/59 100 Mechanical Ventilator 30 04/09/17 00:55 82 17 30 04/09/17 00:00 88 04/09/17 00:00 98.0 88 16 122/68 100 Mechanical Ventilator 30 04/09/17 00:00 30 04/08/17 23:09 88 16 30 04/08/17 23:00 89 17 132/66 100 Mechanical Ventilator 30 04/08/17 22:00 88 17 125/65 100 Mechanical Ventilator 30 04/08/17 21:14 87 16 30 04/08/17 21:00 91 16 130/67 100 Mechanical Ventilator 30 04/08/17 20:00 99 04/08/17 20:00 98.1 94 17 123/59 100 Mechanical Ventilator 30 04/08/17 20:00 30 04/08/17 19:20 99 18 30 04/08/17 19:00 82 16 120/48 100 Mechanical Ventilator 30 04/08/17 18:00 84 16 120/61 100 Mechanical Ventilator 30 Intake and Output 04/09/17 04/10/17 19:00 07:00 Intake Total 450 ml Output Total 680 ml Balance -230 ml IV Total 300 ml Tube Feeding 150 ml Output Urine Total 680 ml # Bowel Movements 1 Objective unresponsive, NGT, intubated, no seizures General Appearance: no acute distress Respiratory/Chest: rhonchi Cardiovascular: normal rate, irregularly irregular Current Medications Medications (Trade) Dose Ordered Sig/Carol Route PRN Reason Start Time Stop Time Status Last Admin Dose Admin Acetaminophen (Tylenol) 650 mg Q4H PRN NG Mild Pain/Temp > 100.5 03/31/17 20:00 04/30/17 19:59 04/03/17 12:17 Morphine Sulfate (Morphine Sulfate) 2 mg Q1H PRN IVP For Pain 04/09/17 13:15 04/16/17 13:14 04/09/17 15:55 ADWOA GARCIA Apr 09, 2017 17:17
[2017-04-09] MEDS ORDERED: Morphine Sulfate 2mg/ml Inj IVP PRN (22:15)
[2017-04-10] MEDS ORDERED: Acetaminophen 650mg/20.3ml NG PRN
[2017-04-10 01:09] VITALS: BP 130/72
[2017-04-10 04:23] VITALS: BP 117/73
[2017-04-10 08:06] VITALS: BP 145/84
[2017-04-10 12:00] VITALS: BP 150/91
--- NOTE | 2017-04-10 14:04 | Pulmonology Progress Note ---
Assessment/Plan Assessment/Plan 1. Acute respiratory failure 2. Sepsis. 3. Pneumonia, perihilar 4. Diabetes. 5. Lactic acidosis, improved 6. Dementia and schizophrenia. 7. Hyperlipidemia. 8. Rapid atrial fibrillation s/p arrest, anoxic encephalopathy no labs or meds comfort care only, morphine q1h prn prognosis terminal will sign off Subjective ROS Limited/Unobtainable: Yes Allergies: Coded Allergies: No Known Allergies (Unverified , 03/11/17) Objective Last 24 Hour Vital Signs Date Time Temp Pulse Resp B/P (MAP) Pulse Ox O2 Delivery O2 Flow Rate FiO2 04/10/17 12:00 98.0 105 12 150/91 98 Room Air 04/10/17 08:06 98.4 112 12 145/84 96 Room Air 04/10/17 04:23 96.9 111 18 117/73 96 Room Air 04/10/17 01:09 98.8 108 18 130/72 96 Room Air 04/09/17 22:00 105 15 114/56 98 Room Air 04/09/17 22:00 96.5 112 17 147/69 95 Room Air 04/09/17 21:00 105 15 112/59 98 Room Air 04/09/17 20:00 97.9 107 14 119/68 97 Room Air 04/09/17 20:00 107 04/09/17 19:00 97 17 124/54 97 Room Air 04/09/17 18:00 104 15 114/58 97 Room Air 04/09/17 17:00 115 14 115/47 96 Room Air 04/09/17 16:00 98.1 101 16 120/58 98 Room Air 04/09/17 16:00 99 04/09/17 15:00 94 20 119/57 98 Room Air Objective unresponsive, no seizures General Appearance: no acute distress Respiratory/Chest: rhonchi Current Medications Medications (Trade) Dose Ordered Sig/Carol Route PRN Reason Start Time Stop Time Status Last Admin Dose Admin Acetaminophen (Tylenol) 650 mg Q4H PRN NG Mild Pain/Temp > 100.5 04/10/17 00:00 04/30/17 19:59 Chlorhexidine Gluconate (Erin-Hex 2%) 1 applic DAILY TOPIC 04/10/17 21:00 05/10/17 20:59 Morphine Sulfate (Morphine Sulfate) 2 mg Q1H PRN IVP For Pain 04/09/17 22:15 04/16/17 13:14 ADWOA GARCIA Apr 10, 2017 14:04
[2017-04-10 15:50] VITALS: BP 129/88
--- NOTE | 2017-04-10 16:34 | General Progress Note ---
Assessment/Plan Problem List: (1) Hepatitis C ICD Codes: B19.20 - Unspecified viral hepatitis C without hepatic coma SNOMED: 84795271 (2) CHF (congestive heart failure), NYHA class II ICD Codes: I50.9 - Heart failure, unspecified SNOMED: 825531059, 580663672 (3) Atrial fibrillation with rapid ventricular response ICD Codes: I48.91 - Unspecified atrial fibrillation SNOMED: 063689279385539 (4) Healthcare-associated pneumonia ICD Codes: J18.9 - Pneumonia, unspecified organism SNOMED: 565607513 (5) Respiratory failure ICD Codes: J96.90 - Respiratory failure, unspecified, unspecified whether with hypoxia or hypercapnia SNOMED: 923086440 (6) Altered level of consciousness ICD Codes: R40.4 - Transient alteration of awareness SNOMED: 5717560 (7) MRSA (methicillin resistant staph aureus) culture positive ICD Codes: Z22.322 - Carrier or suspected carrier of Methicillin resistant Staphylococcus aureus SNOMED: 268685236 (8) Anoxic brain damage ICD Codes: G93.1 - Anoxic brain damage, not elsewhere classified SNOMED: 158088568 (9) Seizure disorder ICD Codes: G40.909 - Epilepsy, unspecified, not intractable, without status epilepticus SNOMED: 964459986 Assessment/Plan \ bioethics reevaluation reviewed, irreversible anoxic encephalopathy and coma. to dc futile care extubated late entry for 04/09 Subjective ROS Limited/Unobtainable: Yes Allergies: Coded Allergies: No Known Allergies (Unverified , 03/11/17) Subjective unresponsive post arrest, had seizures Objective Last 24 Hour Vital Signs Date Time Temp Pulse Resp B/P (MAP) Pulse Ox O2 Delivery O2 Flow Rate FiO2 04/10/17 15:50 98.4 105 12 129/88 97 Room Air 04/10/17 12:00 98.0 105 12 150/91 98 Room Air 04/10/17 08:06 98.4 112 12 145/84 96 Room Air 04/10/17 04:23 96.9 111 18 117/73 96 Room Air 04/10/17 01:09 98.8 108 18 130/72 96 Room Air 04/09/17 22:00 105 15 114/56 98 Room Air 04/09/17 22:00 96.5 112 17 147/69 95 Room Air 04/09/17 21:00 105 15 112/59 98 Room Air 04/09/17 20:00 97.9 107 14 119/68 97 Room Air 04/09/17 20:00 107 04/09/17 19:00 97 17 124/54 97 Room Air 04/09/17 18:00 104 15 114/58 97 Room Air 04/09/17 17:00 115 14 115/47 96 Room Air Height (Feet): 5 Height (Inches): 3.00 Weight (Pounds): 157 General Appearance: other - intubated coma Neck: normal alignment Cardiovascular: regularly irregular Respiratory/Chest: rhonchi - bilaterally Abdomen: non tender Edema: trace edema Neurologic: other - coma absent dolls eyes, corneals, no pain response DANNY MAYEN Apr 10, 2017 16:34
--- NOTE | 2017-04-10 16:35 | General Progress Note ---
Assessment/Plan Problem List: (1) Hepatitis C ICD Codes: B19.20 - Unspecified viral hepatitis C without hepatic coma SNOMED: 97186450 (2) CHF (congestive heart failure), NYHA class II ICD Codes: I50.9 - Heart failure, unspecified SNOMED: 309165469, 108045510 (3) Atrial fibrillation with rapid ventricular response ICD Codes: I48.91 - Unspecified atrial fibrillation SNOMED: 394588953917495 (4) Healthcare-associated pneumonia ICD Codes: J18.9 - Pneumonia, unspecified organism SNOMED: 341638311 (5) Respiratory failure ICD Codes: J96.90 - Respiratory failure, unspecified, unspecified whether with hypoxia or hypercapnia SNOMED: 180664550 (6) Altered level of consciousness ICD Codes: R40.4 - Transient alteration of awareness SNOMED: 4278218 (7) MRSA (methicillin resistant staph aureus) culture positive ICD Codes: Z22.322 - Carrier or suspected carrier of Methicillin resistant Staphylococcus aureus SNOMED: 531412843 (8) Anoxic brain damage ICD Codes: G93.1 - Anoxic brain damage, not elsewhere classified SNOMED: 296469153 (9) Seizure disorder ICD Codes: G40.909 - Epilepsy, unspecified, not intractable, without status epilepticus SNOMED: 607079345 Assessment/Plan \ bioethics reevaluation reviewed, irreversible anoxic encephalopathy and coma. to dc futile care extubated expected soon Subjective ROS Limited/Unobtainable: Yes Allergies: Coded Allergies: No Known Allergies (Unverified , 03/11/17) Subjective unresponsive post arrest, had seizures Objective Last 24 Hour Vital Signs Date Time Temp Pulse Resp B/P (MAP) Pulse Ox O2 Delivery O2 Flow Rate FiO2 04/10/17 15:50 98.4 105 12 129/88 97 Room Air 04/10/17 12:00 98.0 105 12 150/91 98 Room Air 04/10/17 08:06 98.4 112 12 145/84 96 Room Air 04/10/17 04:23 96.9 111 18 117/73 96 Room Air 04/10/17 01:09 98.8 108 18 130/72 96 Room Air 04/09/17 22:00 105 15 114/56 98 Room Air 04/09/17 22:00 96.5 112 17 147/69 95 Room Air 04/09/17 21:00 105 15 112/59 98 Room Air 04/09/17 20:00 97.9 107 14 119/68 97 Room Air 04/09/17 20:00 107 04/09/17 19:00 97 17 124/54 97 Room Air 04/09/17 18:00 104 15 114/58 97 Room Air 04/09/17 17:00 115 14 115/47 96 Room Air Height (Feet): 5 Height (Inches): 3.00 Weight (Pounds): 157 General Appearance: other - unresponsive EENT: other - dry mouth Neck: normal alignment Cardiovascular: regularly irregular Respiratory/Chest: decreased breath sounds Abdomen: non tender Edema: trace edema Neurologic: other - comatose DANNY MAYEN Apr 10, 2017 16:35
[2017-04-10 20:39] VITALS: BP 142/69
[2017-04-10] MEDS ORDERED: Dyna-Hex 2% Top Sol 8oz TOPIC SCH (21:00)
[2017-04-11] VITALS: BP 139/78
--- NOTE | 2017-04-11 01:30 | Discharge Summary ---
DATE OF ADMISSION: 03/17/2017 DATE OF DISCHARGE: 04/10/2017 PERTINENT HISTORY: The patient is a 76-year-old lady with a history of atrial fibrillation, diabetes, hepatitic C, and dementia. She developed fever and tachycardia and was brought to the emergency room and was found to be in respiratory distress and was intubated and had leukocytosis. On the day of admission, she was seen by Dr. Keen, who is covering for me. Please see his dictation for details. PERTINENT PHYSICAL FINDINGS: HEENT: Pupils are reactive to light. There is an endotracheal tube in place. NECK: Supple. HEART: Rhythm is atrial fibrillation. LUNGS: Few rhonchi. ABDOMEN: Soft. EXTREMITIES: There is 1+ edema. NEUROLOGIC: She moves all extremities. COURSE IN THE HOSPITAL: The patient was admitted with acute respiratory failure and pneumonia she had atrial fibrillation, diabetes, and rapid ventricular response with atrial fibrillation. She was given broad spectrum antibiotics and seen by Dr. Lott in pulmonary care. The patient had methicillin-resistant Staphylococcus aureus in the sputum and was given vancomycin. She was subsequently weaned from the respirator, but required very frequent suctioning, however, she was able to manage off the respirator. The patient became responsive, but was lethargic much of her hospital stay, but she was able to answer yes and no questions. She required nasogastric feeding as she had dysphagia. The patient's shocky situation improved, but she continued to have some rhonchi on frequent suctioning. The patient suffered a cardiopulmonary arrest and required re-intubation. After this second arrest, she was unresponsive and had progressive worsening coma. She was seen by Dr. Barragan in neurologic consultation and had severe anoxic brain injury, which never recovered. She did have an episode of seizure and was given Dilantin. Her condition remained gravely ill and she remained comatose with absent doll's eyes and absent corneal reflexes and no improvement of her neurologic function. She was seen by Bioethics and all physicians agreed that the care was futile and she had terminal extubation on 04/09/2017 and she . FINAL DIAGNOSES: 1. Acute respiratory failure due to pneumonia with Methicillin-resistant Staphylococcus aureus. 2. Sepsis on admission. 3. Atrial fibrillation with rapid ventricular response. 4. Adult onset diabetes. 5. Hepatitis C. 6. History of cognitive impairment. 7. Dysphagia. 8. Cardiopulmonary arrest x2. 9. Anoxic encephalopathy. 10. Terminal extubation for severe brain injury. DISPOSITION: The patient . Colten Fuentes M.D. DR: JAIDEN JOB#: [id number] CC: PAUL
[2017-04-11 03:56] VITALS: BP 123/89
== END 2017-04-11 05:00 | disposition expired | DRG 720 ==
LOC: EDBD 13:03 → EMR 13:23 → ICU 14:55 → EDBEDREQ 15:52 → 2W 03-25 06:35 → ICU 03-31 19:37 → 4E 04-09 21:59
DX: A41.9 Sepsis, unspecified organism (principal); J96.00 Acute respiratory failure, unspecified whether with hypoxia or hypercapnia; J69.0 Pneumonitis due to inhalation of food and vomit; G92 Toxic encephalopathy; J15.212 Pneumonia due to Methicillin resistant Staphylococcus aureus; G93.1 Anoxic brain damage, not elsewhere classified; R56.9 Unspecified convulsions; E87.2 Acidosis; R13.10 Dysphagia, unspecified; F03.90 Unspecified dementia, unspecified severity, without behavioral disturbance, psychotic disturbance, mood disturbance, and anxiety; E78.5 Hyperlipidemia, unspecified; B19.20 Unspecified viral hepatitis C without hepatic coma; I48.2 Chronic atrial fibrillation; Z79.01 Long term (current) use of anticoagulants; E11.9 Type 2 diabetes mellitus without complications; E78.00 Pure hypercholesterolemia, unspecified; F20.9 Schizophrenia, unspecified; Z66 Do not resuscitate; I11.0 Hypertensive heart disease with heart failure; I50.9 Heart failure, unspecified; K56.41 Fecal impaction; E87.6 Hypokalemia; Z51.5 Encounter for palliative care
CPT/HCPCS: 31500; 36415; 36569; 36600; 71010; 74000; 76937; 80048; 80053; 80185; 80202; 81001; 81003; 82140; 82550; 82553; 82803; 82962; 83036; 83605; 83735; 83880; 84100; 84443; 84484; 85007; 85025; 85610; 87040; 87070; 87081; 87086; 87181; 87205; 92950; 93005; 94002; 94003; 94640; 94664; 94760; 95819; J1165; J1815; J7620